=== PATIENT | female | born 1940 | race Caucasian/White ===

== ENCOUNTER → 2017-08-24 | Outpatient (CLI) | payer OTHER ==
[2013-10-20 09:42] VITALS: BP 148/75
--- NOTE | 2017-08-27 08:27 | MRI ---
MRI BRAIN WITHOUT CONTRAST CLINICAL HISTORY: 69-year-old female with headache and history of colon cancer. COMPARISON: None. TECHNIQUE: Multiplanar, multisequence MR images of the brain were obtained without contrast. FINDINGS: There is no evidence of diffusion restriction. The craniocervical junction is normal. Pitui tary and optic nerve complex are normal. Multifocal punctate T2 FLAIR signal hyperintensities are pre sent within the periventricular and supraventricular white matter that are nonspecific in appearance but most likely to represent microvascular white matter ischemic changes. Normal signal characteristi cs and morphology are demonstrated within the cerebral cortex, corpus callosum, deep blevins nuclei, bra instem and cerebellum. The major vascular flow voids, to include the dural venous sinuses, are intact . The ventricular system is normal in size and morphology. The basilar cisterns are normal. The orbits and globes are within normal limits. The paranasal sinuses, tympanic cavities and mastoids are clear. IMPRESSION: 1. No acute ischemic or hemorrhagic insult. 2. Mild, chronic microvascular white matter ischemic disease. 3. It should be noted that lack of intravenous contrast significantly limits the ability to detect ne oplastic process, primary or metastatic. Reported By:
--- NOTE | 2017-08-27 08:32 | MRI ---
MRI SPINE CERVICAL WITHOUT CONTRAST CLINICAL HISTORY: 77-year-old female with neck pain and headache with history of colon cancer. COMPARISON: None. Technique: Multiplanar, multisequence MRI images of the cervical spine were obtained without the adm inistration of intravenous contrast. FINDINGS: Straightening of the cervical lordosis as imaged. Subtle degenerative anterolisthesis C7 on T1. Moderate pannus at the atlantodental interval. Vertebral body and disc space height are maintain ed. Vertebral marrow and intervertebral disc space signal are normal. Cord signal is normal. The vi sualized posterior fossa structures are normal. C2-C3: No central canal or neural foraminal stenosis. C3-C4: Bilateral uncovertebral joint hypertrophy and facet hypertrophy combine to produce mild bilate ral neural foraminal stenosis. No central canal stenosis. C4-C5: Significant bilateral facet hypertrophy with mild uncovertebral joint hypertrophy produces mil d left neural foraminal stenosis. No central canal stenosis. C5-C6: Bilateral facet hypertrophy without significant foraminal stenosis. No central canal stenosis. C6-C7: Broad-based disc osteophyte complex with a central component that mildly effaces the subarachn oid spaces with subtle flattening of the ventral cord without cord signal change. Canal measures 12.5 mm. Uncovertebral and facet joint hypertrophy without neural foraminal stenosis. C7-T1: No central canal or neural foraminal stenosis. The common carotid and internal carotid arteries take a significant retropharyngeal course. Remaining paraspinous soft tissues are unremarkable. IMPRESSION: Mild multilevel disc degeneration and spondyloarthropathy described on a level by level basis above. Reported By:
== END | disposition home or self-care (01) | DRG 552 ==
LOC: RAD 13:46
PROVIDERS: ATTEND Internal Medicine
DX: M54.2 Cervicalgia (principal); C19 Malignant neoplasm of rectosigmoid junction; R51 Headache
CPT/HCPCS: 70551; 72141

== ENCOUNTER → 2018-03-20 | Outpatient (CLI) | payer OTHER, MEDICAID ==
[2013-10-20 09:42] VITALS: BP 148/75
--- NOTE | 2018-03-20 15:06 | CT ---
HISTORY: Right upper and right lower quadrant pain. Mid back pain. Study: Computed tomography of the abdomen pelvis: Multiple axial images were obtained throughout th e abdomen and pelvis. Intravascular contrast was not administered. Oral contrast was not administer ed. Radiation dose reduction techniques utilized. Comparison: 07/30/2015 Findings: Examination of the lung bases demonstrates no evidence of pleural effusions or pulmonary nodules. Th ere is what appears to be a small scar in the medial and in the lateral segment of the right middle l obe, not appearing to be appreciably changed. Minimal hypostatic changes present. The heart size is normal. A small nodule is present in the visualized left breast measuring approxim ately 11 mm in maximum dimension. I do not clearly see this on the prior examination, however, it ma y have been height of the field of view. Mammography is recommended. Ultrasound may be necessary as well. Coronary arterial calcification is present. The heart size is normal. No appreciable perica rdial effusion is present. The liver as visualized is normal. The patient is status post cholecystectomy. The common bile duct is dilated measuring up to 17 mm. It remains dilated down to the ampulla. The pancreas is mildly a trophic. The spleen is normal in its appearance. Cqrg-ea-ucsoejie atherosclerotic changes noted wit hin the aorta and its major branches. Mild is noted in the iliac arteries and their branches. Mild thickening of the left adrenal gland is noted, unchanged. There is suggestion of a nonobstructing ca lculus in the lower pole of the right kidney measuring approximately 1-2 mm in diameter. The left ki dney appears normal. No evidence of retroperitoneal lymph node enlargement or abdominal aortic aneur ysm is noted. The uterus is present and shows numerous calcified vessels. What are felt to be the o varies are normal. No evidence of ascites or free pelvic fluid is noted. The patient appears to be status post surgery with a midline incision. There is mild focal protrusion/herniation of fat and samantha wel over the anterior pelvic wall. There is diastasis recti present. The stomach is nondistended. The duodenum is nondistended. The small bowel is nondistended. No marco antonio dence of mesenteric adenopathy is identified. The patient appears to be status post right hemicolect maurice with and ileocolic anastomosis in the right upper abdominal quadrant. Stool and gas is noted wit hin the transverse colon and descending colon. There is moderate to moderately severe diverticulosis in the sigmoid colon. The sigmoid colon is moderately redundant. I see no evidence of diverticulit is. Examination of the bone windows reveals moderate lumbar spondylosis. Mild degenerative changes present within both hip joints. IMPRESSION: 1. Diverticulosis of a moderate to moderately severe degree in the sigmoid colon without evidence of diverticulitis. 2. Abdominal protrusion without a true hernia extending over the anterior pelvic wall. This has inc reased in size when compared to the prior examination. 3. Dilatation of the common bile duct, felt to be due to the patient being status post cholecystectom y and due to her age. 4. Possible nonobstructing calculus in the lower pole of the right kidney. 5. Small nodule in the left breast. Mammography and ultrasound may be of assistance. Reported By:
== END ==
LOC: RAD 14:19
PROVIDERS: ATTEND Internal Medicine
DX: M54.89 Other dorsalgia (principal); R10.31 Right lower quadrant pain; R10.11 Right upper quadrant pain; R10.84 Generalized abdominal pain; R19.00 Intra-abdominal and pelvic swelling, mass and lump, unspecified site; N20.0 Calculus of kidney; N63.20 Unspecified lump in the left breast, unspecified quadrant
CPT/HCPCS: 74176

== ENCOUNTER 2020-10-12 12:03 | Observation (INO) ==
[2020-10-12] MEDS: NS 1000 ML 1,000 ML IV SCH (14:35)
[2020-10-12] MEDS ORDERED: COLACE CAP 100 MG PO PRN (15:58)
--- NOTE | 2020-10-12 16:06 | MRI ---
HISTORYSevere HEADACHE for 4 days, WEAKNESS, SLURRED SPEECH, hypertensionSTUDYMRI brain without IV contrastCOMPARISONMRI 12/25/2019TECHNIQUEMultiplanar multi-sequence MRI of the brain was obtained without administration of IV contrast.FINDINGSThe cerebellar tonsils are normally positioned. Pituitary gland is normal in size. [Prominent diffuse volume loss is seen with compensatory enlargement of the ventricular system.]No areas of restricted diffusion. Mild chronic small vessel ischemic changes are seen in the periventricular white matter, very similar to prior study. [No evidence of intracranial hemorrhage.]Paranasal sinuses and mastoid air cells appear clear.IMPRESSIONMild chronic small vessel ischemic changes are similar to prior study. No acute abnormality is seen.Electronically signed by: German Bo (Oct 12, 2020 16:04:18)
[2020-10-12 16:11] VITALS: BMI 37.8
--- NOTE | 2020-10-12 16:11 | MRI ---
HISTORYHEADACHE for 4 days, WEAKNESS, SLURRED SPEECH, hypertensionSTUDYMRA HEAD without IV contrastCOMPARISONMRA 12/25/[id number] [id number] imaging of the intracranial circulation was performed with MIP reconstructions.IV contrast was not administered.FINDINGSDistal left vertebral artery is slightly dominant. Tiny posterior communicating arteries are suspected. Both P1 segments are present. Tiny anterior communicating artery is seen. No intracranial arterial stenosis or aneurysm is seen.IMPRESSIONUnremarkable MRA of the brain.Electronically signed by: German Bo (Oct 12, 2020 16:09:31)
[2020-10-12 16:12] LABS: BILIRUBIN,URINE NEGATIVE (NEGATIVE); BLOOD/HEMOGLOBIN,URINE NEGATIVE (NEGATIVE); GLUCOSE, URINE NEGATIVE (NEGATIVE); KETONES,URINE NEGATIVE (NEGATIVE); LEUKOCYTE ESTERASE ,URINE NEGATIVE (NEGATIVE); NITRITES,URINE NEGATIVE (NEGATIVE); PROTEIN,URINE NEGATIVE (NEGATIVE); UROBILINOGEN,URINE NORMAL (NORMAL)
[2020-10-12 16:13] LABS: APPEARANCE,URINE CLEAR (CLEAR); COLOR,URINE YELLOW (YELLOW)
[2020-10-12] MEDS ORDERED: ULTRAM PO PRN (17:11)
[2020-10-12] MEDS ORDERED: TYLENOL 325 MG TAB PO PRN (17:12)
[2020-10-12 18:02] LABS: BASOPHILS % (AUTO) 0.4 % (0.2-1.0); EOSINOPHILS # (AUTO) 0.1 x10^3/uL (0.0-0.2); EOSINOPHILS % (AUTO) 3.2 % (0.9-2.9); HEMATOCRIT 38.1 % (36.0-47.0); HEMOGLOBIN 12.5 g/dL (12.0-16.0); LYMPHOCYTES # (AUTO) 1.7 X10^3/uL (1.3-2.9); LYMPHOCYTES % (AUTO) 38.4 % (21.0-51.0); MEAN CORPUSCULAR HEMOGLOBIN 30.3 pg (27.0-34.0); MEAN CORPUSCULAR HGB CONC 32.8 g/dL (33.0-35.0); MEAN CORPUSCULAR VOLUME 92.5 fL (80.0-100.0); MEAN PLATELET VOLUME 9.5 fL (7.4-11.0); MONOCYTES # (AUTO) 0.4 x10^3/uL (0.3-0.8); MONOCYTES % (AUTO) 8.4 % (0.0-13.0); NEUTROPHILS # (AUTO) 2.2 x10^3/uL (2.2-4.8); NEUTROPHILS % (AUTO) 49.6 % (42.0-75.0); PLATELET COUNT 142 X10^3/uL (150.0-450.0); RED BLOOD COUNT 4.12 X10^6/uL (3.5-5.4); RED CELL DISTRIBUTION WIDTH 13.8 % (11.6-16.5); WHITE BLOOD COUNT 4.5 X10^3/uL (3.6-10.0)
[2020-10-12 18:48] LABS: ALANINE AMINOTRANSFERASE 24 Units/L (12-78); ALBUMIN 3.3 g/dL (3.4-5.0); ALKALINE PHOSPHATASE 50 Units/L (46-116); ASPARTATE AMINO TRANSFERASE 22 Units/L (15-37); BLOOD UREA NITROGEN 16 mg/dL (7-18); CALCIUM 9.1 mg/dL (8.5-10.1); CARBON DIOXIDE 29.8 mmol/L (21-32); CHLORIDE 108 mmol/L (98-107); CKMB % 2.6 % (<4); COR CA(FOR HYPOALB) 9.7 mg/dL (8.5-10.1); COR NA(FOR HYPERGLY) 145 mmol/L (136-145); CREATINE KINASE 38 Units/L (26-192); CREATINE KINASE MB < 1.0 ng/mL (0-4.0); CREATININE 0.82 mg/dL (0.55-1.02); SODIUM 145 mmol/L (136-145); TROPONIN I < 0.02 ng/mL (0-1.5); eGFR NON BLACK RACES > 60 (>60)
[2020-10-12] MEDS ORDERED: GLUCOPHAGE ONE (20:16)
[2020-10-12] MEDS ORDERED: TOPROL XL PO ONE (20:16)
[2020-10-12 21:00] LABS: CREATINE KINASE 50 Units/L (26-192); CREATINE KINASE MB < 1.0 ng/mL (0-4.0); TROPONIN I < 0.02 ng/mL (0-1.5)
[2020-10-12] MEDS ORDERED: TOPROL XL PO SCH (21:00)
[2020-10-12] MEDS ORDERED: ZOCOR TAB 20 MG PO SCH (21:00)
[2020-10-12] MEDS: GLUCOPHAGE PO SCH (21:37)
[2020-10-12] MEDS: CHECK PATCH XX SCH (21:38)
[2020-10-13 02:50] LABS: CKMB % 1.8 % (<4); CREATINE KINASE 57 Units/L (26-192); CREATINE KINASE MB < 1.0 ng/mL (0-4.0); TROPONIN I < 0.02 ng/mL (0-1.5)
[2020-10-13] MEDS: NS 1000 ML 1,000 ML IV SCH ×2 (05:37)
[2020-10-13 07:01] LABS: BASOPHILS % (AUTO) 0.4 % (0.2-1.0); EOSINOPHILS # (AUTO) 0.2 x10^3/uL (0.0-0.2); EOSINOPHILS % (AUTO) 3.6 % (0.9-2.9); HEMATOCRIT 36.8 % (36.0-47.0); HEMOGLOBIN 12.1 g/dL (12.0-16.0); LYMPHOCYTES # (AUTO) 1.5 X10^3/uL (1.3-2.9); LYMPHOCYTES % (AUTO) 33.6 % (21.0-51.0); MEAN CORPUSCULAR HEMOGLOBIN 30.5 pg (27.0-34.0); MEAN CORPUSCULAR HGB CONC 32.9 g/dL (33.0-35.0); MEAN CORPUSCULAR VOLUME 92.8 fL (80.0-100.0); MEAN PLATELET VOLUME 9.9 fL (7.4-11.0); MONOCYTES # (AUTO) 0.4 x10^3/uL (0.3-0.8); MONOCYTES % (AUTO) 8.1 % (0.0-13.0); NEUTROPHILS # (AUTO) 2.5 x10^3/uL (2.2-4.8); NEUTROPHILS % (AUTO) 54.3 % (42.0-75.0); PLATELET COUNT 130 X10^3/uL (150.0-450.0); RED BLOOD COUNT 3.96 X10^6/uL (3.5-5.4); RED CELL DISTRIBUTION WIDTH 13.7 % (11.6-16.5); WHITE BLOOD COUNT 4.6 X10^3/uL (3.6-10.0)
[2020-10-13 07:41] LABS: ALANINE AMINOTRANSFERASE 22 Units/L (12-78); ALBUMIN 3.1 g/dL (3.4-5.0); ALKALINE PHOSPHATASE 45 Units/L (46-116); ASPARTATE AMINO TRANSFERASE 25 Units/L (15-37); BLOOD UREA NITROGEN 15 mg/dL (7-18); CALCIUM 9.1 mg/dL (8.5-10.1); CHLORIDE 108 mmol/L (98-107); COR CA(FOR HYPOALB) 9.8 mg/dL (8.5-10.1); COR NA(FOR HYPERGLY) 145 mmol/L (136-145); CREATININE 0.67 mg/dL (0.55-1.02); SODIUM 144 mmol/L (136-145); TOTAL PROTEIN 5.7 g/dL (6.4-8.2); eGFR NON BLACK RACES > 60 (>60)
[2020-10-13] MEDS ORDERED: GLUCOPHAGE ONE (08:31)
[2020-10-13] MEDS: GLUCOPHAGE PO SCH (08:59)
[2020-10-13] MEDS ORDERED: K-DUR TAB 20 MEQ PO SCH (09:00)
[2020-10-13] MEDS ORDERED: REQUIP PO SCH (09:00)
[2020-10-13] MEDS ORDERED: DETROL LA 4 MG CAP EXT REL PO SCH (09:00)
[2020-10-13] MEDS ORDERED: NexIUM PO SCH (09:00)
[2020-10-13] MEDS ORDERED: COZAAR PO SCH (09:00)
[2020-10-13] MEDS: CHECK PATCH XX SCH (09:01)
[2020-10-13] MEDS ORDERED: APRESOLINE TAB 25 MG PO SCH (09:16)
[2020-10-13 11:39] VITALS: BP 119/67
[2020-10-16] MEDS ORDERED: CATAPRES-TTS-3 TD SCH (09:00)
--- NOTE | 2020-11-05 14:18 | DR.CARTERS ---
Short Stay Summary - Short Stay Summary for: Short Stay Summary for Date of:: 10/12/20 - Admission Date Date of Admission: 10/12/20 - Discharge Date Discharge Date: 10/13/20 - Admission Diagnoses (1) Hypertension Status: Chronic (2) Slurred speech Status: Acute (3) Dizziness Status: Acute (4) Headache Status: Acute - Hospital Course Hospital Course: IS A 80 YEAR OLD PATIENT OF OURS WHO PRESENTED TO THE OFFICE WITH COMPLAINTS OF SEVERE HEADACHE, WEAKNESS, DIZZINESS, SLURRED SPEECH, AND INCREASED BLOOD PRESSURE. SHE WAS DIRECT ADMITTED TO THE HOSPTIAL FOR FURTHER EVALUATION AND TREATMENT TO RULE OUT ACUTE CVA. ON ARRIVAL TO THE HOSPITAL, VITALS WERE 98.0-71-20-94%RA-178/72. LABS WERE OBTAINED. ABNORMAL LAB VALUES INCLUDED THE FOLLOWING: PLT COUNT 142, CHLORIDE 108, GLUCOSE 113, TOTAL PROTEIN 6.0, ALBUMIN 3.3. CARDIAC ENZYMES WERE WITHIN NORMAL LIMITS. URINALYSIS WAS UNREMARKABLE. COVID-19 NEGATIVE. BLOOD AND URINE CULTURES WERE SET UP. A BRAIN MRI WAS OBTAINED AND REVEALED: Mild chronic small vessel ischemic changes are similar to prior study. No acute abnormality is seen. BRAIN MRA OBTAINED AND REVEALED: Distal left vertebral artery is slightly dominant. Tiny posterior communicating arteries are suspected. Both P1 segments are present. Tiny anterior communicating artery is seen. No intracranial arterial stenosis or aneurysm is seen. EKG REVEALED: SINUS RHYTHM WITH HR 70. SHE WAS STARTED ON NORMAL SALINE AT 80 ML/HR, CLONIDINE 0.3MG PATCH, COLACE 100MG PO BID PRN, NEXIUM 40MG PO DAILY, LOSARTAN 100MG PO DAILY, METFORMIN 500MG PO BID, METOPROLOL 50MG PO HS, POTASSIUM CHLORIDE 20MEQ PO DAILY, ROPINIROLE 0.5MG PO DAILY, SIMVASTATIN 20MG PO HS, TOLTERODINE TARTRATE 4MG PO DAILY, TRAMADOL 75MG PO BID PRN, TYLENOL 650MG PO BID PRN, AND HYDRALAZINE 25MG PO BID. WE PLANNED TO OBTAIN SERIAL CARDIAC ENZYMES AND EKGS. OTHERWISE, WE PLANNED TO FOLLOW UP WITH AM LABS AND CONTINUE TO MONITOR. ON MORNING ROUNDS, PATIENT IS ALERT, ORIENTED, AND LYING IN BED ON MORNING ROUNDS. SHE DENIES HEADACHE OR DIZZINESS. SPEECH IS NO LONGER SLURRED AT THIS TIME. PATIENT REPORTS IMPROVEMENT IN SYMPTOMS TODAY. ON EXAMINATION, HEART IS REGULAR IN RATE AND RHYTHM. BILATERAL LUNGS ARE NOTED WITH DIMINISHED LUNG SOUNDS THROUGHOUT. ABDOMEN IS ROUND, SOFT, AND NON-TENDER WITH NORMAL BOWEL SOUNDS NOTED IN ALL QUADRANTS. HER VITALS THIS MORNING ARE: 98.4-67-18-96%-119/67. LABS WERE OBTAINED. ABNORMAL LAB VALUES INCLUDE THE FOLLOWING: PLT COUNT 130, CHLORIDE 108, GLUCOSE 127, ALK PHOS 45, TOTAL PROTEIN 5.7, ALBUMIN 3.1. CARDIAC ENZYMES HAVE BEEN WITHIN NORMAL LIMITS. NO CHANGES NOTED TO EKGS. WE PLANNED FOR DISCHARGE. INSTRUCTIONS FOR MEDICATIONS AND FOLLOW UP WERE DISCUSSED WITH PATIENT. SHE VERBALIZED UNDERSTANDING OF ALL ORDERS. SHE WAS GIVEN A PRESCRIPTION FOR HYDRALAZINE 25MG PO BID AND INSTRUCTED TO FOLLOW UP IN THE OFFICE WITHIN ONE WEEK. PATIENT WAS DISCHARGED HOME WITH FAMILY IN STABLE CONDITION. TIME SPENT ON CLINICAL ASSESSMENT, REVIEWING LABS AND IMAGING, DECSION MAKING, AND DOCUMENTATION GREATER THAN 75 MINUTES. - Discharge Medications Discharge Medications: Home Medication List clonidine 1 patch TOPICAL WEEKLY 10/12/20 [History] docusate sodium 100 mg PO BID PRN 10/12/20 [History] esomeprazole magnesium [Nexium] 40 mg PO DAILY 10/12/20 [History] losartan 100 mg PO DAILY 10/12/20 [History] metformin 500 mg PO BID 10/12/20 [History] metoprolol succinate 50 mg PO HS 10/12/20 [History] potassium chloride 20 meq PO DAILY 10/12/20 [History] ropinirole 0.5 mg PO DAILY 10/12/20 [History] simvastatin 20 mg PO HS 10/12/20 [History] tolterodine 4 mg PO DAILY 10/12/20 [History] tramadol-acetaminophen 2 tab PO BID PRN 10/12/20 [History] hydralazine 25 mg PO BID #60 tab 10/13/20 [Rx] Prescriptions: hydralazine Fernie Green - Discharge Plan Disposition: HOME HEALTH SERVICE Condition: Stable Prescriptions: hydralazine 25 mg PO BID #60 tab - Follow up/Referrals Follow up/Referrals: Fernie Green [Primary Care Provider] - 10/20/20 3:15 pm (tele-med telephone visit ) - Instructions Instructions: Fall Prevention in the Home, Adult, Bnqq-[id number], Transient Ischemic Attack, Vyac-xz-Sukz, Arthritis, Sljj-vf-Lzne, Hypertension, Zoho-yn-Jgqg, Form - Blood Pressure Record Sheet, Gastroesophageal Reflux Disease, Adult, Gosv-hd-Jmof Additional Instructions: DIET TOLERATED. ACTIVITY TOLERATED. Forms: Excuse From Work or School, Precautions for COVID19, Patient Portal, Social Distancing
== END 2020-10-13 13:45 | disposition home health service (06) ==
LOC: OBS → MED/SURG 13:41
PROVIDERS: ADMIT Internal Medicine; ATTEND Internal Medicine

== ENCOUNTER 2021-01-01 18:29 | Inpatient (IN) ==
[2021-01-01] MEDS ORDERED: NS 1000 ML 1,000 ML IV ONE (19:01)
[2021-01-01] MEDS ORDERED: NS 1000 ML 1,000 ML ONE (19:13)
[2021-01-01 19:15] LABS: EOSINOPHILS # (AUTO) 0.1 x10^3/uL (0.0-0.2); HEMOGLOBIN 12.4 g/dL (12.0-16.0)
[2021-01-01 19:36] LABS: BASOPHILS % (AUTO) 0.5 % (0.2-1.0); EOSINOPHILS % (AUTO) 0.8 % (0.9-2.9); HEMATOCRIT 37.9 % (36.0-47.0); LYMPHOCYTES # (AUTO) 0.6 X10^3/uL (1.3-2.9); LYMPHOCYTES % (AUTO) 8.9 % (21.0-51.0); MEAN CORPUSCULAR HEMOGLOBIN 30.2 pg (27.0-34.0); MEAN CORPUSCULAR HGB CONC 32.6 g/dL (33.0-35.0); MEAN CORPUSCULAR VOLUME 92.4 fL (80.0-100.0); MEAN PLATELET VOLUME 9.2 fL (7.4-11.0); MONOCYTES # (AUTO) 0.4 x10^3/uL (0.3-0.8); MONOCYTES % (AUTO) 5.6 % (0.0-13.0); NEUTROPHILS # (AUTO) 6.1 x10^3/uL (2.2-4.8); NEUTROPHILS % (AUTO) 84.2 % (42.0-75.0); PLATELET COUNT 189 X10^3/uL (150.0-450.0); WHITE BLOOD COUNT 7.2 X10^3/uL (3.6-10.0)
[2021-01-01 19:46] LABS: ALANINE AMINOTRANSFERASE 193 Units/L (12-78); ALKALINE PHOSPHATASE 449 Units/L (46-116); ASPARTATE AMINO TRANSFERASE 158 Units/L (15-37); BLOOD UREA NITROGEN 25 mg/dL (7-18); CALCIUM 9.3 mg/dL (8.5-10.1); CARBON DIOXIDE 26.5 mmol/L (21-32); CHLORIDE 100 mmol/L (98-107); COR CA(FOR HYPOALB) 10.1 mg/dL (8.5-10.1); COR NA(FOR HYPERGLY) 138 mmol/L (136-145); CREATININE 0.93 mg/dL (0.55-1.02); LIPASE 120 Units/L (73-393); SODIUM 137 mmol/L (136-145); TOTAL PROTEIN 6.6 g/dL (6.4-8.2); eGFR NON BLACK RACES > 60 (>60)
[2021-01-01] MEDS ORDERED: ZOFRAN INJ 4 MG VIAL IVP ONE (20:29)
[2021-01-01] MEDS ORDERED: MORPHINE SULFATE INJ 4 MG IVP ONE ×2 (20:29→21:29)
[2021-01-01] MEDS ORDERED: ZOFRAN INJ 4 MG VIAL ONE (20:30)
[2021-01-01] MEDS ORDERED: MORPHINE SULFATE INJ 4 MG ONE ×2 (20:30→21:30)
--- NOTE | 2021-01-01 21:19 | DR.NAUSEAF ---
HPI Time Seen Time Seen by Provider: 01/01/21 18:50 Primary Care Physician Primary Care Physician: TIARRA MATTHEWS HPI Comment HPI Comment: returned to pursue admission here. worsening n/v. seen yeseterday for same- jaundiced. elev lfts. hep panel pending. Complaints Chief Complaint Doctors Comments: as above Chief Complaint:: PT STATES " I WAS TOLD TO COME BACK TO ER IF I GET WORSE AND I HAVE BEEN HURTING IN STOMACH AND IT GOES TO MY BACK AND IT'S WORSE THAN HAVING A CHILD ( PT UNABLE TO ELABORATE) PT IS JAUNDICE AND HER SCLERA IS YELLOW , PT C/O NAUSEA NO VOMITTING,,BR COVID-19 Coronavirus risk:travel/contact w/high risk person: No Has patient experienced Coronavirus symptoms: No Reviewed Nurses Notes Reviewed: Yes Source History Provided: Patient Mode of Arrival Mode of Arrival: Wheelchair Timing Onset of Chief Complaint: 12/31/20 PMH PMH Past Medical History: Yes Past Medical History: Arthritis, Asthma, Diabetes, Dyslipidemia, GERD and Hypertension Past Surgical History: Yes Surgical History: Bowel Resection, Cholecystectomy, Joint Replacement and Other Family History History of Family Medical Conditions: No Family Medical History: Diabetes Mellitus, Cancer and Hypertension Social History Does patient currently use any type of tobacco product: No Have you used tobacco products in the last 12 months: No Type of Tobacco Use: None Does any household member use tobacco: No Alcohol Use: None Do you use any recreational Drugs:: No Lives With: Family Lives Where: Home Travel Risk Coronavirus risk:travel/contact w/high risk person: No Has patient experienced Coronavirus symptoms: No Infectious screening In the last 2 months have you had wt loss of >10#?: NO Have you had fever, night sweats or hemotysis?: No Have you traveled outside the country in the last 6 months?: No Isolation: Standard ROS Review of Systems Constitutional: See HPI, Malaise and Loss of Appetite Eyes: No Symptoms Reported ENTM: No Symptoms Reported Respiratoy: No Symptoms Reported Cardiovascular: No Symptoms Reported Gastrointestinal/Abdominal: See HPI, Abdominal Pain, Nausea and Vomiting Genitourinary: No Symptoms Reported Neurological: No Symptoms Reported Musculoskeletal: No Symptoms Reported Integumentary: No Symptoms Reported Hematologic/Lymphatic: No Symptoms Reported All Other Systems: Reviewed and Negative PE Vital Signs Vitals: Temperature 97.6 F Pulse Rate 113 Respiratory Rate 18 Blood Pressure [Right Arm] 119/67 Blood Pressure [Left Arm] 196/86 Blood Pressure 198/92 O2 Sat by Pulse Oximetry 97 General Limitations: No Limitations General Appearance: Anxious and In Distress Head Head Exam: Normal Inspection Eyes Eye exam: Scleral Icterus ENT ENT Exam: Mucous Membranes Dry Neck Neck Exam: Normal Inspection and Full ROM Chest Chest Inspection: Normal Inspection Respiratory Respiratory Exam: Normal Lung Sounds Bilat; negative Accessory Muscle Use Cardiovascular Cardiovascular Exam: Regular Rate and Normal Rhythm; negative Tachycardia Abdominal Exam Abdominal Exam: Normal Inspection, Normal Bowel Sounds, Soft and Tenderness; negative Guarding and Rebound Abdominal Tenderness: RUQ Extremities Extremities Exam: Normal Inspection Back Back Exam: Normal Inspection Neurologic Neurological Exam: Alert, Oriented X3 and CN II-XII Intact Psychiatric Psychiatric Exam: Normal Affect and Normal Mood Skin Skin Exam: Warm, Dry and Intact MDM Differential Diagnosis Differential Diagnosis: Considerations may Include:: Hepatitis and Other (nausea w vomiting) ROR Labs Reviewed Laboratory Results Reviewed?: Yes Result Diagrams: 01/01/21 19:25 01/01/21 19:25 Laboratory: WBC 7.2 X10^3/uL (3.6-10.0) 01/01/21 19:25 RBC 4.10 X10^6/uL (3.5-5.4) 01/01/21 19:25 Hgb 12.4 g/dL (12.0-16.0) 01/01/21 19:25 Hct 37.9 % (36.0-47.0) 01/01/21 19:25 MCV 92.4 fL (80.0-100.0) 01/01/21 19:25 MCH 30.2 pg (27.0-34.0) 01/01/21 19:25 MCHC 32.6 g/dL (33.0-35.0) L 01/01/21 19:25 RDW 15.0 % (11.6-16.5) 01/01/21 19:25 Plt Count 189 X10^3/uL (150.0-450.0) 01/01/21 19:25 MPV 9.2 fL (7.4-11.0) 01/01/21 19:25 Neut % (Auto) 84.2 % (42.0-75.0) H 01/01/21 19:25 Lymph % (Auto) 8.9 % (21.0-51.0) L 01/01/21 19:25 [place] % (Auto) 5.6 % (0.0-13.0) 01/01/21 19:25 Eos % (Auto) 0.8 % (0.9-2.9) L 01/01/21 19:25 Baso % (Auto) 0.5 % (0.2-1.0) 01/01/21 19:25 Neut # (Auto) 6.1 x10^3/uL (2.2-4.8) H 01/01/21 19:25 Lymph # (Auto) 0.6 X10^3/uL (1.3-2.9) L 01/01/21 19:25 [place] # (Auto) 0.4 x10^3/uL (0.3-0.8) 01/01/21 19:25 Eos # (Auto) 0.1 x10^3/uL (0.0-0.2) 01/01/21 19:25 Baso # (Auto) 0.0 X10^3/uL (0.0-0.1) 01/01/21 19:25 Absolute Nucleated RBC 0.0 /100WBC 01/01/21 19:25 Sodium 137 mmol/L (136-145) 01/01/21 19:25 Corrected Sodium 138 mmol/L (136-145) 01/01/21 19:25 Potassium 3.8 mmol/L (3.5-5.1) 01/01/21 19:25 Chloride 100 mmol/L (98-107) 01/01/21 19:25 Carbon Dioxide 26.5 mmol/L (21-32) 01/01/21 19:25 BUN 25 mg/dL (7-18) H 01/01/21 19:25 Creatinine 0.93 mg/dL (0.55-1.02) 01/01/21 19:25 Est GFR (MDRD) Af Amer > 60 (>60) 01/01/21 19:25 Est GFR (MDRD) Non-Af > 60 (>60) 01/01/21 19:25 Glucose 127 mg/dL (65-99) H 01/01/21 19:25 Calcium 9.3 mg/dL (8.5-10.1) 01/01/21 19:25 Corrected Calcium 10.1 mg/dL (8.5-10.1) 01/01/21 19:25 Total Bilirubin 4.70 mg/dL (0.2-1.0) H 01/01/21 19:25 AST 158 Units/L (15-37) H 01/01/21 19:25 ALT 193 Units/L (12-78) H 01/01/21 19:25 Alkaline Phosphatase 449 Units/L (46-116) H 01/01/21 19:25 Total Protein 6.6 g/dL (6.4-8.2) 01/01/21 19:25 Albumin 3.0 g/dL (3.4-5.0) L 01/01/21 19:25 Globulin 3.6 g/dL (2.5-4.5) 01/01/21 19:25 Albumin/Globulin Ratio 0.8 Ratio (1.1-2.1) L 01/01/21 19:25 Lipase 120 Units/L (73-393) 01/01/21 19:25 Opioid Opioid Risk Tool Age (Sean box if 16-45): No History of Preadolescent Sexual Abuse: No Total: 0 Total Score Risk Category: Low Risk Copyright: Phi LÓPEZ predicting aberrant behaviors Diagnosis Discharge Problem: Hepatitis, Nausea & vomiting Narrative Support Text: admitted to dr paris. pcp dr seay
[2021-01-01] MEDS ORDERED: ZOFRAN INJ 4 MG VIAL IVP PRN (21:39)
[2021-01-01] MEDS ORDERED: PHARMACY CONSULT - IVERMECTIN XX SCH (22:00)
[2021-01-01] MEDS: NS 1000 ML 1,000 ML IV SCH (22:39)
[2021-01-01] MEDS ORDERED: REMDESIVIR 200 MG in NS 250 ML IV 250 ML IV ONE (23:02)
[2021-01-01] MEDS: DILAUDID INJ IVP PRN (23:08)
[2021-01-01] MEDS: BROVANA IN SCH (23:30)
[2021-01-01] MEDS: PULMICORT NEB TX 0.5 MG NEB SCH (23:30)
[2021-01-02] MEDS: ASCORBIC ACID INJ MULTI-DOSE VIAL 1,500 MG in NS 100 ML IV 100 ML IV SCH ×4 (02:38→20:16)
[2021-01-02] MEDS: DILAUDID INJ IVP PRN ×3 (03:10→11:21)
[2021-01-02 05:08] LABS: BASOPHILS # (AUTO) 0.1 X10^3/uL (0.0-0.1); BASOPHILS % (AUTO) 0.6 % (0.2-1.0); HEMOGLOBIN 12.5 g/dL (12.0-16.0); LYMPHOCYTES # (AUTO) 0.5 X10^3/uL (1.3-2.9); MEAN CORPUSCULAR HEMOGLOBIN 29.8 pg (27.0-34.0); MEAN CORPUSCULAR HGB CONC 32.1 g/dL (33.0-35.0); MEAN CORPUSCULAR VOLUME 92.9 fL (80.0-100.0); MEAN PLATELET VOLUME 9.8 fL (7.4-11.0); MONOCYTES # (AUTO) 0.7 x10^3/uL (0.3-0.8); MONOCYTES % (AUTO) 4.5 % (0.0-13.0); NEUTROPHILS # (AUTO) 13.9 x10^3/uL (2.2-4.8); NEUTROPHILS % (AUTO) 91.9 % (42.0-75.0); PLATELET COUNT 192 X10^3/uL (150.0-450.0); WHITE BLOOD COUNT 15.1 X10^3/uL (3.6-10.0)
[2021-01-02 05:14] LABS: ALANINE AMINOTRANSFERASE 179 Units/L (12-78); ALBUMIN 2.8 g/dL (3.4-5.0); ALKALINE PHOSPHATASE 426 Units/L (46-116); ASPARTATE AMINO TRANSFERASE 161 Units/L (15-37); BLOOD UREA NITROGEN 19 mg/dL (7-18); CALCIUM 9.2 mg/dL (8.5-10.1); CARBON DIOXIDE 27.6 mmol/L (21-32); CHLORIDE 101 mmol/L (98-107); COR CA(FOR HYPOALB) 10.2 mg/dL (8.5-10.1); COR NA(FOR HYPERGLY) 140 mmol/L (136-145); CREATININE 0.69 mg/dL (0.55-1.02); SODIUM 137 mmol/L (136-145); TOTAL PROTEIN 6.2 g/dL (6.4-8.2); eGFR NON BLACK RACES > 60 (>60)
[2021-01-02] MEDS ORDERED: APRESOLINE INJ 20 MG VIAL IVP ONE (05:26)
[2021-01-02 05:32] LABS: PLATELET MORPHOLOGY COMMENT NORMAL (NORMAL)
[2021-01-02] MEDS: HumuLIN R SUBCUT PRN ×4 (05:52→20:18)
--- NOTE | 2021-01-02 06:01 | RAD ---
HISTORYcovidSTUDYPortable AP lijaiHETHDNOLOF63/05/2021FINDINGSContinued upper-normal heart size with dilated thoracic aorta. The u pper lobes are clear. There is suggestion of minimal developing atelectasis or infiltrate at the righ t medial base. There is no evidence for vascular congestion, pneumothorax or pleural fluid.IMPRESSION Interval appearance of small focal infiltrate or atelectasis at the right lung base. No change otherw ise since 1 day prior.Electronically signed by: TANA SWAIN (Jan 02, 2021 05:59:34)
[2021-01-02] MEDS ORDERED: POTASSIUM CHLORIDE LIQ 20 MEQ UDC PO PRN (06:56)
[2021-01-02] MEDS ORDERED: POTASSIUM CHL 40 MEQ/NS 0.45% 500 ML IV PRN (06:56)
[2021-01-02] MEDS ORDERED: K-RIDER 10 MEQ/NS 100 ML 10 MEQ/100 ML BAG IV PRN (06:56)
[2021-01-02] MEDS ORDERED: KLOR-CON PO PRN (06:56)
[2021-01-02] MEDS ORDERED: POTASSIUM CHL 60 MEQ/NS 0.45% 500 ML IV PRN (06:56)
[2021-01-02] MEDS ORDERED: MICRO K EXTEN CAP 10 MEQ PO PRN (06:56)
[2021-01-02] MEDS: ZINC SULFATE PO SCH ×2 (08:30→20:17)
[2021-01-02] MEDS: LOVENOX INJ 30 MG SYR SC SCH ×2 (08:30→20:16)
[2021-01-02 08:59] LABS: BILIRUBIN,URINE 1+ (NEGATIVE); BLOOD/HEMOGLOBIN,URINE NEGATIVE (NEGATIVE); GLUCOSE, URINE 2+ (NEGATIVE); KETONES,URINE 2+ (NEGATIVE); LEUKOCYTE ESTERASE ,URINE NEGATIVE (NEGATIVE); NITRITES,URINE NEGATIVE (NEGATIVE); PROTEIN,URINE 1+ (NEGATIVE); UROBILINOGEN,URINE 2+ (NORMAL)
[2021-01-02 09:00] LABS: APPEARANCE,URINE CLEAR (CLEAR); COLOR,URINE DARK YELLOW (YELLOW)
[2021-01-02] MEDS ORDERED: THIAMINE HCL INJ IVP SCH (09:00)
[2021-01-02] MEDS ORDERED: VITAMIN A PO SCH (09:00)
[2021-01-02] MEDS ORDERED: VITAMIN D (1.25MG) PO SCH (09:00)
[2021-01-02] MEDS: BROVANA IN SCH (09:08)
[2021-01-02 09:12] LABS: AMORPHOUS SEDIMENT,UR TRACE /HPF (NEGATIVE); BACTERIA,URINE 2+ /HPF (NEGATIVE); RBC,URINE NONE SEEN /HPF (0-3); SQUAMOUS EPITHELIAL CELL,UR RARE /HPF (NEGATIVE)
[2021-01-02 09:13] LABS: HYALINE CASTS, URINE RARE /LPF (NEGATIVE); YEAST,URINE RARE /HPF (NEGATIVE)
[2021-01-02] MEDS: PULMICORT NEB TX 0.5 MG NEB SCH ×2 (09:14→21:28)
[2021-01-02] MEDS ORDERED: DUONEB 0.5 MG/3 MG (3 mL) NEB ONE (09:40)
[2021-01-02] MEDS: DUONEB 0.5 MG/3 MG (3 mL) NEB SCH ×3 (09:41→21:28)
[2021-01-02] MEDS: MAGNESIUM SULFATE 1 GRAM/100 mL PREMIX 1 GM/100 ML BAG IV PRN ×3 (09:44→22:45)
[2021-01-02] MEDS ORDERED: CATAPRES-TTS-3 TD SCH (10:00)
[2021-01-02] MEDS: K-DUR TAB 20 MEQ PO PRN (11:24)
[2021-01-02] MEDS: DETROL LA 4 MG CAP EXT REL PO SCH (11:24)
[2021-01-02] MEDS: DECADRON TAB PO SCH (11:24)
[2021-01-02] MEDS: APRESOLINE TAB 25 MG PO SCH ×2 (11:24→20:17)
[2021-01-02] MEDS: ASPIRIN PO SCH (11:24)
[2021-01-02] MEDS: BENTYL CAP 10 MG PO PRN (11:24)
[2021-01-02] MEDS: COZAAR PO SCH (11:24)
[2021-01-02] MEDS: REMDESIVIR 100 MG in NS 250 ML IV 250 ML IV SCH (11:25)
--- NOTE | 2021-01-02 11:42 | DR.H&P ---
H&P History & Physical for Day of: H&P Date: 01/02/21 Chief Complaint Chief Complaint: worsening abdominal pain, nausea and vomiting Allergies Allergies Allergy/AdvReac Type Severity Reaction Status Date / Time No Known Drug Allergies Allergy Verified 01/01/21 18:38 History of Present Illness History of Present Illness: Ms. Escalera is a 80y/o female with a PMH of HTN, arthritis, GERD, hiatal hernia, diverticulosis and Type 2 DM presented with worsening abdominal pain associated with nausea and vomiting. Patient states it has been going on for 2 weeks. She came to the ER on Sunday due to having jaundice and was advised to be admitted but she left. Liver U/S then showed hepatic steatosis. She came back last night due to increased abdominal pain. She denies fever or chills. Denies cough. She states pain is in the epigastric area and radiates to the back. She ate a few bits this morning. D enies sick contact at home or any exposure. She is currently on 2L nasal cannula and does not use oxygen at home. ER work-up WBC 15.1 Hgb 12.5 K: 3.5 Mg 1.2 BUN/Cr: 19/0.69 Total emanuel 5.90 AST: 161 ALT 179 Alk phos 426 Liver U?S: hepatic steatosis CXR: right lung base small infiltrate UA: suggestive of infection COVID-19 positive Hep panel pending She was started on Remdesivir, Ivermectin and bronchodialtors. Plan: will add zosyn, continue Remdesivir/Ivermectin. Add decadron. Will do CTAP to evaluate further. Continue pain control and anti-emetics. Continue gentle hydration. Continue SSI. Resume home medications. Monitor LFTs. Add duonebs and IS. Follow cultures. Monitor AM labs and imaging. Wean O2 as tolerated. Continue vitamin support. Follow up hepatitis panel. Time spent for clinical assessment, reviewing labs/imaging, physical exam, decision making and documentation greater than 75 mins. Past Medical History Past Medical History: Arthritis, Asthma, Diabetes, Dyslipidemia, GERD and Hypertension Additional Medical History: CATARACTS, HIATAL HERNIA, DIVERTICULOSIS, COLON CANCER Past Surgical History Surgical History: Bowel Resection, Cholecystectomy, Joint Replacement and Ortho Surgery Additional Surgical History: COLON RESECTION, CATARACT REMOVAL Family History Family Medical History: Diabetes Mellitus, Cancer and Hypertension Social History Does patient currently use any type of tobacco product: No Have you used tobacco products in the last 12 months: No Type of Tobacco Use: None Does any household member use tobacco: No Alcohol Use: None Drug Use: None Prescription drug monitoring program results: PDMP reviewed and no concerns identified Medications Home Medications: No Known Drug Allergies Allergy (Verified 01/01/21 18:38) CONTINUE taking the following medications tramadol-acetaminophen 2 tab PO BID PRN 01/01/21 [History] Labs Result Diagrams: 01/02/21 04:10 01/02/21 04:10 Labs: Laboratory WBC 15.1 X10^3/uL (3.6-10.0) H 01/02/21 04:10 RBC 4.20 X10^6/uL (3.5-5.4) 01/02/21 04:10 Hgb 12.5 g/dL (12.0-16.0) 01/02/21 04:10 Hct 39.0 % (36.0-47.0) 01/02/21 04:10 MCV 92.9 fL (80.0-100.0) 01/02/21 04:10 MCH 29.8 pg (27.0-34.0) 01/02/21 04:10 MCHC 32.1 g/dL (33.0-35.0) L 01/02/21 04:10 RDW 15.0 % (11.6-16.5) 01/02/21 04:10 Plt Count 192 X10^3/uL (150.0-450.0) 01/02/21 04:10 Plt Count Comment Adequate (ADEQUATE) 01/02/21 04:10 MPV 9.8 fL (7.4-11.0) 01/02/21 04:10 Neut % (Auto) 91.9 % (42.0-75.0) H 01/02/21 04:10 Lymph % (Auto) 3.0 % (21.0-51.0) L 01/02/21 04:10 [place] % (Auto) 4.5 % (0.0-13.0) 01/02/21 04:10 Eos % (Auto) 0.0 % (0.9-2.9) L 01/02/21 04:10 Baso % (Auto) 0.6 % (0.2-1.0) 01/02/21 04:10 Neut # (Auto) 13.9 x10^3/uL (2.2-4.8) H 01/02/21 04:10 Lymph # (Auto) 0.5 X10^3/uL (1.3-2.9) L 01/02/21 04:10 [place] # (Auto) 0.7 x10^3/uL (0.3-0.8) 01/02/21 04:10 Eos # (Auto) 0.0 x10^3/uL (0.0-0.2) 01/02/21 04:10 Baso # (Auto) 0.1 X10^3/uL (0.0-0.1) 01/02/21 04:10 Absolute Nucleated RBC 0.0 /100WBC 01/02/21 04:10 Total Counted 100 01/02/21 04:10 Neutrophils % (Manual) 92 % (39-76) H 01/02/21 04:10 Lymphocytes % (Manual) 5 % (13-43) L 01/02/21 04:10 Monocytes % (Manual) 3 % (4-9) L 01/02/21 04:10 Plt Morphology Comment Normal (NORMAL) 01/02/21 04:10 RBC Morphology Normal (NORMAL) 01/02/21 04:10 Sodium 137 mmol/L (136-145) 01/02/21 04:10 Corrected Sodium 140 mmol/L (136-145) 01/02/21 04:10 Potassium 3.5 mmol/L (3.5-5.1) 01/02/21 04:10 Chloride 101 mmol/L (98-107) 01/02/21 04:10 Carbon Dioxide 27.6 mmol/L (21-32) 01/02/21 04:10 BUN 19 mg/dL (7-18) H 01/02/21 04:10 Creatinine 0.69 mg/dL (0.55-1.02) 01/02/21 04:10 Est GFR (MDRD) Af Amer > 60 (>60) 01/02/21 04:10 Est GFR (MDRD) Non-Af > 60 (>60) 01/02/21 04:10 Glucose 222 mg/dL (65-99) H 01/02/21 04:10 POC Glucose (mg/dL) 235 mg/dL (65-99) H 01/02/21 11:31 Calcium 9.2 mg/dL (8.5-10.1) 01/02/21 04:10 Corrected Calcium 10.2 mg/dL (8.5-10.1) H 01/02/21 04:10 Magnesium 1.2 mg/dL (1.7-2.9) L 01/02/21 04:10 Total Bilirubin 5.90 mg/dL (0.2-1.0) H 01/02/21 04:10 AST 161 Units/L (15-37) H 01/02/21 04:10 ALT 179 Units/L (12-78) H 01/02/21 04:10 Alkaline Phosphatase 426 Units/L (46-116) H 01/02/21 04:10 Total Protein 6.2 g/dL (6.4-8.2) L 01/02/21 04:10 Albumin 2.8 g/dL (3.4-5.0) L 01/02/21 04:10 Globulin 3.4 g/dL (2.5-4.5) 01/02/21 04:10 Albumin/Globulin Ratio 0.8 Ratio (1.1-2.1) L 01/02/21 04:10 Lipase 120 Units/L (73-393) 01/01/21 19:25 Specimen Type Clean catch urine 01/02/21 08:45 Urine Color Dark yellow (YELLOW) 01/02/21 08:45 Urine Appearance Clear (CLEAR) 01/02/21 08:45 Urine pH 5.0 (5.0 - 8.0) 01/02/21 08:45 Ur Specific [place] 1.020 (1.000-1.030) 01/02/21 08:45 Urine Protein 1+ (NEGATIVE) 01/02/21 08:45 Urine Glucose (UA) 2+ (NEGATIVE) 01/02/21 08:45 Urine Ketones 2+ (NEGATIVE) 01/02/21 08:45 Urine Occult Blood Negative (NEGATIVE) 01/02/21 08:45 Urine Nitrite Negative (NEGATIVE) 01/02/21 08:45 Urine Bilirubin 1+ (NEGATIVE) 01/02/21 08:45 Urine Urobilinogen 2+ (NORMAL) 01/02/21 08:45 Ur Leukocyte Esterase Negative (NEGATIVE) 01/02/21 08:45 Urine RBC None seen /HPF (0-3) 01/02/21 08:45 Urine WBC None seen /HPF (0-5) 01/02/21 08:45 Ur Squamous Epith Cells Rare /HPF (NEGATIVE) 01/02/21 08:45 Amorphous Sediment Trace /HPF (NEGATIVE) 01/02/21 08:45 Urine Bacteria 2+ /HPF (NEGATIVE) 01/02/21 08:45 Hyaline Casts Rare /LPF (NEGATIVE) 01/02/21 08:45 Urine Yeast Rare /HPF (NEGATIVE) 01/02/21 08:45 Ur Culture Indicated? Yes/culture set up 01/02/21 08:45 SARS CoV-2 RNA Rapid MARILU Positive (NEGATIVE) A 01/01/21 21:08 Review of Systems Constitutional: Weakness and Malaise Eyes: Other (mild scleral icterus ) ENT: No Symptoms Reported Respiratory: Shortness of Breath Cardiovascular: No Symptoms Reported Gastrointestinal: Nausea, Vomiting and Abdominal Pain Genitourinary: No Symptoms Reported Musculoskeletal: Back Pain Skin: No Symptoms Reported Neurological: No Symptoms Reported Physical Exam Vital Signs: Temperature 97.6 F Pulse Rate [Left Brachial] 109 Pulse Rate 100 Respiratory Rate 20 Blood Pressure [Right Arm] 119/67 Blood Pressure [Left Arm] 155/70 Blood Pressure 220/91 O2 Sat by Pulse Oximetry 93 Oriented: Normal Eyes: Normal Ear: Normal Nose: Normal Throat: Normal Respiratory: Diminished Throughout Cardiovascular: Normal Auscultation: Bowel Sounds: Normal Tenderness: Epigastric and Mild Skin: Decreased Turgur Musculoskeletal: Back:Thoracic, Back:Paraspinous and Tender Psychiatric: Normal Mood Description: Calm Affect: Normal Speech Pattern: Clear Assessment/Plan (1) Transaminitis: Status: Acute (2) Pneumonia due to COVID-19 virus: Status: Acute (3) Hypomagnesemia: Status: Acute (4) Hypokalemia: Status: Acute (5) Hepatic steatosis: Status: Acute (6) Hypertension: Qualifiers: Hypertension type: essential hypertension Qualified Code(s): I10 - Essential (primary) hypertension Status: Chronic (7) GERD (gastroesophageal reflux disease): Qualifiers: Esophagitis presence: esophagitis presence not specified Qualified Code(s): K21.9 - Gastro-esophageal reflux disease without esophagitis Status: Chronic (8) Arthritis: Status: Chronic (9) Nausea & vomiting: Qualifiers: Vomiting Intractability: non-intractable Vomiting type: unspecified Qualified Code(s): R11.2 - Nausea with vomiting, unspecified Status: Acute (10) Hiatal hernia: Status: Acute (11) UTI (urinary tract infection): Qualifiers: Hematuria presence: without hematuria Urinary tract infection type: acute cystitis Qualified Code(s): N30.00 - Acute cystitis without hematuria Status: Acute Review H&P Reviewed: Yes Patient was examined?: Yes
[2021-01-02 12:19] VITALS: BMI 35.5
[2021-01-02] MEDS: ULTRAM PO SCH ×2 (12:28→20:17)
[2021-01-02] MEDS: ZOSYN VIAL 3.375 GRAMS 3.375 G in NS 100 ML IV + SPIKE MINIBAG* 100 ML IV SCH ×3 (12:31→21:01)
--- NOTE | 2021-01-02 14:21 | CT ---
HISTORYAbdominal Pain, N/V, Covid +STUDYABDOMEN/PELVIS WITH CONCOMPARISONNoneTECHNIQUEMultiple axial images of the abdomen and pelvis were obtained from the lung bases to the pubic symphysis after the administration of IV contrast. Dose reduction techniques including Automated Exposure Control (AEC) and adjustment of mA and kV were utilized.FINDINGSVisualized portions of the lower thorax demonstrate no acute process. Bibasilar atelectasis. Coronary calcifications.No acute osseous abnormality. Multilevel degenerative changes throughout the visualized spine.Prior cholecystectomy with marked intra and extrahepatic biliary ductal dilatation with the common bile duct measuring up to at least 2.1 cm in diameter. The liver, spleen, pancreas, bilateral adrenal glands, and bilateral kidneys demonstrate no acute process. Subcentimeter hypoattenuating bilateral renal lesions which are too small to characterize, statistically cysts.No evidence of bowel obstruction. Diverticulosis without evidence of diverticulitis. Prior hemicolectomy.The bladder is decompressed and not well evaluated. No free air or fluid. Non aneurysmal aorta. Aortoiliac and branch vessel calcifications.IMPRESSIONMarkers intra and extrahepatic biliary ductal dilatation with common bile duct measuring up to 2.1 cm in diameter. No definite obstructing stone or mass lesion. Choledocholithiasis not excluded. MRCP or ERCP could better evaluate.Electronically signed by: SARWAT WEEKS (Jan 02, 2021 14:18:44)
[2021-01-02] MEDS: NS 1000 ML 1,000 ML IV SCH ×2 (17:23→22:44)
[2021-01-02] MEDS: SNACK - Diabetic Appropriate PO SCH (20:00)
[2021-01-02] MEDS: ZOLOFT PO SCH (20:16)
[2021-01-02] MEDS: MELATONIN PO SCH (20:17)
[2021-01-02] MEDS: NexIUM PO SCH (20:17)
[2021-01-02] MEDS ORDERED: TOPROL XL PO ONE (20:33)
[2021-01-02] MEDS: TOPROL XL PO SCH (20:34)
[2021-01-02] MEDS ORDERED: IVERMECTIN PO SCH (23:00)
[2021-01-03] MEDS: DILAUDID INJ IVP PRN (02:52)
[2021-01-03] MEDS: ASCORBIC ACID INJ MULTI-DOSE VIAL 1,500 MG in NS 100 ML IV 100 ML IV SCH ×4 (02:52→21:02)
[2021-01-03] MEDS: BENTYL CAP 10 MG PO PRN (02:52)
[2021-01-03 05:04] LABS: BASOPHILS % (AUTO) 0.3 % (0.2-1.0); HEMATOCRIT 33.9 % (36.0-47.0); HEMOGLOBIN 11.2 g/dL (12.0-16.0); LYMPHOCYTES # (AUTO) 0.5 X10^3/uL (1.3-2.9); LYMPHOCYTES % (AUTO) 6.2 % (21.0-51.0); MEAN CORPUSCULAR HEMOGLOBIN 30.3 pg (27.0-34.0); MEAN PLATELET VOLUME 9.6 fL (7.4-11.0); MONOCYTES # (AUTO) 0.5 x10^3/uL (0.3-0.8); MONOCYTES % (AUTO) 6.9 % (0.0-13.0); NEUTROPHILS # (AUTO) 6.9 x10^3/uL (2.2-4.8); NEUTROPHILS % (AUTO) 86.6 % (42.0-75.0); PLATELET COUNT 192 X10^3/uL (150.0-450.0); RED BLOOD COUNT 3.68 X10^6/uL (3.5-5.4); RED CELL DISTRIBUTION WIDTH 15.2 % (11.6-16.5)
[2021-01-03 05:16] LABS: ALANINE AMINOTRANSFERASE 148 Units/L (12-78); ALBUMIN 2.4 g/dL (3.4-5.0); ALKALINE PHOSPHATASE 380 Units/L (46-116); ASPARTATE AMINO TRANSFERASE 131 Units/L (15-37); BLOOD UREA NITROGEN 15 mg/dL (7-18); CALCIUM 8.5 mg/dL (8.5-10.1); CARBON DIOXIDE 29.2 mmol/L (21-32); CHLORIDE 103 mmol/L (98-107); COR CA(FOR HYPOALB) 9.8 mg/dL (8.5-10.1); COR NA(FOR HYPERGLY) 142 mmol/L (136-145); CREATININE 0.61 mg/dL (0.55-1.02); MAGNESIUM 2.4 mg/dL (1.7-2.9); SODIUM 141 mmol/L (136-145); TOTAL PROTEIN 5.6 g/dL (6.4-8.2); eGFR NON BLACK RACES > 60 (>60)
[2021-01-03] MEDS: ZOSYN VIAL 3.375 GRAMS 3.375 G in NS 100 ML IV + SPIKE MINIBAG* 100 ML IV SCH ×3 (05:19→21:30)
[2021-01-03] MEDS: DUONEB 0.5 MG/3 MG (3 mL) NEB SCH ×3 (05:27→20:30)
[2021-01-03] MEDS: HumuLIN R SUBCUT PRN ×4 (05:43→21:31)
[2021-01-03] MEDS: K-DUR TAB 20 MEQ PO PRN (05:44)
--- NOTE | 2021-01-03 06:23 | RAD ---
HISTORYCOVID, HYPOXIASTUDYCHEST, 1 [id number]/07/2021.TECHNIQUEAP view of the chestFINDINGSThe cardiac and mediastinal contours appear stable. Previously seen mild infiltrate in the right base has improved. There is mild left base infiltrate. No definite pleural effusion or pneumothorax. Soft tissue attenuation limits evaluation.IMPRESSIONMild left base infiltrate remains.Electronically signed by: Reyes Lopez (Jan 03, 2021 06:20:36)
[2021-01-03] MEDS: LOVENOX INJ 30 MG SYR SC SCH ×2 (08:48→21:03)
[2021-01-03] MEDS: REMDESIVIR 100 MG in NS 250 ML IV 250 ML IV SCH (08:48)
[2021-01-03] MEDS: ULTRAM PO SCH ×2 (08:49→21:06)
[2021-01-03] MEDS: VITAMIN D3 125 mcg (5,000 UNITS) PO SCH (08:50)
[2021-01-03] MEDS: APRESOLINE TAB 25 MG PO SCH ×2 (08:50→21:06)
[2021-01-03] MEDS: DECADRON TAB PO SCH (08:50)
[2021-01-03] MEDS: NexIUM PO SCH ×2 (08:50→21:08)
[2021-01-03] MEDS: ZINC SULFATE PO SCH ×2 (08:50→21:06)
[2021-01-03] MEDS: REQUIP PO SCH (08:51)
[2021-01-03] MEDS: COZAAR PO SCH (08:51)
[2021-01-03] MEDS: DETROL LA 4 MG CAP EXT REL PO SCH (08:51)
[2021-01-03] MEDS: ASPIRIN PO SCH (08:51)
[2021-01-03] MEDS ORDERED: VITAMIN A PO SCH (09:00)
[2021-01-03] MEDS: PULMICORT NEB TX 0.5 MG NEB SCH ×2 (09:07→20:30)
--- NOTE | 2021-01-03 10:48 | PCM.PROG ---
Progress Note - Progress Note for Day of Date of Exam: 01/03/21 - Subjective Subjective: WAS ADMITTED FOR TREATMENT OF TRANSAMINITIS, NAUSEA AND VOMITING, UTI, ABDOMINAL PAIN, PNEUMONIA DUE TO COVID-19, HYPOMAGNESEMIA, HYPOKALEMIA, AND HEPATIC STEATOSIS. SHE HAS A PMH OF HTN, GERD, ARTHRITIS, HIATAL HERNIA, DYSLIPIDEMIA, COLON CANCER, COLON RESECTION, CHOLECYSTECTOMY, AND JOINT REPLACEMENT. PATIENT REPORTS THAT HER SYMPTOMS STARTED ABOUT TWO WEEKS AGO. SHE TESTED POSITIVE FOR COVID-19 ON 11/05/2020. SHE WAS ALSO POSITIVE FOR COVID-19 ANTIBODIES ON 11/10/2020. TODAY, SHE IS ALERT AND ORIENTED, SITTING UP IN BED ON MORNING ROUNDS. SHE CONTINUES WITH COMPLAINTS OF EPIGASTRIC PAIN AND NAUSEA THIS MORNING. SHE CONTINUES WITH JAUNDICE AND YELLOW SCLERA. SHE IS CURRENTLY ON NASAL CANNULA AT 2 LITERS/MINUTE. SHE DENIES FEVER, CHILLS, OR COUGH. SHE DOES ADMIT TO SHORTNESS OF BREATH AT TIMES. HEART IS REGULAR IN RATE AND RHYTHM THIS MORNING. BILATERAL LUNGS ARE NOTED WITH DIMINISHED LUNG SOUNDS THROUGHOUT. ABDOMEN IS ROUND, SOFT, AND NOTED WITH MILD EPIGASTRIC TENDERNESS ON EXAM. AGAIN, THERE IS YELLOWING OF THE SCLERA AND SKIN. HER VITALS THIS MORNING ARE: 99.4-90-19-94%-118/59. LABS WERE OBTAINED. ABNORMAL LAB VALUES INCLUDE THE FOLLOWING: HGB 11.2, HCT 33.9, D-DIMER 3.29, POTASSIUM 3.1, GLUCOSE 162, TOTAL BILI 5.30, AST 131, ALT 148, ALK PHOS 380, CRP 170.20, BNP 138, TOTAL PROTEIN 5.6, ALBUMIN 2.4. URINE CULTURE IS PENDING. A CHEST XRAY WAS OBTAINED AND RE VEALED: The cardiac and mediastinal contours appear stable. Previously seen mild infiltrate in the right base has improved. There is mild left base infiltrate. No definite pleural effusion or pneumothorax. Soft tissue attenuation limits evaluation. AN ABDOMEN/PELVIS CT WITH CONTRAST WAS OBTAINED YESTERDAY AND REVEALED: Markers intra and extrahepatic biliary ductal dilatation with common bile duct measuring up to 2.1 cm in diameter. No definite obstructing stone or mass lesion. Choledocholithiasis not excluded. MRCP or ERCP could better evaluate. ECHO REVEALED AN EJECTION FRAC TION OF 63%, MILD TO MODERATE PULMONARY HYPERTENSION. SHE IS CURRENTLY RECEIVING NORMAL SALINE AT 50 ML/HR, REMDESIVIR 100MG IV DAILY, ZOSYN 3.375G IV TID, LOVENOX 30MG SC BID, PULMICORT NEBS, DUONEBS TID, ASCORBIC ACID 1500MG IV Q6H, IVERMECTIN 27MG PO DAILY, DILAUDID 1MG IV Q4H PRN, ZOFRAN 4MG IV Q6H PRN, THE POTASSIUM AND MAGNESIUM PROTOCOLS, AND HER HOME MEDICATIONS WERE RESUMED. 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 OTHERWISE, WE WILL CONTINUE WITH CURRENT PLAN OF CARE. WE PLAN TO FOLLOW UP WITH AM LABS AND CONTINUE TO MONITOR. TIME SPENT ON CLINICAL ASSESSMENT, REVIEWING LABS AND IMAGING, DECISION MAKING, AND DOCUMENTATION GREATER THAN 75 MINUTES. - Past Medical Family Social History Past Med/Fam/Surg Hx: No changes since H&P Allergies: Allergies No Known Drug Allergies Allergy (Verified 01/01/21 18:38) - Review of Systems ROS: No change since H&P - Vital Signs and I&O's Vital Signs: Temperature 99.4 F Pulse Rate [Left Brachial] 90 Pulse Rate 87 Respiratory Rate 20 Blood Pressure [Right Arm] 118/59 Blood Pressure [Left Arm] 155/70 Blood Pressure 220/91 O2 Sat by Pulse Oximetry 97 Intake and Output: Intake & Output 12/31/20 01/01/21 01/02/21 01/03/21 11:59 11:59 11:59 11:59 Intake Total 502 / 502 2589 / 2589 Output Total 700 / 700 1250 / 1250 Balance -198 / -198 1339 / 1339 - Physical Exam Oriented: Normal Eyes: Normal Ear: Normal Nose: Normal Throat: Normal Respiratory: Generalized, Diminished Cardiovascular: Normal : Normal Auscultation: Bowel Sounds: Normal Palpation: Normal Tenderness: Epigastric, Mild Skin: Decreased Turgur Musculoskeletal: Back:Thoracic, Back:Paraspinous, Tender Psychiatric: Normal Mood Description: Calm Affect: Normal Speech Pattern: Clear, Appropriate - Laboratory and Diagnostics Result Diagrams: 01/03/21 04:10 01/03/21 04:10 Labs: Laboratory WBC 8.0 X10^3/uL (3.6-10.0) 01/03/21 04:10 RBC 3.68 X10^6/uL (3.5-5.4) 01/03/21 04:10 Hgb 11.2 g/dL (12.0-16.0) L 01/03/21 04:10 Hct 33.9 % (36.0-47.0) L 01/03/21 04:10 MCV 92.0 fL (80.0-100.0) 01/03/21 04:10 MCH 30.3 pg (27.0-34.0) 01/03/21 04:10 MCHC 33.0 g/dL (33.0-35.0) 01/03/21 04:10 RDW 15.2 % (11.6-16.5) 01/03/21 04:10 Plt Count 192 X10^3/uL (150.0-450.0) 01/03/21 04:10 Plt Count Comment Adequate (ADEQUATE) 01/02/21 04:10 MPV 9.6 fL (7.4-11.0) 01/03/21 04:10 Neut % (Auto) 86.6 % (42.0-75.0) H 01/03/21 04:10 Lymph % (Auto) 6.2 % (21.0-51.0) L 01/03/21 04:10 [place] % (Auto) 6.9 % (0.0-13.0) 01/03/21 04:10 Eos % (Auto) 0.0 % (0.9-2.9) L 01/03/21 04:10 Baso % (Auto) 0.3 % (0.2-1.0) 01/03/21 04:10 Neut # (Auto) 6.9 x10^3/uL (2.2-4.8) H 01/03/21 04:10 Lymph # (Auto) 0.5 X10^3/uL (1.3-2.9) L 01/03/21 04:10 [place] # (Auto) 0.5 x10^3/uL (0.3-0.8) 01/03/21 04:10 Eos # (Auto) 0.0 x10^3/uL (0.0-0.2) 01/03/21 04:10 Baso # (Auto) 0.0 X10^3/uL (0.0-0.1) 01/03/21 04:10 Absolute Nucleated RBC 0.0 /100WBC 01/03/21 04:10 Total Counted 100 01/02/21 04:10 Neutrophils % (Manual) 92 % (39-76) H 01/02/21 04:10 Lymphocytes % (Manual) 5 % (13-43) L 01/02/21 04:10 Monocytes % (Manual) 3 % (4-9) L 01/02/21 04:10 Plt Morphology Comment Normal (NORMAL) 01/02/21 04:10 RBC Morphology Normal (NORMAL) 01/02/21 04:10 D-Dimer 3.29 ug/ml (0.0-0.57) H* 01/03/21 04:10 Sodium 141 mmol/L (136-145) 01/03/21 04:10 Corrected Sodium 142 mmol/L (136-145) 01/03/21 04:10 Potassium 3.1 mmol/L (3.5-5.1) L 01/03/21 04:10 Chloride 103 mmol/L (98-107) 01/03/21 04:10 Carbon Dioxide 29.2 mmol/L (21-32) 01/03/21 04:10 BUN 15 mg/dL (7-18) 01/03/21 04:10 Creatinine 0.61 mg/dL (0.55-1.02) 01/03/21 04:10 Est GFR (MDRD) Af Amer > 60 (>60) 01/03/21 04:10 Est GFR (MDRD) Non-Af > 60 (>60) 01/03/21 04:10 Glucose 162 mg/dL (65-99) H 01/03/21 04:10 POC Glucose (mg/dL) 155 mg/dL (65-99) H 01/03/21 05:22 Calcium 8.5 mg/dL (8.5-10.1) 01/03/21 04:10 Corrected Calcium 9.8 mg/dL (8.5-10.1) 01/03/21 04:10 Magnesium 2.4 mg/dL (1.7-2.9) 01/03/21 04:10 Total Bilirubin 5.30 mg/dL (0.2-1.0) H 01/03/21 04:10 AST 131 Units/L (15-37) H 01/03/21 04:10 ALT 148 Units/L (12-78) H 01/03/21 04:10 Alkaline Phosphatase 380 Units/L (46-116) H 01/03/21 04:10 C-Reactive Protein 170.20 mg/L (0-3.0) H 01/03/21 04:10 B-Natriuretic Peptide 138 pg/mL (0-79) H 01/03/21 04:10 Total Protein 5.6 g/dL (6.4-8.2) L 01/03/21 04:10 Albumin 2.4 g/dL (3.4-5.0) L 01/03/21 04:10 Globulin 3.2 g/dL (2.5-4.5) 01/03/21 04:10 Albumin/Globulin Ratio 0.8 Ratio (1.1-2.1) L 01/03/21 04:10 Lipase 120 Units/L (73-393) 01/01/21 19:25 Specimen Type Clean catch urine 01/02/21 08:45 Urine Color Dark yellow (YELLOW) 01/02/21 08:45 Urine Appearance Clear (CLEAR) 01/02/21 08:45 Urine pH 5.0 (5.0 - 8.0) 01/02/21 08:45 Ur Specific [place] 1.020 (1.000-1.030) 01/02/21 08:45 Urine Protein 1+ (NEGATIVE) 01/02/21 08:45 Urine Glucose (UA) 2+ (NEGATIVE) 01/02/21 08:45 Urine Ketones 2+ (NEGATIVE) 01/02/21 08:45 Urine Occult Blood Negative (NEGATIVE) 01/02/21 08:45 Urine Nitrite Negative (NEGATIVE) 01/02/21 08:45 Urine Bilirubin 1+ (NEGATIVE) 01/02/21 08:45 Urine Urobilinogen 2+ (NORMAL) 01/02/21 08:45 Ur Leukocyte Esterase Negative (NEGATIVE) 01/02/21 08:45 Urine RBC None seen /HPF (0-3) 01/02/21 08:45 Urine WBC None seen /HPF (0-5) 01/02/21 08:45 Ur Squamous Epith Cells Rare /HPF (NEGATIVE) 01/02/21 08:45 Amorphous Sediment Trace /HPF (NEGATIVE) 01/02/21 08:45 Urine Bacteria 2+ /HPF (NEGATIVE) 01/02/21 08:45 Hyaline Casts Rare /LPF (NEGATIVE) 01/02/21 08:45 Urine Yeast Rare /HPF (NEGATIVE) 01/02/21 08:45 Ur Culture Indicated? Yes/culture set up 01/02/21 08:45 SARS CoV-2 RNA Rapid MARILU Positive (NEGATIVE) A 01/01/21 21:08 - Plan (1) Transaminitis Status: Acute Plan: CONTINUE IV FLUIDS, CONSULT (2) Pneumonia due to COVID-19 virus Status: Acute Plan: CONTINUE REMEDISIVIR, ANTIBIOTICS, NEB TX, IV FLUIDS (3) UTI (urinary tract infection) Status: Acute Qualifiers: Urinary tract infection type: acute cystitis Hematuria presence: without hematuria Qualified Code(s): N30.00 - Acute cystitis without hematuria Plan: CONTINUE ANTIBIOTICS (4) Hypokalemia Status: Acute Plan: POTASSIUM PROTOCOL (5) Hypomagnesemia Status: Acute Plan: MAGNESIUM PROTOCOL (6) Nausea & vomiting Status: Acute Qualifiers: Vomiting type: unspecified Vomiting Intractability: non-intractable Qualified Code(s): R11.2 - Nausea with vomiting, unspecified (7) Hepatic steatosis Status: Acute (8) Hiatal hernia Status: Chronic (9) Hypertension Status: Chronic Qualifiers: Hypertension type: essential hypertension Qualified Code(s): I10 - Essential (primary) hypertension (10) GERD (gastroesophageal reflux disease) Status: Chronic Qualifiers: Esophagitis presence: esophagitis presence not specified Qualified Code(s): K21.9 - Gastro-esophageal reflux disease without esophagitis (11) Arthritis Status: Chronic
[2021-01-03] MEDS: IVERMECTIN PO SCH (12:07)
--- NOTE | 2021-01-03 20:17 | DR.CONSULT ---
Consult - Consultation for Day of: Date: 01/03/21 - Chief Complaint Chief Complaint: Patient referred for elevated bilirubin. Patient with complaints of constipation. - History of Present Illness History of Present Illness: Patient is a 80 yo female COVID positive who was referred for elevated bilirubin. Patient with complaints of constipation. Patient denies dysphagia, dyspepsia, nausea, vomiting, abdominal pain, diarrhea, melena and hematochezia. Last EGD was over 20 years ago, last colon was in the last [address] Anglin. Patient noted with Epigastric tenderness on palpitation. Hgb 11.2, Hct 33.9, Plt 192, BUN 15, Creatinine 0.61, T. Bili 5.3, AST 131, ALT 148, ALP 380. Abdomen and pelvis CT showed Markers intra and extrahepatic. biliary ductal dilatation with common bile duct measuring up to 2.1 cm in diameter. No definite obstructing stone or mass lesion. Choledocholithiasis not excluded. MRCP or ERCP could better evaluate. - Past Medical History Past Medical History: Hypertension, Dyslipidemia, Diabetes, Asthma, GERD, Arthritis Additional Medical History: CATARACTS, HIATAL HERNIA, DIVERTICULOSIS, COLON CANCER - Past Surgical History Surgical History: Bowel Resection, Cholecystectomy, Joint Replacement, Ortho Surgery Additional Surgical History: COLON RESECTION, CATARACT REMOVAL - Family History Family Medical History: Diabetes Mellitus, Cancer, Hypertension - Social History Does patient currently use any type of tobacco product: No Have you used tobacco products in the last 12 months: No Type of Tobacco Use: None Does any household member use tobacco: No Alcohol Use: None Drug Use: None - Medications Home Medications: No Known Drug Allergies Allergy (Verified 01/01/21 18:38) CONTINUE taking the following medications tramadol-acetaminophen 2 tab PO BID PRN 01/01/21 [History] - Review of Systems Gastrointestinal: Constipation. denies: Nausea, Vomiting, Abdominal Pain, Diarrhea, Melena, Hematochezia, Other - Physical Exam Vital Signs: Temperature 99.4 F Pulse Rate [Left Brachial] 99 Pulse Rate 86 Respiratory Rate 13 Blood Pressure [Right Arm] 169/74 Blood Pressure [Left Arm] 155/70 Blood Pressure 220/91 O2 Sat by Pulse Oximetry 94 Oriented: Normal Eyes: Normal Ear: Normal Nose: Normal Throat: Normal Respiratory: Clear Throughout Cardiovascular: Normal Auscultation: Bowel Sounds: Normal Palpation: Normal, Other (no distention). negative: Spleen Enlarged, Liver Enl arged, Mass Pulsatile Tenderness: Epigastric Skin: Normal Musculoskeletal: Normal Psychiatric: Normal Mood Description: Calm Affect: Normal Speech Pattern: Clear, Appropriate - Plan Plan: Assessment. 1. Abnormal LFTs cholestatic vs obstructive, abnormalities could be related to COVID infection rule out other etiologies. Plan. 1. MRCP, monitor LFTs, liver work up, Avoid tylenol, will need to hold Remdesivir. Plan reviewed with Dr. Gibson - Allergies Allergies/Adverse Reactions: Allergies Allergy/AdvReac Type Severity Reaction Status Date / Time No Known Drug Allergies Allergy Verified 01/01/21 18:38
[2021-01-03] MEDS ORDERED: TOPROL XL PO ONE (20:42)
[2021-01-03] MEDS: MELATONIN PO SCH (21:05)
[2021-01-03] MEDS: TOPROL XL PO SCH (21:05)
[2021-01-03] MEDS: ZOLOFT PO SCH (21:06)
[2021-01-03] MEDS: SNACK - Diabetic Appropriate PO SCH (21:09)
[2021-01-03] MEDS: NS 1000 ML 1,000 ML IV SCH (22:35)
[2021-01-04] MEDS: ASCORBIC ACID INJ MULTI-DOSE VIAL 1,500 MG in NS 100 ML IV 100 ML IV SCH ×4 (03:15→21:30)
[2021-01-04] MEDS: DUONEB 0.5 MG/3 MG (3 mL) NEB SCH ×3 (05:10→21:04)
[2021-01-04 06:11] LABS: BASOPHILS % (AUTO) 0.1 % (0.2-1.0); EOSINOPHILS % (AUTO) 0.1 % (0.9-2.9); HEMATOCRIT 30.1 % (36.0-47.0); HEMOGLOBIN 10.1 g/dL (12.0-16.0); LYMPHOCYTES # (AUTO) 0.7 X10^3/uL (1.3-2.9); LYMPHOCYTES % (AUTO) 13.5 % (21.0-51.0); MEAN CORPUSCULAR HEMOGLOBIN 30.7 pg (27.0-34.0); MEAN CORPUSCULAR HGB CONC 33.6 g/dL (33.0-35.0); MEAN CORPUSCULAR VOLUME 91.5 fL (80.0-100.0); MEAN PLATELET VOLUME 9.4 fL (7.4-11.0); MONOCYTES # (AUTO) 0.4 x10^3/uL (0.3-0.8); NEUTROPHILS # (AUTO) 4.3 x10^3/uL (2.2-4.8); NEUTROPHILS % (AUTO) 79.3 % (42.0-75.0); PLATELET COUNT 149 X10^3/uL (150.0-450.0); RED CELL DISTRIBUTION WIDTH 15.5 % (11.6-16.5); WHITE BLOOD COUNT 5.4 X10^3/uL (3.6-10.0)
[2021-01-04] MEDS: IVERMECTIN PO SCH (06:13)
[2021-01-04] MEDS: ZOSYN VIAL 3.375 GRAMS 3.375 G in NS 100 ML IV + SPIKE MINIBAG* 100 ML IV SCH ×3 (06:14→22:20)
[2021-01-04 06:37] LABS: ALANINE AMINOTRANSFERASE 130 Units/L (12-78); ALBUMIN 2.1 g/dL (3.4-5.0); ALKALINE PHOSPHATASE 328 Units/L (46-116); ASPARTATE AMINO TRANSFERASE 104 Units/L (15-37); BLOOD UREA NITROGEN 17 mg/dL (7-18); CALCIUM 8.2 mg/dL (8.5-10.1); CHLORIDE 107 mmol/L (98-107); COR CA(FOR HYPOALB) 9.7 mg/dL (8.5-10.1); COR NA(FOR HYPERGLY) 144 mmol/L (136-145); CREATININE 0.49 mg/dL (0.55-1.02); SODIUM 143 mmol/L (136-145); TOTAL PROTEIN 5.2 g/dL (6.4-8.2); eGFR NON BLACK RACES > 60 (>60)
[2021-01-04 06:38] LABS: IRON 49 ug/dL (50-175)
[2021-01-04] MEDS: LOVENOX INJ 30 MG SYR SC SCH ×2 (09:16→21:30)
[2021-01-04] MEDS: NexIUM PO SCH ×2 (09:17→21:30)
[2021-01-04] MEDS: ASPIRIN PO SCH (09:17)
[2021-01-04] MEDS: DECADRON TAB PO SCH (09:19)
[2021-01-04] MEDS: VITAMIN D3 125 mcg (5,000 UNITS) PO SCH (09:20)
[2021-01-04] MEDS: PULMICORT NEB TX 0.5 MG NEB SCH ×2 (09:20→21:04)
[2021-01-04] MEDS: DETROL LA 4 MG CAP EXT REL PO SCH (09:20)
[2021-01-04] MEDS: COZAAR PO SCH (09:20)
[2021-01-04] MEDS: ULTRAM PO SCH (09:21)
[2021-01-04] MEDS: APRESOLINE TAB 25 MG PO SCH ×2 (09:21→21:30)
[2021-01-04] MEDS: REQUIP PO SCH (09:21)
[2021-01-04] MEDS: ZINC SULFATE PO SCH ×2 (09:22→21:30)
--- NOTE | 2021-01-04 10:14 | PCM.PROG ---
Progress Note - Progress Note for Day of Date of Exam: 01/04/21 - Subjective Subjective: WAS ADMITTED FOR TREATMENT OF TRANSAMINITIS, NAUSEA AND VOMITING, UTI, ABDOMINAL PAIN, PNEUMONIA DUE TO COVID-19, HYPOMAGNESEMIA, HYPOKALEMIA, AND HEPATIC STEATOSIS. SHE HAS A PMH OF HTN, GERD, ARTHRITIS, HIATAL HERNIA, DYSLIPIDEMIA, COLON CANCER, COLON RESECTION, CHOLECYSTECTOMY, AND JOINT REPLACEMENT. PATIENT REPORTS THAT HER SYMPTOMS STARTED ABOUT TWO WEEKS AGO. SHE TESTED POSITIVE FOR COVID-19 ON 11/05/2020. SHE WAS ALSO POSITIVE FOR COVID-19 ANTIBODIES ON 11/10/2020. TODAY, SHE IS ALERT AND ORIENTED, SITTING UP IN BED ON MORNING ROUNDS. SHE CONTINUES WITH COMPLAINTS OF EPIGASTRIC PAIN AND NAUSEA THIS MORNING. SHE CONTINUES WITH MILD JAUNDICE AND YELLOWING OF THE SCLERA. SYMPTOMS DO APPEAR TO HAVE SLIGHTLY IMPROVED SINCE YESTERDAY. SHE IS CURRENTLY ON ROOM AIR. SHE DENIES FEVER, CHILLS, OR COUGH. SHE DOES ADMIT TO SHORTNESS OF BREATH AT TIMES. HEART IS REGULAR IN RATE AND RHYTHM THIS MORNING. BILATERAL LUNGS ARE NOTED WITH DIMINISHED LUNG SOUNDS THROUGHOUT. ABDOMEN IS ROUND, SOFT, AND NOTED WITH MILD EPIGASTRIC TENDERNESS ON EXAM. AGAIN, THERE IS MILD YELLOWING OF THE SCLERA AND SKIN. HER VITALS THIS MORNING ARE: 97.8-82-18-96%-156/72. LABS WERE OBTAINED. ABNORMAL LAB VALUES INCLUDE THE FOLLOWING: RBC 3.30, HGB 10.1, HCT 30.1, PLT COUNT 149, D-DIMER 1.79, POTASSIUM 3.1, CREATININE 0.49, GLUCOSE 125, CALCIUM 8.2, TOTAL BILIRUBIN 2.70, AST 104, ALT 130, ALK PHOS 328, CRP 125.60, BNP 164, TOTAL PROTEIN 5.2, ALBUMIN 2.1, IRON 49, TRANSFERRIN 161. MULTIPLE OTHER LABS THAT WERE ORDERED BY ARE PENDING. URINE CULTURE IS PENDING. SHE IS CURRENTLY RECEIVING NORMAL SALINE AT 50 ML/HR, REMDESIVIR 100MG IV DAILY, ZOSYN 3.375G IV TID, LOVENOX 30MG SC BID, PULMICORT NEBS, DUONEBS TID, ASCORBIC ACID 1500MG IV Q6H, IVERMECTIN 27MG PO DAILY, DILAUDID 1MG IV Q4H PRN, ZOFRAN 4MG IV Q6H PRN, THE POTASSIUM AND MAGNESIUM PROTOCOLS, AND HER HOME MEDICATIONS WERE RESUMED. WE WILL HOLD THE REMDESIVIR PER RECOMMENDATIONS. OTHERWISE, WE WILL CONTINUE WITH CURRENT PLAN OF CARE. WE PLAN TO FOLLOW UP WITH AM LABS AND CONTINUE TO MONITOR. TIME SPENT ON CLINICAL ASSESSMENT, REVIEWING LABS AND IMAGING, DECISION MAKING, AND DOCUMENTATION GREATER THAN 75 MINUTES. - Past Medical Family Social History Past Med/Fam/Surg Hx: No changes since H&P Allergies: Allergies No Known Drug Allergies Allergy (Verified 01/01/21 18:38) - Review of Systems ROS: No change since H&P - Vital Signs and I&O's Vital Signs: Temperature 97.8 F Pulse Rate [Left Brachial] 82 Pulse Rate 90 Respiratory Rate 20 Blood Pressure [Right Arm] 157/107 Blood Pressure [Left Arm] 156/72 Blood Pressure 220/91 O2 Sat by Pulse Oximetry 96 Intake and Output: Intake & Output 01/01/21 01/02/21 01/03/21 01/04/21 11:59 11:59 11:59 11:59 Intake Total 502 / 502 2589 / 2589 2857 / 2857 Output Total 700 / 700 1250 / 1250 Balance -198 / -198 1339 / 1339 2857 / 2857 - Physical Exam Oriented: Normal Eyes: Normal Ear: Normal Nose: Normal Throat: Normal Respiratory: Generalized, Diminished Cardiovascular: Normal : Normal Auscultation: Bowel Sounds: Normal Tenderness: Epigastric Skin: Normal Musculoskeletal: Normal Psychiatric: Normal Mood Description: Calm Affect: Normal Speech Pattern: Clear, Appropriate - Laboratory and Diagnostics Result Diagrams: 01/04/21 05:15 01/04/21 05:15 Labs: 01/02/21 08:45 Urine,Clean Catch Urine Culture - Final Laboratory WBC 5.4 X10^3/uL (3.6-10.0) 01/04/21 05:15 RBC 3.30 X10^6/uL (3.5-5.4) L 01/04/21 05:15 Hgb 10.1 g/dL (12.0-16.0) L 01/04/21 05:15 Hct 30.1 % (36.0-47.0) L 01/04/21 05:15 MCV 91.5 fL (80.0-100.0) 01/04/21 05:15 MCH 30.7 pg (27.0-34.0) 01/04/21 05:15 MCHC 33.6 g/dL (33.0-35.0) 01/04/21 05:15 RDW 15.5 % (11.6-16.5) 01/04/21 05:15 Plt Count 149 X10^3/uL (150.0-450.0) L 01/04/21 05:15 Plt Count Comment Adequate (ADEQUATE) 01/02/21 04:10 MPV 9.4 fL (7.4-11.0) 01/04/21 05:15 Neut % (Auto) 79.3 % (42.0-75.0) H 01/04/21 05:15 Lymph % (Auto) 13.5 % (21.0-51.0) L 01/04/21 05:15 [place] % (Auto) 7.0 % (0.0-13.0) 01/04/21 05:15 Eos % (Auto) 0.1 % (0.9-2.9) L 01/04/21 05:15 Baso % (Auto) 0.1 % (0.2-1.0) L 01/04/21 05:15 Neut # (Auto) 4.3 x10^3/uL (2.2-4.8) 01/04/21 05:15 Lymph # (Auto) 0.7 X10^3/uL (1.3-2.9) L 01/04/21 05:15 [place] # (Auto) 0.4 x10^3/uL (0.3-0.8) 01/04/21 05:15 Eos # (Auto) 0.0 x10^3/uL (0.0-0.2) 01/04/21 05:15 Baso # (Auto) 0.0 X10^3/uL (0.0-0.1) 01/04/21 05:15 Absolute Nucleated RBC 0.0 /100WBC 01/04/21 05:15 Total Counted 100 01/02/21 04:10 Neutrophils % (Manual) 92 % (39-76) H 01/02/21 04:10 Lymphocytes % (Manual) 5 % (13-43) L 01/02/21 04:10 Monocytes % (Manual) 3 % (4-9) L 01/02/21 04:10 Plt Morphology Comment Normal (NORMAL) 01/02/21 04:10 RBC Morphology Normal (NORMAL) 01/02/21 04:10 PT 14.2 SECONDS (11.8-14.3) 01/04/21 05:15 INR Target Range - 01/04/21 05:15 INR 1.13 (0.8-1.3) 01/04/21 05:15 D-Dimer 1.76 ug/ml (0.0-0.57) H* 01/04/21 05:15 Sodium 143 mmol/L (136-145) 01/04/21 05:15 Corrected Sodium 144 mmol/L (136-145) 01/04/21 05:15 Potassium 3.1 mmol/L (3.5-5.1) L 01/04/21 05:15 Chloride 107 mmol/L (98-107) 01/04/21 05:15 Carbon Dioxide 26.0 mmol/L (21-32) 01/04/21 05:15 BUN 17 mg/dL (7-18) 01/04/21 05:15 Creatinine 0.49 mg/dL (0.55-1.02) L 01/04/21 05:15 Est GFR (MDRD) Af Amer > 60 (>60) 01/04/21 05:15 Est GFR (MDRD) Non-Af > 60 (>60) 01/04/21 05:15 Glucose 125 mg/dL (65-99) H 01/04/21 05:15 POC Glucose (mg/dL) 205 mg/dL (65-99) H 01/03/21 21:19 Calcium 8.2 mg/dL (8.5-10.1) L 01/04/21 05:15 Corrected Calcium 9.7 mg/dL (8.5-10.1) 01/04/21 05:15 Magnesium 2.4 mg/dL (1.7-2.9) 01/03/21 04:10 Iron 49 ug/dL (50-175) L 01/04/21 05:15 Transferrin 161 mg/dL (202-364) L 01/04/21 05:15 Ferritin 155 ng/mL (8-252) 01/04/21 05:15 Total Bilirubin 2.70 mg/dL (0.2-1.0) H 01/04/21 05:15 AST 104 Units/L (15-37) H 01/04/21 05:15 ALT 130 Units/L (12-78) H 01/04/21 05:15 Alkaline Phosphatase 328 Units/L (46-116) H 01/04/21 05:15 C-Reactive Protein 125.60 mg/L (0-3.0) H 01/04/21 05:15 B-Natriuretic Peptide 164 pg/mL (0-79) H 01/04/21 05:15 Total Protein 5.2 g/dL (6.4-8.2) L 01/04/21 05:15 Albumin 2.1 g/dL (3.4-5.0) L 01/04/21 05:15 Globulin 3.1 g/dL (2.5-4.5) 01/04/21 05:15 Albumin/Globulin Ratio 0.7 Ratio (1.1-2.1) L 01/04/21 05:15 Lipase 120 Units/L (73-393) 01/01/21 19:25 Specimen Type Clean catch urine 01/02/21 08:45 Urine Color Dark yellow (YELLOW) 01/02/21 08:45 Urine Appearance Clear (CLEAR) 01/02/21 08:45 Urine pH 5.0 (5.0 - 8.0) 01/02/21 08:45 Ur Specific [place] 1.020 (1.000-1.030) 01/02/21 08:45 Urine Protein 1+ (NEGATIVE) 01/02/21 08:45 Urine Glucose (UA) 2+ (NEGATIVE) 01/02/21 08:45 Urine Ketones 2+ (NEGATIVE) 01/02/21 08:45 Urine Occult Blood Negative (NEGATIVE) 01/02/21 08:45 Urine Nitrite Negative (NEGATIVE) 01/02/21 08:45 Urine Bilirubin 1+ (NEGATIVE) 01/02/21 08:45 Urine Urobilinogen 2+ (NORMAL) 01/02/21 08:45 Ur Leukocyte Esterase Negative (NEGATIVE) 01/02/21 08:45 Urine RBC None seen /HPF (0-3) 01/02/21 08:45 Urine WBC None seen /HPF (0-5) 01/02/21 08:45 Ur Squamous Epith Cells Rare /HPF (NEGATIVE) 01/02/21 08:45 Amorphous Sediment Trace /HPF (NEGATIVE) 01/02/21 08:45 Urine Bacteria 2+ /HPF (NEGATIVE) 01/02/21 08:45 Hyaline Casts Rare /LPF (NEGATIVE) 01/02/21 08:45 Urine Yeast Rare /HPF (NEGATIVE) 01/02/21 08:45 Ur Culture Indicated? Yes/culture set up 01/02/21 08:45 SARS CoV-2 RNA Rapid MARILU Positive (NEGATIVE) A 01/01/21 21:08 - Plan (1) Transaminitis Status: Acute Plan: CONTINUE IV FLUIDS, CONSULT (2) Pneumonia due to COVID-19 virus Status: Acute Plan: CONTINUE REMEDISIVIR, ANTIBIOTICS, NEB TX, IV FLUIDS (3) UTI (urinary tract infection) Status: Acute Qualifiers: Urinary tract infection type: acute cystitis Hematuria presence: without hematuria Qualified Code(s): N30.00 - Acute cystitis without hematuria Plan: CONTINUE ANTIBIOTICS (4) Hypokalemia Status: Acute Plan: POTASSIUM PROTOCOL (5) Hypomagnesemia Status: Acute Plan: MAGNESIUM PROTOCOL (6) Nausea & vomiting Status: Acute Qualifiers: Vomiting type: unspecified Vomiting Intractability: non-intractable Qualified Code(s): R11.2 - Nausea with vomiting, unspecified (7) Hepatic steatosis Status: Acute (8) Hiatal hernia Status: Chronic (9) Hypertension Status: Chronic Qualifiers: Hypertension type: essential hypertension Qualified Code(s): I10 - Essential (primary) hypertension (10) GERD (gastroesophageal reflux disease) Status: Chronic Qualifiers: Esophagitis presence: esophagitis presence not specified Qualified Code(s): K21.9 - Gastro-esophageal reflux disease without esophagitis (11) Arthritis Status: Chronic
[2021-01-04] MEDS: HumuLIN R SUBCUT PRN ×2 (16:54→21:45)
[2021-01-04] MEDS: K-DUR TAB 20 MEQ PO PRN (17:11)
[2021-01-04] MEDS: SNACK - Diabetic Appropriate PO SCH (20:14)
[2021-01-04] MEDS ORDERED: TOPROL XL PO ONE (20:49)
[2021-01-04] MEDS: MELATONIN PO SCH (21:30)
[2021-01-04] MEDS: TOPROL XL PO SCH (21:30)
[2021-01-04] MEDS: NS 1000 ML 1,000 ML IV SCH (21:30)
[2021-01-04] MEDS: ZOLOFT PO SCH (21:30)
[2021-01-05] MEDS: ULTRAM PO SCH ×3 (00:21→20:18)
[2021-01-05] MEDS: ASCORBIC ACID INJ MULTI-DOSE VIAL 1,500 MG in NS 100 ML IV 100 ML IV SCH ×4 (03:00→20:18)
[2021-01-05] MEDS: DUONEB 0.5 MG/3 MG (3 mL) NEB SCH ×3 (05:53→21:15)
[2021-01-05] MEDS: HumuLIN R SUBCUT PRN ×3 (06:32→20:19)
[2021-01-05] MEDS: ZOSYN VIAL 3.375 GRAMS 3.375 G in NS 100 ML IV + SPIKE MINIBAG* 100 ML IV SCH ×3 (06:40→21:43)
[2021-01-05] MEDS: IVERMECTIN PO SCH (06:40)
[2021-01-05 06:48] LABS: BASOPHILS % (AUTO) 0.2 % (0.2-1.0); HEMATOCRIT 31.2 % (36.0-47.0); HEMOGLOBIN 10.4 g/dL (12.0-16.0); LYMPHOCYTES # (AUTO) 0.5 X10^3/uL (1.3-2.9); MEAN CORPUSCULAR HEMOGLOBIN 30.4 pg (27.0-34.0); MEAN CORPUSCULAR HGB CONC 33.3 g/dL (33.0-35.0); MEAN CORPUSCULAR VOLUME 91.3 fL (80.0-100.0); MEAN PLATELET VOLUME 9.7 fL (7.4-11.0); MONOCYTES # (AUTO) 0.2 x10^3/uL (0.3-0.8); MONOCYTES % (AUTO) 4.7 % (0.0-13.0); NEUTROPHILS # (AUTO) 3.9 x10^3/uL (2.2-4.8); NEUTROPHILS % (AUTO) 84.1 % (42.0-75.0); PLATELET COUNT 164 X10^3/uL (150.0-450.0); RED BLOOD COUNT 3.41 X10^6/uL (3.5-5.4); WHITE BLOOD COUNT 4.6 X10^3/uL (3.6-10.0)
[2021-01-05 06:57] LABS: ALANINE AMINOTRANSFERASE 120 Units/L (12-78); ALBUMIN 2.1 g/dL (3.4-5.0); ALKALINE PHOSPHATASE 336 Units/L (46-116); ASPARTATE AMINO TRANSFERASE 85 Units/L (15-37); BLOOD UREA NITROGEN 17 mg/dL (7-18); CALCIUM 8.1 mg/dL (8.5-10.1); CARBON DIOXIDE 24.9 mmol/L (21-32); CHLORIDE 107 mmol/L (98-107); COR CA(FOR HYPOALB) 9.6 mg/dL (8.5-10.1); COR NA(FOR HYPERGLY) 142 mmol/L (136-145); CREATININE 0.54 mg/dL (0.55-1.02); SODIUM 140 mmol/L (136-145); TOTAL PROTEIN 5.4 g/dL (6.4-8.2); eGFR NON BLACK RACES > 60 (>60)
[2021-01-05 07:14] LABS: BAND NEUTROPHILS % 2 % (0-10); PLATELET MORPHOLOGY COMMENT NORMAL (NORMAL)
--- NOTE | 2021-01-05 08:02 | MRI ---
HISTORYELEVATED BILIRUBIN, BILIARY DILATIONSTUDYMRCPCOMPARISONCT abdomen and pelvis from 01/02/2021.TECHNIQUEMultiplanar multisequence MRI of the abdomen with MRCP sequence were obtained without contrast per protocol.FINDINGSThere is intra and extrahepatic ductal dilatation as seen on CT. The common duct measures up to 2.1 cm medial-lateral on image 13 coronal T2. There are 2 separate T2 dark signal foci at the distal common duct. The larger foci measures 1.1 cm image 14 coronal T2 in the smaller focus measures approximately 0.7 cm on image 13 coronal T2.Status post cholecystectomy.The kidneys, spleen, and adrenal glands appear benign. Benign 1.1 cm right renal cyst image 20 coronal T2. Pancreas appears atrophic but without acute abnormality. Normal caliber abdominal aorta. No patent steatosis. Mild scoliosis.IMPRESSIONThere are likely 2 calculi (Choledocholithiasis) at the distal common duct measuring 1.1 and 0.7 cm. This causes upstream dilatation of the common and intrahepatic ducts. Recommend ERCP.Electronically signed by: Reyes Lopez (Jan 05, 2021 08:00:53)
[2021-01-05] MEDS: ASPIRIN PO SCH (08:40)
[2021-01-05] MEDS: DECADRON TAB PO SCH (08:41)
[2021-01-05] MEDS: REQUIP PO SCH (08:42)
[2021-01-05] MEDS: COZAAR PO SCH (08:42)
[2021-01-05] MEDS: ZINC SULFATE PO SCH ×2 (08:44→20:19)
[2021-01-05] MEDS: LOVENOX INJ 30 MG SYR SC SCH ×2 (08:44→20:38)
[2021-01-05] MEDS: NexIUM PO SCH ×2 (08:45→20:18)
[2021-01-05] MEDS: DETROL LA 4 MG CAP EXT REL PO SCH (08:46)
[2021-01-05] MEDS: VITAMIN D3 125 mcg (5,000 UNITS) PO SCH (08:47)
[2021-01-05] MEDS: APRESOLINE TAB 25 MG PO SCH ×2 (08:48→20:18)
[2021-01-05] MEDS: PULMICORT NEB TX 0.5 MG NEB SCH ×2 (09:05→21:15)
--- NOTE | 2021-01-05 10:40 | PCM.PROG ---
Progress Note - Progress Note for Day of Date of Exam: 01/05/21 - Subjective Subjective: WAS ADMITTED FOR TREATMENT OF TRANSAMINITIS, NAUSEA AND VOMITING, UTI, ABDOMINAL PAIN, PNEUMONIA DUE TO COVID-19, HYPOMAGNESEMIA, HYPOKALEMIA, AND HEPATIC STEATOSIS. SHE HAS A PMH OF HTN, GERD, ARTHRITIS, HIATAL HERNIA, DYSLIPIDEMIA, COLON CANCER, COLON RESECTION, CHOLECYSTECTOMY, AND JOINT REPLACEMENT. PATIENT REPORTS THAT HER SYMPTOMS STARTED ABOUT TWO WEEKS AGO. SHE TESTED POSITIVE FOR COVID-19 ON 11/05/2020. SHE WAS ALSO POSITIVE FOR COVID-19 ANTIBODIES ON 11/10/2020. TODAY, SHE IS ALERT AND ORIENTED, SITTING UP IN BED ON MORNING ROUNDS. SHE CONTINUES WITH COMPLAINTS OF EPIGASTRIC PAIN. HER COLOR HAS IMPROVED. SHE REPORTS SLIGHT IMPROVEMENT IN SYMPTOMS. SHE IS CURRENTLY ON ROOM AIR. SHE DENIES FEVER, CHILLS, OR COUGH. HEART IS REGULAR IN RATE AND RHYTHM THIS MORNING. BILATERAL LUNGS ARE NOTED WITH DIMINISHED LUNG SOUNDS THROUGHOUT. ABDOMEN IS ROUND, SOFT, AND NOTED WITH MILD EPIGASTRIC TENDERNESS ON EXAM. HER VITALS THIS MORNING ARE: 97.8-87-13-92%-160/71. LABS WERE OBTAINED. ABNORMAL LAB VALUES INCLUDE THE FOLLOWING: RBC 3.41, HGB 10.4, HCT 31.2, D-DIMER 1.69, CREATININE 0.54, GLUCOSE 175, CACIUM 8.1, TOTAL PROTEIN 2.30, AST 85, ALT 120, ALK PHOS 336, CRP 82.80, BNP 213, TOTAL PROTEIN 5.4, ALBUMIN 2.1. HEPATITIS PANEL IS NEGATIVE. MULTIPLE OTHER LABS THAT WERE ORDERED BY ARE PENDING. URINE CULTURE IS PENDING. A MRCP WAS OBTAINED YESTERDAY AND REVEALED: There are likely 2 calculi (Choledocholithiasis) at the distal common duct measuring 1.1 and 0.7 cm. This causes upstream dilatation of the common and intrahepatic ducts. Recommend ERCP. SHE IS CURRENTLY RECEIVING NORMAL SALINE AT 50 ML/HR, ZOSYN 3.375G IV TID, LOVENOX 30MG SC BID, PULMICORT NEBS, DUONEBS TID, ASCORBIC ACID 1500MG IV Q6H, IVERMECTIN 27MG PO DAILY, DILAUDID 1MG IV Q4H PRN, ZOFRAN 4MG IV Q6H PRN, THE POTASSIUM AND MAGNESIUM PROTOCOLS, AND HER HOME MEDICATIONS WERE RESUMED. WE WILL CONSULT WITH DR.IRFAN SIERRAING THE MRCP FINDINGS. OTHERWISE, WE WILL CONTINUE WITH CURRENT PLAN OF CARE. WE PLAN TO FOLLOW UP WITH AM LABS AND CONTINUE TO MONITOR. TIME SPENT ON CLINICAL ASSES SMENT, REVIEWING LABS AND IMAGING, DECISION MAKING, AND DOCUMENTATION GREATER THAN 75 MINUTES. - Past Medical Family Social History Past Med/Fam/Surg Hx: No changes since H&P Allergies: Allergies No Known Drug Allergies Allergy (Verified 01/01/21 18:38) - Review of Systems ROS: No change since H&P - Vital Signs and I&O's Vital Signs: Temperature 97.8 F Pulse Rate [Left Brachial] 87 Pulse Rate 77 Respiratory Rate 18 Blood Pressure [Right Arm] 154/69 Blood Pressure [Left Arm] 160/71 Blood Pressure 220/91 O2 Sat by Pulse Oximetry 92 Intake and Output: Intake & Output 01/02/21 01/03/21 01/04/21 01/05/21 11:59 11:59 11:59 11:59 Intake Total 502 / 502 2589 / 2589 2857 / 2857 3243 / 3243 Output Total 700 / 700 1250 / 1250 575 / 575 Balance -198 / -198 1339 / 1339 2857 / 2857 2668 / 2668 - Physical Exam Oriented: Normal Eyes: Normal Ear: Normal Nose: Normal Throat: Normal Respiratory: Generalized, Diminished Cardiovascular: Normal : Normal Auscultation: Bowel Sounds: Normal Palpation: Normal Tenderness: Epigastric Skin: Normal Musculoskeletal: Normal Psychiatric: Normal Mood Description: Calm Affect: Normal Speech Pattern: Clear, Appropriate - Laboratory and Diagnostics Result Diagrams: 01/05/21 04:05 01/05/21 04:05 Labs: 01/02/21 08:45 Urine,Clean Catch Urine Culture - Final Laboratory WBC 4.6 X10^3/uL (3.6-10.0) 01/05/21 04:05 RBC 3.41 X10^6/uL (3.5-5.4) L 01/05/21 04:05 Hgb 10.4 g/dL (12.0-16.0) L 01/05/21 04:05 Hct 31.2 % (36.0-47.0) L 01/05/21 04:05 MCV 91.3 fL (80.0-100.0) 01/05/21 04:05 MCH 30.4 pg (27.0-34.0) 01/05/21 04:05 MCHC 33.3 g/dL (33.0-35.0) 01/05/21 04:05 RDW 16.0 % (11.6-16.5) 01/05/21 04:05 Plt Count 164 X10^3/uL (150.0-450.0) 01/05/21 04:05 Plt Count Comment Adequate (ADEQUATE) 01/05/21 04:05 MPV 9.7 fL (7.4-11.0) 01/05/21 04:05 Neut % (Auto) 84.1 % (42.0-75.0) H 01/05/21 04:05 Lymph % (Auto) 11.0 % (21.0-51.0) L 01/05/21 04:05 [place] % (Auto) 4.7 % (0.0-13.0) 01/05/21 04:05 Eos % (Auto) 0.0 % (0.9-2.9) L 01/05/21 04:05 Baso % (Auto) 0.2 % (0.2-1.0) 01/05/21 04:05 Neut # (Auto) 3.9 x10^3/uL (2.2-4.8) 01/05/21 04:05 Lymph # (Auto) 0.5 X10^3/uL (1.3-2.9) L 01/05/21 04:05 [place] # (Auto) 0.2 x10^3/uL (0.3-0.8) L 01/05/21 04:05 Eos # (Auto) 0.0 x10^3/uL (0.0-0.2) 01/05/21 04:05 Baso # (Auto) 0.0 X10^3/uL (0.0-0.1) 01/05/21 04:05 Absolute Nucleated RBC 0.0 /100WBC 01/05/21 04:05 Total Counted 100 01/05/21 04:05 Neutrophils % (Manual) 80 % (39-76) H 01/05/21 04:05 Band Neutrophils % 2 % (0-10) 01/05/21 04:05 Lymphocytes % (Manual) 14 % (13-43) 01/05/21 04:05 Monocytes % (Manual) 3 % (4-9) L 01/05/21 04:05 Eosinophils % (Manual) 1 % (0-6) 01/05/21 04:05 Plt Morphology Comment Normal (NORMAL) 01/05/21 04:05 RBC Morphology Normal (NORMAL) 01/05/21 04:05 PT 14.2 SECONDS (11.8-14.3) 01/04/21 05:15 INR Target Range - 01/04/21 05:15 INR 1.13 (0.8-1.3) 01/04/21 05:15 D-Dimer 1.69 ug/ml (0.0-0.57) H* 01/05/21 04:05 Sodium 140 mmol/L (136-145) 01/05/21 04:05 Corrected Sodium 142 mmol/L (136-145) 01/05/21 04:05 Potassium 3.9 mmol/L (3.5-5.1) 01/05/21 04:05 Chloride 107 mmol/L (98-107) 01/05/21 04:05 Carbon Dioxide 24.9 mmol/L (21-32) 01/05/21 04:05 BUN 17 mg/dL (7-18) 01/05/21 04:05 Creatinine 0.54 mg/dL (0.55-1.02) L 01/05/21 04:05 Est GFR (MDRD) Af Amer > 60 (>60) 01/05/21 04:05 Est GFR (MDRD) Non-Af > 60 (>60) 01/05/21 04:05 Glucose 175 mg/dL (65-99) H 01/05/21 04:05 POC Glucose (mg/dL) 155 mg/dL (65-99) H 01/05/21 06:14 Calcium 8.1 mg/dL (8.5-10.1) L 01/05/21 04:05 Corrected Calcium 9.6 mg/dL (8.5-10.1) 01/05/21 04:05 Magnesium 2.4 mg/dL (1.7-2.9) 01/03/21 04:10 Iron 49 ug/dL (50-175) L 01/04/21 05:15 Transferrin 161 mg/dL (202-364) L 01/04/21 05:15 Ferritin 155 ng/mL (8-252) 01/04/21 05:15 Total Bilirubin 2.30 mg/dL (0.2-1.0) H 01/05/21 04:05 AST 85 Units/L (15-37) H 01/05/21 04:05 ALT 120 Units/L (12-78) H 01/05/21 04:05 Alkaline Phosphatase 336 Units/L (46-116) H 01/05/21 04:05 C-Reactive Protein 82.80 mg/L (0-3.0) H 01/05/21 04:05 B-Natriuretic Peptide 213 pg/mL (0-79) H 01/05/21 04:05 Total Protein 5.4 g/dL (6.4-8.2) L 01/05/21 04:05 Albumin 2.1 g/dL (3.4-5.0) L 01/05/21 04:05 Globulin 3.3 g/dL (2.5-4.5) 01/05/21 04:05 Albumin/Globulin Ratio 0.6 Ratio (1.1-2.1) L 01/05/21 04:05 Lipase 120 Units/L (73-393) 01/01/21 19:25 Specimen Type Clean catch urine 01/02/21 08:45 Urine Color Dark yellow (YELLOW) 01/02/21 08:45 Urine Appearance Clear (CLEAR) 01/02/21 08:45 Urine pH 5.0 (5.0 - 8.0) 01/02/21 08:45 Ur Specific [place] 1.020 (1.000-1.030) 01/02/21 08:45 Urine Protein 1+ (NEGATIVE) 01/02/21 08:45 Urine Glucose (UA) 2+ (NEGATIVE) 01/02/21 08:45 Urine Ketones 2+ (NEGATIVE) 01/02/21 08:45 Urine Occult Blood Negative (NEGATIVE) 01/02/21 08:45 Urine Nitrite Negative (NEGATIVE) 01/02/21 08:45 Urine Bilirubin 1+ (NEGATIVE) 01/02/21 08:45 Urine Urobilinogen 2+ (NORMAL) 01/02/21 08:45 Ur Leukocyte Esterase Negative (NEGATIVE) 01/02/21 08:45 Urine RBC None seen /HPF (0-3) 01/02/21 08:45 Urine WBC None seen /HPF (0-5) 01/02/21 08:45 Ur Squamous Epith Cells Rare /HPF (NEGATIVE) 01/02/21 08:45 Amorphous Sediment Trace /HPF (NEGATIVE) 01/02/21 08:45 Urine Bacteria 2+ /HPF (NEGATIVE) 01/02/21 08:45 Hyaline Casts Rare /LPF (NEGATIVE) 01/02/21 08:45 Urine Yeast Rare /HPF (NEGATIVE) 01/02/21 08:45 Ur Culture Indicated? Yes/culture set up 01/02/21 08:45 SARS CoV-2 RNA Rapid MARILU Positive (NEGATIVE) A 01/01/21 21:08 - Plan (1) Transaminitis Status: Acute Plan: CONTINUE IV FLUIDS, CONSULT (2) Pneumonia due to COVID-19 virus Status: Acute Plan: CONTINUE REMEDISIVIR, ANTIBIOTICS, NEB TX, IV FLUIDS (3) UTI (urinary tract infection) Status: Acute Qualifiers: Urinary tract infection type: acute cystitis Hematuria presence: without hematuria Qualified Code(s): N30.00 - Acute cystitis without hematuria Plan: CONTINUE ANTIBIOTICS (4) Hypokalemia Status: Acute Plan: POTASSIUM PROTOCOL (5) Hypomagnesemia Status: Acute Plan: MAGNESIUM PROTOCOL (6) Nausea & vomiting Status: Acute Qualifiers: Vomiting type: unspecified Vomiting Intractability: non-intractable Qual ified Code(s): R11.2 - Nausea with vomiting, unspecified (7) Hepatic steatosis Status: Acute (8) Hiatal hernia Status: Chronic (9) Hypertension Status: Chronic Qualifiers: Hypertension type: essential hypertension Qualified Code(s): I10 - Essential (primary) hypertension (10) GERD (gastroesophageal reflux disease) Status: Chronic Qualifiers: Esophagitis presence: esophagitis presence not specified Qualified Code(s): K21.9 - Gastro-esophageal reflux disease without esophagitis (11) Arthritis Status: Chronic
[2021-01-05] MEDS: NS 1000 ML 1,000 ML IV SCH (15:37)
[2021-01-05] MEDS ORDERED: TOPROL XL PO ONE (19:25)
[2021-01-05] MEDS: SNACK - Diabetic Appropriate PO SCH (20:00)
[2021-01-05] MEDS: MELATONIN PO SCH (20:18)
[2021-01-05] MEDS: TOPROL XL PO SCH (20:19)
[2021-01-05] MEDS: ZOLOFT PO SCH (20:19)
[2021-01-06] MEDS: NS 1000 ML 1,000 ML IV SCH (01:18)
[2021-01-06] MEDS: ASCORBIC ACID INJ MULTI-DOSE VIAL 1,500 MG in NS 100 ML IV 100 ML IV SCH ×2 (02:49→09:04)
[2021-01-06 04:19] VITALS: BP 167/77
[2021-01-06] MEDS: DUONEB 0.5 MG/3 MG (3 mL) NEB SCH ×2 (05:12→13:57)
[2021-01-06 05:28] LABS: MAGNESIUM 1.5 mg/dL (1.7-2.9)
[2021-01-06] MEDS: ZOSYN VIAL 3.375 GRAMS 3.375 G in NS 100 ML IV + SPIKE MINIBAG* 100 ML IV SCH ×2 (05:45→14:16)
[2021-01-06] MEDS: IVERMECTIN PO SCH (05:45)
[2021-01-06] MEDS: MAGNESIUM SULFATE 1 GRAM/100 mL PREMIX 1 GM/100 ML BAG IV PRN ×2 (06:22→09:04)
--- NOTE | 2021-01-06 06:25 | RAD ---
STUDY: CHEST, 1 VIEWCOMPARISON: January 03, 2021HISTORY: Pneumonia, COVID +FINDINGS:Stable cardiomegaly is seen. The pleural parenchymal lung markings are not significantly changed from prior exam. No pleural effusion or pneumothorax is seen. Previously described mild left basal airspace disease is stable.IMPRESSION:There is no evidence of fracture or joint dislocation.Electronically signed by: Pelon Mehta (Jan 06, 2021 06:21:03)
[2021-01-06 06:33] LABS: HEPATITIS B SURFACE ANTIGEN Negative (Negative)
[2021-01-06 06:41] LABS: ALANINE AMINOTRANSFERASE 92 Units/L (12-78); ALBUMIN 2.1 g/dL (3.4-5.0); ALKALINE PHOSPHATASE 300 Units/L (46-116); ASPARTATE AMINO TRANSFERASE 50 Units/L (15-37); BLOOD UREA NITROGEN 23 mg/dL (7-18); CALCIUM 8.1 mg/dL (8.5-10.1); CARBON DIOXIDE 23.9 mmol/L (21-32); CHLORIDE 110 mmol/L (98-107); COR CA(FOR HYPOALB) 9.6 mg/dL (8.5-10.1); COR NA(FOR HYPERGLY) 144 mmol/L (136-145); CREATININE 0.56 mg/dL (0.55-1.02); SODIUM 143 mmol/L (136-145); TOTAL PROTEIN 5.2 g/dL (6.4-8.2); eGFR NON BLACK RACES > 60 (>60)
[2021-01-06] MEDS: PULMICORT NEB TX 0.5 MG NEB SCH (08:59)
[2021-01-06] MEDS: DECADRON TAB PO SCH (09:05)
[2021-01-06] MEDS: LOVENOX INJ 30 MG SYR SC SCH (09:05)
[2021-01-06] MEDS: APRESOLINE TAB 25 MG PO SCH (09:06)
[2021-01-06] MEDS: VITAMIN D3 125 mcg (5,000 UNITS) PO SCH (09:06)
[2021-01-06] MEDS: NexIUM PO SCH (09:06)
[2021-01-06] MEDS: DETROL LA 4 MG CAP EXT REL PO SCH (09:07)
[2021-01-06] MEDS: ASPIRIN PO SCH (09:07)
[2021-01-06] MEDS: COZAAR PO SCH (09:07)
[2021-01-06] MEDS: ULTRAM PO SCH (09:07)
[2021-01-06] MEDS: ZINC SULFATE PO SCH (09:07)
[2021-01-06] MEDS: REQUIP PO SCH (09:07)
[2021-01-06] MEDS: K-DUR TAB 20 MEQ PO PRN (09:08)
[2021-01-06 10:49] LABS: ANTI-NUCLEAR ANTIBODY TEST None Detected (None Detected)
== END 2021-01-06 14:11 | disposition home health service (06) | DRG 177 ==
LOC: ER 18:29 → ICU 21:36
PROVIDERS: ADMIT Internal Medicine; ATTEND Internal Medicine
DX: R11.2 Nausea with vomiting, unspecified; J12.82 Pneumonia due to coronavirus disease 2019; E83.42 Hypomagnesemia; R74.01 Elevation of levels of liver transaminase levels; R10.84 Generalized abdominal pain; N30.00 Acute cystitis without hematuria; U07.1 COVID-19; M19.90 Unspecified osteoarthritis, unspecified site; K21.9 Gastro-esophageal reflux disease without esophagitis; E11.65 Type 2 diabetes mellitus with hyperglycemia; K76.0 Fatty (change of) liver, not elsewhere classified; I10 Essential (primary) hypertension; K44.9 Diaphragmatic hernia without obstruction or gangrene; R26.89 Other abnormalities of gait and mobility; E87.6 Hypokalemia

== ENCOUNTER 2022-01-12 16:56 | Inpatient (IN) ==
[2022-01-12 20:23] LABS: BASOPHILS # (AUTO) 0.1 X10^3/uL (0.0-0.1); BASOPHILS % (AUTO) 0.8 % (0.2-1.0); EOSINOPHILS # (AUTO) 0.2 x10^3/uL (0.0-0.2); EOSINOPHILS % (AUTO) 2.3 % (0.9-2.9); HEMOGLOBIN 13.1 g/dL (12.0-16.0); LYMPHOCYTES # (AUTO) 2.3 X10^3/uL (1.3-2.9); LYMPHOCYTES % (AUTO) 31.6 % (21.0-51.0); MEAN CORPUSCULAR HEMOGLOBIN 29.3 pg (27.0-34.0); MEAN CORPUSCULAR HGB CONC 33.6 g/dL (33.0-35.0); MEAN CORPUSCULAR VOLUME 87.2 fL (80.0-100.0); MEAN PLATELET VOLUME 8.6 fL (7.4-11.0); MONOCYTES # (AUTO) 0.7 x10^3/uL (0.3-0.8); MONOCYTES % (AUTO) 9.5 % (0.0-13.0); NEUTROPHILS # (AUTO) 4.1 x10^3/uL (2.2-4.8); NEUTROPHILS % (AUTO) 55.8 % (42.0-75.0); RED BLOOD COUNT 4.48 X10^6/uL (3.5-5.4); RED CELL DISTRIBUTION WIDTH 14.6 % (11.6-16.5); WHITE BLOOD COUNT 7.3 X10^3/uL (3.6-10.0)
[2022-01-12 20:42] LABS: ALANINE AMINOTRANSFERASE 22 Units/L (12-78); ALBUMIN 3.2 g/dL (3.4-5.0); ALKALINE PHOSPHATASE 79 Units/L (46-116); ASPARTATE AMINO TRANSFERASE 20 Units/L (15-37); BLOOD UREA NITROGEN 34 mg/dL (7-18); CALCIUM 8.8 mg/dL (8.5-10.1); CARBON DIOXIDE 26.5 mmol/L (21-32); CHLORIDE 107 mmol/L (98-107); CHOL/HDL RATIO 3.4 (0.0-5.0); CHOLESTEROL 179 mg/dL (0-200); CKMB % 7.1 % (<4); COR CA(FOR HYPOALB) 9.4 mg/dL (8.5-10.1); COR NA(FOR HYPERGLY) 143 mmol/L (136-145); CREATINE KINASE 14 Units/L (26-192); CREATINE KINASE MB < 1.0 ng/mL (0-4.0); CREATININE 1.42 mg/dL (0.55-1.02); HDL CHOLESTEROL 53 mg/dL (40-60); SODIUM 142 mmol/L (136-145); TRIGLYCERIDES 183 mg/dL (0-150); eGFR NON BLACK RACES 38 (>60)
[2022-01-12] MEDS: NS 1,000 ML IV 1,000 ML IV SCH (21:35)
--- NOTE | 2022-01-12 22:19 | RAD ---
HISTORYAMS, WEAKNESS, FREQUENT FALLS Relevant Clinical InformationSTUDYCHEST, 1 [id number]/28/2022.FINDINGSThe trachea is midline. The cardiac silhouette is enlarged but stable. Aorta is tortuous. Pulmonary blood flow is congested there is some coarsening of the interstitial markings likely due to atelectasis. Infection is not excluded. There is no pleural effusion. The bony thorax is unremarkable.IMPRESSIONShallow respiration with cardiomegaly and vascular congestion. Nonspecific opacity which could be atelectasis or infection.Electronically signed by: Timmy Emanuel (Jan 12, 2022 22:18:16)
[2022-01-13 02:24] LABS: CKMB % 6.3 % (<4); CREATINE KINASE 16 Units/L (26-192); CREATINE KINASE MB < 1.0 ng/mL (0-4.0)
[2022-01-13 06:47] LABS: BASOPHILS % (AUTO) 0.5 % (0.2-1.0); EOSINOPHILS # (AUTO) 0.2 x10^3/uL (0.0-0.2); EOSINOPHILS % (AUTO) 3.8 % (0.9-2.9); HEMATOCRIT 36.5 % (36.0-47.0); HEMOGLOBIN 12.2 g/dL (12.0-16.0); LYMPHOCYTES # (AUTO) 1.7 X10^3/uL (1.3-2.9); LYMPHOCYTES % (AUTO) 33.2 % (21.0-51.0); MEAN CORPUSCULAR HEMOGLOBIN 29.3 pg (27.0-34.0); MEAN CORPUSCULAR HGB CONC 33.3 g/dL (33.0-35.0); MEAN CORPUSCULAR VOLUME 87.9 fL (80.0-100.0); MEAN PLATELET VOLUME 8.9 fL (7.4-11.0); MONOCYTES # (AUTO) 0.6 x10^3/uL (0.3-0.8); NEUTROPHILS # (AUTO) 2.7 x10^3/uL (2.2-4.8); NEUTROPHILS % (AUTO) 51.5 % (42.0-75.0); RED BLOOD COUNT 4.15 X10^6/uL (3.5-5.4); RED CELL DISTRIBUTION WIDTH 14.8 % (11.6-16.5); WHITE BLOOD COUNT 5.2 X10^3/uL (3.6-10.0)
[2022-01-13 07:05] LABS: BILIRUBIN,URINE NEGATIVE (NEGATIVE); BLOOD/HEMOGLOBIN,URINE NEGATIVE (NEGATIVE); GLUCOSE, URINE NEGATIVE (NEGATIVE); KETONES,URINE NEGATIVE (NEGATIVE); LEUKOCYTE ESTERASE ,URINE 1+ (NEGATIVE); NITRITES,URINE NEGATIVE (NEGATIVE); PROTEIN,URINE NEGATIVE (NEGATIVE); UROBILINOGEN,URINE NORMAL (NORMAL)
[2022-01-13 07:07] LABS: ALBUMIN 2.8 g/dL (3.4-5.0); CALCIUM 8.5 mg/dL (8.5-10.1); CARBON DIOXIDE 28.7 mmol/L (21-32); COR CA(FOR HYPOALB) 9.5 mg/dL (8.5-10.1); CREATININE 1.41 mg/dL (0.55-1.02); TOTAL PROTEIN 5.3 g/dL (6.4-8.2)
[2022-01-13 07:27] LABS: APPEARANCE,URINE CLEAR (CLEAR); BACTERIA,URINE TRACE /HPF (NEGATIVE); COLOR,URINE YELLOW (YELLOW); RBC,URINE 0-2 /HPF (0-3); SQUAMOUS EPITHELIAL CELL,UR FEW /HPF (NEGATIVE)
[2022-01-13 08:40] LABS: CKMB % 5.6 % (<4); CREATINE KINASE 18 Units/L (26-192); CREATINE KINASE MB < 1.0 ng/mL (0-4.0)
[2022-01-13] MEDS ORDERED: ULTRAM PO PRN (10:18)
[2022-01-13] MEDS ORDERED: SEROquel TAB 25 mg PO ONE (10:18)
--- NOTE | 2022-01-13 10:40 | DR.H&P ---
H&P - History & Physical for Day of: H&P Date: 01/12/22 - Chief Complaint Chief Complaint: DIZZINESS, WEAKNESS, ATAXIC GAIT, FREQUENT FALLS, CONFUSION - History of Present Illness History of Present Illness: PATIENT IS A 81 YEAR OLD PATIENT OF OURS WHO PRESENTED TO THE OFFICE WITH REPORTS OF FREQUENT FALLS AT HOME AND CHANGES IN MENTAL STATUS. SYMPTOMS HAVE BEEN PRESENT FOR THE PAST TWO WEEKS. THEY REPORT THAT PATIENT HAS HAD DIZZINESS, WEAKNESS, AND INCREASED CONFUSION. PATIENT LIVES AT HOME ALONE, BUT OFTEN HAS SOMEONE STAY THE NIGHT WITH HER. PMH INCLUDES MULTIPLE TIAs, DEMENTIA, HYPERLIPIDEMIA, HTN, GERD, HERNIA, ARTHRITIS, DM II, COLON RESECTION DUE TO COLON CANCER, CHOLECYSTECTOMY, LEFT KNEE REPLACEMENT. SHE WAS ADMITTED TO THE HOSPTIAL FOR FURTHER EVALUATION AND TREATMENT. ON ARRIVAL TO THE HOSPITAL, VITALS WERE 97.8-67-18-95%-143/68. LABS WERE OBTAINED. WBC 7.3, HGB 13.1, HCT 39.0, SODIUM 142, POTASSIUM 4.8, BUN 34, CREATININE 1.42, GLUCOSE 128, CREATINE KINASE 14, TOTAL PROTEIN 6.0, ALBUMIN 3.2, TRIGLYCERIDES 183. URIN ALYSIS WAS OBTAINED AND REVEALED: WBC 3-5, RBC 0-2, LEUKOCYTES 1+, BACTERIA TRACE. COVID-19 NEGATIVE. A URINE CULTURE WAS SET UP. CHEST XRAY WAS OBTAINED AND REVEALED: Shallow respiration with cardiomegaly and vascular congestion. Nonspecific opacity which could be atelectasis or infection. EKG REVEALED: SINUS RHYTHM WITH HR 74. SHE WAS STARTED ON NORMAL SALINE AT 75 ML/HR AND HER HOME MEDICATIONS WERE RESUMED. WE WILL OBTAIN AN ECHO, CAROTID DOPPLER, AND MRI/MRI OF THE BRAIN WITHOUT CONTRAST. OTHERWISE, WE PLAN TO FOLLOW UP WITH AM LABS AND CONTINUE TO MONITOR. TIME SPENT ON CLINICAL ASSESSMENT, REVIEWING LABS AND IMAGING, DECISION MAKING, AND DOCUMENTATION GREATER THAN 75 MINUTES. - Past Medical History Past Medical History: Hypertension, Dyslipidemia, Diabetes, Asthma, GERD, Arthritis Additional Medical History: CATARACTS, HIATAL HERNIA, DIVERTICULOSIS, COLON CANCER - Past Surgical History Surgical History: Bowel Resection, Cholecystectomy, Joint Replacement, Ortho Surgery Additional Surgical History: COLON RESECTION, CATARACT REMOVAL - Family History Family Medical History: Diabetes Mellitus, Hypertension - Social History Does patient currently use any type of tobacco product: No Have you used tobacco products in the last 12 months: No Type of Tobacco Use: None Does any household member use tobacco: No Alcohol Use: None Drug Use: Prescription Drugs - Medications Home Medications: No Known Drug Allergies Allergy (Verified 01/01/21 18:38) CONTINUE taking the following medications clonidine 0.3 mg TRANSDERMAL WEEKLY 01/12/22 [History] duloxetine 30 mg PO HS 01/12/22 [History] esomeprazole magnesium [Nexium] 40 mg PO BID 01/12/22 [History] meclizine 12.5 mg PO HS 01/12/22 [History] meloxicam 7.5 mg PO BID 01/12/22 [History] - Review of Systems Constitutional: Weakness Eyes: No Symptoms Reported ENT: No Symptoms Reported Respiratory: No Symptoms Reported Cardiovascular: Light Headedness Gastrointestinal: No Symptoms Reported Genitourinary: No Symptoms Reported Musculoskeletal: No Symptoms Reported Skin: No Symptoms Reported Neurological: See HPI, Weakness, Confusion - Physical Exam Vital Signs: Temperature 98.3 F Pulse Rate [Left Radial] 69 Respiratory Rate 18 Blood Pressure [Right Arm] 180/82 O2 Sat by Pulse Oximetry 96 Oriented: Normal Eyes: Normal Ear: Normal Nose: Normal Throat: Normal Respiratory: Diminished Throughout Cardiovascular: Normal : Normal Auscultation: Bowel Sounds: Normal Palpation: Normal Tenderness: Normal Skin: Normal Musculoskeletal: Instability Psychiatric: Other (HALLUCINATIONS, CONFUSION ) Affect: Normal Speech Pattern: Inappropriate - Assessment/Plan (1) Brain TIA Status: Chronic Plan: ADMIT, NS AT 75 ML/HR, RESUME HOME MEDS. OBTAIN ECHO, CAROTID DOPPLER, BRAIN MRI/MRA (2) Ataxic gait Status: Acute (3) Generalized weakness Status: Acute (4) Dizziness Status: Acute (5) Altered mental status Qualifiers: Altered mental status type: transient alteration of awareness Qualified Code(s): R40.4 - Transient alteration of awareness Status: Acute - Allergies Allergies/Adverse Reactions: Allergies Allergy/AdvReac Type Severity Reaction Status Date / Time No Known Drug Allergies Allergy Verified 01/01/21 18:38
[2022-01-13] MEDS ORDERED: CATAPRES-TTS-3 TD SCH (11:00)
[2022-01-13] MEDS: NS 1,000 ML IV 1,000 ML IV SCH ×2 (12:10→14:41)
--- NOTE | 2022-01-13 13:10 | MRI ---
[email or web address].brSTUDYBRAIN W/O CONCOMPARISONCT brain from 11/25/2021.TECHNIQUEMultiplanar multi-sequence MRI of the brain was obtained utilizing standard departmental protocol. Sagittal and axial T1 weighted images were obtained. Axial T2 and flair weighted images were performed as well. Axial diffusion weighted and ADC trace mapping was performed.FINDINGSDiffusion imaging: [Normal, no acute infarct.]Susceptibility weighted imaging: [No abnormal susceptibility artifact.]Brain volume: [Appropriate for age.]Ventricles and basal cisterns: FLAIR bright signal in the basilar cisterns is nonspecific but often due to technical artifact. No abnormal signal in these locations on other pulse sequences. No hydrocephalus.Extra-axial spaces: [No extra-axial collection.]Cerebral parynchema: [No mass, hematoma, or mass effect.] Moderate amount of T2 and Flair hyperintensities in the supratentorial predominantly deep white matter.Pituitary and other sagittal midline structures: [Normal.]Visualized orbits: [Normal.]Paranasal sinuses and mastoid air cells: [Clear.]Bones: [Intact.]Other: [None.]IMPRESSION[No abnormal restricted diffusion to suggest acute infarct. Moderate chronic small vessel disease predominantly in the periventricular white matter.]FLAIR bright signal in the basilar cisterns and 4th ventricle is nonspecific but often due to technical artifact. No abnormal signal in these locations on other pulse sequences. No hydrocephalus.Electronically signed by: Reyes Lopez (Jan 13, 2022 13:09:55)
[2022-01-13] MEDS ORDERED: GLUCOPHAGE ONE ×2 (13:12→20:41)
[2022-01-13] MEDS: ASPIRIN PO SCH (13:25)
[2022-01-13] MEDS: COZAAR PO SCH (13:25)
[2022-01-13] MEDS: DETROL LA 4 MG CAP EXT REL PO SCH (13:25)
[2022-01-13] MEDS: K-DUR TAB 20 MEQ PO SCH (13:26)
[2022-01-13] MEDS: GLUCOPHAGE PO SCH ×2 (13:26→21:09)
[2022-01-13] MEDS: NexIUM PO SCH ×2 (13:26→21:12)
[2022-01-13] MEDS: REQUIP PO SCH (13:26)
[2022-01-13] MEDS: CARAFATE PO SCH ×3 (13:27→21:17)
--- NOTE | 2022-01-13 13:44 | MRI ---
HISTORYDIZZINESS.br evaluate for occlusive diseaseSTUDYMRA HEAD W/O CONCOMPARISONMRI brain same dayTECHNIQUE3-D [id number] MR imaging of the head was performed using standard department protocol.Stenoses are measured using NASCET criteria.FINDINGSOnly the distal vertebral arteries were included on the study. Left vertebral artery larger than the right. The basilar artery is patent and gives rise to large bilateral posterior cerebral arteries.There may be a tiny right posterior communicating artery. No left posterior communicating artery identified.No significant carotid lacerum or siphon segment stenosis. Anterior cerebral and middle cerebral arteries are widely patent.There is no large vessel occlusion. No aneurysm or arteriovenous malformation.IMPRESSION1. No significant occlusive diseaseElectronically signed by: Phillip Mason (Jan 13, 2022 13:43:37)
[2022-01-13] MEDS: ZOFRAN INJ 4 MG VIAL IVP PRN (14:31)
--- NOTE | 2022-01-13 15:45 | VAS ---
HISTORYDizziness, weakness. Slurred speech with frequent falling. Evaluate carotid stenosis.STUDYCAROTID USCOMPARISONNoneTECHNIQUEFifty-six images made by the paper grader. Lorenzana scale and color flow Doppler images of the right carotid arterial system, left carotid arterial system, and vertebral arterial system were obtained.FINDINGSVelocities are measured in centimeters per second. Recommendations are based on peer reviewed published data from Society of Radiologists in Ultrasound Consensus Conference, 2003.Right side: Right common carotid and internal carotid arteries are widely patent. No significant plaque disease seen in the right carotid bulb.Peak systolic velocity in the right common carotid artery measured 37. Peak systolic velocity in the right internal carotid artery measured 37. This yields a peak systolic velocity ratio of 1.0. The peak end diastolic velocity measured 12.6. There is no hemodynamically significant stenosis.Right external carotid artery was patent. Flow in the right vertebral artery was antegrade.Left side: Left common carotid and internal carotid arteries are widely patent. Very minimal hard plaque disease noted in the left carotid bulb seen with echogenicity. No shadowing to suggest calcification.Peak systolic velocity in the left common carotid artery measured [37]. Peak systolic velocity in the left internal carotid artery measured [48]. This yields a peak systolic velocity ratio of [1.3]. The peak end diastolic velocity measured [9.8]. [This yields a stenosis of less than 50 percent.]Left external carotid artery was patent. Flow in the left vertebral artery was antegrade.IMPRESSION1. Minimal left carotid bulb plaque disease2. Less than 50% left ICA stenosis3. No significant right carotid bulb plaque disease or right carotid stenosisElectronically signed by: Phillip Mason (Jan 13, 2022 15:44:37)
[2022-01-13 18:04] VITALS: BMI 31.2
[2022-01-13] MEDS ORDERED: TOPROL XL PO ONE (20:43)
[2022-01-13] MEDS ORDERED: SEROquel TAB 25 mg PO SCH (21:00)
[2022-01-13] MEDS: MOBIC TAB 15 MG PO SCH (21:01)
[2022-01-13] MEDS: CYMBALTA PO SCH (21:04)
[2022-01-13] MEDS: ANTIVERT TAB 25 MG PO SCH (21:06)
[2022-01-13] MEDS: TOPROL XL PO SCH (21:11)
[2022-01-13] MEDS: ZOCOR TAB 20 MG PO SCH (21:12)
[2022-01-14] MEDS: NS 1,000 ML IV 1,000 ML IV SCH ×5 (00:38→23:27)
[2022-01-14 06:27] LABS: BASOPHILS # (AUTO) 0.1 X10^3/uL (0.0-0.1); BASOPHILS % (AUTO) 1.3 % (0.2-1.0); EOSINOPHILS # (AUTO) 0.1 x10^3/uL (0.0-0.2); EOSINOPHILS % (AUTO) 2.8 % (0.9-2.9); HEMOGLOBIN 13.2 g/dL (12.0-16.0); LYMPHOCYTES # (AUTO) 1.6 X10^3/uL (1.3-2.9); LYMPHOCYTES % (AUTO) 32.4 % (21.0-51.0); MEAN CORPUSCULAR HEMOGLOBIN 28.7 pg (27.0-34.0); MEAN PLATELET VOLUME 9.1 fL (7.4-11.0); MONOCYTES # (AUTO) 0.4 x10^3/uL (0.3-0.8); MONOCYTES % (AUTO) 7.5 % (0.0-13.0); NEUTROPHILS # (AUTO) 2.7 x10^3/uL (2.2-4.8); RED CELL DISTRIBUTION WIDTH 14.6 % (11.6-16.5); WHITE BLOOD COUNT 4.9 X10^3/uL (3.6-10.0)
[2022-01-14 06:49] LABS: ALANINE AMINOTRANSFERASE 21 Units/L (12-78); ALKALINE PHOSPHATASE 77 Units/L (46-116); ASPARTATE AMINO TRANSFERASE 20 Units/L (15-37); BLOOD UREA NITROGEN 20 mg/dL (7-18); CALCIUM 8.8 mg/dL (8.5-10.1); CARBON DIOXIDE 30.3 mmol/L (21-32); CHLORIDE 107 mmol/L (98-107); COR CA(FOR HYPOALB) 9.6 mg/dL (8.5-10.1); COR NA(FOR HYPERGLY) 144 mmol/L (136-145); CREATININE 0.91 mg/dL (0.55-1.02); SODIUM 144 mmol/L (136-145); TOTAL PROTEIN 5.8 g/dL (6.4-8.2); eGFR NON BLACK RACES > 60 (>60)
[2022-01-14] MEDS ORDERED: GLUCOPHAGE ONE ×2 (08:14→21:16)
[2022-01-14] MEDS: GLUCOPHAGE PO SCH ×2 (08:40→21:35)
[2022-01-14] MEDS: CARAFATE PO SCH ×4 (08:41→21:36)
[2022-01-14] MEDS: COZAAR PO SCH (08:41)
[2022-01-14] MEDS: DETROL LA 4 MG CAP EXT REL PO SCH (08:41)
[2022-01-14] MEDS: ASPIRIN PO SCH (08:41)
[2022-01-14] MEDS: REQUIP PO SCH (08:42)
[2022-01-14] MEDS: K-DUR TAB 20 MEQ PO SCH (08:42)
[2022-01-14] MEDS: NexIUM PO SCH ×2 (08:42→21:32)
[2022-01-14] MEDS: MOBIC TAB 15 MG PO SCH ×2 (08:42→21:32)
[2022-01-14] MEDS ORDERED: CATAPRES-TTS-3 TD ONE (16:43)
[2022-01-14] MEDS: CATAPRES-TTS-3 TD SCH (17:13)
[2022-01-14] MEDS ORDERED: KLONOPIN TAB 0.5 MG PO SCH (21:00)
[2022-01-14] MEDS ORDERED: TOPROL XL PO ONE (21:17)
[2022-01-14] MEDS: TOPROL XL PO SCH (21:33)
[2022-01-14] MEDS: SEROquel TAB 25 mg PO SCH (21:35)
[2022-01-14] MEDS: CYMBALTA PO SCH (21:36)
[2022-01-14] MEDS: ZOCOR TAB 20 MG PO SCH (21:36)
[2022-01-14] MEDS: ANTIVERT TAB 25 MG PO SCH (21:36)
[2022-01-14] MEDS: NORVASC TAB 10 MG PO SCH (23:45)
[2022-01-15 05:25] LABS: BASOPHILS # (AUTO) 0.1 X10^3/uL (0.0-0.1); BASOPHILS % (AUTO) 0.7 % (0.2-1.0); EOSINOPHILS # (AUTO) 0.2 x10^3/uL (0.0-0.2); EOSINOPHILS % (AUTO) 3.1 % (0.9-2.9); HEMATOCRIT 40.5 % (36.0-47.0); HEMOGLOBIN 13.7 g/dL (12.0-16.0); LYMPHOCYTES # (AUTO) 2.3 X10^3/uL (1.3-2.9); LYMPHOCYTES % (AUTO) 29.8 % (21.0-51.0); MEAN CORPUSCULAR HEMOGLOBIN 29.2 pg (27.0-34.0); MEAN CORPUSCULAR HGB CONC 33.9 g/dL (33.0-35.0); MEAN CORPUSCULAR VOLUME 86.2 fL (80.0-100.0); MEAN PLATELET VOLUME 9.2 fL (7.4-11.0); MONOCYTES # (AUTO) 0.7 x10^3/uL (0.3-0.8); MONOCYTES % (AUTO) 9.4 % (0.0-13.0); NEUTROPHILS # (AUTO) 4.4 x10^3/uL (2.2-4.8); RED CELL DISTRIBUTION WIDTH 14.8 % (11.6-16.5); WHITE BLOOD COUNT 7.7 X10^3/uL (3.6-10.0)
[2022-01-15 05:37] LABS: ALANINE AMINOTRANSFERASE 18 Units/L (12-78); ALBUMIN 3.1 g/dL (3.4-5.0); ALKALINE PHOSPHATASE 78 Units/L (46-116); ASPARTATE AMINO TRANSFERASE 20 Units/L (15-37); BLOOD UREA NITROGEN 14 mg/dL (7-18); CALCIUM 8.6 mg/dL (8.5-10.1); CARBON DIOXIDE 27.3 mmol/L (21-32); CHLORIDE 106 mmol/L (98-107); COR CA(FOR HYPOALB) 9.3 mg/dL (8.5-10.1); COR NA(FOR HYPERGLY) 143 mmol/L (136-145); CREATININE 0.68 mg/dL (0.55-1.02); SODIUM 142 mmol/L (136-145); TOTAL PROTEIN 6.1 g/dL (6.4-8.2); eGFR NON BLACK RACES > 60 (>60)
[2022-01-15] MEDS ORDERED: GLUCOPHAGE ONE ×2 (07:23→23:07)
[2022-01-15] MEDS: SEROquel TAB 25 mg PO SCH (09:44)
[2022-01-15] MEDS: ASPIRIN PO SCH (09:44)
[2022-01-15] MEDS: DETROL LA 4 MG CAP EXT REL PO SCH (09:44)
[2022-01-15] MEDS: COZAAR PO SCH (09:45)
[2022-01-15] MEDS: REQUIP PO SCH (09:45)
[2022-01-15] MEDS: NexIUM PO SCH ×3 (09:45→23:52)
[2022-01-15] MEDS: K-DUR TAB 20 MEQ PO SCH (09:46)
[2022-01-15] MEDS: GLUCOPHAGE PO SCH ×3 (09:46→23:53)
[2022-01-15] MEDS: NORVASC TAB 10 MG PO SCH (09:46)
[2022-01-15] MEDS: CARAFATE PO SCH ×5 (09:46→23:54)
[2022-01-15] MEDS: MOBIC TAB 15 MG PO SCH (09:47)
[2022-01-15 12:02] LABS: CKMB % 4.7 % (<4); CREATINE KINASE MB 1.4 ng/mL (0-4.0)
[2022-01-15] MEDS: KLONOPIN TAB 0.5 MG PO SCH ×3 (12:14→23:54)
[2022-01-15] MEDS: ZyPREXA TAB 5 MG PO SCH ×3 (12:14→23:53)
[2022-01-15] MEDS: NS 1,000 ML IV 1,000 ML IV SCH (15:35)
[2022-01-15 18:51] LABS: CKMB % 6.9 % (<4)
[2022-01-15] MEDS: ANTIVERT TAB 25 MG PO SCH ×2 (21:55→23:52)
[2022-01-15] MEDS: CYMBALTA PO SCH ×2 (21:55→23:53)
[2022-01-15] MEDS: TOPROL XL PO SCH ×2 (21:56→23:52)
[2022-01-15] MEDS: ZOCOR TAB 20 MG PO SCH ×2 (21:57→23:53)
[2022-01-15] MEDS ORDERED: TOPROL XL PO ONE (23:08)
[2022-01-15 23:46] LABS: CKMB % 4.6 % (<4); CREATINE KINASE MB 1.6 ng/mL (0-4.0)
[2022-01-16] MEDS: NS 1,000 ML IV 1,000 ML IV SCH ×4 (04:06→22:58)
[2022-01-16] MEDS: CARAFATE PO SCH ×5 (04:07→20:38)
[2022-01-16] MEDS: KLONOPIN TAB 0.5 MG PO SCH ×2 (04:08→20:39)
[2022-01-16] MEDS: GLUCOPHAGE PO SCH ×3 (04:08→20:38)
[2022-01-16] MEDS: NexIUM PO SCH ×3 (04:09→20:40)
[2022-01-16] MEDS: ZyPREXA TAB 5 MG PO SCH ×2 (04:09→20:39)
[2022-01-16] MEDS: CYMBALTA PO SCH ×2 (04:15→20:38)
[2022-01-16] MEDS: ANTIVERT TAB 25 MG PO SCH ×2 (04:15→20:38)
[2022-01-16] MEDS: TOPROL XL PO SCH ×2 (04:15→20:40)
[2022-01-16] MEDS: ZOCOR TAB 20 MG PO SCH ×2 (04:16→20:39)
[2022-01-16 06:23] LABS: BASOPHILS # (AUTO) 0.1 X10^3/uL (0.0-0.1); BASOPHILS % (AUTO) 0.7 % (0.2-1.0); EOSINOPHILS # (AUTO) 0.2 x10^3/uL (0.0-0.2); EOSINOPHILS % (AUTO) 2.7 % (0.9-2.9); HEMATOCRIT 39.6 % (36.0-47.0); HEMOGLOBIN 13.6 g/dL (12.0-16.0); LYMPHOCYTES # (AUTO) 2.1 X10^3/uL (1.3-2.9); LYMPHOCYTES % (AUTO) 29.3 % (21.0-51.0); MEAN CORPUSCULAR HEMOGLOBIN 29.7 pg (27.0-34.0); MEAN CORPUSCULAR HGB CONC 34.2 g/dL (33.0-35.0); MEAN CORPUSCULAR VOLUME 86.7 fL (80.0-100.0); MEAN PLATELET VOLUME 9.1 fL (7.4-11.0); MONOCYTES # (AUTO) 0.5 x10^3/uL (0.3-0.8); NEUTROPHILS # (AUTO) 4.3 x10^3/uL (2.2-4.8); NEUTROPHILS % (AUTO) 60.3 % (42.0-75.0); RED BLOOD COUNT 4.57 X10^6/uL (3.5-5.4); RED CELL DISTRIBUTION WIDTH 15.1 % (11.6-16.5); WHITE BLOOD COUNT 7.2 X10^3/uL (3.6-10.0)
[2022-01-16 06:38] LABS: ALANINE AMINOTRANSFERASE 18 Units/L (12-78); ALBUMIN 2.7 g/dL (3.4-5.0); ALKALINE PHOSPHATASE 72 Units/L (46-116); ASPARTATE AMINO TRANSFERASE 27 Units/L (15-37); BLOOD UREA NITROGEN 16 mg/dL (7-18); CALCIUM 7.9 mg/dL (8.5-10.1); CARBON DIOXIDE 25.4 mmol/L (21-32); CHLORIDE 105 mmol/L (98-107); COR CA(FOR HYPOALB) 8.9 mg/dL (8.5-10.1); COR NA(FOR HYPERGLY) 141 mmol/L (136-145); CREATININE 0.64 mg/dL (0.55-1.02); SODIUM 140 mmol/L (136-145); TOTAL PROTEIN 5.3 g/dL (6.4-8.2); eGFR NON BLACK RACES > 60 (>60)
[2022-01-16 07:24] LABS: PLATELET MORPHOLOGY COMMENT NORMAL (NORMAL)
--- NOTE | 2022-01-16 10:35 | PCM.PROG ---
Progress Note - Progress Note for Day of Date of Exam: 01/14/22 - Subjective Subjective: WAS ADMITTED FOR TREATMENT OF TIA, GENERALIZED WEAKNESS, DIZZINESS, ATAXIC GAIT, AND ALTERED MENTAL STATUS. TODAY, SHE IS LYING IN BED ON MORNING ROUNDS. SHE AWAKENS TO VERBAL STIMULI. SHE IS DISORIENTED UPON AWAKENING. STAFF REPORTS THAT SHE DIDNT SLEEP ALL THAT WELL THROUGHOUT THE NIGHT. SHE IS UNSTEADY ON AMBULATION AND REQUIRES MODERATE ASSISTANCE. ON EXAMINATION, HEART IS REGULAR IN RATE AND RHYTHM. BILATERAL LUNGS NOTED WITH DIMINISHED LUNG SOUNDS THROUGHOUT. ABDOMEN IS ROUND, SOFT, AND NON-TENDER WITH NORMAL BOWEL SOUNDS NOTED IN ALL QUADRANTS. HER VITALS THIS MORNING ARE: 98.2-76-20-96%-195/92. LABS WERE OBTAINED. WBC 4.9, HGB 13.2, HCT 40.0, SODIUM 144, POTASSIUM 4.1, CHLORIDE 107, BUN 20, CREATININE 0.91, GLUCOSE 114, CALCIUM 8.8, TOTAL PROTEIN 5.8, ALBUMIN 3.0. URINE CULTURE IS PENDING. WE OBTAINED A BRAIN MRI YESTERDAY. IT REVEALED: No abnormal restricted diffusion to suggest acute infarct. Moderate chronic small vessel disease predominantly in the periventricular white matter. FLAIR bright signal in the basilar cisterns and 4th ventricle is nonspecific but often due to technical artifact. No abnormal signal in these locations on other pulse sequences. No hydrocephalus. BRAIN MRA WITHOUT CONTRAST OBTAINED AND REVEALED: 1.No significant occlusive disease. CAROTID ARTERY ULTRASOUND OBTAINED AND REVEALED: 1. Minimal left carotid bulb plaque disease 2. Less than 50% left ICA stenosis 3. No significant right carotid bulb plaque disease or right carotid stenosis. SHE IS CURRENTLY RECEIVING NORMAL SALINE AT 75 ML/HR, NORVASC 10MG DAILY, ASPIRIN 325MG DAILY, CATAPRES PATCH WEEKLY, CYMBALTA 30MG HS, NEXIUM 40MG BID, CIZAAR 100MG DAILY, MECLIZINE 12.5MG HS, METFORMIN 500MG BID, TOPROL XL 50MG HS, ZOFRAN 4MG IV Q6H PRN, KDUR 20MEQ DAILY, REQUIP 0.5MG DAILY, ZOCOR 20MG HS, CARAFATE 1G PO QID, DETROL LA 4MG DAILY, AND ULTRAM 50MG PO BID PRN. WE WILL CONTINUE WITH CURRENT PLAN OF CARE TODAY. PHYSICAL THERAPY WILL WORK WITH PATIENT. OTHERWISE, WE PLAN TO FOLLOW UP WITH AM LABS AND CONTINUE TO MONITOR. - Past Medical Family Social History Past Med/Fam/Surg Hx: No changes since H&P Allergies: Allergies No Known Drug Allergies Allergy (Verified 01/01/21 18:38) - Review of Systems ROS: No change since H&P - Vital Signs and I&O's Vital Signs: Temperature 98.2 F Pulse Rate [Left Radial] 118 Respiratory Rate 18 Blood Pressure [Left Arm] 117/63 Blood Pressure [Right Arm] 235/107 O2 Sat by Pulse Oximetry 93 Intake and Output: Intake & Output 01/13/22 01/14/22 01/15/22 01/16/22 11:59 11:59 11:59 11:59 Intake Total 1012 / 1012 1834 / 1834 2064 / 2064 1010 / 1010 Output Total 300 / 300 400 / 400 Balance 1012 / 1012 1534 / 1534 1664 / 1664 1010 / 1010 - Physical Exam Oriented: Not Oriented Eyes: Normal Ear: Normal Nose: Normal Throat: Normal Respiratory: Generalized, Diminished Cardiovascular: Normal : Normal Auscultation: Bowel Sounds: Normal Palpation: Normal Tenderness: Normal Skin: Normal Musculoskeletal: Instability Psychiatric: Other (HALLUCINATIONS, CONFUSION ) Affect: Normal Speech Pattern: Clear - Laboratory and Diagnostics Result Diagrams: 01/16/22 05:54 01/16/22 05:54 Labs: 01/13/22 06:38 Urine,Clean Catch Urine Culture - Final Laboratory WBC 7.2 X10^3/uL (3.6-10.0) 01/16/22 05:54 RBC 4.57 X10^6/uL (3.5-5.4) 01/16/22 05:54 Hgb 13.6 g/dL (12.0-16.0) 01/16/22 05:54 Hct 39.6 % (36.0-47.0) 01/16/22 05:54 MCV 86.7 fL (80.0-100.0) 01/16/22 05:54 MCH 29.7 pg (27.0-34.0) 01/16/22 05:54 MCHC 34.2 g/dL (33.0-35.0) 01/16/22 05:54 RDW 15.1 % (11.6-16.5) 01/16/22 05:54 Plt Count 126 X10^3/uL (150.0-450.0) L 01/16/22 05:54 Plt Count Comment Decreased (ADEQUATE) A 01/16/22 05:54 MPV 9.1 fL (7.4-11.0) 01/16/22 05:54 Neut % (Auto) 60.3 % (42.0-75.0) 01/16/22 05:54 Lymph % (Auto) 29.3 % (21.0-51.0) 01/16/22 05:54 [place] % (Auto) 7.0 % (0.0-13.0) 01/16/22 05:54 Eos % (Auto) 2.7 % (0.9-2.9) 01/16/22 05:54 Baso % (Auto) 0.7 % (0.2-1.0) 01/16/22 05:54 Neut # (Auto) 4.3 x10^3/uL (2.2-4.8) 01/16/22 05:54 Lymph # (Auto) 2.1 X10^3/uL (1.3-2.9) 01/16/22 05:54 [place] # (Auto) 0.5 x10^3/uL (0.3-0.8) 01/16/22 05:54 Eos # (Auto) 0.2 x10^3/uL (0.0-0.2) 01/16/22 05:54 Baso # (Auto) 0.1 X10^3/uL (0.0-0.1) 01/16/22 05:54 Absolute Nucleated RBC 0.1 /100WBC 01/16/22 05:54 Plt Morphology Comment Normal (NORMAL) 01/16/22 05:54 RBC Morphology Normal (NORMAL) 01/16/22 05:54 Sodium 140 mmol/L (136-145) 01/16/22 05:54 Corrected Sodium 141 mmol/L (136-145) 01/16/22 05:54 Potassium 4.0 mmol/L (3.5-5.1) 01/16/22 05:54 Chloride 105 mmol/L (98-107) 01/16/22 05:54 Carbon Dioxide 25.4 mmol/L (21-32) 01/16/22 05:54 BUN 16 mg/dL (7-18) 01/16/22 05:54 Creatinine 0.64 mg/dL (0.55-1.02) 01/16/22 05:54 Est GFR (MDRD) Af Amer > 60 (>60) 01/16/22 05:54 Est GFR (MDRD) Non-Af > 60 (>60) 01/16/22 05:54 Glucose 126 mg/dL (65-99) H 01/16/22 05:54 Calcium 7.9 mg/dL (8.5-10.1) L 01/16/22 05:54 Corrected Calcium 8.9 mg/dL (8.5-10.1) 01/16/22 05:54 Total Bilirubin 0.70 mg/dL (0.2-1.0) 01/16/22 05:54 AST 27 Units/L (15-37) 01/16/22 05:54 ALT 18 Units/L (12-78) 01/16/22 05:54 Alkaline Phosphatase 72 Units/L (46-116) 01/16/22 05:54 Creatine Kinase 35 Units/L (26-192) 01/15/22 23:14 CK-MB (CK-2) 1.6 ng/mL (0-4.0) 01/15/22 23:14 CK/CKMB % Calc 4.6 % (<4) 01/15/22 23:14 Troponin I High Sens 63.9 ng/L (4.0-60.0) H* 01/15/22 23:14 Total Protein 5.3 g/dL (6.4-8.2) L 01/16/22 05:54 Albumin 2.7 g/dL (3.4-5.0) L 01/16/22 05:54 Globulin 2.6 g/dL (2.5-4.5) 01/16/22 05:54 Albumin/Globulin Ratio 1.0 Ratio (1.1-2.1) L 01/16/22 05:54 Triglycerides 183 mg/dL (0-150) H 01/12/22 20:14 Cholesterol 179 mg/dL (0-200) 01/12/22 20:14 LDL Cholesterol, Calc 89 mg/dL (0-100) 01/12/22 20:14 HDL Cholesterol 53 mg/dL (40-60) 01/12/22 20:14 Cholesterol/HDL Ratio 3.4 (0.0-5.0) 01/12/22 20:14 Specimen Type Clean catch urine 01/13/22 06:35 Urine Color Yellow (YELLOW) 01/13/22 06:35 Urine Appearance Clear (CLEAR) 01/13/22 06:35 Urine pH 5.0 (5.0 - 8.0) 01/13/22 06:35 Ur Specific [place] 1.010 (1.000-1.030) 01/13/22 06:35 Urine Protein Negative (NEGATIVE) 01/13/22 06:35 Urine Glucose (UA) Negative (NEGATIVE) 01/13/22 06:35 Urine Ketones Negative (NEGATIVE) 01/13/22 06:35 Urine Occult Blood Negative (NEGATIVE) 01/13/22 06:35 Urine Nitrite Negative (NEGATIVE) 01/13/22 06:35 Urine Bilirubin Negative (NEGATIVE) 01/13/22 06:35 Urine Urobilinogen Normal (NORMAL) 01/13/22 06:35 Ur Leukocyte Esterase 1+ (NEGATIVE) 01/13/22 06:35 Urine RBC 0-2 /HPF (0-3) 01/13/22 06:35 Urine WBC 3-5 /HPF (0-5) 01/13/22 06:35 Ur Squamous Epith Cells Few /HPF (NEGATIVE) 01/13/22 06:35 Urine Bacteria Trace /HPF (NEGATIVE) 01/13/22 06:35 Ur Culture Indicated? Yes/culture set up 01/13/22 06:35 SARS CoV-2 RNA Rapid MARILU Negative (NEGATIVE) 01/12/22 20:00 - Plan (1) Brain TIA Status: Chronic Plan: NS AT 75 ML/HR, RESUME HOME MEDS, PHYSICAL THERAPY. MONITOR AM LABS. OBTAIN ECHO ON SUNDAY (2) Ataxic gait Status: Acute (3) Generalized weakness Status: Acute (4) Dizziness Status: Acute (5) Altered mental status Status: Acute Qualifiers: Altered mental status type: transient alteration of awareness Qualified Code(s): R40.4 - Transient alteration of awareness
[2022-01-16] MEDS ORDERED: NYSTATIN POWDER ONE (12:07)
[2022-01-16] MEDS: NYSTATIN POWDER TOP SCH ×2 (12:24→20:40)
--- NOTE | 2022-01-16 13:58 | PCM.PROG ---
Progress Note - Progress Note for Day of Date of Exam: 01/15/22 - Subjective Subjective: WAS ADMITTED FOR TREATMENT OF TIA, GENERALIZED WEAKNESS, DIZZINESS, ATAXIC GAIT, AND ALTERED MENTAL STATUS. TODAY, SHE IS ALERT, SITTING UP IN BED ON MORNING ROUNDS. SHE IS DISORIENTED AND AGITATED. FAMILY REPORTS THAT SHE DID NOT SLEEP THROUGHOUT THE NIGHT. STAFF REPORTS THAT SHE IS UNSTEADY ON AMBULATION AND REQUIRES MODERATE ASSISTANCE. ON EXAMINATION, HEART IS REGULAR IN RATE AND RHYTHM. BILATERAL LUNGS NOTED WITH DIMINISHED LUNG SOUNDS THROUGHOUT. ABDOMEN IS ROUND, SOFT, AND NON-TENDER WITH NORMAL BOWEL SOUNDS NOTED IN ALL QUADRANTS. HER VITALS THIS MORNING ARE: 97.6-111-20-97%-171/92. LABS WERE OBTAINED. GLUCOSE 141, TOTAL PROTEIN 6.1, ALBUMIN 3.1. LABS ARE OTHERWISE UNREMARKABLE. SHE IS CURRENTLY RECEIVING NORMAL SALINE AT 75 ML/HR, NORVASC 10MG DAILY, ASPIRIN 325MG DAILY, CATAPRES PATCH WEEKLY, CYMBALTA 30MG HS, NEXIUM 40MG BID, COZAAR 100MG DAILY, MECLIZINE 12.5MG HS, METFORMIN 500MG BID, TOPROL XL 50MG HS, ZOFRAN 4MG IV Q6H PRN, KDUR 20MEQ DAILY, REQUIP 0.5MG DAILY, ZOCOR 20MG HS, CARAFATE 1G PO QID, DETROL LA 4MG DAILY, AND ULTRAM 50MG PO BID PRN. DUE TO INCREASED AGITATION, WE WILL ADD ZYREXA 5MG PO BID AND KLONOPIN 0.5MG PO BID. WE WILL CONTINUE WITH CURRENT PLAN OF CARE TODAY. PHYSICAL THERAPY WILL WORK WITH PATIENT. OTHERWISE, WE PLAN TO FOLLOW UP WITH AM LABS AND CONTINUE TO MONITOR. - Past Medical Family Social History Past Med/Fam/Surg Hx: No changes since H&P Allergies: Allergies No Known Drug Allergies Allergy (Verified 01/01/21 18:38) - Review of Systems ROS: No change since H&P - Vital Signs and I&O's Vital Signs: Temperature 98.2 F Pulse Rate [Left Radial] 118 Respiratory Rate 18 Blood Pressure [Left Arm] 117/63 Blood Pressure [Right Arm] 235/107 O2 Sat by Pulse Oximetry 93 Intake and Output: Intake & Output 01/14/22 01/15/22 01/16/22 01/17/22 11:59 11:59 11:59 11:59 Intake Total 1834 / 1834 2064 / 2064 1010 / 1010 Output Total 300 / 300 400 / 400 Balance 1534 / 1534 1664 / 1664 1010 / 1010 - Physical Exam Oriented: Not Oriented Eyes: Normal Ear: Normal Nose: Normal Throat: Normal Respiratory: Generalized, Diminished Cardiovascular: Normal : Normal Auscultation: Bowel Sounds: Normal Palpation: Normal Tenderness: Normal Skin: Normal Musculoskeletal: Instability Psychiatric: Other (HALLUCINATIONS, CONFUSION ) Affect: Normal Speech Pattern: Clear - Laboratory and Diagnostics Result Diagrams: 01/16/22 05:54 01/16/22 05:54 Labs: 01/13/22 06:38 Urine,Clean Catch Urine Culture - Final Laboratory WBC 7.2 X10^3/uL (3.6-10.0) 01/16/22 05:54 RBC 4.57 X10^6/uL (3.5-5.4) 01/16/22 05:54 Hgb 13.6 g/dL (12.0-16.0) 01/16/22 05:54 Hct 39.6 % (36.0-47.0) 01/16/22 05:54 MCV 86.7 fL (80.0-100.0) 01/16/22 05:54 MCH 29.7 pg (27.0-34.0) 01/16/22 05:54 MCHC 34.2 g/dL (33.0-35.0) 01/16/22 05:54 RDW 15.1 % (11.6-16.5) 01/16/22 05:54 Plt Count 126 X10^3/uL (150.0-450.0) L 01/16/22 05:54 Plt Count Comment Decreased (ADEQUATE) A 01/16/22 05:54 MPV 9.1 fL (7.4-11.0) 01/16/22 05:54 Neut % (Auto) 60.3 % (42.0-75.0) 01/16/22 05:54 Lymph % (Auto) 29.3 % (21.0-51.0) 01/16/22 05:54 [place] % (Auto) 7.0 % (0.0-13.0) 01/16/22 05:54 Eos % (Auto) 2.7 % (0.9-2.9) 01/16/22 05:54 Baso % (Auto) 0.7 % (0.2-1.0) 01/16/22 05:54 Neut # (Auto) 4.3 x10^3/uL (2.2-4.8) 01/16/22 05:54 Lymph # (Auto) 2.1 X10^3/uL (1.3-2.9) 01/16/22 05:54 [place] # (Auto) 0.5 x10^3/uL (0.3-0.8) 01/16/22 05:54 Eos # (Auto) 0.2 x10^3/uL (0.0-0.2) 01/16/22 05:54 Baso # (Auto) 0.1 X10^3/uL (0.0-0.1) 01/16/22 05:54 Absolute Nucleated RBC 0.1 /100WBC 01/16/22 05:54 Plt Morphology Comment Normal (NORMAL) 01/16/22 05:54 RBC Morphology Normal (NORMAL) 01/16/22 05:54 Sodium 140 mmol/L (136-145) 01/16/22 05:54 Corrected Sodium 141 mmol/L (136-145) 01/16/22 05:54 Potassium 4.0 mmol/L (3.5-5.1) 01/16/22 05:54 Chloride 105 mmol/L (98-107) 01/16/22 05:54 Carbon Dioxide 25.4 mmol/L (21-32) 01/16/22 05:54 BUN 16 mg/dL (7-18) 01/16/22 05:54 Creatinine 0.64 mg/dL (0.55-1.02) 01/16/22 05:54 Est GFR (MDRD) Af Amer > 60 (>60) 01/16/22 05:54 Est GFR (MDRD) Non-Af > 60 (>60) 01/16/22 05:54 Glucose 126 mg/dL (65-99) H 01/16/22 05:54 POC Glucose (mg/dL) 134 mg/dL (65-99) H 01/16/22 10:36 Calcium 7.9 mg/dL (8.5-10.1) L 01/16/22 05:54 Corrected Calcium 8.9 mg/dL (8.5-10.1) 01/16/22 05:54 Total Bilirubin 0.70 mg/dL (0.2-1.0) 01/16/22 05:54 AST 27 Units/L (15-37) 01/16/22 05:54 ALT 18 Units/L (12-78) 01/16/22 05:54 Alkaline Phosphatase 72 Units/L (46-116) 01/16/22 05:54 Creatine Kinase 35 Units/L (26-192) 01/15/22 23:14 CK-MB (CK-2) 1.6 ng/mL (0-4.0) 01/15/22 23:14 CK/CKMB % Calc 4.6 % (<4) 01/15/22 23:14 Troponin I High Sens 63.9 ng/L (4.0-60.0) H* 01/15/22 23:14 Total Protein 5.3 g/dL (6.4-8.2) L 01/16/22 05:54 Albumin 2.7 g/dL (3.4-5.0) L 01/16/22 05:54 Globulin 2.6 g/dL (2.5-4.5) 01/16/22 05:54 Albumin/Globulin Ratio 1.0 Ratio (1.1-2.1) L 01/16/22 05:54 Triglycerides 183 mg/dL (0-150) H 01/12/22 20:14 Cholesterol 179 mg/dL (0-200) 01/12/22 20:14 LDL Cholesterol, Calc 89 mg/dL (0-100) 01/12/22 20:14 HDL Cholesterol 53 mg/dL (40-60) 01/12/22 20:14 Cholesterol/HDL Ratio 3.4 (0.0-5.0) 01/12/22 20:14 Specimen Type Clean catch urine 01/13/22 06:35 Urine Color Yellow (YELLOW) 01/13/22 06:35 Urine Appearance Clear (CLEAR) 01/13/22 06:35 Urine pH 5.0 (5.0 - 8.0) 01/13/22 06:35 Ur Specific [place] 1.010 (1.000-1.030) 01/13/22 06:35 Urine Protein Negative (NEGATIVE) 01/13/22 06:35 Urine Glucose (UA) Negative (NEGATIVE) 01/13/22 06:35 Urine Ketones Negative (NEGATIVE) 01/13/22 06:35 Urine Occult Blood Negative (NEGATIVE) 01/13/22 06:35 Urine Nitrite Negative (NEGATIVE) 01/13/22 06:35 Urine Bilirubin Negative (NEGATIVE) 01/13/22 06:35 Urine Urobilinogen Normal (NORMAL) 01/13/22 06:35 Ur Leukocyte Esterase 1+ (NEGATIVE) 01/13/22 06:35 Urine RBC 0-2 /HPF (0-3) 01/13/22 06:35 Urine WBC 3-5 /HPF (0-5) 01/13/22 06:35 Ur Squamous Epith Cells Few /HPF (NEGATIVE) 01/13/22 06:35 Urine Bacteria Trace /HPF (NEGATIVE) 01/13/22 06:35 Ur Culture Indicated? Yes/culture set up 01/13/22 06:35 SARS CoV-2 RNA Rapid MARILU Negative (NEGATIVE) 01/12/22 20:00 - Plan (1) Brain TIA Status: Chronic Plan: NS AT 75 ML/HR, RESUME HOME MEDS, ZYPREXA 5MG PO BID, KLONOPIN 0.5MG PO BID, PHYSICAL THERAPY. MONITOR AM LABS. OBTAIN ECHO ON SUNDAY (2) Ataxic gait Status: Acute (3) Generalized weakness Status: Acute (4) Dizziness Status: Acute (5) Altered mental status Status: Acute Qualifiers: Altered mental status type: transient alteration of awareness Qualified Code(s): R40.4 - Transient alteration of awareness
[2022-01-16] MEDS: ASPIRIN PO SCH (14:40)
[2022-01-16] MEDS: DETROL LA 4 MG CAP EXT REL PO SCH (14:41)
[2022-01-16] MEDS: COZAAR PO SCH (14:41)
[2022-01-16] MEDS: REQUIP PO SCH (14:42)
[2022-01-16] MEDS: NORVASC TAB 10 MG PO SCH (14:42)
[2022-01-16] MEDS: K-DUR TAB 20 MEQ PO SCH (14:42)
[2022-01-16] MEDS ORDERED: TOPROL XL PO ONE (18:55)
[2022-01-16] MEDS ORDERED: GLUCOPHAGE ONE (20:17)
[2022-01-16] MEDS ORDERED: CARDIZEM CD 120 MG 24-HR PO ONE ×2 (20:53→20:56)
[2022-01-16] MEDS ORDERED: LASIX IVP ONE (22:54)
[2022-01-16] MEDS ORDERED: LANOXIN INJ IVP ONE (22:54)
[2022-01-16] MEDS ORDERED: LASIX ONE (23:02)
[2022-01-16] MEDS ORDERED: LANOXIN INJ ONE (23:03)
[2022-01-17] MEDS ORDERED: CORDARONE TAB 200 MG ONE (01:37)
[2022-01-17] MEDS: CORDARONE TAB 200 MG PO SCH ×2 (01:45→17:00)
[2022-01-17] MEDS: NS 1,000 ML IV 1,000 ML IV SCH ×2 (04:16→17:54)
[2022-01-17 06:25] LABS: ALANINE AMINOTRANSFERASE 23 Units/L (12-78); ALBUMIN 2.9 g/dL (3.4-5.0); ALKALINE PHOSPHATASE 78 Units/L (46-116); ASPARTATE AMINO TRANSFERASE 28 Units/L (15-37); BLOOD UREA NITROGEN 12 mg/dL (7-18); CALCIUM 8.2 mg/dL (8.5-10.1); CARBON DIOXIDE 24.7 mmol/L (21-32); CHLORIDE 104 mmol/L (98-107); COR CA(FOR HYPOALB) 9.1 mg/dL (8.5-10.1); COR NA(FOR HYPERGLY) 140 mmol/L (136-145); CREATININE 0.62 mg/dL (0.55-1.02); SODIUM 139 mmol/L (136-145); TOTAL PROTEIN 5.9 g/dL (6.4-8.2); eGFR NON BLACK RACES > 60 (>60)
[2022-01-17 06:54] LABS: BASOPHILS # (AUTO) 0.1 X10^3/uL (0.0-0.1); BASOPHILS % (AUTO) 1.3 % (0.2-1.0); EOSINOPHILS # (AUTO) 0.3 x10^3/uL (0.0-0.2); EOSINOPHILS % (AUTO) 2.9 % (0.9-2.9); HEMOGLOBIN 14.3 g/dL (12.0-16.0); LYMPHOCYTES # (AUTO) 2.9 X10^3/uL (1.3-2.9); LYMPHOCYTES % (AUTO) 29.2 % (21.0-51.0); MEAN CORPUSCULAR HEMOGLOBIN 29.5 pg (27.0-34.0); MEAN CORPUSCULAR HGB CONC 33.9 g/dL (33.0-35.0); MONOCYTES # (AUTO) 0.8 x10^3/uL (0.3-0.8); MONOCYTES % (AUTO) 7.7 % (0.0-13.0); NEUTROPHILS # (AUTO) 5.9 x10^3/uL (2.2-4.8); NEUTROPHILS % (AUTO) 58.9 % (42.0-75.0); RED BLOOD COUNT 4.83 X10^6/uL (3.5-5.4); RED CELL DISTRIBUTION WIDTH 14.8 % (11.6-16.5); WHITE BLOOD COUNT 10.1 X10^3/uL (3.6-10.0)
[2022-01-17 07:34] LABS: PLATELET MORPHOLOGY COMMENT NORMAL (NORMAL)
[2022-01-17] MEDS ORDERED: K-DUR TAB 20 MEQ PO PRN (08:05)
[2022-01-17] MEDS ORDERED: POTASSIUM CHLORIDE LIQ 20 MEQ UDC PO PRN (08:05)
[2022-01-17] MEDS ORDERED: POTASSIUM CHL 40 MEQ/NS 0.45% 500 ML IV PRN (08:05)
[2022-01-17] MEDS ORDERED: K-RIDER 10 MEQ/NS 100 ML 10 MEQ/100 ML BAG IV PRN (08:05)
[2022-01-17] MEDS ORDERED: MICRO K EXTEN CAP 10 MEQ PO PRN (08:05)
[2022-01-17] MEDS ORDERED: POTASSIUM CHL 60 MEQ/NS 0.45% 500 ML IV PRN (08:05)
[2022-01-17] MEDS ORDERED: KLOR-CON PO PRN (08:05)
[2022-01-17] MEDS ORDERED: GLUCOPHAGE ONE ×2 (08:16→19:41)
[2022-01-17] MEDS: NexIUM PO SCH ×2 (08:30→20:23)
[2022-01-17] MEDS: COZAAR PO SCH (08:30)
[2022-01-17] MEDS: GLUCOPHAGE PO SCH ×2 (08:30→20:25)
[2022-01-17] MEDS: REQUIP PO SCH (08:30)
[2022-01-17] MEDS: MAGNESIUM SULFATE 1 GRAM/100 mL PREMIX 1 G/100 ML BAG IV PRN ×7 (08:30→15:35)
[2022-01-17] MEDS: ASPIRIN PO SCH (08:30)
[2022-01-17] MEDS: NORVASC TAB 10 MG PO SCH (08:30)
[2022-01-17] MEDS: DETROL LA 4 MG CAP EXT REL PO SCH (08:30)
[2022-01-17] MEDS: K-DUR TAB 20 MEQ PO SCH (08:30)
[2022-01-17] MEDS: CARAFATE PO SCH ×4 (08:30→20:22)
[2022-01-17] MEDS: NYSTATIN POWDER TOP SCH ×2 (09:00→21:00)
[2022-01-17] MEDS: LANOXIN or DIGITEK PO SCH (10:21)
--- NOTE | 2022-01-17 11:52 | PCM.PROG ---
Progress Note - Progress Note for Day of Date of Exam: 01/16/22 - Subjective Subjective: WAS ADMITTED FOR TREATMENT OF TIA, GENERALIZED WEAKNESS, DIZZINESS, ATAXIC GAIT, AND ALTERED MENTAL STATUS. TODAY, SHE IS LYING IN BED ON MORNING ROUNDS. SHE IS DIFFICULT TO AROUSE. WE ADDED ZYPREXA AND KLONOPIN BID YESTERDAY, SO THIS COULD BE THE REASON FOR INCREASED DROWSINESS. HEART RATE AND BLOOD PRESSURE HAVE LEVELED OFF SINCE SHE HAS SETTLED DOWN. SHE DID HAVE AN EPISODE OF CHEST PAIN YESTERDAY. STAFF REPORTS THAT SHE IS UNSTEADY ON AMBULATION AND REQUIRES MODERATE ASSISTANCE. ON EXAMINATION, HEART RATE IS SLIGHTLY ELEVATED AT 110, IRREGULAR RHYTHM NOTED. BILATERAL LUNGS NOTED WITH DIMINISHED LUNG SOUNDS THROUGHOUT. ABDOMEN IS ROUND, SOFT, AND NON-TENDER WITH NORMAL BOWEL SOUNDS NOTED IN ALL QUADRANTS. HER VITALS THIS MORNING ARE: 98.2-110-18-95%-127/83. LABS WERE OBTAINED. PLT COUNT 126, GLUCOSE 126, CALCIUM 7.9, TOTAL PROTEIN 5.3, ALBUMIN 2.7. LABS ARE OTHERWISE UNREMARKABLE. A SET OF CARDIAC ENZYMES WERE OBTAINED YESTERDAY. TROPONINS WERE 91.3 % 11:19, 83.5 @ 17:26, AND 63.9 @ 23:14. SHE IS CURRENTLY RECEIVING NORMAL SALINE AT 75 ML/HR, NORVASC 10MG DAILY, ZYREXA 5MG PO BID, KLONOPIN 0.5MG PO BID, ASPIRIN 325MG DAILY, CATAPRES PATCH WEEKLY, CYMBALTA 30MG HS, NEXIUM 40MG BID, COZAAR 100MG DAILY, MECLIZINE 12.5MG HS, METFORMIN 500MG BID, TOPROL XL 50MG HS, ZOFRAN 4MG IV Q6H PRN, KDUR 20MEQ DAILY, REQUIP 0.5MG DAILY, ZOCOR 20MG HS, CARAFATE 1G PO QID, DETROL LA 4MG DAILY, AND ULTRAM 50MG PO BID PRN. DUE TO INCREASED DROWSINESS, WE WILL CHANGE ZYPREXA AND KLONOPIN TO BEDTIME ADMINISTRATION ONLY. OTHERWISE, WE WILL CONTINUE WITH CURRENT PLAN OF CARE TODAY. PHYSICAL THERAPY WILL WORK WITH PATIENT. OTHERWISE, WE PLAN TO FOLLOW UP WITH AM LABS AND CONTIN UE TO MONITOR. - Past Medical Family Social History Past Med/Fam/Surg Hx: No changes since H&P Allergies: Allergies No Known Drug Allergies Allergy (Verified 01/01/21 18:38) - Review of Systems ROS: No change since H&P - Vital Signs and I&O's Vital Signs: Temperature 98.4 F Pulse Rate [Left Radial] 80 Pulse Rate 82 Respiratory Rate 20 Blood Pressure [Left Arm] 161/76 Blood Pressure [Right Arm] 235/107 O2 Sat by Pulse Oximetry 93 Intake and Output: Intake & Output 01/14/22 01/15/22 01/16/22 01/17/22 11:59 11:59 11:59 11:59 Intake Total 1834 / 1834 2064 / 2064 1010 / 1010 1690 / 1690 Output Total 300 / 300 400 / 400 200 / 200 Balance 1534 / 1534 1664 / 1664 1010 / 1010 1490 / 1490 - Physical Exam Oriented: Not Oriented Eyes: Normal Ear: Normal Nose: Normal Throat: Normal Respiratory: Generalized, Diminished Cardiovascular: Normal : Normal Auscultation: Bowel Sounds: Normal Tenderness: Normal Skin: Normal Musculoskeletal: Instability Psychiatric: Other (HALLUCINATIONS, CONFUSION ) Affect: Normal Speech Pattern: Clear, Appropriate - Laboratory and Diagnostics Result Diagrams: 01/17/22 05:50 01/17/22 06:44 Labs: 01/16/22 12:18 Urine,Clean Catch Urine Culture - Preliminary 01/13/22 06:38 Urine,Clean Catch Urine Culture - Final Laboratory WBC 10.1 X10^3/uL (3.6-10.0) H 01/17/22 05:50 RBC 4.83 X10^6/uL (3.5-5.4) 01/17/22 05:50 Hgb 14.3 g/dL (12.0-16.0) 01/17/22 05:50 Hct 42.0 % (36.0-47.0) 01/17/22 05:50 MCV 87.0 fL (80.0-100.0) 01/17/22 05:50 MCH 29.5 pg (27.0-34.0) 01/17/22 05:50 MCHC 33.9 g/dL (33.0-35.0) 01/17/22 05:50 RDW 14.8 % (11.6-16.5) 01/17/22 05:50 Plt Count 156 X10^3/uL (150.0-450.0) 01/17/22 05:50 Plt Count Comment Adequate (ADEQUATE) 01/17/22 05:50 MPV 9.0 fL (7.4-11.0) 01/17/22 05:50 Neut % (Auto) 58.9 % (42.0-75.0) 01/17/22 05:50 Lymph % (Auto) 29.2 % (21.0-51.0) 01/17/22 05:50 [place] % (Auto) 7.7 % (0.0-13.0) 01/17/22 05:50 Eos % (Auto) 2.9 % (0.9-2.9) 01/17/22 05:50 Baso % (Auto) 1.3 % (0.2-1.0) H 01/17/22 05:50 Neut # (Auto) 5.9 x10^3/uL (2.2-4.8) H 01/17/22 05:50 Lymph # (Auto) 2.9 X10^3/uL (1.3-2.9) 01/17/22 05:50 [place] # (Auto) 0.8 x10^3/uL (0.3-0.8) 01/17/22 05:50 Eos # (Auto) 0.3 x10^3/uL (0.0-0.2) H 01/17/22 05:50 Baso # (Auto) 0.1 X10^3/uL (0.0-0.1) 01/17/22 05:50 Absolute Nucleated RBC 0.0 /100WBC 01/17/22 05:50 Total Counted 100 01/17/22 05:50 Neutrophils % (Manual) 62 % (39-76) 01/17/22 05:50 Lymphocytes % (Manual) 26 % (13-43) 01/17/22 05:50 Monocytes % (Manual) 8 % (4-9) 01/17/22 05:50 Eosinophils % (Manual) 4 % (0-6) 01/17/22 05:50 Plt Morphology Comment Normal (NORMAL) 01/17/22 05:50 RBC Morphology Normal (NORMAL) 01/17/22 05:50 Sodium 139 mmol/L (136-145) 01/17/22 06:44 Corrected Sodium 140 mmol/L (136-145) 01/17/22 06:44 Potassium 3.7 mmol/L (3.5-5.1) 01/17/22 06:44 Chloride 104 mmol/L (98-107) 01/17/22 06:44 Carbon Dioxide 24.7 mmol/L (21-32) 01/17/22 06:44 BUN 12 mg/dL (7-18) 01/17/22 06:44 Creatinine 0.62 mg/dL (0.55-1.02) 01/17/22 06:44 Est GFR (MDRD) Af Amer > 60 (>60) 01/17/22 06:44 Est GFR (MDRD) Non-Af > 60 (>60) 01/17/22 06:44 Glucose 153 mg/dL (65-99) H 01/17/22 06:44 POC Glucose (mg/dL) 166 mg/dL (65-99) H 01/17/22 10:56 Calcium 8.2 mg/dL (8.5-10.1) L 01/17/22 06:44 Corrected Calcium 9.1 mg/dL (8.5-10.1) 01/17/22 06:44 Magnesium 0.9 mg/dL (1.7-2.9) L 01/17/22 06:44 Total Bilirubin 0.50 mg/dL (0.2-1.0) 01/17/22 06:44 AST 28 Units/L (15-37) 01/17/22 06:44 ALT 23 Units/L (12-78) 01/17/22 06:44 Alkaline Phosphatase 78 Units/L (46-116) 01/17/22 06:44 Creatine Kinase 35 Units/L (26-192) 01/15/22 23:14 CK-MB (CK-2) 1.6 ng/mL (0-4.0) 01/15/22 23:14 CK/CKMB % Calc 4.6 % (<4) 01/15/22 23:14 Troponin I High Sens 63.9 ng/L (4.0-60.0) H* 01/15/22 23:14 Total Protein 5.9 g/dL (6.4-8.2) L 01/17/22 06:44 Albumin 2.9 g/dL (3.4-5.0) L 01/17/22 06:44 Globulin 3.0 g/dL (2.5-4.5) 01/17/22 06:44 Albumin/Globulin Ratio 1.0 Ratio (1.1-2.1) L 01/17/22 06:44 Triglycerides 183 mg/dL (0-150) H 01/12/22 20:14 Cholesterol 179 mg/dL (0-200) 01/12/22 20:14 LDL Cholesterol, Calc 89 mg/dL (0-100) 01/12/22 20:14 HDL Cholesterol 53 mg/dL (40-60) 01/12/22 20:14 Cholesterol/HDL Ratio 3.4 (0.0-5.0) 01/12/22 20:14 Specimen Type Clean catch urine 01/13/22 06:35 Urine Color Yellow (YELLOW) 01/13/22 06:35 Urine Appearance Clear (CLEAR) 01/13/22 06:35 Urine pH 5.0 (5.0 - 8.0) 01/13/22 06:35 Ur Specific [place] 1.010 (1.000-1.030) 01/13/22 06:35 Urine Protein Negative (NEGATIVE) 01/13/22 06:35 Urine Glucose (UA) Negative (NEGATIVE) 01/13/22 06:35 Urine Ketones Negative (NEGATIVE) 01/13/22 06:35 Urine Occult Blood Negative (NEGATIVE) 01/13/22 06:35 Urine Nitrite Negative (NEGATIVE) 01/13/22 06:35 Urine Bilirubin Negative (NEGATIVE) 01/13/22 06:35 Urine Urobilinogen Normal (NORMAL) 01/13/22 06:35 Ur Leukocyte Esterase 1+ (NEGATIVE) 01/13/22 06:35 Urine RBC 0-2 /HPF (0-3) 01/13/22 06:35 Urine WBC 3-5 /HPF (0-5) 01/13/22 06:35 Ur Squamous Epith Cells Few /HPF (NEGATIVE) 01/13/22 06:35 Urine Bacteria Trace /HPF (NEGATIVE) 01/13/22 06:35 Ur Culture Indicated? Yes/culture set up 01/13/22 06:35 Digoxin 0.67 ng/mL (0.9-2) L 01/17/22 06:44 SARS CoV-2 RNA Rapid MARILU Negative (NEGATIVE) 01/12/22 20:00 - Plan (1) Brain TIA Status: Chronic Plan: NS AT 75 ML/HR, RESUME HOME MEDS, ZYPREXA 5MG PO HS, KLONOPIN 0.5MG PO HS, PHYSICAL THERAPY. MONITOR AM LABS (2) Ataxic gait Status: Acute (3) Generalized weakness Status: Acute (4) Dizziness Status: Acute (5) Altered mental status Status: Acute Qualifiers: Altered mental status type: transient alteration of awareness Qualified Code(s): R40.4 - Transient alteration of awareness (6) A-fib Status: Chronic Qualifiers: Atrial fibrillation type: paroxysmal Qualified Code(s): I48.0 - Paroxysmal atrial fibrillation
[2022-01-17] MEDS ORDERED: TOPROL XL PO ONE (19:42)
[2022-01-17] MEDS: ANTIVERT TAB 25 MG PO SCH (20:21)
[2022-01-17] MEDS: ZOCOR TAB 20 MG PO SCH (20:22)
[2022-01-17] MEDS: TOPROL XL PO SCH (20:23)
[2022-01-17] MEDS: ZyPREXA TAB 5 MG PO SCH (20:23)
[2022-01-17] MEDS: KLONOPIN TAB 0.5 MG PO SCH (20:24)
[2022-01-17] MEDS: CYMBALTA PO SCH (20:25)
[2022-01-18] MEDS: NS 1,000 ML IV 1,000 ML IV SCH ×3 (05:40→22:19)
[2022-01-18] MEDS ORDERED: GLUCOPHAGE ONE ×2 (07:21→19:32)
[2022-01-18 08:58] LABS: BASOPHILS # (AUTO) 0.1 X10^3/uL (0.0-0.1); EOSINOPHILS # (AUTO) 0.3 x10^3/uL (0.0-0.2); EOSINOPHILS % (AUTO) 4.9 % (0.9-2.9); HEMATOCRIT 42.1 % (36.0-47.0); HEMOGLOBIN 14.1 g/dL (12.0-16.0); LYMPHOCYTES # (AUTO) 1.8 X10^3/uL (1.3-2.9); LYMPHOCYTES % (AUTO) 29.5 % (21.0-51.0); MEAN CORPUSCULAR HGB CONC 33.4 g/dL (33.0-35.0); MEAN CORPUSCULAR VOLUME 86.8 fL (80.0-100.0); MEAN PLATELET VOLUME 8.7 fL (7.4-11.0); MONOCYTES # (AUTO) 0.5 x10^3/uL (0.3-0.8); MONOCYTES % (AUTO) 8.9 % (0.0-13.0); NEUTROPHILS # (AUTO) 3.3 x10^3/uL (2.2-4.8); NEUTROPHILS % (AUTO) 54.7 % (42.0-75.0); RED BLOOD COUNT 4.85 X10^6/uL (3.5-5.4); RED CELL DISTRIBUTION WIDTH 14.9 % (11.6-16.5); WHITE BLOOD COUNT 6.1 X10^3/uL (3.6-10.0)
[2022-01-18 09:07] LABS: BLOOD UREA NITROGEN 9 mg/dL (7-18); CALCIUM 7.8 mg/dL (8.5-10.1); CARBON DIOXIDE 27.8 mmol/L (21-32); CHLORIDE 109 mmol/L (98-107); COR NA(FOR HYPERGLY) 145 mmol/L (136-145); CREATININE 0.53 mg/dL (0.55-1.02); SODIUM 144 mmol/L (136-145); eGFR NON BLACK RACES > 60 (>60)
[2022-01-18] MEDS: NORVASC TAB 10 MG PO SCH (09:24)
[2022-01-18] MEDS: NexIUM PO SCH ×2 (09:25→20:06)
[2022-01-18] MEDS: K-DUR TAB 20 MEQ PO SCH (09:25)
[2022-01-18] MEDS: COZAAR PO SCH (09:27)
[2022-01-18] MEDS: ASPIRIN PO SCH (09:27)
[2022-01-18] MEDS: LANOXIN or DIGITEK PO SCH (09:27)
[2022-01-18] MEDS: GLUCOPHAGE PO SCH ×2 (09:28→20:07)
[2022-01-18] MEDS: REQUIP PO SCH (09:28)
[2022-01-18] MEDS: CORDARONE TAB 200 MG PO SCH ×2 (09:29→16:56)
[2022-01-18] MEDS: CARAFATE PO SCH ×4 (09:30→20:07)
[2022-01-18] MEDS: DETROL LA 4 MG CAP EXT REL PO SCH (09:30)
[2022-01-18] MEDS: NYSTATIN POWDER TOP SCH ×2 (09:30→21:00)
[2022-01-18] MEDS: ZyPREXA TAB 5 MG PO SCH ×2 (10:35→20:05)
[2022-01-18] MEDS: KLONOPIN TAB 0.5 MG PO SCH ×2 (10:35→20:06)
--- NOTE | 2022-01-18 10:57 | PCM.PROG ---
Progress Note - Progress Note for Day of Date of Exam: 01/17/22 - Subjective Subjective: WAS ADMITTED FOR TREATMENT OF TIA, GENERALIZED WEAKNESS, DIZZINESS, ATAXIC GAIT, AND ALTERED MENTAL STATUS. TODAY, SHE IS ALERT, LYING IN BED ON MORNING ROUNDS. SHE CONTINUES TO BE DISORIENTED. HER HEARTRATE WAS ELEVATED THROUGHOUT THE NIGHT. SHE RECEIVED A DOSE OF DIGOXIN AND LASIX THROUGHOUT THE NIGHT. HEARTRATE HAS BEEN STABLE THIS MORNING. STAFF REPORTS THAT SHE IS UNSTEADY ON AMBULATION AND REQUIRES MODERATE ASSISTANCE. ON EXAMINATION, A-FIB NOTED WITH HR IN THE 80s. BILATERAL LUNGS NOTED WITH DIMINISHED LUNG SOUNDS THROUGHOUT. ABDOMEN IS ROUND, SOFT, AND NON-TENDER WITH NORMAL BOWEL SOUNDS NOTED IN ALL QUADRANTS. HER VITALS THIS MORNING ARE: 98.4-80-20-93%-161/76. LABS WERE OBTAINED. WBC 10.1, GLUCOSE 126, CALCIUM 7.9, TOTAL PROTEIN 5.3, ALBUMIN 2.7. ALL OTHER LABS ARE OTHERWISE UNREMARKABLE. SHE IS CURRENTLY RECEIVING NORMAL SALINE AT 75 ML/HR, NORVASC 10MG DAILY, ZYREXA 5MG PO HS, KLONOPIN 0.5MG PO HS, ASPIRIN 325MG DAILY, CATAPRES PATCH WEEKLY, CYMBALTA 30MG HS, NEXIUM 40MG BID, COZAAR 100MG DAILY, MECLIZINE 12.5MG HS, METFORMIN 500MG BID, TOPROL XL 50MG HS, ZOFRAN 4MG IV Q6H PRN, KDUR 20MEQ DAILY, REQUIP 0.5MG DAILY, ZOCOR 20MG HS, CARAFATE 1G PO QID, DETROL LA 4MG DAILY, AND ULTRAM 50MG PO BID PRN. WE WILL ADD DIGOXIN 0.125MG PO DAILY. OTHERWISE, WE WILL CONTINUE WITH CURRENT PLAN OF CARE TODAY. PHYSICAL THERAPY WILL WORK WITH PATIENT. WE PLAN TO FOLLOW UP WITH AM LABS AND CONTINUE TO MONITOR. - Past Medical Family Social History Past Med/Fam/Surg Hx: No changes since H&P Allergies: Allergies No Known Drug Allergies Allergy (Verified 01/01/21 18:38) - Review of Systems ROS: No change since H&P - Vital Signs and I&O's Vital Signs: Temperature 98.9 F Pulse Rate [Left Radial] 77 Pulse Rate 77 Respiratory Rate 20 Blood Pressure [Left Arm] 191/82 Blood Pressure [Right Arm] 141/81 O2 Sat by Pulse Oximetry 97 Intake and Output: Intake & Output 01/15/22 01/16/22 01/17/22 01/18/22 11:59 11:59 11:59 11:59 Intake Total 2064 / 2064 1010 / 1010 1690 / 1690 3628 / 3628 Output Total 400 / 400 200 / 200 Balance 1664 / 1664 1010 / 1010 1490 / 1490 3628 / 3628 - Physical Exam Oriented: Not Oriented Eyes: Normal Ear: Normal Nose: Normal Throat: Normal Respiratory: Generalized, Diminished Cardiovascular: Irregular : Normal Auscultation: Bowel Sounds: Normal Palpation: Normal Tenderness: Normal Skin: Normal Musculoskeletal: Instability Psychiatric: Other (HALLUCINATIONS, CONFUSION ) Affect: Normal Speech Pattern: Clear - Laboratory and Diagnostics Result Diagrams: 01/18/22 08:44 01/18/22 08:44 Labs: 01/16/22 12:18 Urine,Clean Catch Urine Culture - Final 01/13/22 06:38 Urine,Clean Catch Urine Culture - Final Laboratory WBC 6.1 X10^3/uL (3.6-10.0) 01/18/22 08:44 RBC 4.85 X10^6/uL (3.5-5.4) 01/18/22 08:44 Hgb 14.1 g/dL (12.0-16.0) 01/18/22 08:44 Hct 42.1 % (36.0-47.0) 01/18/22 08:44 MCV 86.8 fL (80.0-100.0) 01/18/22 08:44 MCH 29.0 pg (27.0-34.0) 01/18/22 08:44 MCHC 33.4 g/dL (33.0-35.0) 01/18/22 08:44 RDW 14.9 % (11.6-16.5) 01/18/22 08:44 Plt Count 155 X10^3/uL (150.0-450.0) 01/18/22 08:44 Plt Count Comment Adequate (ADEQUATE) 01/17/22 05:50 MPV 8.7 fL (7.4-11.0) 01/18/22 08:44 Neut % (Auto) 54.7 % (42.0-75.0) 01/18/22 08:44 Lymph % (Auto) 29.5 % (21.0-51.0) 01/18/22 08:44 [place] % (Auto) 8.9 % (0.0-13.0) 01/18/22 08:44 Eos % (Auto) 4.9 % (0.9-2.9) H 01/18/22 08:44 Baso % (Auto) 2.0 % (0.2-1.0) H 01/18/22 08:44 Neut # (Auto) 3.3 x10^3/uL (2.2-4.8) 01/18/22 08:44 Lymph # (Auto) 1.8 X10^3/uL (1.3-2.9) 01/18/22 08:44 [place] # (Auto) 0.5 x10^3/uL (0.3-0.8) 01/18/22 08:44 Eos # (Auto) 0.3 x10^3/uL (0.0-0.2) H 01/18/22 08:44 Baso # (Auto) 0.1 X10^3/uL (0.0-0.1) 01/18/22 08:44 Absolute Nucleated RBC 0.0 /100WBC 01/18/22 08:44 Total Counted 100 01/17/22 05:50 Neutrophils % (Manual) 62 % (39-76) 01/17/22 05:50 Lymphocytes % (Manual) 26 % (13-43) 01/17/22 05:50 Monocytes % (Manual) 8 % (4-9) 01/17/22 05:50 Eosinophils % (Manual) 4 % (0-6) 01/17/22 05:50 Plt Morphology Comment Normal (NORMAL) 01/17/22 05:50 RBC Morphology Normal (NORMAL) 01/17/22 05:50 Sodium 144 mmol/L (136-145) 01/18/22 08:44 Corrected Sodium 145 mmol/L (136-145) 01/18/22 08:44 Potassium 3.9 mmol/L (3.5-5.1) 01/18/22 08:44 Chloride 109 mmol/L (98-107) H 01/18/22 08:44 Carbon Dioxide 27.8 mmol/L (21-32) 01/18/22 08:44 BUN 9 mg/dL (7-18) 01/18/22 08:44 Creatinine 0.53 mg/dL (0.55-1.02) L 01/18/22 08:44 Est GFR (MDRD) Af Amer > 60 (>60) 01/18/22 08:44 Est GFR (MDRD) Non-Af > 60 (>60) 01/18/22 08:44 Glucose 138 mg/dL (65-99) H 01/18/22 08:44 POC Glucose (mg/dL) 132 mg/dL (65-99) H 01/18/22 05:29 Calcium 7.8 mg/dL (8.5-10.1) L 01/18/22 08:44 Corrected Calcium 9.1 mg/dL (8.5-10.1) 01/17/22 06:44 Magnesium 0.9 mg/dL (1.7-2.9) L 01/17/22 06:44 Total Bilirubin 0.50 mg/dL (0.2-1.0) 01/17/22 06:44 AST 28 Units/L (15-37) 01/17/22 06:44 ALT 23 Units/L (12-78) 01/17/22 06:44 Alkaline Phosphatase 78 Units/L (46-116) 01/17/22 06:44 Creatine Kinase 35 Units/L (26-192) 01/15/22 23:14 CK-MB (CK-2) 1.6 ng/mL (0-4.0) 01/15/22 23:14 CK/CKMB % Calc 4.6 % (<4) 01/15/22 23:14 Troponin I High Sens 63.9 ng/L (4.0-60.0) H* 01/15/22 23:14 Total Protein 5.9 g/dL (6.4-8.2) L 01/17/22 06:44 Albumin 2.9 g/dL (3.4-5.0) L 01/17/22 06:44 Globulin 3.0 g/dL (2.5-4.5) 01/17/22 06:44 Albumin/Globulin Ratio 1.0 Ratio (1.1-2.1) L 01/17/22 06:44 Triglycerides 183 mg/dL (0-150) H 01/12/22 20:14 Cholesterol 179 mg/dL (0-200) 01/12/22 20:14 LDL Cholesterol, Calc 89 mg/dL (0-100) 01/12/22 20:14 HDL Cholesterol 53 mg/dL (40-60) 01/12/22 20:14 Cholesterol/HDL Ratio 3.4 (0.0-5.0) 01/12/22 20:14 Specimen Type Clean catch urine 01/13/22 06:35 Urine Color Yellow (YELLOW) 01/13/22 06:35 Urine Appearance Clear (CLEAR) 01/13/22 06:35 Urine pH 5.0 (5.0 - 8.0) 01/13/22 06:35 Ur Specific [place] 1.010 (1.000-1.030) 01/13/22 06:35 Urine Protein Negative (NEGATIVE) 01/13/22 06:35 Urine Glucose (UA) Negative (NEGATIVE) 01/13/22 06:35 Urine Ketones Negative (NEGATIVE) 01/13/22 06:35 Urine Occult Blood Negative (NEGATIVE) 01/13/22 06:35 Urine Nitrite Negative (NEGATIVE) 01/13/22 06:35 Urine Bilirubin Negative (NEGATIVE) 01/13/22 06:35 Urine Urobilinogen Normal (NORMAL) 01/13/22 06:35 Ur Leukocyte Esterase 1+ (NEGATIVE) 01/13/22 06:35 Urine RBC 0-2 /HPF (0-3) 01/13/22 06:35 Urine WBC 3-5 /HPF (0-5) 01/13/22 06:35 Ur Squamous Epith Cells Few /HPF (NEGATIVE) 01/13/22 06:35 Urine Bacteria Trace /HPF (NEGATIVE) 01/13/22 06:35 Ur Culture Indicated? Yes/culture set up 01/13/22 06:35 Digoxin 0.67 ng/mL (0.9-2) L 01/17/22 06:44 SARS CoV-2 RNA Rapid MARILU Negative (NEGATIVE) 01/12/22 20:00 - Plan (1) Brain TIA Status: Chronic Plan: NS AT 75 ML/HR, RESUME HOME MEDS, DIGOXIN 0.125MG PO DAILY, ZYPREXA 5MG PO HS, KLONOPIN 0.5MG PO HS, PHYSICAL THERAPY. MONITOR AM LABS (2) Ataxic gait Status: Acute (3) Generalized weakness Status: Acute (4) Dizziness Status: Acute (5) Altered mental status Status: Acute Qualifiers: Altered mental status type: transient alteration of awareness Qualified Code(s): R40.4 - Transient alteration of awareness (6) A-fib Status: Chronic Qualifiers: Atrial fibrillation type: paroxysmal Qualified Code(s): I48.0 - Paroxysmal atrial fibrillation
--- NOTE | 2022-01-18 11:04 | PCM.PROG ---
Progress Note - Progress Note for Day of Date of Exam: 01/18/22 - Subjective Subjective: IS BEING TREATED FOR A-FIB, TIA, GENERALIZED WEAKNESS, DIZZINESS, ATAXIC GAIT, AND ALTERED MENTAL STATUS. SHE DOES HAVE A HISTORY OF DEMENTIA. TODAY, SHE IS LYING IN BED WITH EYES CLOSED ON MORNING ROUNDS. SHE AWAKENS TO VERBAL STIMULI. SHE CONTINUES TO BE DISORIENTED. FAMILY REPORTS THAT PATIENT WAS VERY AGITATED AND DISORIENTED THROUGHOUT THE NIGHT. SHE DID NOT SLEEP MUCH IF ANY LAST NIGHT. HEARTRATE HAS BEEN STABLE SINCE YESTERDAY. STAFF REPORTS THAT SHE IS UNSTEADY ON AMBULATION AND REQUIRES MODERATE ASSISTANCE. ON EXAMINATION, A-FIB NOTED WITH HR IN THE 70s. BILATERAL LUNGS NOTED WITH DIMINISHED LUNG SOUNDS THROUGHOUT. ABDOMEN IS ROUND, SOFT, AND NON-TENDER WITH NORMAL BOWEL SOUNDS NOTED IN ALL QUADRANTS. HER VITALS THIS MORNING ARE: 98.9-77-20-97%-191/82. LABS WERE OBTAINED. WBC 6.1, HGB 14.1, HCT 42.1, SODIUM 139, POTASSIUM 3.7, BUN 12, CREATININE 0.62, GLUCOSE 153, CALCIUM 8.2, TOTAL PROTEIN 5.9, ALBUMIN 2.9. SHE IS CURRENTLY RECEIVING NORMAL SALINE AT 75 ML/HR, DIGOXIN 0.125MG PO DAILY, NORVASC 10MG DAILY, ZYREXA 5MG PO HS, KLONOPIN 0.5MG PO HS, ASPIRIN 325MG DAILY, CATAPRES PATCH WEEKLY, CYMBALTA 30MG HS, NEXIUM 40MG BID, COZAAR 100MG DAILY, MECLIZINE 12.5MG HS, METFORMIN 500MG BID, TOPROL XL 50MG HS, ZOFRAN 4MG IV Q6H PRN, KDUR 20MEQ DAILY, REQUIP 0.5MG DAILY, ZOCOR 20MG HS, CARAFATE 1G PO QID, DETROL LA 4MG DAILY, AND ULTRAM 50MG PO BID PRN. WE WILL INCREASE KLONOPIN AND ZYPREXA TO BID. OTHERWISE, WE WILL CONTINUE WITH CURRENT PLAN OF CARE TODAY. PHYSICAL THERAPY WILL CONTINUE TO WORK WITH PATIENT TODAY. WE PLAN TO FOLLOW UP WITH AM LABS AND CONTINUE TO MONITOR. TIME SPENT ON CLINICAL ASSESSMENT, REVIEWING LABS AND IMAGING, DECISION MAKING, AND DOCUMENTATION GREATER THAN 45 MINUTES. - Past Medical Family Social History Past Med/Fam/Surg Hx: No changes since H&P Allergies: Allergies No Known Drug Allergies Allergy (Verified 01/01/21 18:38) - Review of Systems ROS: No change since H&P - Vital Signs and I&O's Vital Signs: Temperature 98.9 F Pulse Rate [Left Radial] 77 Pulse Rate 77 Respiratory Rate 20 Blood Pressure [Left Arm] 191/82 Blood Pressure [Right Arm] 141/81 O2 Sat by Pulse Oximetry 97 Intake and Output: Intake & Output 01/15/22 01/16/22 01/17/22 01/18/22 11:59 11:59 11:59 11:59 Intake Total 2064 / 4 1010 / 1010 1690 / 1690 3628 / 3628 Output Total 400 / 400 200 / 200 Balance 1664 / 1664 1010 / 1010 1490 / 1490 3628 / 3628 - Physical Exam Oriented: Not Oriented Eyes: Normal Ear: Normal Nose: Normal Throat: Normal Respiratory: Generalized, Diminished Cardiovascular: Irregular : Normal Auscultation: Bowel Sounds: Normal Tenderness: Normal Skin: Normal Musculoskeletal: Instability Psychiatric: Other (HALLUCINATIONS, CONFUSION ) Affect: Normal Speech Pattern: Clear - Laboratory and Diagnostics Result Diagrams: 01/18/22 08:44 01/18/22 08:44 Labs: 01/16/22 12:18 Urine,Clean Catch Urine Culture - Final 01/13/22 06:38 Urine,Clean Catch Urine Culture - Final Laboratory WBC 6.1 X10^3/uL (3.6-10.0) 01/18/22 08:44 RBC 4.85 X10^6/uL (3.5-5.4) 01/18/22 08:44 Hgb 14.1 g/dL (12.0-16.0) 01/18/22 08:44 Hct 42.1 % (36.0-47.0) 01/18/22 08:44 MCV 86.8 fL (80.0-100.0) 01/18/22 08:44 MCH 29.0 pg (27.0-34.0) 01/18/22 08:44 MCHC 33.4 g/dL (33.0-35.0) 01/18/22 08:44 RDW 14.9 % (11.6-16.5) 01/18/22 08:44 Plt Count 155 X10^3/uL (150.0-450.0) 01/18/22 08:44 Plt Count Comment Adequate (ADEQUATE) 01/17/22 05:50 MPV 8.7 fL (7.4-11.0) 01/18/22 08:44 Neut % (Auto) 54.7 % (42.0-75.0) 01/18/22 08:44 Lymph % (Auto) 29.5 % (21.0-51.0) 01/18/22 08:44 [place] % (Auto) 8.9 % (0.0-13.0) 01/18/22 08:44 Eos % (Auto) 4.9 % (0.9-2.9) H 01/18/22 08:44 Baso % (Auto) 2.0 % (0.2-1.0) H 01/18/22 08:44 Neut # (Auto) 3.3 x10^3/uL (2.2-4.8) 01/18/22 08:44 Lymph # (Auto) 1.8 X10^3/uL (1.3-2.9) 01/18/22 08:44 [place] # (Auto) 0.5 x10^3/uL (0.3-0.8) 01/18/22 08:44 Eos # (Auto) 0.3 x10^3/uL (0.0-0.2) H 01/18/22 08:44 Baso # (Auto) 0.1 X10^3/uL (0.0-0.1) 01/18/22 08:44 Absolute Nucleated RBC 0.0 /100WBC 01/18/22 08:44 Total Counted 100 01/17/22 05:50 Neutrophils % (Manual) 62 % (39-76) 01/17/22 05:50 Lymphocytes % (Manual) 26 % (13-43) 01/17/22 05:50 Monocytes % (Manual) 8 % (4-9) 01/17/22 05:50 Eosinophils % (Manual) 4 % (0-6) 01/17/22 05:50 Plt Morphology Comment Normal (NORMAL) 01/17/22 05:50 RBC Morphology Normal (NORMAL) 01/17/22 05:50 Sodium 144 mmol/L (136-145) 01/18/22 08:44 Corrected Sodium 145 mmol/L (136-145) 01/18/22 08:44 Potassium 3.9 mmol/L (3.5-5.1) 01/18/22 08:44 Chloride 109 mmol/L (98-107) H 01/18/22 08:44 Carbon Dioxide 27.8 mmol/L (21-32) 01/18/22 08:44 BUN 9 mg/dL (7-18) 01/18/22 08:44 Creatinine 0.53 mg/dL (0.55-1.02) L 01/18/22 08:44 Est GFR (MDRD) Af Amer > 60 (>60) 01/18/22 08:44 Est GFR (MDRD) Non-Af > 60 (>60) 01/18/22 08:44 Glucose 138 mg/dL (65-99) H 01/18/22 08:44 POC Glucose (mg/dL) 132 mg/dL (65-99) H 01/18/22 05:29 Calcium 7.8 mg/dL (8.5-10.1) L 01/18/22 08:44 Corrected Calcium 9.1 mg/dL (8.5-10.1) 01/17/22 06:44 Magnesium 0.9 mg/dL (1.7-2.9) L 01/17/22 06:44 Total Bilirubin 0.50 mg/dL (0.2-1.0) 01/17/22 06:44 AST 28 Units/L (15-37) 01/17/22 06:44 ALT 23 Units/L (12-78) 01/17/22 06:44 Alkaline Phosphatase 78 Units/L (46-116) 01/17/22 06:44 Creatine Kinase 35 Units/L (26-192) 01/15/22 23:14 CK-MB (CK-2) 1.6 ng/mL (0-4.0) 01/15/22 23:14 CK/CKMB % Calc 4.6 % (<4) 01/15/22 23:14 Troponin I High Sens 63.9 ng/L (4.0-60.0) H* 01/15/22 23:14 Total Protein 5.9 g/dL (6.4-8.2) L 01/17/22 06:44 Albumin 2.9 g/dL (3.4-5.0) L 01/17/22 06:44 Globulin 3.0 g/dL (2.5-4.5) 01/17/22 06:44 Albumin/Globulin Ratio 1.0 Ratio (1.1-2.1) L 01/17/22 06:44 Triglycerides 183 mg/dL (0-150) H 01/12/22 20:14 Cholesterol 179 mg/dL (0-200) 01/12/22 20:14 LDL Cholesterol, Calc 89 mg/dL (0-100) 01/12/22 20:14 HDL Cholesterol 53 mg/dL (40-60) 01/12/22 20:14 Cholesterol/HDL Ratio 3.4 (0.0-5.0) 01/12/22 20:14 Specimen Type Clean catch urine 01/13/22 06:35 Urine Color Yellow (YELLOW) 01/13/22 06:35 Urine Appearance Clear (CLEAR) 01/13/22 06:35 Urine pH 5.0 (5.0 - 8.0) 01/13/22 06:35 Ur Specific [place] 1.010 (1.000-1.030) 01/13/22 06:35 Urine Protein Negative (NEGATIVE) 01/13/22 06:35 Urine Glucose (UA) Negative (NEGATIVE) 01/13/22 06:35 Urine Ketones Negative (NEGATIVE) 01/13/22 06:35 Urine Occult Blood Negative (NEGATIVE) 01/13/22 06:35 Urine Nitrite Negative (NEGATIVE) 01/13/22 06:35 Urine Bilirubin Negative (NEGATIVE) 01/13/22 06:35 Urine Urobilinogen Normal (NORMAL) 01/13/22 06:35 Ur Leukocyte Esterase 1+ (NEGATIVE) 01/13/22 06:35 Urine RBC 0-2 /HPF (0-3) 01/13/22 06:35 Urine WBC 3-5 /HPF (0-5) 01/13/22 06:35 Ur Squamous Epith Cells Few /HPF (NEGATIVE) 01/13/22 06:35 Urine Bacteria Trace /HPF (NEGATIVE) 01/13/22 06:35 Ur Culture Indicated? Yes/culture set up 01/13/22 06:35 Digoxin 0.67 ng/mL (0.9-2) L 01/17/22 06:44 SARS CoV-2 RNA Rapid MARILU Negative (NEGATIVE) 01/12/22 20:00 - Plan (1) Brain TIA Status: Chronic Plan: NS AT 75 ML/HR, RESUME HOME MEDS, DIGOXIN 0.125MG PO DAILY, ZYPREXA 5MG PO BID, KLONOPIN 0.5MG PO BID, PHYSICAL THERAPY. MONITOR AM LABS (2) Ataxic gait Status: Acute (3) Generalized weakness Status: Acute (4) Dizziness Status: Acute (5) Altered mental status Status: Acute Qualifiers: Altered mental status type: transient alteration of awareness Qualified Code(s): R40.4 - Transient alteration of awareness (6) A-fib Status: Chronic Qualifiers: Atrial fibrillation type: paroxysmal Qualified Code(s): I48.0 - Paroxysmal atrial fibrillation (7) Dementia Status: Acute Qualifiers: Dementia type: unspecified type Dementia behavioral disturbance: with behavioral disturbance Qualified Code(s): F03.91 - Unspecified dementia with behavioral disturbance
[2022-01-18 14:57] LABS: ALANINE AMINOTRANSFERASE 32 Units/L (12-78); ALBUMIN 2.9 g/dL (3.4-5.0); ALKALINE PHOSPHATASE 79 Units/L (46-116); ASPARTATE AMINO TRANSFERASE 30 Units/L (15-37); COR CA(FOR HYPOALB) 8.7 mg/dL (8.5-10.1); DIGOXIN 0.82 ng/mL (0.9-2); MAGNESIUM 1.6 mg/dL (1.7-2.9); TOTAL PROTEIN 5.8 g/dL (6.4-8.2)
[2022-01-18] MEDS: MAGNESIUM SULFATE 1 GRAM/100 mL PREMIX 1 G/100 ML BAG IV PRN ×2 (16:55→18:21)
[2022-01-18] MEDS ORDERED: TOPROL XL PO ONE (19:33)
[2022-01-18] MEDS: ANTIVERT TAB 25 MG PO SCH (20:05)
[2022-01-18] MEDS: ZOCOR TAB 20 MG PO SCH (20:06)
[2022-01-18] MEDS: TOPROL XL PO SCH (20:06)
[2022-01-18] MEDS: CYMBALTA PO SCH (20:07)
[2022-01-19] MEDS: NS 1,000 ML IV 1,000 ML IV SCH ×3 (02:32→21:48)
[2022-01-19 06:16] LABS: BASOPHILS % (AUTO) 0.6 % (0.2-1.0); EOSINOPHILS # (AUTO) 0.3 x10^3/uL (0.0-0.2); EOSINOPHILS % (AUTO) 6.3 % (0.9-2.9); HEMATOCRIT 39.2 % (36.0-47.0); HEMOGLOBIN 13.3 g/dL (12.0-16.0); LYMPHOCYTES # (AUTO) 2.1 X10^3/uL (1.3-2.9); LYMPHOCYTES % (AUTO) 37.9 % (21.0-51.0); MEAN CORPUSCULAR HEMOGLOBIN 29.4 pg (27.0-34.0); MEAN CORPUSCULAR HGB CONC 33.8 g/dL (33.0-35.0); MEAN PLATELET VOLUME 9.5 fL (7.4-11.0); MONOCYTES # (AUTO) 0.4 x10^3/uL (0.3-0.8); MONOCYTES % (AUTO) 6.9 % (0.0-13.0); NEUTROPHILS # (AUTO) 2.7 x10^3/uL (2.2-4.8); NEUTROPHILS % (AUTO) 48.3 % (42.0-75.0); RED BLOOD COUNT 4.51 X10^6/uL (3.5-5.4); RED CELL DISTRIBUTION WIDTH 15.2 % (11.6-16.5); WHITE BLOOD COUNT 5.5 X10^3/uL (3.6-10.0)
[2022-01-19 06:33] LABS: ALANINE AMINOTRANSFERASE 28 Units/L (12-78); ALBUMIN 2.7 g/dL (3.4-5.0); ALKALINE PHOSPHATASE 74 Units/L (46-116); ASPARTATE AMINO TRANSFERASE 25 Units/L (15-37); BLOOD UREA NITROGEN 10 mg/dL (7-18); CARBON DIOXIDE 24.8 mmol/L (21-32); CHLORIDE 109 mmol/L (98-107); COR NA(FOR HYPERGLY) 142 mmol/L (136-145); CREATININE 0.53 mg/dL (0.55-1.02); MAGNESIUM 1.8 mg/dL (1.7-2.9); SODIUM 141 mmol/L (136-145); TOTAL PROTEIN 5.3 g/dL (6.4-8.2); eGFR NON BLACK RACES > 60 (>60)
[2022-01-19] MEDS ORDERED: GLUCOPHAGE ONE ×2 (07:20→19:45)
[2022-01-19] MEDS: MAGNESIUM SULFATE 1 GRAM/100 mL PREMIX 1 G/100 ML BAG IV PRN ×2 (08:59→10:45)
[2022-01-19] MEDS: CARAFATE PO SCH ×4 (09:02→20:00)
[2022-01-19] MEDS: CORDARONE TAB 200 MG PO SCH ×2 (09:02→16:57)
[2022-01-19] MEDS: ASPIRIN PO SCH (09:02)
[2022-01-19] MEDS: GLUCOPHAGE PO SCH ×2 (09:02→20:00)
[2022-01-19] MEDS: COZAAR PO SCH (09:03)
[2022-01-19] MEDS: DETROL LA 4 MG CAP EXT REL PO SCH (09:03)
[2022-01-19] MEDS: KLONOPIN TAB 0.5 MG PO SCH ×2 (09:03→21:00)
[2022-01-19] MEDS: K-DUR TAB 20 MEQ PO SCH (09:03)
[2022-01-19] MEDS: NexIUM PO SCH ×2 (09:04→21:00)
[2022-01-19] MEDS: NORVASC TAB 10 MG PO SCH (09:04)
[2022-01-19] MEDS: LANOXIN or DIGITEK PO SCH (09:04)
[2022-01-19] MEDS: NYSTATIN POWDER TOP SCH ×2 (09:05→21:00)
[2022-01-19] MEDS: REQUIP PO SCH (09:05)
[2022-01-19] MEDS: ZyPREXA TAB 5 MG PO SCH ×2 (09:05→20:00)
[2022-01-19] MEDS ORDERED: TOPROL XL PO ONE (19:46)
[2022-01-19] MEDS: TOPROL XL PO SCH (20:00)
[2022-01-19] MEDS: ANTIVERT TAB 25 MG PO SCH (20:00)
[2022-01-19] MEDS: CYMBALTA PO SCH (21:00)
[2022-01-19] MEDS: ZOCOR TAB 20 MG PO SCH (21:00)
[2022-01-20 06:28] LABS: BASOPHILS # (AUTO) 0.1 X10^3/uL (0.0-0.1); BASOPHILS % (AUTO) 0.9 % (0.2-1.0); EOSINOPHILS # (AUTO) 0.3 x10^3/uL (0.0-0.2); EOSINOPHILS % (AUTO) 5.2 % (0.9-2.9); HEMATOCRIT 40.3 % (36.0-47.0); HEMOGLOBIN 13.5 g/dL (12.0-16.0); LYMPHOCYTES % (AUTO) 35.5 % (21.0-51.0); MEAN CORPUSCULAR HEMOGLOBIN 29.3 pg (27.0-34.0); MEAN CORPUSCULAR HGB CONC 33.5 g/dL (33.0-35.0); MEAN CORPUSCULAR VOLUME 87.4 fL (80.0-100.0); MEAN PLATELET VOLUME 9.2 fL (7.4-11.0); MONOCYTES # (AUTO) 0.4 x10^3/uL (0.3-0.8); MONOCYTES % (AUTO) 6.5 % (0.0-13.0); NEUTROPHILS % (AUTO) 51.9 % (42.0-75.0); RED BLOOD COUNT 4.61 X10^6/uL (3.5-5.4); RED CELL DISTRIBUTION WIDTH 14.7 % (11.6-16.5); WHITE BLOOD COUNT 5.7 X10^3/uL (3.6-10.0)
[2022-01-20 06:50] LABS: ALANINE AMINOTRANSFERASE 26 Units/L (12-78); ALBUMIN 2.8 g/dL (3.4-5.0); ALKALINE PHOSPHATASE 80 Units/L (46-116); ASPARTATE AMINO TRANSFERASE 26 Units/L (15-37); BLOOD UREA NITROGEN 11 mg/dL (7-18); CALCIUM 8.2 mg/dL (8.5-10.1); CARBON DIOXIDE 25.2 mmol/L (21-32); CHLORIDE 107 mmol/L (98-107); COR CA(FOR HYPOALB) 9.2 mg/dL (8.5-10.1); COR NA(FOR HYPERGLY) 140 mmol/L (136-145); CREATININE 0.55 mg/dL (0.55-1.02); DIGOXIN 0.58 ng/mL (0.9-2); SODIUM 139 mmol/L (136-145); TOTAL PROTEIN 5.7 g/dL (6.4-8.2); eGFR NON BLACK RACES > 60 (>60)
[2022-01-20] MEDS ORDERED: GLUCOPHAGE ONE ×2 (06:55→20:07)
[2022-01-20] MEDS: MAGNESIUM SULFATE 1 GRAM/100 mL PREMIX 1 G/100 ML BAG IV PRN ×2 (07:20→08:52)
[2022-01-20] MEDS: CORDARONE TAB 200 MG PO SCH ×2 (07:21→17:30)
--- NOTE | 2022-01-20 08:51 | PCM.PROG ---
Progress Note - Progress Note for Day of Date of Exam: 01/19/22 - Subjective Subjective: IS BEING TREATED FOR A-FIB, TIA, GENERALIZED WEAKNESS, DIZZINESS, ATAXIC GAIT, AND ALTERED MENTAL STATUS. SHE DOES HAVE A HISTORY OF DEMENTIA. TODAY, SHE IS LYING IN BED WITH EYES CLOSED ON MORNING ROUNDS. SHE AWAKENS TO VERBAL STIMULI, BUT IS DROWSY. SHE CONTINUES TO BE DISORIENTED. FAMILY REPORTS THAT SHE DID REST BETTER THROUGHOUT THE NIGHT. HEART RATE HAS BEEN STABLE SINCE YESTERDAY. STAFF REPORTS THAT SHE IS UNSTEADY ON AMBULATION AND REQUIRES MODERATE ASSISTANCE. ON EXAMINATION, A-FIB NOTED WITH HR IN THE 70s. BILATERAL LUNGS NOTED WITH DIMINISHED LUNG SOUNDS THROUGHOUT. ABDOMEN IS ROUND, SOFT, AND NON-TENDER WITH NORMAL BOWEL SOUNDS NOTED IN ALL QUADRANTS. HER VITALS THIS MORNING ARE: 98.3-70-12-94%-184/77. LABS WERE OBTAINED. WBC 5.5, HGB 13.3, HCT 39.2, PLT COUNT 148, SODIUM 139, POTASSIUM 4.1, BUN 11, CREATININE 0.55, GLUCOSE 148, CALCIUM 8.2, MAGNESIUM 1.6, TOTAL PROTEIN 5.7, ALBUMIN 2.8. SHE IS CURRENTLY RECEIVING NORMAL SALINE AT 75 ML/HR, DIGOXIN 0.125MG PO DAILY, NORVASC 10MG DAILY, ZYREXA 5MG PO BID, KLONOPIN 0.5MG PO BID, ASPIRIN 325MG DAILY, CATAPRES PATCH WEEKLY, CYMBALTA 30MG HS, NEXIUM 40MG BID, COZAAR 100MG DAILY, MECLIZINE 12.5MG HS, METFORMIN 500MG BID, TOPROL XL 50MG HS, ZOFRAN 4MG IV Q6H PRN, K-DUR 20MEQ DAILY, REQUIP 0.5MG DAILY, ZOCOR 20MG HS, CARAFATE 1G PO QID, DETROL LA 4MG DAILY, AND ULTRAM 50MG PO BID PRN. WE WILL CONTINUE WITH CURRENT PLAN OF CARE TODAY. PHYSICAL THERAPY WILL CONTINUE TO WORK WITH PATIENT TODAY. WE PLAN TO FOLLOW UP WITH AM LABS AND CONTINUE TO MONITOR. TIME SPENT ON CLINICAL ASSESSMENT, REVIEWING LABS AND IMAGING, DECISION MAKING, AND DOCUMENTATION GREATER THAN 45 MINUTES. - Past Medical Family Social History Past Med/Fam/Surg Hx: No changes since H&P Allergies: Allergies No Known Drug Allergies Allergy (Verified 01/01/21 18:38) - Review of Systems ROS: No change since H&P - Vital Signs and I&O's Vital Signs: Temperature 97.2 F Pulse Rate [Left Radial] 71 Pulse Rate 69 Respiratory Rate 18 Blood Pressure [Left Arm] 170/73 Blood Pressure [Right Arm] 141/81 O2 Sat by Pulse Oximetry 97 Intake and Output: Intake & Output 01/17/22 01/18/22 01/19/22 01/20/22 11:59 11:59 11:59 11:59 Intake Total 1690 / 1690 3628 / 3628 1997 2598 / 2598 Output Total 200 / 200 Balance 1490 / 1490 3628 / 3628 1997 2598 / 2598 - Physical Exam Oriented: Not Oriented Eyes: Normal Ear: Normal Nose: Normal Throat: Normal Respiratory: Generalized, Diminished Cardiovascular: Irregular : Normal Auscultation: Bowel Sounds: Normal Palpation: Normal Tenderness: Normal Skin: Normal Musculoskeletal: Instability Psychiatric: Other (HALLUCINATIONS, CONFUSION ) Affect: Normal Speech Pattern: Clear - Laboratory and Diagnostics Result Diagrams: 01/20/22 05:59 01/20/22 05:59 Labs: 01/16/22 12:18 Urine,Clean Catch Urine Culture - Final 01/13/22 06:38 Urine,Clean Catch Urine Culture - Final Laboratory WBC 5.7 X10^3/uL (3.6-10.0) 01/20/22 05:59 RBC 4.61 X10^6/uL (3.5-5.4) 01/20/22 05:59 Hgb 13.5 g/dL (12.0-16.0) 01/20/22 05:59 Hct 40.3 % (36.0-47.0) 01/20/22 05:59 MCV 87.4 fL (80.0-100.0) 01/20/22 05:59 MCH 29.3 pg (27.0-34.0) 01/20/22 05:59 MCHC 33.5 g/dL (33.0-35.0) 01/20/22 05:59 RDW 14.7 % (11.6-16.5) 01/20/22 05:59 Plt Count 145 X10^3/uL (150.0-450.0) L 01/20/22 05:59 Plt Count Comment Adequate (ADEQUATE) 01/17/22 05:50 MPV 9.2 fL (7.4-11.0) 01/20/22 05:59 Neut % (Auto) 51.9 % (42.0-75.0) 01/20/22 05:59 Lymph % (Auto) 35.5 % (21.0-51.0) 01/20/22 05:59 [place] % (Auto) 6.5 % (0.0-13.0) 01/20/22 05:59 Eos % (Auto) 5.2 % (0.9-2.9) H 01/20/22 05:59 Baso % (Auto) 0.9 % (0.2-1.0) 01/20/22 05:59 Neut # (Auto) 3.0 x10^3/uL (2.2-4.8) 01/20/22 05:59 Lymph # (Auto) 2.0 X10^3/uL (1.3-2.9) 01/20/22 05:59 [place] # (Auto) 0.4 x10^3/uL (0.3-0.8) 01/20/22 05:59 Eos # (Auto) 0.3 x10^3/uL (0.0-0.2) H 01/20/22 05:59 Baso # (Auto) 0.1 X10^3/uL (0.0-0.1) 01/20/22 05:59 Absolute Nucleated RBC 0.1 /100WBC 01/20/22 05:59 Total Counted 100 01/17/22 05:50 Neutrophils % (Manual) 62 % (39-76) 01/17/22 05:50 Lymphocytes % (Manual) 26 % (13-43) 01/17/22 05:50 Monocytes % (Manual) 8 % (4-9) 01/17/22 05:50 Eosinophils % (Manual) 4 % (0-6) 01/17/22 05:50 Plt Morphology Comment Normal (NORMAL) 01/17/22 05:50 RBC Morphology Normal (NORMAL) 01/17/22 05:50 Sodium 139 mmol/L (136-145) 01/20/22 05:59 Corrected Sodium 140 mmol/L (136-145) 01/20/22 05:59 Potassium 4.1 mmol/L (3.5-5.1) 01/20/22 05:59 Chloride 107 mmol/L (98-107) 01/20/22 05:59 Carbon Dioxide 25.2 mmol/L (21-32) 01/20/22 05:59 BUN 11 mg/dL (7-18) 01/20/22 05:59 Creatinine 0.55 mg/dL (0.55-1.02) 01/20/22 05:59 Est GFR (MDRD) Af Amer > 60 (>60) 01/20/22 05:59 Est GFR (MDRD) Non-Af > 60 (>60) 01/20/22 05:59 Glucose 148 mg/dL (65-99) H 01/20/22 05:59 POC Glucose (mg/dL) 143 mg/dL (65-99) H 01/20/22 05:59 Calcium 8.2 mg/dL (8.5-10.1) L 01/20/22 05:59 Corrected Calcium 9.2 mg/dL (8.5-10.1) 01/20/22 05:59 Magnesium 1.6 mg/dL (1.7-2.9) L 01/20/22 05:59 Total Bilirubin 0.30 mg/dL (0.2-1.0) 01/20/22 05:59 AST 26 Units/L (15-37) 01/20/22 05:59 ALT 26 Units/L (12-78) 01/20/22 05:59 Alkaline Phosphatase 80 Units/L (46-116) 01/20/22 05:59 Creatine Kinase 35 Units/L (26-192) 01/15/22 23:14 CK-MB (CK-2) 1.6 ng/mL (0-4.0) 01/15/22 23:14 CK/CKMB % Calc 4.6 % (<4) 01/15/22 23:14 Troponin I High Sens 63.9 ng/L (4.0-60.0) H* 01/15/22 23:14 Total Protein 5.7 g/dL (6.4-8.2) L 01/20/22 05:59 Albumin 2.8 g/dL (3.4-5.0) L 01/20/22 05:59 Globulin 2.9 g/dL (2.5-4.5) 01/20/22 05:59 Albumin/Globulin Ratio 1.0 Ratio (1.1-2.1) L 01/20/22 05:59 Triglycerides 183 mg/dL (0-150) H 01/12/22 20:14 Cholesterol 179 mg/dL (0-200) 01/12/22 20:14 LDL Cholesterol, Calc 89 mg/dL (0-100) 01/12/22 20:14 HDL Cholesterol 53 mg/dL (40-60) 01/12/22 20:14 Cholesterol/HDL Ratio 3.4 (0.0-5.0) 01/12/22 20:14 Specimen Type Clean catch urine 01/13/22 06:35 Urine Color Yellow (YELLOW) 01/13/22 06:35 Urine Appearance Clear (CLEAR) 01/13/22 06:35 Urine pH 5.0 (5.0 - 8.0) 01/13/22 06:35 Ur Specific [place] 1.010 (1.000-1.030) 01/13/22 06:35 Urine Protein Negative (NEGATIVE) 01/13/22 06:35 Urine Glucose (UA) Negative (NEGATIVE) 01/13/22 06:35 Urine Ketones Negative (NEGATIVE) 01/13/22 06:35 Urine Occult Blood Negative (NEGATIVE) 01/13/22 06:35 Urine Nitrite Negative (NEGATIVE) 01/13/22 06:35 Urine Bilirubin Negative (NEGATIVE) 01/13/22 06:35 Urine Urobilinogen Normal (NORMAL) 01/13/22 06:35 Ur Leukocyte Esterase 1+ (NEGATIVE) 01/13/22 06:35 Urine RBC 0-2 /HPF (0-3) 01/13/22 06:35 Urine WBC 3-5 /HPF (0-5) 01/13/22 06:35 Ur Squamous Epith Cells Few /HPF (NEGATIVE) 01/13/22 06:35 Urine Bacteria Trace /HPF (NEGATIVE) 01/13/22 06:35 Ur Culture Indicated? Yes/culture set up 01/13/22 06:35 Digoxin 0.58 ng/mL (0.9-2) L 01/20/22 05:59 SARS CoV-2 RNA Rapid MARILU Negative (NEGATIVE) 01/12/22 20:00 - Plan (1) Brain TIA Status: Chronic Plan: NS AT 75 ML/HR, RESUME HOME MEDS, DIGOXIN 0.125MG PO DAILY, ZYPREXA 5MG PO BID, KLONOPIN 0.5MG PO BID, PHYSICAL THERAPY. MONITOR AM LABS (2) Ataxic gait Status: Acute (3) Generalized weakness Status: Acute (4) Dizziness Status: Acute (5) Altered mental status Status: Acute Qualifiers: Altered mental status type: transient alteration of awareness Qualified Code(s): R40.4 - Transient alteration of awareness (6) A-fib Status: Chronic Qualifiers: Atrial fibrillation type: paroxysmal Qualified Code(s): I48.0 - Paroxysmal atrial fibrillation (7) Dementia Status: Acute Qualifiers: Dementia type: unspecified type Dementia behavioral disturbance: with behavioral disturbance Qualified Code(s): F03.91 - Unspecified dementia with behavioral disturbance
[2022-01-20] MEDS: COZAAR PO SCH (09:32)
[2022-01-20] MEDS: ASPIRIN PO SCH (09:32)
[2022-01-20] MEDS: DETROL LA 4 MG CAP EXT REL PO SCH (09:32)
[2022-01-20] MEDS: CARAFATE PO SCH ×4 (09:32→20:18)
[2022-01-20] MEDS: KLONOPIN TAB 0.5 MG PO SCH ×2 (09:33→21:00)
[2022-01-20] MEDS: GLUCOPHAGE PO SCH ×2 (09:33→20:15)
[2022-01-20] MEDS: NexIUM PO SCH ×2 (09:34→20:13)
[2022-01-20] MEDS: LANOXIN or DIGITEK PO SCH (09:34)
[2022-01-20] MEDS: K-DUR TAB 20 MEQ PO SCH (09:34)
[2022-01-20] MEDS: NORVASC TAB 10 MG PO SCH (09:34)
[2022-01-20] MEDS: REQUIP PO SCH (09:35)
[2022-01-20] MEDS: ZyPREXA TAB 5 MG PO SCH ×2 (09:35→20:15)
[2022-01-20] MEDS: NYSTATIN POWDER TOP SCH ×2 (09:35→21:00)
[2022-01-20] MEDS ORDERED: TOPROL XL PO ONE (20:07)
[2022-01-20] MEDS: ANTIVERT TAB 25 MG PO SCH (20:14)
[2022-01-20] MEDS: ZOCOR TAB 20 MG PO SCH (20:16)
[2022-01-20] MEDS: CYMBALTA PO SCH (20:16)
[2022-01-20] MEDS: TOPROL XL PO SCH (20:20)
[2022-01-20] MEDS: NS 1,000 ML IV 1,000 ML IV SCH (23:20)
[2022-01-21] MEDS: NS 1,000 ML IV 1,000 ML IV SCH ×2 (00:41→12:59)
[2022-01-21] MEDS: CORDARONE TAB 200 MG PO SCH ×3 (07:16→16:32)
[2022-01-21 07:32] LABS: BASOPHILS % (AUTO) 0.5 % (0.2-1.0); EOSINOPHILS # (AUTO) 0.2 x10^3/uL (0.0-0.2); HEMATOCRIT 40.2 % (36.0-47.0); HEMOGLOBIN 13.4 g/dL (12.0-16.0); LYMPHOCYTES # (AUTO) 1.9 X10^3/uL (1.3-2.9); LYMPHOCYTES % (AUTO) 34.3 % (21.0-51.0); MEAN CORPUSCULAR HEMOGLOBIN 28.8 pg (27.0-34.0); MEAN CORPUSCULAR HGB CONC 33.4 g/dL (33.0-35.0); MEAN CORPUSCULAR VOLUME 86.3 fL (80.0-100.0); MEAN PLATELET VOLUME 9.2 fL (7.4-11.0); MONOCYTES # (AUTO) 0.4 x10^3/uL (0.3-0.8); MONOCYTES % (AUTO) 7.2 % (0.0-13.0); NEUTROPHILS # (AUTO) 2.9 x10^3/uL (2.2-4.8); RED BLOOD COUNT 4.66 X10^6/uL (3.5-5.4); RED CELL DISTRIBUTION WIDTH 14.6 % (11.6-16.5); WHITE BLOOD COUNT 5.4 X10^3/uL (3.6-10.0)
[2022-01-21 07:34] LABS: ALANINE AMINOTRANSFERASE 30 Units/L (12-78); ALBUMIN 2.9 g/dL (3.4-5.0); ALKALINE PHOSPHATASE 80 Units/L (46-116); ASPARTATE AMINO TRANSFERASE 26 Units/L (15-37); BLOOD UREA NITROGEN 13 mg/dL (7-18); CALCIUM 8.5 mg/dL (8.5-10.1); CARBON DIOXIDE 27.9 mmol/L (21-32); CHLORIDE 105 mmol/L (98-107); COR CA(FOR HYPOALB) 9.4 mg/dL (8.5-10.1); COR NA(FOR HYPERGLY) 143 mmol/L (136-145); MAGNESIUM 1.2 mg/dL (1.7-2.9); SODIUM 141 mmol/L (136-145); TOTAL PROTEIN 5.7 g/dL (6.4-8.2); eGFR NON BLACK RACES > 60 (>60)
[2022-01-21] MEDS ORDERED: GLUCOPHAGE ONE ×2 (09:30→20:11)
[2022-01-21] MEDS: COZAAR PO SCH (09:54)
[2022-01-21] MEDS: NORVASC TAB 10 MG PO SCH (09:54)
[2022-01-21] MEDS: ZyPREXA TAB 5 MG PO SCH ×2 (09:54→21:06)
[2022-01-21] MEDS: ASPIRIN PO SCH (09:54)
[2022-01-21] MEDS: NexIUM PO SCH ×2 (09:54→21:06)
[2022-01-21] MEDS: K-DUR TAB 20 MEQ PO SCH (09:55)
[2022-01-21] MEDS: REQUIP PO SCH (09:55)
[2022-01-21] MEDS: GLUCOPHAGE PO SCH ×2 (09:55→21:07)
[2022-01-21] MEDS: DETROL LA 4 MG CAP EXT REL PO SCH (09:55)
[2022-01-21] MEDS: CARAFATE PO SCH ×4 (09:56→21:05)
[2022-01-21] MEDS: NYSTATIN POWDER TOP SCH ×2 (09:56→21:05)
[2022-01-21] MEDS: LANOXIN or DIGITEK PO SCH (09:56)
[2022-01-21] MEDS: MAGNESIUM SULFATE 1 GRAM/100 mL PREMIX 1 G/100 ML BAG IV PRN (13:00)
[2022-01-21] MEDS: VIBRAMYCIN 100 MG in D5W 250 ML IV 250 ML IV SCH ×2 (14:09→22:39)
[2022-01-21] MEDS: MAGNESIUM SULFATE 1 GRAM/100 mL PREMIX 1 G/100 ML BAG IV SCH ×4 (14:09→17:54)
[2022-01-21 19:03] LABS: APPEARANCE,URINE CLEAR (CLEAR); BILIRUBIN,URINE NEGATIVE (NEGATIVE); BLOOD/HEMOGLOBIN,URINE NEGATIVE (NEGATIVE); COLOR,URINE STRAW (YELLOW); GLUCOSE, URINE NEGATIVE (NEGATIVE); KETONES,URINE NEGATIVE (NEGATIVE); LEUKOCYTE ESTERASE ,URINE NEGATIVE (NEGATIVE); NITRITES,URINE NEGATIVE (NEGATIVE); PROTEIN,URINE NEGATIVE (NEGATIVE); UROBILINOGEN,URINE NORMAL (NORMAL)
[2022-01-21] MEDS ORDERED: TOPROL XL PO ONE (20:12)
[2022-01-21] MEDS: ZOCOR TAB 20 MG PO SCH (21:05)
[2022-01-21] MEDS: CYMBALTA PO SCH (21:06)
[2022-01-21] MEDS: ANTIVERT TAB 25 MG PO SCH (21:06)
[2022-01-21] MEDS: KLONOPIN TAB 0.5 MG PO SCH (21:06)
[2022-01-21] MEDS: TOPROL XL PO SCH (21:06)
[2022-01-22] MEDS: NS 1,000 ML IV 1,000 ML IV SCH ×3 (03:37→21:29)
[2022-01-22 06:36] LABS: BASOPHILS % (AUTO) 0.6 % (0.2-1.0); EOSINOPHILS # (AUTO) 0.3 x10^3/uL (0.0-0.2); EOSINOPHILS % (AUTO) 4.6 % (0.9-2.9); HEMATOCRIT 41.5 % (36.0-47.0); HEMOGLOBIN 13.9 g/dL (12.0-16.0); LYMPHOCYTES # (AUTO) 2.2 X10^3/uL (1.3-2.9); LYMPHOCYTES % (AUTO) 36.9 % (21.0-51.0); MEAN CORPUSCULAR HEMOGLOBIN 28.9 pg (27.0-34.0); MEAN CORPUSCULAR HGB CONC 33.5 g/dL (33.0-35.0); MEAN CORPUSCULAR VOLUME 86.3 fL (80.0-100.0); MEAN PLATELET VOLUME 9.4 fL (7.4-11.0); MONOCYTES # (AUTO) 0.4 x10^3/uL (0.3-0.8); MONOCYTES % (AUTO) 6.8 % (0.0-13.0); NEUTROPHILS # (AUTO) 3.1 x10^3/uL (2.2-4.8); NEUTROPHILS % (AUTO) 51.1 % (42.0-75.0); RED BLOOD COUNT 4.81 X10^6/uL (3.5-5.4); WHITE BLOOD COUNT 6.1 X10^3/uL (3.6-10.0)
[2022-01-22 06:47] LABS: ALANINE AMINOTRANSFERASE 34 Units/L (12-78); ALKALINE PHOSPHATASE 81 Units/L (46-116); ASPARTATE AMINO TRANSFERASE 29 Units/L (15-37); BLOOD UREA NITROGEN 11 mg/dL (7-18); CALCIUM 8.7 mg/dL (8.5-10.1); CARBON DIOXIDE 30.4 mmol/L (21-32); CHLORIDE 105 mmol/L (98-107); COR CA(FOR HYPOALB) 9.5 mg/dL (8.5-10.1); COR NA(FOR HYPERGLY) 145 mmol/L (136-145); CREATININE 0.64 mg/dL (0.55-1.02); DIGOXIN 0.85 ng/mL (0.9-2); MAGNESIUM 1.7 mg/dL (1.7-2.9); SODIUM 144 mmol/L (136-145); TOTAL PROTEIN 5.9 g/dL (6.4-8.2); eGFR NON BLACK RACES > 60 (>60)
[2022-01-22] MEDS ORDERED: GLUCOPHAGE ONE ×2 (08:21→20:16)
[2022-01-22] MEDS: CORDARONE TAB 200 MG PO SCH ×2 (08:25→18:31)
[2022-01-22] MEDS: ASPIRIN PO SCH (08:26)
[2022-01-22] MEDS: COZAAR PO SCH (08:27)
[2022-01-22] MEDS: CARAFATE PO SCH ×4 (08:27→22:44)
[2022-01-22] MEDS: K-DUR TAB 20 MEQ PO SCH ×2 (08:28→10:38)
[2022-01-22] MEDS: GLUCOPHAGE PO SCH ×2 (08:28→22:43)
[2022-01-22] MEDS: LANOXIN or DIGITEK PO SCH (08:29)
[2022-01-22] MEDS: REQUIP PO SCH (08:30)
[2022-01-22] MEDS: NYSTATIN POWDER TOP SCH ×2 (08:30→22:44)
[2022-01-22] MEDS: NORVASC TAB 10 MG PO SCH (08:30)
[2022-01-22] MEDS: NexIUM PO SCH ×2 (08:30→22:44)
[2022-01-22] MEDS: ZyPREXA TAB 5 MG PO SCH ×2 (08:32→22:45)
[2022-01-22] MEDS: VIBRAMYCIN 100 MG in D5W 250 ML IV 250 ML IV SCH ×2 (08:32→22:45)
[2022-01-22] MEDS: MAGNESIUM SULFATE 1 GRAM/100 mL PREMIX 1 G/100 ML BAG IV PRN ×2 (13:50→15:40)
[2022-01-22] MEDS: CATAPRES-TTS-3 TD SCH (15:52)
[2022-01-22] MEDS ORDERED: TOPROL XL PO ONE (20:16)
[2022-01-22] MEDS: KLONOPIN TAB 0.5 MG PO SCH (22:44)
[2022-01-22] MEDS: ANTIVERT TAB 25 MG PO SCH (22:44)
[2022-01-22] MEDS: CYMBALTA PO SCH (22:44)
[2022-01-22] MEDS: TOPROL XL PO SCH (22:44)
[2022-01-22] MEDS: ZOCOR TAB 20 MG PO SCH (22:45)
[2022-01-23] MEDS: NS 1,000 ML IV 1,000 ML IV SCH ×2 (05:33→16:07)
[2022-01-23 06:16] LABS: BASOPHILS % (AUTO) 0.5 % (0.2-1.0); EOSINOPHILS # (AUTO) 0.2 x10^3/uL (0.0-0.2); EOSINOPHILS % (AUTO) 3.3 % (0.9-2.9); HEMATOCRIT 39.2 % (36.0-47.0); HEMOGLOBIN 13.1 g/dL (12.0-16.0); LYMPHOCYTES # (AUTO) 2.1 X10^3/uL (1.3-2.9); LYMPHOCYTES % (AUTO) 33.5 % (21.0-51.0); MEAN CORPUSCULAR HEMOGLOBIN 28.9 pg (27.0-34.0); MEAN CORPUSCULAR HGB CONC 33.6 g/dL (33.0-35.0); MEAN CORPUSCULAR VOLUME 86.1 fL (80.0-100.0); MEAN PLATELET VOLUME 8.9 fL (7.4-11.0); MONOCYTES # (AUTO) 0.5 x10^3/uL (0.3-0.8); MONOCYTES % (AUTO) 8.4 % (0.0-13.0); NEUTROPHILS # (AUTO) 3.4 x10^3/uL (2.2-4.8); NEUTROPHILS % (AUTO) 54.3 % (42.0-75.0); RED BLOOD COUNT 4.55 X10^6/uL (3.5-5.4); RED CELL DISTRIBUTION WIDTH 15.1 % (11.6-16.5); WHITE BLOOD COUNT 6.3 X10^3/uL (3.6-10.0)
[2022-01-23 06:32] LABS: ALANINE AMINOTRANSFERASE 25 Units/L (12-78); ALBUMIN 2.7 g/dL (3.4-5.0); ALKALINE PHOSPHATASE 72 Units/L (46-116); ASPARTATE AMINO TRANSFERASE 21 Units/L (15-37); BLOOD UREA NITROGEN 15 mg/dL (7-18); CALCIUM 8.4 mg/dL (8.5-10.1); CARBON DIOXIDE 29.1 mmol/L (21-32); CHLORIDE 106 mmol/L (98-107); COR CA(FOR HYPOALB) 9.4 mg/dL (8.5-10.1); COR NA(FOR HYPERGLY) 143 mmol/L (136-145); CREATININE 0.65 mg/dL (0.55-1.02); MAGNESIUM 1.4 mg/dL (1.7-2.9); SODIUM 142 mmol/L (136-145); TOTAL PROTEIN 5.2 g/dL (6.4-8.2); eGFR NON BLACK RACES > 60 (>60)
[2022-01-23] MEDS ORDERED: GLUCOPHAGE ONE ×2 (09:23→19:51)
[2022-01-23] MEDS: CORDARONE TAB 200 MG PO SCH ×2 (09:29→17:00)
[2022-01-23] MEDS: CARAFATE PO SCH ×4 (09:40→22:39)
[2022-01-23] MEDS: ASPIRIN PO SCH (09:40)
[2022-01-23] MEDS: ZyPREXA TAB 5 MG PO SCH ×2 (09:41→20:40)
[2022-01-23] MEDS: GLUCOPHAGE PO SCH ×2 (09:41→20:39)
[2022-01-23] MEDS: COZAAR PO SCH (09:41)
[2022-01-23] MEDS: NYSTATIN POWDER TOP SCH ×2 (09:42→21:00)
[2022-01-23] MEDS: NexIUM PO SCH ×2 (09:42→22:40)
[2022-01-23] MEDS: NORVASC TAB 10 MG PO SCH (09:42)
[2022-01-23] MEDS: K-DUR TAB 20 MEQ PO SCH (09:42)
[2022-01-23] MEDS: REQUIP PO SCH (09:42)
[2022-01-23] MEDS: VIBRAMYCIN 100 MG in D5W 250 ML IV 250 ML IV SCH (09:43)
[2022-01-23] MEDS: LANOXIN or DIGITEK PO SCH (10:24)
[2022-01-23] MEDS ORDERED: ROCEPHIN VIAL 1 GRAM 1 G in NS 100 ML IV + SPIKE MINIBAG* 100 ML IV SCH (11:00)
[2022-01-23] MEDS: MAGNESIUM SULFATE 1 GRAM/100 mL PREMIX 1 G/100 ML BAG IV PRN ×4 (11:14→20:38)
--- NOTE | 2022-01-23 11:25 | PCM.PROG ---
Progress Note - Progress Note for Day of Date of Exam: 01/20/22 - Subjective Subjective: IS BEING TREATED FOR A-FIB, TIA, GENERALIZED WEAKNESS, DIZZINESS, ATAXIC GAIT, AND ALTERED MENTAL STATUS. SHE DOES HAVE A HISTORY OF DEMENTIA. TODAY, SHE IS LYING IN BED WITH EYES CLOSED ON MORNING ROUNDS. SHE AWAKENS TO VERBAL STIMULI, BUT IS DROWSY. SHE CONTINUES TO BE DISORIENTED. FAMILY REPORTS THAT SHE DID REST BETTER THROUGHOUT THE NIGHT. HEART RATE HAS BEEN STABLE SINCE YESTERDAY. STAFF REPORTS THAT SHE IS UNSTEADY ON AMBULATION AND REQUIRES MODERATE ASSISTANCE. ON EXAMINATION, A-FIB NOTED WITH HR IN THE 70s. BILATERAL LUNGS NOTED WITH DIMINISHED LUNG SOUNDS THROUGHOUT. ABDOMEN IS ROUND, SOFT, AND NON-TENDER WITH NORMAL BOWEL SOUNDS NOTED IN ALL QUADRANTS. HER VITALS THIS MORNING ARE: 97.2-71-18-97%-170/73. LABS WERE OBTAINED. WBC 5.7, HGB 13.5, HCT 40.3, PLT COUNT 145, SODIUM 139, POTASSIUM 4.1, BUN 11, CREATININE 0.55, GLUCOSE 148, CALCIUM 8.2, MAGNESIUM 1.6, TOTAL PROTEIN 5.7, ALBUMIN 2.8. SHE IS CURRENTLY RECEIVING NORMAL SALINE AT 75 ML/HR, DIGOXIN 0.125MG PO DAILY, NORVASC 10MG DAILY, ZYREXA 5MG PO BID, KLONOPIN 0.5MG PO BID, ASPIRIN 325MG DAILY, CATAPRES PATCH WEEKLY, CYMBALTA 30MG HS, NEXIUM 40MG BID, COZAAR 100MG DAILY, MECLIZINE 12.5MG HS, METFORMIN 500MG BID, TOPROL XL 50MG HS, ZOFRAN 4MG IV Q6H PRN, K-DUR 20MEQ DAILY, REQUIP 0.5MG DAILY, ZOCOR 20MG HS, CARAFATE 1G PO QID, DETROL LA 4MG DAILY, AND ULTRAM 50MG PO BID PRN. WE WILL DECREASE KLONOPIN TO ONCE DAILY AT BEDTIME. OTHERWISE, WE WILL CONTINUE WITH CURRENT PLAN OF CARE TODAY. PHYSICAL THERAPY WILL CONTINUE TO WORK WITH PATIENT TODAY. WE PLAN TO FOLLOW UP WITH AM LABS AND CONTINUE TO MONITOR. TIME SPENT ON CLINICAL ASSESSMENT, REVIEWING LABS AND IMAGING, DECISION MAKING, AND DOCUMENTATION GREATER THAN 45 MINUTES. - Past Medical Family Social History Past Med/Fam/Surg Hx: No changes since H&P Allergies: Allergies No Known Drug Allergies Allergy (Verified 01/01/21 18:38) - Review of Systems ROS: No change since H&P - Vital Signs and I&O's Vital Signs: Temperature 98.1 F Pulse Rate [Left Radial] 103 Pulse Rate 103 Respiratory Rate 18 Blood Pressure [Left Arm] 137/72 Blood Pressure [Right Arm] 141/81 O2 Sat by Pulse Oximetry 95 Intake and Output: Intake & Output 01/20/22 01/21/22 01/22/22 01/23/22 11:59 11:59 11:59 11:59 Intake Total 2598 / 2598 2635 / 2635 1520 / 1520 2392 / 2392 Output Total 200 / 200 760 / 760 Balance 2598 / 2598 2435 / 2435 760 / 760 2392 / 2392 - Physical Exam Oriented: Person, Place Eyes: Normal Ear: Normal Nose: Normal Throat: Normal Respiratory: Generalized, Diminished Cardiovascular: Irregular : Normal Auscultation: Bowel Sounds: Normal Palpation: Normal Tenderness: Normal Skin: Normal Musculoskeletal: Instability Psychiatric: Other (HALLUCINATIONS, CONFUSION ) Affect: Normal Speech Pattern: Clear - Laboratory and Diagnostics Result Diagrams: 01/23/22 05:53 01/23/22 05:53 Labs: 01/21/22 18:24 Urine,Clean Catch Urine Culture - Final 01/16/22 12:18 Urine,Clean Catch Urine Culture - Final 01/13/22 06:38 Urine,Clean Catch Urine Culture - Final Laboratory WBC 6.3 X10^3/uL (3.6-10.0) 01/23/22 05:53 RBC 4.55 X10^6/uL (3.5-5.4) 01/23/22 05:53 Hgb 13.1 g/dL (12.0-16.0) 01/23/22 05:53 Hct 39.2 % (36.0-47.0) 01/23/22 05:53 MCV 86.1 fL (80.0-100.0) 01/23/22 05:53 MCH 28.9 pg (27.0-34.0) 01/23/22 05:53 MCHC 33.6 g/dL (33.0-35.0) 01/23/22 05:53 RDW 15.1 % (11.6-16.5) 01/23/22 05:53 Plt Count 156 X10^3/uL (150.0-450.0) 01/23/22 05:53 Plt Count Comment Adequate (ADEQUATE) 01/17/22 05:50 MPV 8.9 fL (7.4-11.0) 01/23/22 05:53 Neut % (Auto) 54.3 % (42.0-75.0) 01/23/22 05:53 Lymph % (Auto) 33.5 % (21.0-51.0) 01/23/22 05:53 [place] % (Auto) 8.4 % (0.0-13.0) 01/23/22 05:53 Eos % (Auto) 3.3 % (0.9-2.9) H 01/23/22 05:53 Baso % (Auto) 0.5 % (0.2-1.0) 01/23/22 05:53 Neut # (Auto) 3.4 x10^3/uL (2.2-4.8) 01/23/22 05:53 Lymph # (Auto) 2.1 X10^3/uL (1.3-2.9) 01/23/22 05:53 [place] # (Auto) 0.5 x10^3/uL (0.3-0.8) 01/23/22 05:53 Eos # (Auto) 0.2 x10^3/uL (0.0-0.2) 01/23/22 05:53 Baso # (Auto) 0.0 X10^3/uL (0.0-0.1) 01/23/22 05:53 Absolute Nucleated RBC 0.0 /100WBC 01/23/22 05:53 Total Counted 100 01/17/22 05:50 Neutrophils % (Manual) 62 % (39-76) 01/17/22 05:50 Lymphocytes % (Manual) 26 % (13-43) 01/17/22 05:50 Monocytes % (Manual) 8 % (4-9) 01/17/22 05:50 Eosinophils % (Manual) 4 % (0-6) 01/17/22 05:50 Plt Morphology Comment Normal (NORMAL) 01/17/22 05:50 RBC Morphology Normal (NORMAL) 01/17/22 05:50 Sodium 142 mmol/L (136-145) 01/23/22 05:53 Corrected Sodium 143 mmol/L (136-145) 01/23/22 05:53 Potassium 4.0 mmol/L (3.5-5.1) 01/23/22 05:53 Chloride 106 mmol/L (98-107) 01/23/22 05:53 Carbon Dioxide 29.1 mmol/L (21-32) 01/23/22 05:53 BUN 15 mg/dL (7-18) 01/23/22 05:53 Creatinine 0.65 mg/dL (0.55-1.02) 01/23/22 05:53 Est GFR (MDRD) Af Amer > 60 (>60) 01/23/22 05:53 Est GFR (MDRD) Non-Af > 60 (>60) 01/23/22 05:53 Glucose 143 mg/dL (65-99) H 01/23/22 05:53 POC Glucose (mg/dL) 143 mg/dL (65-99) H 01/23/22 05:20 Calcium 8.4 mg/dL (8.5-10.1) L 01/23/22 05:53 Corrected Calcium 9.4 mg/dL (8.5-10.1) 01/23/22 05:53 Magnesium 1.4 mg/dL (1.7-2.9) L 01/23/22 05:53 Total Bilirubin 0.40 mg/dL (0.2-1.0) 01/23/22 05:53 AST 21 Units/L (15-37) 01/23/22 05:53 ALT 25 Units/L (12-78) 01/23/22 05:53 Alkaline Phosphatase 72 Units/L (46-116) 01/23/22 05:53 Creatine Kinase 35 Units/L (26-192) 01/15/22 23:14 CK-MB (CK-2) 1.6 ng/mL (0-4.0) 01/15/22 23:14 CK/CKMB % Calc 4.6 % (<4) 01/15/22 23:14 Troponin I High Sens 63.9 ng/L (4.0-60.0) H* 01/15/22 23:14 Total Protein 5.2 g/dL (6.4-8.2) L 01/23/22 05:53 Albumin 2.7 g/dL (3.4-5.0) L 01/23/22 05:53 Globulin 2.5 g/dL (2.5-4.5) 01/23/22 05:53 Albumin/Globulin Ratio 1.1 Ratio (1.1-2.1) 01/23/22 05:53 Triglycerides 183 mg/dL (0-150) H 01/12/22 20:14 Cholesterol 179 mg/dL (0-200) 01/12/22 20:14 LDL Cholesterol, Calc 89 mg/dL (0-100) 01/12/22 20:14 HDL Cholesterol 53 mg/dL (40-60) 01/12/22 20:14 Cholesterol/HDL Ratio 3.4 (0.0-5.0) 01/12/22 20:14 Specimen Type Catherized urine 01/21/22 18:24 Urine Color Straw (YELLOW) 01/21/22 18:24 Urine Appearance Clear (CLEAR) 01/21/22 18:24 Urine pH 6.0 (5.0 - 8.0) 01/21/22 18:24 Ur Specific [place] 1.010 (1.000-1.030) 01/21/22 18:24 Urine Protein Negative (NEGATIVE) 01/21/22 18:24 Urine Glucose (UA) Negative (NEGATIVE) 01/21/22 18:24 Urine Ketones Negative (NEGATIVE) 01/21/22 18:24 Urine Occult Blood Negative (NEGATIVE) 01/13/22 06:35 Urine Blood Negative (NEGATIVE) 01/21/22 18:24 Urine Nitrite Negative (NEGATIVE) 01/21/22 18:24 Urine Bilirubin Negative (NEGATIVE) 01/21/22 18:24 Urine Urobilinogen Normal (NORMAL) 01/21/22 18:24 Ur Leukocyte Esterase Negative (NEGATIVE) 01/21/22 18:24 Urine RBC 0-2 /HPF (0-3) 01/13/22 06:35 Urine WBC 3-5 /HPF (0-5) 01/13/22 06:35 Ur Squamous Epith Cells Few /HPF (NEGATIVE) 01/13/22 06:35 Urine Bacteria Trace /HPF (NEGATIVE) 01/13/22 06:35 Ur Culture Indicated? Yes/culture set up 01/13/22 06:35 Digoxin 0.89 ng/mL (0.9-2) L 01/23/22 05:53 SARS CoV-2 RNA Rapid MARILU Negative (NEGATIVE) 01/12/22 20:00 - Plan (1) Brain TIA Status: Chronic Plan: NS AT 75 ML/HR, RESUME HOME MEDS, DIGOXIN 0.125MG PO DAILY, ZYPREXA 5MG PO BID, KLONOPIN 0.5MG PO HS, PHYSICAL THERAPY. MONITOR AM LABS (2) Ataxic gait Status: Acute (3) Generalized weakness Status: Acute (4) Dizziness Status: Acute (5) Altered mental status Status: Acute Qualifiers: Altered mental status type: transient alteration of awareness Qualified Code(s): R40.4 - Transient alteration of awareness (6) A-fib Status: Chronic Qualifiers: Atrial fibrillation type: paroxysmal Qualified Code(s): I48.0 - Paroxysmal atrial fibrillation (7) Dementia Status: Acute Qualifiers: Dementia type: unspecified type Dementia behavioral disturbance: with behavioral disturbance Qualified Code(s): F03.91 - Unspecified dementia with behavioral disturbance
[2022-01-23] MEDS: ROCEPHIN VIAL 1 GRAM 1 G in NS 100 ML IV 100 ML IV SCH (11:50)
--- NOTE | 2022-01-23 11:57 | PCM.PROG ---
Progress Note - Progress Note for Day of Date of Exam: 01/23/22 - Subjective Subjective: IS BEING TREATED FOR A-FIB, TIA, GENERALIZED WEAKNESS, DIZZINESS, ATAXIC GAIT, AND ALTERED MENTAL STATUS. SHE DOES HAVE A HISTORY OF DEMENTIA. TODAY, SHE IS LYING IN BED WITH EYES CLOSED ON MORNING ROUNDS. SHE AWAKENS TO VERBAL STIMULI, BUT IS DROWSY. SHE CONTINUES TO BE DISORIENTED. FAMILY REPORTS THAT SHE DID REST BETTER THROUGHOUT THE NIGHT, BUT WAS ANXIOUS AND AGITATED ALL WEEKEND. STAFF REPORTS THAT SHE IS UNSTEADY ON AMBULATION AND REQUIRES MODERATE ASSISTANCE. ON EXAMINATION, HEART IS REGULAR IN RATE AND RHYTHM. BILATERAL LUNGS NOTED WITH DIMINISHED LUNG SOUNDS THROUGHOUT. ABDOMEN IS ROUND, SOFT, AND NON-TENDER WITH NORMAL BOWEL SOUNDS NOTED IN ALL QUADRANTS. HER VITALS THIS MORNING ARE: 98.1-100-18-95%-137/72. LABS WERE OBTAINED. WBC 6.3, HGB 13.1, HCT 39.2, SODIUM 142, POTASSIUM 4.0, BUN 15, CREATININE 0.65, GLUCOSE 143, CALCIUM 8.4, MAGNESIUM 1.4, TOTAL PROTEIN 5.2, ALBUMIN 2.7. SHE IS CURRENTLY RECEIVING NORMAL SALINE AT 75 ML/HR, DIGOXIN 0.125MG PO DAILY, NORVASC 10MG DAILY, ZYREXA 5MG PO BID, KLONOPIN 0.5MG PO HS, ASPIRIN 325MG DAILY, CATAPRES PATCH WEEKLY, CYMBALTA 30MG HS, NEXIUM 40MG BID, COZAAR 100MG DAILY, MECLIZINE 12.5MG HS, METFORMIN 500MG BID, TOPROL XL 50MG HS, ZOFRAN 4MG IV Q6H PRN, K-DUR 20MEQ DAILY, REQUIP 0.5MG DAILY, ZOCOR 20MG HS, CARAFATE 1G PO QID, DETROL LA 4MG DAILY, AND ULTRAM 50MG PO BID PRN. WE WILL INCREASE ZYPREXA TO 7.5MG PO BID. OTHERWISE, WE WILL CONTINUE WITH CURRENT PLAN OF CARE TODAY. PHYSICAL THERAPY WILL CONTINUE TO WORK WITH PATIENT TODAY. WE PLAN TO FOLLOW UP WITH AM LABS AND CONTINUE TO MONITOR. TIME SPENT ON CLINICAL ASSESSMENT, REVIEWING LABS AND IMAGING, DECISION MAKING, AND DOCUMENTATION GREATER THAN 45 MINUTES. - Past Medical Family Social History Past Med/Fam/Surg Hx: No changes since H&P Allergies: Allergies No Known Drug Allergies Allergy (Verified 01/01/21 18:38) - Review of Systems ROS: No change since H&P - Vital Signs and I&O's Vital Signs: Temperature 98.1 F Pulse Rate [Left Radial] 103 Pulse Rate 103 Respiratory Rate 18 Blood Pressure [Left Arm] 137/72 Blood Pressure [Right Arm] 141/81 O2 Sat by Pulse Oximetry 95 Intake and Output: Intake & Output 01/20/22 01/21/22 01/22/22 01/23/22 11:59 11:59 11:59 11:59 Intake Total 2598 / 2598 2635 / 2635 1520 / 1520 2392 / 2392 Output Total 200 / 200 760 / 760 Balance 2598 / 2598 2435 / 2435 760 / 760 2392 / 2392 - Physical Exam Oriented: Person, Place Eyes: Normal Ear: Normal Nose: Normal Throat: Normal Respiratory: Generalized, Diminished Cardiovascular: Irregular : Normal Auscultation: Bowel Sounds: Normal Palpation: Normal Tenderness: Normal Skin: Normal Musculoskeletal: Instability Psychiatric: Other (HALLUCINATIONS, CONFUSION ) Affect: Normal Speech Pattern: Clear - Laboratory and Diagnostics Result Diagrams: 01/23/22 05:53 01/23/22 05:53 Labs: 01/21/22 18:24 Urine,Clean Catch Urine Culture - Final 01/16/22 12:18 Urine,Clean Catch Urine Culture - Final 01/13/22 06:38 Urine,Clean Catch Urine Culture - Final Laboratory WBC 6.3 X10^3/uL (3.6-10.0) 01/23/22 05:53 RBC 4.55 X10^6/uL (3.5-5.4) 01/23/22 05:53 Hgb 13.1 g/dL (12.0-16.0) 01/23/22 05:53 Hct 39.2 % (36.0-47.0) 01/23/22 05:53 MCV 86.1 fL (80.0-100.0) 01/23/22 05:53 MCH 28.9 pg (27.0-34.0) 01/23/22 05:53 MCHC 33.6 g/dL (33.0-35.0) 01/23/22 05:53 RDW 15.1 % (11.6-16.5) 01/23/22 05:53 Plt Count 156 X10^3/uL (150.0-450.0) 01/23/22 05:53 Plt Count Comment Adequate (ADEQUATE) 01/17/22 05:50 MPV 8.9 fL (7.4-11.0) 01/23/22 05:53 Neut % (Auto) 54.3 % (42.0-75.0) 01/23/22 05:53 Lymph % (Auto) 33.5 % (21.0-51.0) 01/23/22 05:53 [place] % (Auto) 8.4 % (0.0-13.0) 01/23/22 05:53 Eos % (Auto) 3.3 % (0.9-2.9) H 01/23/22 05:53 Baso % (Auto) 0.5 % (0.2-1.0) 01/23/22 05:53 Neut # (Auto) 3.4 x10^3/uL (2.2-4.8) 01/23/22 05:53 Lymph # (Auto) 2.1 X10^3/uL (1.3-2.9) 01/23/22 05:53 [place] # (Auto) 0.5 x10^3/uL (0.3-0.8) 01/23/22 05:53 Eos # (Auto) 0.2 x10^3/uL (0.0-0.2) 01/23/22 05:53 Baso # (Auto) 0.0 X10^3/uL (0.0-0.1) 01/23/22 05:53 Absolute Nucleated RBC 0.0 /100WBC 01/23/22 05:53 Total Counted 100 01/17/22 05:50 Neutrophils % (Manual) 62 % (39-76) 01/17/22 05:50 Lymphocytes % (Manual) 26 % (13-43) 01/17/22 05:50 Monocytes % (Manual) 8 % (4-9) 01/17/22 05:50 Eosinophils % (Manual) 4 % (0-6) 01/17/22 05:50 Plt Morphology Comment Normal (NORMAL) 01/17/22 05:50 RBC Morphology Normal (NORMAL) 01/17/22 05:50 Sodium 142 mmol/L (136-145) 01/23/22 05:53 Corrected Sodium 143 mmol/L (136-145) 01/23/22 05:53 Potassium 4.0 mmol/L (3.5-5.1) 01/23/22 05:53 Chloride 106 mmol/L (98-107) 01/23/22 05:53 Carbon Dioxide 29.1 mmol/L (21-32) 01/23/22 05:53 BUN 15 mg/dL (7-18) 01/23/22 05:53 Creatinine 0.65 mg/dL (0.55-1.02) 01/23/22 05:53 Est GFR (MDRD) Af Amer > 60 (>60) 01/23/22 05:53 Est GFR (MDRD) Non-Af > 60 (>60) 01/23/22 05:53 Glucose 143 mg/dL (65-99) H 01/23/22 05:53 POC Glucose (mg/dL) 190 mg/dL (65-99) H 01/23/22 11:24 Calcium 8.4 mg/dL (8.5-10.1) L 01/23/22 05:53 Corrected Calcium 9.4 mg/dL (8.5-10.1) 01/23/22 05:53 Magnesium 1.4 mg/dL (1.7-2.9) L 01/23/22 05:53 Total Bilirubin 0.40 mg/dL (0.2-1.0) 01/23/22 05:53 AST 21 Units/L (15-37) 01/23/22 05:53 ALT 25 Units/L (12-78) 01/23/22 05:53 Alkaline Phosphatase 72 Units/L (46-116) 01/23/22 05:53 Creatine Kinase 35 Units/L (26-192) 01/15/22 23:14 CK-MB (CK-2) 1.6 ng/mL (0-4.0) 01/15/22 23:14 CK/CKMB % Calc 4.6 % (<4) 01/15/22 23:14 Troponin I High Sens 63.9 ng/L (4.0-60.0) H* 01/15/22 23:14 Total Protein 5.2 g/dL (6.4-8.2) L 01/23/22 05:53 Albumin 2.7 g/dL (3.4-5.0) L 01/23/22 05:53 Globulin 2.5 g/dL (2.5-4.5) 01/23/22 05:53 Albumin/Globulin Ratio 1.1 Ratio (1.1-2.1) 01/23/22 05:53 Triglycerides 183 mg/dL (0-150) H 01/12/22 20:14 Cholesterol 179 mg/dL (0-200) 01/12/22 20:14 LDL Cholesterol, Calc 89 mg/dL (0-100) 01/12/22 20:14 HDL Cholesterol 53 mg/dL (40-60) 01/12/22 20:14 Cholesterol/HDL Ratio 3.4 (0.0-5.0) 01/12/22 20:14 Specimen Type Catherized urine 01/21/22 18:24 Urine Color Straw (YELLOW) 01/21/22 18:24 Urine Appearance Clear (CLEAR) 01/21/22 18:24 Urine pH 6.0 (5.0 - 8.0) 01/21/22 18:24 Ur Specific [place] 1.010 (1.000-1.030) 01/21/22 18:24 Urine Protein Negative (NEGATIVE) 01/21/22 18:24 Urine Glucose (UA) Negative (NEGATIVE) 01/21/22 18:24 Urine Ketones Negative (NEGATIVE) 01/21/22 18:24 Urine Occult Blood Negative (NEGATIVE) 01/13/22 06:35 Urine Blood Negative (NEGATIVE) 01/21/22 18:24 Urine Nitrite Negative (NEGATIVE) 01/21/22 18:24 Urine Bilirubin Negative (NEGATIVE) 01/21/22 18:24 Urine Urobilinogen Normal (NORMAL) 01/21/22 18:24 Ur Leukocyte Esterase Negative (NEGATIVE) 01/21/22 18:24 Urine RBC 0-2 /HPF (0-3) 01/13/22 06:35 Urine WBC 3-5 /HPF (0-5) 01/13/22 06:35 Ur Squamous Epith Cells Few /HPF (NEGATIVE) 01/13/22 06:35 Urine Bacteria Trace /HPF (NEGATIVE) 01/13/22 06:35 Ur Culture Indicated? Yes/culture set up 01/13/22 06:35 Digoxin 0.89 ng/mL (0.9-2) L 01/23/22 05:53 SARS CoV-2 RNA Rapid MARILU Negative (NEGATIVE) 01/12/22 20:00 - Plan (1) Brain TIA Status: Chronic Plan: NS AT 75 ML/HR, RESUME HOME MEDS, DIGOXIN 0.125MG PO DAILY, ZYPREXA 7.5MG PO BID, KLONOPIN 0.5MG PO HS, ROCEPHIN 1G IV DAILY, PHYSICAL THERAPY. MONITOR AM LABS (2) UTI (urinary tract infection) Status: Acute Qualifiers: Urinary tract infection type: acute cystitis Hematuria presence: without hematuria Qualified Code(s): N30.00 - Acute cystitis without hematuria (3) Ataxic gait Status: Acute (4) Generalized weakness Status: Acute (5) Dizziness Status: Acute (6) Altered mental status Status: Acute Qualifiers: Altered mental status type: transient alteration of awareness Qualified Code(s): R40.4 - Transient alteration of awareness (7) A-fib Status: Chronic Qualifiers: Atrial fibrillation type: paroxysmal Qualified Code(s): I48.0 - Paroxysmal atrial fibrillation (8) Dementia Status: Acute Qualifiers: Dementia type: unspecified type Dementia behavioral disturbance: with behavioral disturbance Qualified Code(s): F03.91 - Unspecified dementia with behavioral disturbance
[2022-01-23] MEDS: ZOFRAN INJ 4 MG VIAL IVP PRN (19:00)
[2022-01-23] MEDS ORDERED: PHENERGAN INJ 25 MG IM PRN (19:39)
[2022-01-23] MEDS ORDERED: TOPROL XL PO ONE (19:51)
[2022-01-23] MEDS ORDERED: ZyPREXA TAB 5 MG ONE (19:57)
[2022-01-23] MEDS: TOPROL XL PO SCH (20:38)
[2022-01-23] MEDS: CYMBALTA PO SCH (20:38)
[2022-01-23] MEDS: KLONOPIN TAB 0.5 MG PO SCH (20:38)
[2022-01-23] MEDS: ZOCOR TAB 20 MG PO SCH (22:39)
[2022-01-23] MEDS: ANTIVERT TAB 25 MG PO SCH (22:41)
[2022-01-24] MEDS: NS 1,000 ML IV 1,000 ML IV SCH ×4 (00:39→17:48)
[2022-01-24 06:26] LABS: BASOPHILS % (AUTO) 0.3 % (0.2-1.0); EOSINOPHILS # (AUTO) 0.1 x10^3/uL (0.0-0.2); EOSINOPHILS % (AUTO) 0.8 % (0.9-2.9); HEMATOCRIT 38.9 % (36.0-47.0); HEMOGLOBIN 13.1 g/dL (12.0-16.0); LYMPHOCYTES % (AUTO) 24.5 % (21.0-51.0); MEAN CORPUSCULAR HEMOGLOBIN 29.3 pg (27.0-34.0); MEAN CORPUSCULAR HGB CONC 33.7 g/dL (33.0-35.0); MEAN PLATELET VOLUME 9.6 fL (7.4-11.0); MONOCYTES # (AUTO) 0.5 x10^3/uL (0.3-0.8); MONOCYTES % (AUTO) 6.8 % (0.0-13.0); NEUTROPHILS # (AUTO) 5.4 x10^3/uL (2.2-4.8); NEUTROPHILS % (AUTO) 67.6 % (42.0-75.0); RED BLOOD COUNT 4.48 X10^6/uL (3.5-5.4)
[2022-01-24 06:37] LABS: CALCIUM 8.3 mg/dL (8.5-10.1); COR NA(FOR HYPERGLY) 140 mmol/L (136-145); SODIUM 139 mmol/L (136-145); eGFR NON BLACK RACES > 60 (>60)
[2022-01-24 06:57] LABS: ALANINE AMINOTRANSFERASE 31 Units/L (12-78); ALBUMIN 2.7 g/dL (3.4-5.0); ALKALINE PHOSPHATASE 71 Units/L (46-116); ASPARTATE AMINO TRANSFERASE 32 Units/L (15-37); BLOOD UREA NITROGEN 21 mg/dL (7-18); CARBON DIOXIDE 23.1 mmol/L (21-32); CHLORIDE 104 mmol/L (98-107); COR CA(FOR HYPOALB) 9.3 mg/dL (8.5-10.1); CREATININE 0.63 mg/dL (0.55-1.02); MAGNESIUM 1.8 mg/dL (1.7-2.9); TOTAL PROTEIN 5.4 g/dL (6.4-8.2)
[2022-01-24 07:23] LABS: PLATELET MORPHOLOGY COMMENT NORMAL (NORMAL)
[2022-01-24] MEDS ORDERED: GLUCOPHAGE ONE ×2 (09:12→19:59)
[2022-01-24] MEDS: ASPIRIN PO SCH (09:47)
[2022-01-24] MEDS: ZyPREXA TAB 5 MG PO SCH ×2 (09:48→20:27)
[2022-01-24] MEDS: NYSTATIN POWDER TOP SCH ×2 (09:49→20:51)
[2022-01-24] MEDS: REQUIP PO SCH (09:49)
[2022-01-24] MEDS: ROCEPHIN VIAL 1 GRAM 1 G in NS 100 ML IV 100 ML IV SCH (09:49)
[2022-01-24] MEDS: NexIUM PO SCH ×2 (09:50→20:28)
[2022-01-24] MEDS: CORDARONE TAB 200 MG PO SCH ×2 (09:50→16:45)
[2022-01-24] MEDS: NORVASC TAB 10 MG PO SCH (09:50)
[2022-01-24] MEDS: CARAFATE PO SCH ×4 (09:51→20:27)
[2022-01-24] MEDS: GLUCOPHAGE PO SCH ×2 (09:51→20:27)
[2022-01-24] MEDS: K-DUR TAB 20 MEQ PO SCH (09:52)
[2022-01-24] MEDS: COZAAR PO SCH (09:52)
[2022-01-24] MEDS: LANOXIN or DIGITEK PO SCH (09:53)
[2022-01-24] MEDS ORDERED: TOPROL XL PO ONE (20:00)
[2022-01-24] MEDS: TOPROL XL PO SCH (20:27)
[2022-01-24] MEDS: ANTIVERT TAB 25 MG PO SCH (20:27)
[2022-01-24] MEDS: CYMBALTA PO SCH (20:28)
[2022-01-24] MEDS: KLONOPIN TAB 0.5 MG PO SCH (20:28)
[2022-01-24] MEDS: ZOCOR TAB 20 MG PO SCH (20:28)
[2022-01-24] MEDS ORDERED: ROBITUSSIN DM PO PRN (20:29)
[2022-01-25] MEDS: NS 1,000 ML IV 1,000 ML IV SCH ×2 (06:00→21:53)
[2022-01-25 06:36] LABS: BASOPHILS % (AUTO) 0.3 % (0.2-1.0); EOSINOPHILS # (AUTO) 0.2 x10^3/uL (0.0-0.2); EOSINOPHILS % (AUTO) 3.4 % (0.9-2.9); HEMATOCRIT 36.7 % (36.0-47.0); HEMOGLOBIN 12.1 g/dL (12.0-16.0); LYMPHOCYTES # (AUTO) 1.5 X10^3/uL (1.3-2.9); LYMPHOCYTES % (AUTO) 23.1 % (21.0-51.0); MEAN CORPUSCULAR VOLUME 87.9 fL (80.0-100.0); MEAN PLATELET VOLUME 9.1 fL (7.4-11.0); MONOCYTES # (AUTO) 0.4 x10^3/uL (0.3-0.8); NEUTROPHILS # (AUTO) 4.2 x10^3/uL (2.2-4.8); NEUTROPHILS % (AUTO) 66.2 % (42.0-75.0); RED BLOOD COUNT 4.17 X10^6/uL (3.5-5.4); RED CELL DISTRIBUTION WIDTH 15.2 % (11.6-16.5); WHITE BLOOD COUNT 6.3 X10^3/uL (3.6-10.0)
[2022-01-25 07:17] LABS: ALANINE AMINOTRANSFERASE 25 Units/L (12-78); ALBUMIN 2.4 g/dL (3.4-5.0); ALKALINE PHOSPHATASE 69 Units/L (46-116); ASPARTATE AMINO TRANSFERASE 22 Units/L (15-37); BLOOD UREA NITROGEN 18 mg/dL (7-18); CALCIUM 8.7 mg/dL (8.5-10.1); CHLORIDE 107 mmol/L (98-107); COR NA(FOR HYPERGLY) 145 mmol/L (136-145); CREATININE 0.62 mg/dL (0.55-1.02); SODIUM 144 mmol/L (136-145); TOTAL PROTEIN 5.1 g/dL (6.4-8.2); eGFR NON BLACK RACES > 60 (>60)
[2022-01-25] MEDS ORDERED: GLUCOPHAGE ONE (08:28)
[2022-01-25] MEDS: ROCEPHIN VIAL 1 GRAM 1 G in NS 100 ML IV 100 ML IV SCH (09:35)
[2022-01-25] MEDS: ASPIRIN PO SCH (09:36)
[2022-01-25] MEDS: ZyPREXA TAB 5 MG PO SCH ×2 (09:36→21:54)
[2022-01-25] MEDS: REQUIP PO SCH (09:37)
[2022-01-25] MEDS: LANOXIN or DIGITEK PO SCH (09:38)
[2022-01-25] MEDS: K-DUR TAB 20 MEQ PO SCH (09:38)
[2022-01-25] MEDS: COZAAR PO SCH (09:38)
[2022-01-25] MEDS: NORVASC TAB 10 MG PO SCH (09:38)
[2022-01-25] MEDS: NexIUM PO SCH ×2 (09:39→21:55)
[2022-01-25] MEDS: GLUCOPHAGE PO SCH ×2 (09:39→21:56)
[2022-01-25] MEDS: CARAFATE PO SCH ×4 (09:44→21:56)
[2022-01-25] MEDS: CORDARONE TAB 200 MG PO SCH ×2 (09:44→18:19)
[2022-01-25] MEDS: NYSTATIN POWDER TOP SCH ×2 (09:44→21:56)
--- NOTE | 2022-01-25 12:10 | PCM.PROG ---
Progress Note - Progress Note for Day of Date of Exam: 01/24/22 - Subjective Subjective: IS BEING TREATED FOR A-FIB, TIA, GENERALIZED WEAKNESS, DIZZINESS, ATAXIC GAIT, AND ALTERED MENTAL STATUS. SHE DOES HAVE A HISTORY OF DEMENTIA. TODAY, SHE IS ALERT, LYING IN BED ON MORNING ROUNDS. SHE CONTINUES TO BE DISORIENTED AND AGITATED. FAMILY REPORTS THAT SHE DID NOT SLEEP WELL THROUGHOUT THE NIGHT. STAFF REPORTS THAT SHE IS UNSTEADY ON AMBULATION AND REQUIRES MODERATE ASSISTANCE. ON EXAMINATION, HEART IS REGULAR IN RATE AND RHYTHM. BILATERAL LUNGS NOTED WITH DIMINISHED LUNG SOUNDS THROUGHOUT. ABDOMEN IS ROUND, SOFT, AND NON-TENDER WITH NORMAL BOWEL SOUNDS NOTED IN ALL QUADRANTS. HER VITALS THIS MORNING ARE: 96.8-82-16-98%-144/73. LABS WERE OBTAINED. WBC 8.0, HGB 13.1, HCT 38.9, PLT COUNT 140, SODIUM 139, POTASSIUM 4.1, BUN 21, CREATININE 0.63, GLUCOSE 149, CALCIUM 8.3, TOTAL PROTEIN 5.4, ALBUMIN 2.7. SHE IS CURRENTLY RECEIVING NORMAL SALINE AT 75 ML/HR, DIGOXIN 0.125MG PO DAILY, NORVASC 10MG DAILY, ZYREXA 7.55MG PO BID, KLONOPIN 0.5MG PO HS, ASPIRIN 325MG DAILY, CATAPRES PATCH WEEKLY, CYMBALTA 30MG HS, NEXIUM 40MG BID, COZAAR 100MG DAILY, MECLIZINE 12.5MG HS, METFORMIN 500MG BID, TOPROL XL 50MG HS, ZOFRAN 4MG IV Q6H PRN, K-DUR 20MEQ DAILY, REQUIP 0.5MG DAILY, ZOCOR 20MG HS, CARAFATE 1G PO QID, DETROL LA 4MG DAILY, AND ULTRAM 50MG PO BID PRN. FAMILY REQUEST TO KEEP MEDICATIONS THE SAME TODAY, TO SEE IF THERE MAY BE ANY IMPROVEMENT BEFORE ADJUSTING ANYTHING ELSE. WE WILL CONTINUE WITH CURRENT PLAN OF CARE TODAY. PHYSICAL THERAPY WILL CONTINUE TO WORK WITH PATIENT TODAY. WE PLAN TO FOLLOW UP WITH AM LABS AND CONTINUE TO MONITOR. TIME SPENT ON CLINICAL ASSESSMENT, REVIEWING LABS AND IMAGING, DECISION MAKING, AND DOCUMENTATION GREATER THAN 45 MINUTES. - Past Medical Family Social History Past Med/Fam/Surg Hx: No changes since H&P Allergies: Allergies No Known Drug Allergies Allergy (Verified 03/06/21 18:38) - Review of Systems ROS: No change since H&P - Vital Signs and I&O's Vital Signs: Temperature 99.2 F Pulse Rate [Left Radial] 78 Pulse Rate 78 Respiratory Rate 20 Blood Pressure [Left Arm] 121/61 Blood Pressure [Right Arm] 141/81 O2 Sat by Pulse Oximetry 93 Intake and Output: Intake & Output 01/22/22 01/23/22 01/24/22 01/25/22 11:59 11:59 11:59 11:59 Intake Total 1520 / 1520 2392 / 2392 1992 1745 / 1745 Output Total 760 / 760 Balance 760 / 760 2392 / 2392 1992 1745 / 1745 - Physical Exam Oriented: Person, Place Eyes: Normal Ear: Normal Nose: Normal Throat: Normal Respiratory: Generalized, Diminished Cardiovascular: Irregular : Normal Auscultation: Bowel Sounds: Normal Tenderness: Normal Skin: Normal Musculoskeletal: Instability Psychiatric: Other (HALLUCINATIONS, CONFUSION ) Affect: Normal Speech Pattern: Clear - Laboratory and Diagnostics Result Diagrams: 01/25/22 05:14 01/25/22 05:14 Labs: 01/21/22 18:24 Urine,Clean Catch Urine Culture - Final 01/16/22 12:18 Urine,Clean Catch Urine Culture - Final 01/13/22 06:38 Urine,Clean Catch Urine Culture - Final Laboratory WBC 6.3 X10^3/uL (3.6-10.0) 01/25/22 05:14 RBC 4.17 X10^6/uL (3.5-5.4) 01/25/22 05:14 Hgb 12.1 g/dL (12.0-16.0) 01/25/22 05:14 Hct 36.7 % (36.0-47.0) 01/25/22 05:14 MCV 87.9 fL (80.0-100.0) 01/25/22 05:14 MCH 29.0 pg (27.0-34.0) 01/25/22 05:14 MCHC 33.0 g/dL (33.0-35.0) 01/25/22 05:14 RDW 15.2 % (11.6-16.5) 01/25/22 05:14 Plt Count 108 X10^3/uL (150.0-450.0) L 01/25/22 05:14 Plt Count Comment Decreased (ADEQUATE) A 01/24/22 05:16 MPV 9.1 fL (7.4-11.0) 01/25/22 05:14 Neut % (Auto) 66.2 % (42.0-75.0) 01/25/22 05:14 Lymph % (Auto) 23.1 % (21.0-51.0) 01/25/22 05:14 Pepin % (Auto) 7.0 % (0.0-13.0) 01/25/22 05:14 Eos % (Auto) 3.4 % (0.9-2.9) H 01/25/22 05:14 Baso % (Auto) 0.3 % (0.2-1.0) 01/25/22 05:14 Neut # (Auto) 4.2 x10^3/uL (2.2-4.8) 01/25/22 05:14 Lymph # (Auto) 1.5 X10^3/uL (1.3-2.9) 01/25/22 05:14 Pepin # (Auto) 0.4 x10^3/uL (0.3-0.8) 01/25/22 05:14 Eos # (Auto) 0.2 x10^3/uL (0.0-0.2) 01/25/22 05:14 Baso # (Auto) 0.0 X10^3/uL (0.0-0.1) 01/25/22 05:14 Absolute Nucleated RBC 0.2 /100WBC 01/25/22 05:14 Total Counted 100 01/17/22 05:50 Neutrophils % (Manual) 62 % (39-76) 01/17/22 05:50 Lymphocytes % (Manual) 26 % (13-43) 01/17/22 05:50 Monocytes % (Manual) 8 % (4-9) 01/17/22 05:50 Eosinophils % (Manual) 4 % (0-6) 01/17/22 05:50 Plt Morphology Comment Normal (NORMAL) 01/24/22 05:16 RBC Morphology Normal (NORMAL) 01/24/22 05:16 Sodium 144 mmol/L (136-145) 01/25/22 05:14 Corrected Sodium 145 mmol/L (136-145) 01/25/22 05:14 Potassium 4.0 mmol/L (3.5-5.1) 01/25/22 05:14 Chloride 107 mmol/L (98-107) 01/25/22 05:14 Carbon Dioxide 27.0 mmol/L (21-32) 01/25/22 05:14 BUN 18 mg/dL (7-18) 01/25/22 05:14 Creatinine 0.62 mg/dL (0.55-1.02) 01/25/22 05:14 Est GFR (MDRD) Af Amer > 60 (>60) 01/25/22 05:14 Est GFR (MDRD) Non-Af > 60 (>60) 01/25/22 05:14 Glucose 148 mg/dL (65-99) H 01/25/22 05:14 POC Glucose (mg/dL) 169 mg/dL (65-99) H 01/25/22 11:51 Calcium 8.7 mg/dL (8.5-10.1) 01/25/22 05:14 Corrected Calcium 10.0 mg/dL (8.5-10.1) 01/25/22 05:14 Magnesium 1.8 mg/dL (1.7-2.9) 01/24/22 05:16 Total Bilirubin 0.30 mg/dL (0.2-1.0) 01/25/22 05:14 AST 22 Units/L (15-37) 01/25/22 05:14 ALT 25 Units/L (12-78) 01/25/22 05:14 Alkaline Phosphatase 69 Units/L (46-116) 01/25/22 05:14 Creatine Kinase 35 Units/L (26-192) 01/15/22 23:14 CK-MB (CK-2) 1.6 ng/mL (0-4.0) 01/15/22 23:14 CK/CKMB % Calc 4.6 % (<4) 01/15/22 23:14 Troponin I High Sens 63.9 ng/L (4.0-60.0) H* 01/15/22 23:14 C-Reactive Protein 33.80 mg/L (0-3.0) H 01/25/22 05:14 Total Protein 5.1 g/dL (6.4-8.2) L 01/25/22 05:14 Albumin 2.4 g/dL (3.4-5.0) L 01/25/22 05:14 Globulin 2.7 g/dL (2.5-4.5) 01/25/22 05:14 Albumin/Globulin Ratio 0.9 Ratio (1.1-2.1) L 01/25/22 05:14 Triglycerides 183 mg/dL (0-150) H 01/12/22 20:14 Cholesterol 179 mg/dL (0-200) 01/12/22 20:14 LDL Cholesterol, Calc 89 mg/dL (0-100) 01/12/22 20:14 HDL Cholesterol 53 mg/dL (40-60) 01/12/22 20:14 Cholesterol/HDL Ratio 3.4 (0.0-5.0) 01/12/22 20:14 Specimen Type Catherized urine 01/21/22 18:24 Urine Color Straw (YELLOW) 01/21/22 18:24 Urine Appearance Clear (CLEAR) 01/21/22 18:24 Urine pH 6.0 (5.0 - 8.0) 01/21/22 18:24 Ur Specific [place] 1.010 (1.000-1.030) 01/21/22 18:24 Urine Protein Negative (NEGATIVE) 01/21/22 18:24 Urine Glucose (UA) Negative (NEGATIVE) 01/21/22 18:24 Urine Ketones Negative (NEGATIVE) 01/21/22 18:24 Urine Occult Blood Negative (NEGATIVE) 01/13/22 06:35 Urine Blood Negative (NEGATIVE) 01/21/22 18:24 Urine Nitrite Negative (NEGATIVE) 01/21/22 18:24 Urine Bilirubin Negative (NEGATIVE) 01/21/22 18:24 Urine Urobilinogen Normal (NORMAL) 01/21/22 18:24 Ur Leukocyte Esterase Negative (NEGATIVE) 01/21/22 18:24 Urine RBC 0-2 /HPF (0-3) 01/13/22 06:35 Urine WBC 3-5 /HPF (0-5) 01/13/22 06:35 Ur Squamous Epith Cells Few /HPF (NEGATIVE) 01/13/22 06:35 Urine Bacteria Trace /HPF (NEGATIVE) 01/13/22 06:35 Ur Culture Indicated? Yes/culture set up 01/13/22 06:35 Digoxin 0.89 ng/mL (0.9-2) L 01/23/22 05:53 SARS CoV-2 RNA Rapid MARILU Negative (NEGATIVE) 01/12/22 20:00 - Plan (1) Brain TIA Status: Chronic Plan: NS AT 75 ML/HR, RESUME HOME MEDS, DIGOXIN 0.125MG PO DAILY, ZYPREXA 7.5MG PO BID, KLONOPIN 0.5MG PO HS, ROCEPHIN 1G IV DAILY, PHYSICAL THERAPY. MONITOR AM LABS (2) UTI (urinary tract infection) Status: Acute Qualifiers: Urinary tract infection type: acute cystitis Hematuria presence: without hematuria Qualified Code(s): N30.00 - Acute cystitis without hematuria (3) Ataxic gait Status: Acute (4) Generalized weakness Status: Acute (5) Dizziness Status: Acute (6) Altered mental status Status: Acute Qualifiers: Altered mental status type: transient alteration of awareness Qualified Code(s): R40.4 - Transient alteration of awareness (7) A-fib Status: Chronic Qualifiers: Atrial fibrillation type: paroxysmal Qualified Code(s): I48.0 - Paroxysmal atrial fibrillation (8) Dementia Status: Acute Qualifiers: Dementia type: unspecified type Dementia behavioral disturbance: with behavioral disturbance Qualified Code(s): F03.91 - Unspecified dementia with behavioral disturbance
--- NOTE | 2022-01-25 12:16 | PCM.PROG ---
Progress Note - Progress Note for Day of Date of Exam: 01/25/22 - Subjective Subjective: IS BEING TREATED FOR A-FIB, TIA, GENERALIZED WEAKNESS, DIZZINESS, ATAXIC GAIT, AND ALTERED MENTAL STATUS. SHE DOES HAVE A HISTORY OF DEMENTIA. TODAY, SHE IS LYING IN BED WITH EYES CLOSED ON MORNING ROUNDS. SHE AWAKENS TO VERBAL STIMULI, BUT IS DISORIENTED. DAUGHTER IS AT BEDSIDE AND REPORTS THAT SHE DID NOT SLEEP WELL THROUGHOUT THE NIGHT. SHE HAS HAD INCREASED CONFUSION AND AGITATION. THEY ALSO REPORT THAT SHE HAS COMPLAINED OF GENERALIZED ACHING. STAFF REPORTS THAT SHE IS UNSTEADY ON AMBULATION AND REQUIRES MODERATE ASSISTANCE. ON EXAMINATION, HEART IS REGULAR IN RATE AND RHYTHM. BILATERAL LUNGS NOTED WITH DIMINISHED LUNG SOUNDS THROUGHOUT. ABDOMEN IS ROUND, SOFT, AND NON- TENDER WITH NORMAL BOWEL SOUNDS NOTED IN ALL QUADRANTS. HER VITALS THIS MORNING ARE: 99.2-78-20-93%-121/61. LABS WERE OBTAINED. WBC 6.3, HGB 12.1, HCT 36.7, SODIUM 139, POTASSIUM 4.1, BUN 21, CREATININE 0.63, GLUCOSE 149, CALCIUM 8.3, TOTAL PROTEIN 5.4, ALBUMIN 2.7. SHE IS CURRENTLY RECEIVING NORMAL SALINE AT 75 ML/HR, DIGOXIN 0.125MG PO DAILY, NORVASC 10MG DAILY, ZYREXA 7.55MG PO BID, KLONOPIN 0.5MG PO HS, ASPIRIN 325MG DAILY, CATAPRES PATCH WEEKLY, CYMBALTA 30MG HS, NEXIUM 40MG BID, COZAAR 100MG DAILY, MECLIZINE 12.5MG HS, METFORMIN 500MG BID, TOPROL XL 50MG HS, ZOFRAN 4MG IV Q6H PRN, K-DUR 20MEQ DAILY, REQUIP 0.5MG DAILY, ZOCOR 20MG HS, CARAFATE 1G PO QID, DETROL LA 4MG DAILY, AND ULTRAM 50MG PO BID PRN. WE WILL INCREASE KLONOPIN TO TWICE A DAY TODAY. OTHERWISE, WE WILL CONTINUE WITH CURRENT PLAN OF CARE. PHYSICAL THERAPY WILL CONTINUE TO WORK WITH PATIENT TODAY. WE PLAN TO FOLLOW UP WITH AM LABS AND CONTINUE TO MONITOR. TIME SPENT ON CLINICAL ASSESSMENT, REVIEWING LABS AND IMAGING, DECISION MAKING, AND DOCUMENTATION GREATER THAN 45 MINUTES. - Past Medical Family Social History Past Med/Fam/Surg Hx: No changes since H&P Allergies: Allergies No Known Drug Allergies Allergy (Verified 01/01/21 18:38) - Review of Systems ROS: No change since H&P - Vital Signs and I&O's Vital Signs: Temperature 99.2 F Pulse Rate [Left Radial] 78 Pulse Rate 78 Respiratory Rate 20 Blood Pressure [Left Arm] 121/61 Blood Pressure [Right Arm] 141/81 O2 Sat by Pulse Oximetry 93 Intake and Output: Intake & Output 01/23/22 01/24/22 01/25/22 01/26/22 11:59 11:59 11:59 11:59 Intake Total 2392 / 2392 1992 1745 / 1745 Balance 2392 / 2392 1992 1745 / 1745 - Physical Exam Oriented: Person, Place Eyes: Normal Ear: Normal Nose: Normal Throat: Normal Respiratory: Generalized, Diminished Cardiovascular: Irregular : Normal Auscultation: Bowel Sounds: Normal Tenderness: Normal Skin: Normal Musculoskeletal: Instability Psychiatric: Other (HALLUCINATIONS, CONFUSION ) Affect: Normal Speech Pattern: Clear - Laboratory and Diagnostics Result Diagrams: 01/25/22 05:14 01/25/22 05:14 Labs: 01/21/22 18:24 Urine,Clean Catch Urine Culture - Final 01/16/22 12:18 Urine,Clean Catch Urine Culture - Final 01/13/22 06:38 Urine,Clean Catch Urine Culture - Final Laboratory WBC 6.3 X10^3/uL (3.6-10.0) 01/25/22 05:14 RBC 4.17 X10^6/uL (3.5-5.4) 01/25/22 05:14 Hgb 12.1 g/dL (12.0-16.0) 01/25/22 05:14 Hct 36.7 % (36.0-47.0) 01/25/22 05:14 MCV 87.9 fL (80.0-100.0) 01/25/22 05:14 MCH 29.0 pg (27.0-34.0) 01/25/22 05:14 MCHC 33.0 g/dL (33.0-35.0) 01/25/22 05:14 RDW 15.2 % (11.6-16.5) 01/25/22 05:14 Plt Count 108 X10^3/uL (150.0-450.0) L 01/25/22 05:14 Plt Count Comment Decreased (ADEQUATE) A 01/24/22 05:16 MPV 9.1 fL (7.4-11.0) 01/25/22 05:14 Neut % (Auto) 66.2 % (42.0-75.0) 01/25/22 05:14 Lymph % (Auto) 23.1 % (21.0-51.0) 01/25/22 05:14 [place] % (Auto) 7.0 % (0.0-13.0) 01/25/22 05:14 Eos % (Auto) 3.4 % (0.9-2.9) H 01/25/22 05:14 Baso % (Auto) 0.3 % (0.2-1.0) 01/25/22 05:14 Neut # (Auto) 4.2 x10^3/uL (2.2-4.8) 01/25/22 05:14 Lymph # (Auto) 1.5 X10^3/uL (1.3-2.9) 01/25/22 05:14 [place] # (Auto) 0.4 x10^3/uL (0.3-0.8) 01/25/22 05:14 Eos # (Auto) 0.2 x10^3/uL (0.0-0.2) 01/25/22 05:14 Baso # (Auto) 0.0 X10^3/uL (0.0-0.1) 01/25/22 05:14 Absolute Nucleated RBC 0.2 /100WBC 01/25/22 05:14 Total Counted 100 01/17/22 05:50 Neutrophils % (Manual) 62 % (39-76) 01/17/22 05:50 Lymphocytes % (Manual) 26 % (13-43) 01/17/22 05:50 Monocytes % (Manual) 8 % (4-9) 01/17/22 05:50 Eosinophils % (Manual) 4 % (0-6) 01/17/22 05:50 Plt Morphology Comment Normal (NORMAL) 01/24/22 05:16 RBC Morphology Normal (NORMAL) 01/24/22 05:16 Sodium 144 mmol/L (136-145) 01/25/22 05:14 Corrected Sodium 145 mmol/L (136-145) 01/25/22 05:14 Potassium 4.0 mmol/L (3.5-5.1) 01/25/22 05:14 Chloride 107 mmol/L (98-107) 01/25/22 05:14 Carbon Dioxide 27.0 mmol/L (21-32) 01/25/22 05:14 BUN 18 mg/dL (7-18) 01/25/22 05:14 Creatinine 0.62 mg/dL (0.55-1.02) 01/25/22 05:14 Est GFR (MDRD) Af Amer > 60 (>60) 01/25/22 05:14 Est GFR (MDRD) Non-Af > 60 (>60) 01/25/22 05:14 Glucose 148 mg/dL (65-99) H 01/25/22 05:14 POC Glucose (mg/dL) 169 mg/dL (65-99) H 01/25/22 11:51 Calcium 8.7 mg/dL (8.5-10.1) 01/25/22 05:14 Corrected Calcium 10.0 mg/dL (8.5-10.1) 01/25/22 05:14 Magnesium 1.8 mg/dL (1.7-2.9) 01/24/22 05:16 Total Bilirubin 0.30 mg/dL (0.2-1.0) 01/25/22 05:14 AST 22 Units/L (15-37) 01/25/22 05:14 ALT 25 Units/L (12-78) 01/25/22 05:14 Alkaline Phosphatase 69 Units/L (46-116) 01/25/22 05:14 Creatine Kinase 35 Units/L (26-192) 01/15/22 23:14 CK-MB (CK-2) 1.6 ng/mL (0-4.0) 01/15/22 23:14 CK/CKMB % Calc 4.6 % (<4) 01/15/22 23:14 Troponin I High Sens 63.9 ng/L (4.0-60.0) H* 01/15/22 23:14 C-Reactive Protein 33.80 mg/L (0-3.0) H 01/25/22 05:14 Total Protein 5.1 g/dL (6.4-8.2) L 01/25/22 05:14 Albumin 2.4 g/dL (3.4-5.0) L 01/25/22 05:14 Globulin 2.7 g/dL (2.5-4.5) 01/25/22 05:14 Albumin/Globulin Ratio 0.9 Ratio (1.1-2.1) L 01/25/22 05:14 Triglycerides 183 mg/dL (0-150) H 01/12/22 20:14 Cholesterol 179 mg/dL (0-200) 01/12/22 20:14 LDL Cholesterol, Calc 89 mg/dL (0-100) 01/12/22 20:14 HDL Cholesterol 53 mg/dL (40-60) 01/12/22 20:14 Cholesterol/HDL Ratio 3.4 (0.0-5.0) 01/12/22 20:14 Specimen Type Catherized urine 01/21/22 18:24 Urine Color Straw (YELLOW) 01/21/22 18:24 Urine Appearance Clear (CLEAR) 01/21/22 18:24 Urine pH 6.0 (5.0 - 8.0) 01/21/22 18:24 Ur Specific [place] 1.010 (1.000-1.030) 01/21/22 18:24 Urine Protein Negative (NEGATIVE) 01/21/22 18:24 Urine Glucose (UA) Negative (NEGATIVE) 01/21/22 18:24 Urine Ketones Negative (NEGATIVE) 01/21/22 18:24 Urine Occult Blood Negative (NEGATIVE) 01/13/22 06:35 Urine Blood Negative (NEGATIVE) 01/21/22 18:24 Urine Nitrite Negative (NEGATIVE) 01/21/22 18:24 Urine Bilirubin Negative (NEGATIVE) 01/21/22 18:24 Urine Urobilinogen Normal (NORMAL) 01/21/22 18:24 Ur Leukocyte Esterase Negative (NEGATIVE) 01/21/22 18:24 Urine RBC 0-2 /HPF (0-3) 01/13/22 06:35 Urine WBC 3-5 /HPF (0-5) 01/13/22 06:35 Ur Squamous Epith Cells Few /HPF (NEGATIVE) 01/13/22 06:35 Urine Bacteria Trace /HPF (NEGATIVE) 01/13/22 06:35 Ur Culture Indicated? Yes/culture set up 01/13/22 06:35 Digoxin 0.89 ng/mL (0.9-2) L 01/23/22 05:53 SARS CoV-2 RNA Rapid MARILU Negative (NEGATIVE) 01/12/22 20:00 - Plan (1) Brain TIA Status: Chronic Plan: NS AT 75 ML/HR, RESUME HOME MEDS, DIGOXIN 0.125MG PO DAILY, ZYPREXA 7.5MG PO BID, KLONOPIN 0.5MG PO BID, ROCEPHIN 1G IV DAILY, PHYSICAL THERAPY. MONITOR AM LABS (2) UTI (urinary tract infection) Status: Acute Qualifiers: Urinary tract infection type: acute cystitis Hematuria presence: without hematuria Qualified Code(s): N30.00 - Acute cystitis without hematuria (3) Ataxic gait Status: Acute (4) Generalized weakness Status: Acute (5) Dizziness Status: Acute (6) Altered mental status Status: Acute Qualifiers: Altered mental status type: transient alteration of awareness Qualified Code(s): R40.4 - Transient alteration of awareness (7) A-fib Status: Chronic Qualifiers: Atrial fibrillation type: paroxysmal Qualified Code(s): I48.0 - Paroxysmal atrial fibrillation (8) Dementia Status: Acute Qualifiers: Dementia type: unspecified type Dementia behavioral disturbance: with behavioral disturbance Qualified Code(s): F03.91 - Unspecified dementia with behavioral disturbance
[2022-01-25] MEDS: KLONOPIN TAB 0.5 MG PO SCH ×3 (14:16→21:54)
[2022-01-25] MEDS: ANTIVERT TAB 25 MG PO SCH (21:54)
[2022-01-25] MEDS: ZOCOR TAB 20 MG PO SCH (21:55)
[2022-01-25] MEDS: TOPROL XL PO SCH (21:55)
[2022-01-25] MEDS: CYMBALTA PO SCH (21:56)
[2022-01-26] MEDS: CORDARONE TAB 200 MG PO SCH ×2 (06:04→16:38)
[2022-01-26 06:15] LABS: EOSINOPHILS # (AUTO) 0.3 x10^3/uL (0.0-0.2); EOSINOPHILS % (AUTO) 5.5 % (0.9-2.9); HEMATOCRIT 35.9 % (36.0-47.0); HEMOGLOBIN 12.1 g/dL (12.0-16.0); LYMPHOCYTES # (AUTO) 1.3 X10^3/uL (1.3-2.9); LYMPHOCYTES % (AUTO) 28.5 % (21.0-51.0); MEAN CORPUSCULAR HEMOGLOBIN 29.2 pg (27.0-34.0); MEAN CORPUSCULAR HGB CONC 33.6 g/dL (33.0-35.0); MEAN CORPUSCULAR VOLUME 87.1 fL (80.0-100.0); MONOCYTES # (AUTO) 0.3 x10^3/uL (0.3-0.8); MONOCYTES % (AUTO) 7.6 % (0.0-13.0); NEUTROPHILS # (AUTO) 2.6 x10^3/uL (2.2-4.8); NEUTROPHILS % (AUTO) 57.4 % (42.0-75.0); RED BLOOD COUNT 4.12 X10^6/uL (3.5-5.4); WHITE BLOOD COUNT 4.6 X10^3/uL (3.6-10.0)
[2022-01-26 06:35] LABS: ALANINE AMINOTRANSFERASE 19 Units/L (12-78); ALBUMIN 2.4 g/dL (3.4-5.0); ALKALINE PHOSPHATASE 62 Units/L (46-116); ASPARTATE AMINO TRANSFERASE 17 Units/L (15-37); BLOOD UREA NITROGEN 22 mg/dL (7-18); CALCIUM 8.9 mg/dL (8.5-10.1); CARBON DIOXIDE 27.5 mmol/L (21-32); CHLORIDE 111 mmol/L (98-107); COR CA(FOR HYPOALB) 10.2 mg/dL (8.5-10.1); COR NA(FOR HYPERGLY) 145 mmol/L (136-145); CREATININE 0.56 mg/dL (0.55-1.02); SODIUM 145 mmol/L (136-145); TOTAL PROTEIN 5.1 g/dL (6.4-8.2); eGFR NON BLACK RACES > 60 (>60)
[2022-01-26] MEDS ORDERED: GLUCOPHAGE ONE ×2 (07:58→19:21)
[2022-01-26] MEDS: ASPIRIN PO SCH (08:26)
[2022-01-26] MEDS: NexIUM PO SCH ×2 (08:27→21:41)
[2022-01-26] MEDS: REQUIP PO SCH (08:28)
[2022-01-26] MEDS: CARAFATE PO SCH ×4 (08:29→21:42)
[2022-01-26] MEDS: COZAAR PO SCH (08:30)
[2022-01-26] MEDS: ZyPREXA TAB 5 MG PO SCH ×2 (08:31→21:42)
[2022-01-26] MEDS: GLUCOPHAGE PO SCH ×2 (08:31→21:41)
[2022-01-26] MEDS: NYSTATIN POWDER TOP SCH ×2 (08:32→21:42)
[2022-01-26] MEDS: ROCEPHIN VIAL 1 GRAM 1 G in NS 100 ML IV 100 ML IV SCH (08:33)
[2022-01-26] MEDS: K-DUR TAB 20 MEQ PO SCH (08:33)
[2022-01-26] MEDS: NORVASC TAB 10 MG PO SCH (08:33)
[2022-01-26] MEDS: KLONOPIN TAB 0.5 MG PO SCH ×2 (08:33→21:43)
[2022-01-26] MEDS: LANOXIN or DIGITEK PO SCH (08:34)
[2022-01-26] MEDS ORDERED: LASIX ONE (11:28)
--- NOTE | 2022-01-26 12:14 | PCM.PROG ---
Progress Note - Progress Note for Day of Date of Exam: 01/26/22 - Subjective Subjective: IS BEING TREATED FOR A-FIB, TIA, GENERALIZED WEAKNESS, DIZZINESS, ATAXIC GAIT, AND ALTERED MENTAL STATUS. SHE DOES HAVE A HISTORY OF DEMENTIA. TODAY, SHE IS LYING IN BED WITH EYES CLOSED ON MORNING ROUNDS. SHE AWAKENS TO VERBAL STIMULI, BUT IS DISORIENTED. DAUGHTER IS AT BEDSIDE AND REPORTS THAT SHE DID NOT SLEEP WELL THROUGHOUT THE NIGHT. NURSING STAFF REPORTS THAT SHE DID REST BETTER THROUGHOUT THE NIGHT. SHE HAS ONLY BEEN ABLE TO STAND FOR APPROXIMATELY 10 SECONDS, BUT REQUIRED MAXIMUM ASSISTANCE. ON EXAMINATION, HEART IS REGULAR IN RATE AND RHYTHM. BILATERAL LUNGS NOTED WITH DIMINISHED LUNG SOUNDS THROUGHOUT. ABDOMEN IS ROUND, SOFT, AND NON-TENDER WITH NORMAL BOWEL SOUNDS NOTED IN ALL QUADRANTS. HER VITALS THIS MORNING ARE: 98.0-96-20-98%-135/74. LABS WERE OBTAINED. WBC 4.6, HGB 12.1, HCT 35.9, PLT COUNT 96, SODIUM 145, POTASSIUM 4.2, CHLORIDE 111, BUN 22, CREATININE 0.56, GLUCOSE 120, TOTAL PROTEIN 5.1, ALBUMIN 2.4. SHE IS CURRENTLY RECEIVING NORMAL SALINE AT 75 ML/HR, DIGOXIN 0.125MG PO DAILY, NORVASC 10MG DAILY, ZYREXA 7.55MG PO BID, KLONOPIN 0.5MG PO BID, ASPIRIN 325MG DAILY, CATAPRES PATCH WEEKLY, CYMBALTA 30MG HS, NEXIUM 40MG BID, COZAAR 100MG DAILY, MECLIZINE 12.5MG HS, METFORMIN 500MG BID, TOPROL XL 50MG HS, ZOFRAN 4MG IV Q6H PRN, K-DUR 20MEQ DAILY, REQUIP 0.5MG DAILY, ZOCOR 20MG HS, CARAFATE 1G PO QID, DETROL LA 4MG DAILY, AND ULTRAM 50MG PO BID PRN. WE WILL CONTINUE WITH CURRENT PLAN OF CARE TODAY. WE PLAN TO FOLLOW UP WITH AM LABS AND CONTINUE TO MONITOR. TIME SPENT ON CLINICAL ASSESSMENT, REVIEWING LABS AND IMAGING, DECISION MAKING, AND DOCU MENTATION GREATER THAN 45 MINUTES. - Past Medical Family Social History Past Med/Fam/Surg Hx: No changes since H&P Allergies: Allergies No Known Drug Allergies Allergy (Verified 01/01/21 18:38) - Review of Systems ROS: No change since H&P - Vital Signs and I&O's Vital Signs: Temperature 98.0 F Pulse Rate [Left Radial] 96 Pulse Rate 96 Respiratory Rate 20 Blood Pressure [Left Arm] 135/74 Blood Pressure [Right Arm] 141/81 O2 Sat by Pulse Oximetry 98 Intake and Output: Intake & Output 01/24/22 01/25/22 01/26/22 01/27/22 11:59 11:59 11:59 11:59 Intake Total 1992 1745 / 1745 370 / 370 Balance 1992 1745 / 1745 370 / 370 - Physical Exam Oriented: Person, Place Eyes: Normal Ear: Normal Nose: Normal Throat: Normal Respiratory: Generalized, Diminished Cardiovascular: Irregular : Normal Auscultation: Bowel Sounds: Normal Tenderness: Normal Skin: Normal Musculoskeletal: Instability Psychiatric: Other (HALLUCINATIONS, CONFUSION ) Affect: Normal Speech Pattern: Clear - Laboratory and Diagnostics Result Diagrams: 01/26/22 06:03 01/26/22 06:03 Labs: 01/21/22 18:24 Urine,Clean Catch Urine Culture - Final 01/16/22 12:18 Urine,Clean Catch Urine Culture - Final 01/13/22 06:38 Urine,Clean Catch Urine Culture - Final Laboratory WBC 4.6 X10^3/uL (3.6-10.0) 01/26/22 06:03 RBC 4.12 X10^6/uL (3.5-5.4) 01/26/22 06:03 Hgb 12.1 g/dL (12.0-16.0) 01/26/22 06:03 Hct 35.9 % (36.0-47.0) L 01/26/22 06:03 MCV 87.1 fL (80.0-100.0) 01/26/22 06:03 MCH 29.2 pg (27.0-34.0) 01/26/22 06:03 MCHC 33.6 g/dL (33.0-35.0) 01/26/22 06:03 RDW 15.0 % (11.6-16.5) 01/26/22 06:03 Plt Count 96 X10^3/uL (150.0-450.0) L 01/26/22 06:03 Plt Count Comment Decreased (ADEQUATE) A 01/24/22 05:16 MPV 9.0 fL (7.4-11.0) 01/26/22 06:03 Neut % (Auto) 57.4 % (42.0-75.0) 01/26/22 06:03 Lymph % (Auto) 28.5 % (21.0-51.0) 01/26/22 06:03 [place] % (Auto) 7.6 % (0.0-13.0) 01/26/22 06:03 Eos % (Auto) 5.5 % (0.9-2.9) H 01/26/22 06:03 Baso % (Auto) 1.0 % (0.2-1.0) 01/26/22 06:03 Neut # (Auto) 2.6 x10^3/uL (2.2-4.8) 01/26/22 06:03 Lymph # (Auto) 1.3 X10^3/uL (1.3-2.9) 01/26/22 06:03 Cloud # (Auto) 0.3 x10^3/uL (0.3-0.8) 01/26/22 06:03 Eos # (Auto) 0.3 x10^3/uL (0.0-0.2) H 01/26/22 06:03 Baso # (Auto) 0.0 X10^3/uL (0.0-0.1) 01/26/22 06:03 Absolute Nucleated RBC 0.1 /100WBC 01/26/22 06:03 Total Counted 100 01/17/22 05:50 Neutrophils % (Manual) 62 % (39-76) 01/17/22 05:50 Lymphocytes % (Manual) 26 % (13-43) 01/17/22 05:50 Monocytes % (Manual) 8 % (4-9) 01/17/22 05:50 Eosinophils % (Manual) 4 % (0-6) 01/17/22 05:50 Plt Morphology Comment Normal (NORMAL) 01/24/22 05:16 RBC Morphology Normal (NORMAL) 01/24/22 05:16 Sodium 145 mmol/L (136-145) 01/26/22 06:03 Corrected Sodium 145 mmol/L (136-145) 01/26/22 06:03 Potassium 4.2 mmol/L (3.5-5.1) 01/26/22 06:03 Chloride 111 mmol/L (98-107) H 01/26/22 06:03 Carbon Dioxide 27.5 mmol/L (21-32) 01/26/22 06:03 BUN 22 mg/dL (7-18) H 01/26/22 06:03 Creatinine 0.56 mg/dL (0.55-1.02) 01/26/22 06:03 Est GFR (MDRD) Af Amer > 60 (>60) 01/26/22 06:03 Est GFR (MDRD) Non-Af > 60 (>60) 01/26/22 06:03 Glucose 120 mg/dL (65-99) H 01/26/22 06:03 POC Glucose (mg/dL) 156 mg/dL (65-99) H 01/26/22 11:15 Calcium 8.9 mg/dL (8.5-10.1) 01/26/22 06:03 Corrected Calcium 10.2 mg/dL (8.5-10.1) H 01/26/22 06:03 Magnesium 1.8 mg/dL (1.7-2.9) 01/24/22 05:16 Total Bilirubin 0.30 mg/dL (0.2-1.0) 01/26/22 06:03 AST 17 Units/L (15-37) 01/26/22 06:03 ALT 19 Units/L (12-78) 01/26/22 06:03 Alkaline Phosphatase 62 Units/L (46-116) 01/26/22 06:03 Creatine Kinase 35 Units/L (26-192) 01/15/22 23:14 CK-MB (CK-2) 1.6 ng/mL (0-4.0) 01/15/22 23:14 CK/CKMB % Calc 4.6 % (<4) 01/15/22 23:14 Troponin I High Sens 63.9 ng/L (4.0-60.0) H* 01/15/22 23:14 C-Reactive Protein 33.80 mg/L (0-3.0) H 01/25/22 05:14 Total Protein 5.1 g/dL (6.4-8.2) L 01/26/22 06:03 Albumin 2.4 g/dL (3.4-5.0) L 01/26/22 06:03 Globulin 2.7 g/dL (2.5-4.5) 01/26/22 06:03 Albumin/Globulin Ratio 0.9 Ratio (1.1-2.1) L 01/26/22 06:03 Triglycerides 183 mg/dL (0-150) H 01/12/22 20:14 Cholesterol 179 mg/dL (0-200) 01/12/22 20:14 LDL Cholesterol, Calc 89 mg/dL (0-100) 01/12/22 20:14 HDL Cholesterol 53 mg/dL (40-60) 01/12/22 20:14 Cholesterol/HDL Ratio 3.4 (0.0-5.0) 01/12/22 20:14 Specimen Type Catherized urine 01/21/22 18:24 Urine Color Straw (YELLOW) 01/21/22 18:24 Urine Appearance Clear (CLEAR) 01/21/22 18:24 Urine pH 6.0 (5.0 - 8.0) 01/21/22 18:24 Ur Specific Fitzgerald 1.010 (1.000-1.030) 01/21/22 18:24 Urine Protein Negative (NEGATIVE) 01/21/22 18:24 Urine Glucose (UA) Negative (NEGATIVE) 01/21/22 18:24 Urine Ketones Negative (NEGATIVE) 01/21/22 18:24 Urine Occult Blood Negative (NEGATIVE) 01/13/22 06:35 Urine Blood Negative (NEGATIVE) 01/21/22 18:24 Urine Nitrite Negative (NEGATIVE) 01/21/22 18:24 Urine Bilirubin Negative (NEGATIVE) 01/21/22 18:24 Urine Urobilinogen Normal (NORMAL) 01/21/22 18:24 Ur Leukocyte Esterase Negative (NEGATIVE) 01/21/22 18:24 Urine RBC 0-2 /HPF (0-3) 01/13/22 06:35 Urine WBC 3-5 /HPF (0-5) 01/13/22 06:35 Ur Squamous Epith Cells Few /HPF (NEGATIVE) 01/13/22 06:35 Urine Bacteria Trace /HPF (NEGATIVE) 01/13/22 06:35 Ur Culture Indicated? Yes/culture set up 01/13/22 06:35 Digoxin 0.89 ng/mL (0.9-2) L 01/23/22 05:53 SARS CoV-2 RNA Rapid MARILU Negative (NEGATIVE) 01/12/22 20:00 - Plan (1) Brain TIA Status: Chronic Plan: NS AT 75 ML/HR, RESUME HOME MEDS, DIGOXIN 0.125MG PO DAILY, ZYPREXA 7.5MG PO BID, KLONOPIN 0.5MG PO BID, ROCEPHIN 1G IV DAILY, PHYSICAL THERAPY. MONITOR AM LABS (2) UTI (urinary tract infection) Status: Acute Qualifiers: Urinary tract infection type: acute cystitis Hematuria presence: without hematuria Qualified Code(s): N30.00 - Acute cystitis without hematuria (3) Ataxic gait Status: Acute (4) Generalized weakness Status: Acute (5) Dizziness Status: Acute (6) Altered mental status Status: Acute Qualifiers: Altered mental status type: transient alteration of awareness Qualified Code(s): R40.4 - Transient alteration of awareness (7) A-fib Status: Chronic Qualifiers: Atrial fibrillation type: paroxysmal Qualified Code(s): I48.0 - Paroxysmal atrial fibrillation (8) Dementia Status: Acute Qualifiers: Dementia type: unspecified type Dementia behavioral disturbance: with behavioral disturbance Qualified Code(s): F03.91 - Unspecified dementia with behavioral disturbance
[2022-01-26] MEDS ORDERED: TOPROL XL PO ONE (19:21)
[2022-01-26] MEDS: CYMBALTA PO SCH (21:40)
[2022-01-26] MEDS: ZOCOR TAB 20 MG PO SCH (21:41)
[2022-01-26] MEDS: ANTIVERT TAB 25 MG PO SCH (21:41)
[2022-01-26] MEDS: TOPROL XL PO SCH (21:41)
[2022-01-26] MEDS: NS 1,000 ML IV 1,000 ML IV SCH (21:42)
[2022-01-27] MEDS: NS 1,000 ML IV 1,000 ML IV SCH ×3 (06:01→18:09)
[2022-01-27] MEDS: CORDARONE TAB 200 MG PO SCH ×2 (06:01→17:28)
[2022-01-27 06:31] LABS: BASOPHILS % (AUTO) 0.5 % (0.2-1.0); EOSINOPHILS # (AUTO) 0.3 x10^3/uL (0.0-0.2); EOSINOPHILS % (AUTO) 6.2 % (0.9-2.9); HEMATOCRIT 34.2 % (36.0-47.0); HEMOGLOBIN 11.5 g/dL (12.0-16.0); LYMPHOCYTES # (AUTO) 1.5 X10^3/uL (1.3-2.9); LYMPHOCYTES % (AUTO) 37.2 % (21.0-51.0); MEAN CORPUSCULAR HEMOGLOBIN 29.4 pg (27.0-34.0); MEAN CORPUSCULAR HGB CONC 33.7 g/dL (33.0-35.0); MEAN CORPUSCULAR VOLUME 87.3 fL (80.0-100.0); MEAN PLATELET VOLUME 9.2 fL (7.4-11.0); MONOCYTES # (AUTO) 0.3 x10^3/uL (0.3-0.8); NEUTROPHILS # (AUTO) 1.9 x10^3/uL (2.2-4.8); NEUTROPHILS % (AUTO) 48.1 % (42.0-75.0); RED BLOOD COUNT 3.92 X10^6/uL (3.5-5.4); RED CELL DISTRIBUTION WIDTH 15.2 % (11.6-16.5)
[2022-01-27 06:44] LABS: ALANINE AMINOTRANSFERASE 20 Units/L (12-78); ALBUMIN 2.5 g/dL (3.4-5.0); ALKALINE PHOSPHATASE 61 Units/L (46-116); ASPARTATE AMINO TRANSFERASE 17 Units/L (15-37); BLOOD UREA NITROGEN 26 mg/dL (7-18); CARBON DIOXIDE 28.4 mmol/L (21-32); CHLORIDE 111 mmol/L (98-107); COR CA(FOR HYPOALB) 10.2 mg/dL (8.5-10.1); COR NA(FOR HYPERGLY) 148 mmol/L (136-145); CREATININE 0.64 mg/dL (0.55-1.02); SODIUM 147 mmol/L (136-145); TOTAL PROTEIN 5.1 g/dL (6.4-8.2); eGFR NON BLACK RACES > 60 (>60)
[2022-01-27] MEDS ORDERED: GLUCOPHAGE ONE ×2 (08:05→20:20)
[2022-01-27] MEDS: KLONOPIN TAB 0.5 MG PO SCH ×2 (09:40→20:49)
[2022-01-27] MEDS: NexIUM PO SCH ×2 (09:40→20:52)
[2022-01-27] MEDS: CARAFATE PO SCH ×4 (09:40→20:50)
[2022-01-27] MEDS: REQUIP PO SCH (09:40)
[2022-01-27] MEDS: NORVASC TAB 10 MG PO SCH (09:40)
[2022-01-27] MEDS: COZAAR PO SCH (09:40)
[2022-01-27] MEDS: ZyPREXA TAB 5 MG PO SCH ×2 (09:40→20:50)
[2022-01-27] MEDS: LANOXIN or DIGITEK PO SCH (09:40)
[2022-01-27] MEDS: K-DUR TAB 20 MEQ PO SCH (09:40)
[2022-01-27] MEDS: ASPIRIN PO SCH (09:40)
[2022-01-27] MEDS: GLUCOPHAGE PO SCH ×2 (09:40→23:24)
[2022-01-27] MEDS: ROCEPHIN VIAL 1 GRAM 1 G in NS 100 ML IV 100 ML IV SCH (09:41)
[2022-01-27] MEDS: NYSTATIN POWDER TOP SCH ×2 (09:45→23:25)
--- NOTE | 2022-01-27 13:15 | PCM.PROG ---
Progress Note - Progress Note for Day of Date of Exam: 01/27/22 - Subjective Subjective: IS BEING TREATED FOR A-FIB, TIA, GENERALIZED WEAKNESS, DIZZINESS, ATAXIC GAIT, AND ALTERED MENTAL STATUS. SHE DOES HAVE A HISTORY OF DEMENTIA. TODAY, SHE IS LYING IN BED WITH EYES CLOSED ON MORNING ROUNDS. SHE AWAKENS TO VERBAL STIMULI, BUT IS DISORIENTED. NURSING STAFF REPORTS THAT SHE DID REST BETTER THROUGHOUT THE NIGHT. SHE HAS ONLY BEEN ABLE TO STAND FOR APPROXIMATELY 10 SECONDS, BUT REQUIRED MAXIMUM ASSISTANCE. ON EXAMINATION, HEART IS REGULAR IN RATE AND RHYTHM. BILATERAL LUNGS NOTED WITH DIMINISHED LUNG SOUNDS THROUGHOUT. ABDOMEN IS ROUND, SOFT, AND NON-TENDER WITH NORMAL BOWEL SOUNDS NOTED IN ALL QUADRANTS. HER VITALS THIS MORNING ARE: 97.0-64-20-94%-130/66. LABS WERE OBTAINED. ABNORMAL LAB VALUES INCLUDE THE FOLLOWING: HGB 11.5, HCT 34.2, PLT COUNT 113, SODIUM 147, CHLORIDE 111, BUN 26, GLUCOSE 139, TOTAL PROTEIN 5.1, ALBUMIN 2.5. SHE IS CURRENTLY RECEIVING NORMAL SALINE AT 75 ML/HR, DIGOXIN 0.125MG PO DAILY, NORVASC 10MG DAILY, ZYREXA 7.55MG PO BID, KLONOPIN 0.5MG PO BID, ASPIRIN 325MG DAILY, CATAPRES PATCH WEEKLY, CYMBALTA 30MG HS, NEXIUM 40MG BID, COZAAR 100MG DAILY, MECLIZINE 12.5MG HS, METFORMIN 500MG BID, TOPROL XL 50MG HS, ZOFRAN 4MG IV Q6H PRN, K-DUR 20MEQ DAILY, REQUIP 0.5MG DAILY, ZOCOR 20MG HS, CARAFATE 1G PO QID, DETROL LA 4MG DAILY, AND ULTRAM 50MG PO BID PRN. WE WILL CONTINUE WITH CURRENT PLAN OF CARE TODAY AND DECREASE ZYPREXA TO 5MG PO BID. WE PLAN TO FOLLOW UP WITH AM LABS AND CONTINUE TO MONITOR. TIME SPENT ON CLINICAL ASSESSMENT, REVIEWING LABS AND IMAGING, DECISION MAKING, AND DOCUMENTATION GREATER THAN 45 MINUTES. - Past Medical Family Social History Past Med/Fam/Surg Hx: No changes since H&P Allergies: Allergies No Known Drug Allergies Allergy (Verified 01/01/21 18:38) - Review of Systems ROS: No change since H&P - Vital Signs and I&O's Vital Signs: Temperature 97.0 F Pulse Rate [Left Radial] 64 Pulse Rate 64 Respiratory Rate 20 Blood Pressure [Left Arm] 130/66 Blood Pressure [Right Arm] 141/81 O2 Sat by Pulse Oximetry 94 Intake and Output: Intake & Output 01/25/22 01/26/22 01/27/22 01/28/22 11:59 11:59 11:59 11:59 Intake Total 1745 / 1745 370 / 370 922 / 922 Balance 1745 / 1745 370 / 370 922 / 922 - Physical Exam Oriented: Person, Place Eyes: Normal Ear: Normal Nose: Normal Throat: Normal Respiratory: Generalized, Diminished Cardiovascular: Irregular : Normal Auscultation: Bowel Sounds: Normal Tenderness: Normal Skin: Normal Musculoskeletal: Instability Psychiatric: Other (HALLUCINATIONS, CONFUSION ) Affect: Normal Speech Pattern: Clear - Laboratory and Diagnostics Result Diagrams: 01/27/22 05:57 01/27/22 05:57 Labs: 01/21/22 18:24 Urine,Clean Catch Urine Culture - Final 01/16/22 12:18 Urine,Clean Catch Urine Culture - Final 01/13/22 06:38 Urine,Clean Catch Urine Culture - Final Laboratory WBC 4.0 X10^3/uL (3.6-10.0) 01/27/22 05:57 RBC 3.92 X10^6/uL (3.5-5.4) 01/27/22 05:57 Hgb 11.5 g/dL (12.0-16.0) L 01/27/22 05:57 Hct 34.2 % (36.0-47.0) L 01/27/22 05:57 MCV 87.3 fL (80.0-100.0) 01/27/22 05:57 MCH 29.4 pg (27.0-34.0) 01/27/22 05:57 MCHC 33.7 g/dL (33.0-35.0) 01/27/22 05:57 RDW 15.2 % (11.6-16.5) 01/27/22 05:57 Plt Count 113 X10^3/uL (150.0-450.0) L 01/27/22 05:57 Plt Count Comment Decreased (ADEQUATE) A 01/24/22 05:16 MPV 9.2 fL (7.4-11.0) 01/27/22 05:57 Neut % (Auto) 48.1 % (42.0-75.0) 01/27/22 05:57 Lymph % (Auto) 37.2 % (21.0-51.0) 01/27/22 05:57 [place] % (Auto) 8.0 % (0.0-13.0) 01/27/22 05:57 Eos % (Auto) 6.2 % (0.9-2.9) H 01/27/22 05:57 Baso % (Auto) 0.5 % (0.2-1.0) 01/27/22 05:57 Neut # (Auto) 1.9 x10^3/uL (2.2-4.8) L 01/27/22 05:57 Lymph # (Auto) 1.5 X10^3/uL (1.3-2.9) 01/27/22 05:57 [place] # (Auto) 0.3 x10^3/uL (0.3-0.8) 01/27/22 05:57 Eos # (Auto) 0.3 x10^3/uL (0.0-0.2) H 01/27/22 05:57 Baso # (Auto) 0.0 X10^3/uL (0.0-0.1) 01/27/22 05:57 Absolute Nucleated RBC 0.1 /100WBC 01/27/22 05:57 Total Counted 100 01/17/22 05:50 Neutrophils % (Manual) 62 % (39-76) 01/17/22 05:50 Lymphocytes % (Manual) 26 % (13-43) 01/17/22 05:50 Monocytes % (Manual) 8 % (4-9) 01/17/22 05:50 Eosinophils % (Manual) 4 % (0-6) 01/17/22 05:50 Plt Morphology Comment Normal (NORMAL) 01/24/22 05:16 RBC Morphology Normal (NORMAL) 01/24/22 05:16 Sodium 147 mmol/L (136-145) H 01/27/22 05:57 Corrected Sodium 148 mmol/L (136-145) H 01/27/22 05:57 Potassium 3.9 mmol/L (3.5-5.1) 01/27/22 05:57 Chloride 111 mmol/L (98-107) H 01/27/22 05:57 Carbon Dioxide 28.4 mmol/L (21-32) 01/27/22 05:57 BUN 26 mg/dL (7-18) H 01/27/22 05:57 Creatinine 0.64 mg/dL (0.55-1.02) 01/27/22 05:57 Est GFR (MDRD) Af Amer > 60 (>60) 01/27/22 05:57 Est GFR (MDRD) Non-Af > 60 (>60) 01/27/22 05:57 Glucose 139 mg/dL (65-99) H 01/27/22 05:57 POC Glucose (mg/dL) 139 mg/dL (65-99) H 01/27/22 11:54 Calcium 9.0 mg/dL (8.5-10.1) 01/27/22 05:57 Corrected Calcium 10.2 mg/dL (8.5-10.1) H 01/27/22 05:57 Magnesium 1.8 mg/dL (1.7-2.9) 01/24/22 05:16 Total Bilirubin 0.20 mg/dL (0.2-1.0) 01/27/22 05:57 AST 17 Units/L (15-37) 01/27/22 05:57 ALT 20 Units/L (12-78) 01/27/22 05:57 Alkaline Phosphatase 61 Units/L (46-116) 01/27/22 05:57 Creatine Kinase 35 Units/L (26-192) 01/15/22 23:14 CK-MB (CK-2) 1.6 ng/mL (0-4.0) 01/15/22 23:14 CK/CKMB % Calc 4.6 % (<4) 01/15/22 23:14 Troponin I High Sens 63.9 ng/L (4.0-60.0) H* 01/15/22 23:14 C-Reactive Protein 33.80 mg/L (0-3.0) H 01/25/22 05:14 Total Protein 5.1 g/dL (6.4-8.2) L 01/27/22 05:57 Albumin 2.5 g/dL (3.4-5.0) L 01/27/22 05:57 Globulin 2.6 g/dL (2.5-4.5) 01/27/22 05:57 Albumin/Globulin Ratio 1.0 Ratio (1.1-2.1) L 01/27/22 05:57 Triglycerides 183 mg/dL (0-150) H 01/12/22 20:14 Cholesterol 179 mg/dL (0-200) 01/12/22 20:14 LDL Cholesterol, Calc 89 mg/dL (0-100) 01/12/22 20:14 HDL Cholesterol 53 mg/dL (40-60) 01/12/22 20:14 Cholesterol/HDL Ratio 3.4 (0.0-5.0) 01/12/22 20:14 Specimen Type Catherized urine 01/21/22 18:24 Urine Color Straw (YELLOW) 01/21/22 18:24 Urine Appearance Clear (CLEAR) 01/21/22 18:24 Urine pH 6.0 (5.0 - 8.0) 01/21/22 18:24 Ur Specific [place] 1.010 (1.000-1.030) 01/21/22 18:24 Urine Protein Negative (NEGATIVE) 01/21/22 18:24 Urine Glucose (UA) Negative (NEGATIVE) 01/21/22 18:24 Urine Ketones Negative (NEGATIVE) 01/21/22 18:24 Urine Occult Blood Negative (NEGATIVE) 01/13/22 06:35 Urine Blood Negative (NEGATIVE) 01/21/22 18:24 Urine Nitrite Negative (NEGATIVE) 01/21/22 18:24 Urine Bilirubin Negative (NEGATIVE) 01/21/22 18:24 Urine Urobilinogen Normal (NORMAL) 01/21/22 18:24 Ur Leukocyte Esterase Negative (NEGATIVE) 01/21/22 18:24 Urine RBC 0-2 /HPF (0-3) 01/13/22 06:35 Urine WBC 3-5 /HPF (0-5) 01/13/22 06:35 Ur Squamous Epith Cells Few /HPF (NEGATIVE) 01/13/22 06:35 Urine Bacteria Trace /HPF (NEGATIVE) 01/13/22 06:35 Ur Culture Indicated? Yes/culture set up 01/13/22 06:35 Digoxin 0.89 ng/mL (0.9-2) L 01/23/22 05:53 SARS CoV-2 RNA Rapid MARILU Negative (NEGATIVE) 01/12/22 20:00 - Plan (1) Brain TIA Status: Chronic Plan: NS AT 75 ML/HR, RESUME HOME MEDS, DIGOXIN 0.125MG PO DAILY, ZYPREXA 5MG PO BID, KLONOPIN 0.5MG PO BID, ROCEPHIN 1G IV DAILY, PHYSICAL THERAPY. MONITOR AM LABS (2) UTI (urinary tract infection) Status: Acute Qualifiers: Urinary tract infection type: acute cystitis Hematuria presence: without hematuria Qualified Code(s): N30.00 - Acute cystitis without hematuria (3) Ataxic gait Status: Acute (4) Generalized weakness Status: Acute (5) Dizziness Status: Acute (6) Altered mental status Status: Acute Qualifiers: Altered mental status type: transient alteration of awareness Qualified Code(s): R40.4 - Transient alteration of awareness (7) A-fib Status: Chronic Qualifiers: Atrial fibrillation type: paroxysmal Qualified Code(s): I48.0 - Paroxysmal atrial fibrillation (8) Dementia Status: Acute Qualifiers: Dementia type: unspecified type Dementia behavioral disturbance: with behavioral disturbance Qualified Code(s): F03.91 - Unspecified dementia with behavioral disturbance
[2022-01-27] MEDS ORDERED: TOPROL XL PO ONE (20:21)
[2022-01-27] MEDS: ANTIVERT TAB 25 MG PO SCH (20:48)
[2022-01-27] MEDS: CYMBALTA PO SCH (20:51)
[2022-01-27] MEDS: ZOCOR TAB 20 MG PO SCH (23:27)
[2022-01-27] MEDS: TOPROL XL PO SCH (23:29)
[2022-01-28] MEDS: CORDARONE TAB 200 MG PO SCH ×2 (06:09→17:06)
[2022-01-28 06:14] LABS: ALANINE AMINOTRANSFERASE 24 Units/L (12-78); ALBUMIN 3.1 g/dL (3.4-5.0); ALKALINE PHOSPHATASE 74 Units/L (46-116); ASPARTATE AMINO TRANSFERASE 25 Units/L (15-37); BLOOD UREA NITROGEN 19 mg/dL (7-18); CALCIUM 9.6 mg/dL (8.5-10.1); CARBON DIOXIDE 27.5 mmol/L (21-32); CHLORIDE 108 mmol/L (98-107); COR CA(FOR HYPOALB) 10.3 mg/dL (8.5-10.1); COR NA(FOR HYPERGLY) 146 mmol/L (136-145); CREATININE 0.57 mg/dL (0.55-1.02); SODIUM 145 mmol/L (136-145); TOTAL PROTEIN 6.3 g/dL (6.4-8.2); eGFR NON BLACK RACES > 60 (>60)
[2022-01-28 06:17] LABS: BASOPHILS # (AUTO) 0.1 X10^3/uL (0.0-0.1); EOSINOPHILS # (AUTO) 0.5 x10^3/uL (0.0-0.2); EOSINOPHILS % (AUTO) 5.8 % (0.9-2.9); HEMATOCRIT 38.3 % (36.0-47.0); LYMPHOCYTES # (AUTO) 2.6 X10^3/uL (1.3-2.9); LYMPHOCYTES % (AUTO) 33.9 % (21.0-51.0); MEAN CORPUSCULAR HEMOGLOBIN 29.4 pg (27.0-34.0); MEAN CORPUSCULAR HGB CONC 33.8 g/dL (33.0-35.0); MEAN CORPUSCULAR VOLUME 86.8 fL (80.0-100.0); MEAN PLATELET VOLUME 10.1 fL (7.4-11.0); MONOCYTES # (AUTO) 0.6 x10^3/uL (0.3-0.8); MONOCYTES % (AUTO) 7.8 % (0.0-13.0); NEUTROPHILS % (AUTO) 51.5 % (42.0-75.0); RED BLOOD COUNT 4.41 X10^6/uL (3.5-5.4)
[2022-01-28 06:51] LABS: PLATELET MORPHOLOGY COMMENT NORMAL (NORMAL); WHITE BLOOD COUNT 9.2 X10^3/uL (3.6-10.0)
[2022-01-28] MEDS ORDERED: GLUCOPHAGE ONE ×2 (08:34→21:04)
[2022-01-28] MEDS: NexIUM PO SCH ×3 (09:30→23:45)
[2022-01-28] MEDS: COZAAR PO SCH (09:30)
[2022-01-28] MEDS: LANOXIN or DIGITEK PO SCH (09:30)
[2022-01-28] MEDS: ROCEPHIN VIAL 1 GRAM 1 G in NS 100 ML IV 100 ML IV SCH (09:30)
[2022-01-28] MEDS: REQUIP PO SCH (09:32)
[2022-01-28] MEDS: K-DUR TAB 20 MEQ PO SCH (09:34)
[2022-01-28] MEDS: KLONOPIN TAB 0.5 MG PO SCH ×3 (09:35→23:44)
[2022-01-28] MEDS: ASPIRIN PO SCH (09:35)
[2022-01-28] MEDS: CARAFATE PO SCH ×6 (09:35→23:43)
[2022-01-28] MEDS: GLUCOPHAGE PO SCH ×3 (09:36→23:44)
[2022-01-28] MEDS: NORVASC TAB 10 MG PO SCH (09:36)
[2022-01-28] MEDS: NYSTATIN POWDER TOP SCH ×2 (09:37→21:00)
[2022-01-28] MEDS: ZyPREXA TAB 5 MG PO SCH ×2 (09:37→18:13)
--- NOTE | 2022-01-28 09:54 | PCM.PROG ---
Progress Note - Progress Note for Day of Date of Exam: 01/28/22 - Subjective Subjective: IS BEING TREATED FOR A-FIB, TIA, GENERALIZED WEAKNESS, DIZZINESS, ATAXIC GAIT, AND ALTERED MENTAL STATUS. SHE DOES HAVE A HISTORY OF DEMENTIA. TODAY, SHE IS LYING IN BED WITH EYES CLOSED ON MORNING ROUNDS. SHE AWAKENS TO VERBAL STIMULI, BUT IS DISORIENTED. NURSING STAFF REPORTS THAT SHE WAS RESTLESS AND AGITATED THROUGHOUT THE NIGHT. SHE IS UNABLE TO STAND OR AMBULATE WITHOUT MAXIMUM ASSITANCE. ON EXAMINATION, HEART IS REGULAR IN RATE AND RHYTHM. BILATERAL LUNGS NOTED WITH DIMINISHED LUNG SOUNDS THROUGHOUT. ABDOMEN IS ROUND, SOFT, AND NON-TENDER WITH NORMAL BOWEL SOUNDS NOTED IN ALL QUADRANTS. HER VITALS THIS MORNING ARE: 98.2-81-20-96%-180/88. LABS WERE OBTAINED. ABNORMAL LAB VALUES INCLUDE THE FOLLOWING: CHLORIDE 108, BUN 19, GLUCOSE 141, CORRECTED CALCIUM 10.3, TOTAL PROTEIN 6.3, ALBUMIN 3.1. SHE IS CURRENTLY RECEIVING NORMAL SALINE AT 75 ML/HR, DIGOXIN 0.125MG PO DAILY, NORVASC 10MG DAILY, ZYREXA 5MG PO BID, KLONOPIN 0.5MG PO BID, ASPIRIN 325MG DAILY, CATAPRES PATCH WEEKLY, CYMBALTA 30MG HS, NEXIUM 40MG BID, COZAAR 100MG DAILY, MECLIZINE 12.5MG HS, METFORMIN 500MG BID, TOPROL XL 50MG HS, ZOFRAN 4MG IV Q6H PRN, K-DUR 20MEQ DAILY, REQUIP 0.5MG DAILY, ZOCOR 20MG HS, CARAFATE 1G PO QID, DETROL LA 4MG DAILY, AND ULTRAM 50MG PO BID PRN. WE WILL CONTINUE CHANGE ZYPREXA TO 5MG QAM AND 10MG QHS. OTHERWISE, WE WILL CONTINUE WITH CURRENT PLAN OF CARE. WE PLAN TO FOLLOW UP WITH AM LABS AND CONTINUE TO MONITOR. TIME SPENT ON CLINICAL ASSESSMENT, REVIEWING LABS AND IMAGING, DECISION MAKING, AND DOCUMENTATION GREATER THAN 45 MINUTES. - Past Medical Family Social History Past Med/Fam/Surg Hx: No changes since H&P Allergies: Allergies No Known Drug Allergies Allergy (Verified 01/01/21 18:38) - Review of Systems ROS: No change since H&P - Vital Signs and I&O's Vital Signs: Temperature 98.2 F Pulse Rate [Left Radial] 81 Pulse Rate 76 Respiratory Rate 20 Blood Pressure [Left Arm] 169/75 Blood Pressure [Right Arm] 180/88 O2 Sat by Pulse Oximetry 96 Intake and Output: Intake & Output 01/25/22 01/26/22 01/27/22 01/28/22 11:59 11:59 11:59 11:59 Intake Total 1745 / 1745 370 / 370 922 / 922 802 / 802 Balance 1745 / 1745 370 / 370 922 / 922 802 / 802 - Physical Exam Oriented: Not Oriented Eyes: Normal Ear: Normal Nose: Normal Throat: Normal Respiratory: Generalized, Diminished Cardiovascular: Irregular : Normal Auscultation: Bowel Sounds: Normal Tenderness: Normal Skin: Normal Musculoskeletal: Instability Psychiatric: Other (HALLUCINATIONS, CONFUSION ) Affect: Normal Speech Pattern: Clear, Delayed - Laboratory and Diagnostics Result Diagrams: 01/28/22 05:27 01/28/22 05:27 Labs: 01/21/22 18:24 Urine,Clean Catch Urine Culture - Final 01/16/22 12:18 Urine,Clean Catch Urine Culture - Final 01/13/22 06:38 Urine,Clean Catch Urine Culture - Final Laboratory WBC 9.2 X10^3/uL (3.6-10.0) 01/28/22 05:27 RBC 4.41 X10^6/uL (3.5-5.4) 01/28/22 05:27 Hgb 13.0 g/dL (12.0-16.0) 01/28/22 05:27 Hct 38.3 % (36.0-47.0) 01/28/22 05:27 MCV 86.8 fL (80.0-100.0) 01/28/22 05:27 MCH 29.4 pg (27.0-34.0) 01/28/22 05:27 MCHC 33.8 g/dL (33.0-35.0) 01/28/22 05:27 RDW 15.0 % (11.6-16.5) 01/28/22 05:27 Plt Count 176 X10^3/uL (150.0-450.0) 01/28/22 05:27 Plt Count Comment Adequate (ADEQUATE) 01/28/22 05:27 MPV 10.1 fL (7.4-11.0) 01/28/22 05:27 Neut % (Auto) 51.5 % (42.0-75.0) 01/28/22 05:27 Lymph % (Auto) 33.9 % (21.0-51.0) 01/28/22 05:27 [place] % (Auto) 7.8 % (0.0-13.0) 01/28/22 05:27 Eos % (Auto) 5.8 % (0.9-2.9) H 01/28/22 05:27 Baso % (Auto) 1.0 % (0.2-1.0) 01/28/22 05:27 Neut # (Auto) 4.0 x10^3/uL (2.2-4.8) 01/28/22 05:27 Lymph # (Auto) 2.6 X10^3/uL (1.3-2.9) 01/28/22 05:27 [place] # (Auto) 0.6 x10^3/uL (0.3-0.8) 01/28/22 05:27 Eos # (Auto) 0.5 x10^3/uL (0.0-0.2) H 01/28/22 05:27 Baso # (Auto) 0.1 X10^3/uL (0.0-0.1) 01/28/22 05:27 Absolute Nucleated RBC 1.3 /100WBC 01/28/22 05:27 Total Counted 100 01/17/22 05:50 Neutrophils % (Manual) 62 % (39-76) 01/17/22 05:50 Lymphocytes % (Manual) 26 % (13-43) 01/17/22 05:50 Monocytes % (Manual) 8 % (4-9) 01/17/22 05:50 Eosinophils % (Manual) 4 % (0-6) 01/17/22 05:50 Plt Morphology Comment Normal (NORMAL) 01/28/22 05:27 RBC Morphology Normal (NORMAL) 01/28/22 05:27 Sodium 145 mmol/L (136-145) 01/28/22 05:27 Corrected Sodium 146 mmol/L (136-145) H 01/28/22 05:27 Potassium 3.7 mmol/L (3.5-5.1) 01/28/22 05:27 Chloride 108 mmol/L (98-107) H 01/28/22 05:27 Carbon Dioxide 27.5 mmol/L (21-32) 01/28/22 05:27 BUN 19 mg/dL (7-18) H 01/28/22 05:27 Creatinine 0.57 mg/dL (0.55-1.02) 01/28/22 05:27 Est GFR (MDRD) Af Amer > 60 (>60) 01/28/22 05:27 Est GFR (MDRD) Non-Af > 60 (>60) 01/28/22 05:27 Glucose 141 mg/dL (65-99) H 01/28/22 05:27 POC Glucose (mg/dL) 131 mg/dL (65-99) H 01/28/22 04:47 Calcium 9.6 mg/dL (8.5-10.1) 01/28/22 05:27 Corrected Calcium 10.3 mg/dL (8.5-10.1) H 01/28/22 05:27 Magnesium 1.8 mg/dL (1.7-2.9) 01/24/22 05:16 Total Bilirubin 0.40 mg/dL (0.2-1.0) 01/28/22 05:27 AST 25 Units/L (15-37) 01/28/22 05:27 ALT 24 Units/L (12-78) 01/28/22 05:27 Alkaline Phosphatase 74 Units/L (46-116) 01/28/22 05:27 Creatine Kinase 35 Units/L (26-192) 01/15/22 23:14 CK-MB (CK-2) 1.6 ng/mL (0-4.0) 01/15/22 23:14 CK/CKMB % Calc 4.6 % (<4) 01/15/22 23:14 Troponin I High Sens 63.9 ng/L (4.0-60.0) H* 01/15/22 23:14 C-Reactive Protein 33.80 mg/L (0-3.0) H 01/25/22 05:14 Total Protein 6.3 g/dL (6.4-8.2) L 01/28/22 05:27 Albumin 3.1 g/dL (3.4-5.0) L 01/28/22 05:27 Globulin 3.2 g/dL (2.5-4.5) 01/28/22 05:27 Albumin/Globulin Ratio 1.0 Ratio (1.1-2.1) L 01/28/22 05:27 Triglycerides 183 mg/dL (0-150) H 01/12/22 20:14 Cholesterol 179 mg/dL (0-200) 01/12/22 20:14 LDL Cholesterol, Calc 89 mg/dL (0-100) 01/12/22 20:14 HDL Cholesterol 53 mg/dL (40-60) 01/12/22 20:14 Cholesterol/HDL Ratio 3.4 (0.0-5.0) 01/12/22 20:14 Specimen Type Catherized urine 01/21/22 18:24 Urine Color Straw (YELLOW) 01/21/22 18:24 Urine Appearance Clear (CLEAR) 01/21/22 18:24 Urine pH 6.0 (5.0 - 8.0) 01/21/22 18:24 Ur Specific [place] 1.010 (1.000-1.030) 01/21/22 18:24 Urine Protein Negative (NEGATIVE) 01/21/22 18:24 Urine Glucose (UA) Negative (NEGATIVE) 01/21/22 18:24 Urine Ketones Negative (NEGATIVE) 01/21/22 18:24 Urine Occult Blood Negative (NEGATIVE) 01/13/22 06:35 Urine Blood Negative (NEGATIVE) 01/21/22 18:24 Urine Nitrite Negative (NEGATIVE) 01/21/22 18:24 Urine Bilirubin Negative (NEGATIVE) 01/21/22 18:24 Urine Urobilinogen Normal (NORMAL) 01/21/22 18:24 Ur Leukocyte Esterase Negative (NEGATIVE) 01/21/22 18:24 Urine RBC 0-2 /HPF (0-3) 01/13/22 06:35 Urine WBC 3-5 /HPF (0-5) 01/13/22 06:35 Ur Squamous Epith Cells Few /HPF (NEGATIVE) 01/13/22 06:35 Urine Bacteria Trace /HPF (NEGATIVE) 01/13/22 06:35 Ur Culture Indicated? Yes/culture set up 01/13/22 06:35 Digoxin 0.52 ng/mL (0.9-2) L 01/28/22 05:27 SARS CoV-2 RNA Rapid MARILU Negative (NEGATIVE) 01/12/22 20:00 - Plan (1) Brain TIA Status: Chronic Plan: NS AT 75 ML/HR, RESUME HOME MEDS, DIGOXIN 0.125MG PO DAILY, ZYPREXA 5MG QAM, ZYPREXA 10MG QHS, KLONOPIN 0.5MG PO BID, ROCEPHIN 1G IV DAILY, PHYSICAL THERAPY. MONITOR AM LABS (2) UTI (urinary tract infection) Status: Acute Qualifiers: Urinary tract infection type: acute cystitis Hematuria presence: without hematuria Qualified Code(s): N30.00 - Acute cystitis without hematuria (3) Ataxic gait Status: Acute (4) Generalized weakness Status: Acute (5) Dizziness Status: Acute (6) Altered mental status Status: Acute Qualifiers: Altered mental status type: transient alteration of awareness Qualified Code(s): R40.4 - Transient alteration of awareness (7) A-fib Status: Chronic Qualifiers: Atrial fibrillation type: paroxysmal Qualified Code(s): I48.0 - Paroxysmal atrial fibrillation (8) Dementia Status: Acute Qualifiers: Dementia type: unspecified type Dementia behavioral disturbance: with behavioral disturbance Qualified Code(s): F03.91 - Unspecified dementia with behavioral disturbance
[2022-01-28] MEDS: NS 1,000 ML IV 1,000 ML IV SCH ×2 (12:49→13:36)
[2022-01-28] MEDS ORDERED: ZyPREXA TAB 5 MG ONE (16:56)
[2022-01-28] MEDS ORDERED: MILK OF MAGNESIA PO PRN (18:48)
[2022-01-28] MEDS ORDERED: COLACE CAP 100 MG PO PRN (18:48)
[2022-01-28] MEDS ORDERED: TOPROL XL PO ONE (20:51)
[2022-01-28] MEDS: ANTIVERT TAB 25 MG PO SCH ×2 (20:58→23:45)
[2022-01-28] MEDS: TOPROL XL PO SCH (20:58)
[2022-01-28] MEDS: CYMBALTA PO SCH ×2 (20:58→23:46)
[2022-01-28] MEDS: ZOCOR TAB 20 MG PO SCH ×2 (20:59→23:46)
[2022-01-29 06:03] LABS: BASOPHILS # (AUTO) 0.1 X10^3/uL (0.0-0.1); BASOPHILS % (AUTO) 1.2 % (0.2-1.0); EOSINOPHILS # (AUTO) 0.3 x10^3/uL (0.0-0.2); HEMATOCRIT 39.2 % (36.0-47.0); HEMOGLOBIN 13.1 g/dL (12.0-16.0); LYMPHOCYTES # (AUTO) 1.9 X10^3/uL (1.3-2.9); LYMPHOCYTES % (AUTO) 38.5 % (21.0-51.0); MEAN CORPUSCULAR HEMOGLOBIN 29.5 pg (27.0-34.0); MEAN CORPUSCULAR HGB CONC 33.5 g/dL (33.0-35.0); MEAN PLATELET VOLUME 8.9 fL (7.4-11.0); MONOCYTES # (AUTO) 0.4 x10^3/uL (0.3-0.8); MONOCYTES % (AUTO) 7.6 % (0.0-13.0); NEUTROPHILS # (AUTO) 2.3 x10^3/uL (2.2-4.8); NEUTROPHILS % (AUTO) 46.7 % (42.0-75.0); RED BLOOD COUNT 4.46 X10^6/uL (3.5-5.4); RED CELL DISTRIBUTION WIDTH 15.3 % (11.6-16.5); WHITE BLOOD COUNT 4.8 X10^3/uL (3.6-10.0)
[2022-01-29 06:17] LABS: ALANINE AMINOTRANSFERASE 24 Units/L (12-78); ALKALINE PHOSPHATASE 70 Units/L (46-116); ASPARTATE AMINO TRANSFERASE 27 Units/L (15-37); BLOOD UREA NITROGEN 20 mg/dL (7-18); CALCIUM 9.3 mg/dL (8.5-10.1); CARBON DIOXIDE 33.2 mmol/L (21-32); CHLORIDE 109 mmol/L (98-107); COR CA(FOR HYPOALB) 10.1 mg/dL (8.5-10.1); COR NA(FOR HYPERGLY) 148 mmol/L (136-145); CREATININE 0.67 mg/dL (0.55-1.02); SODIUM 147 mmol/L (136-145); TOTAL PROTEIN 6.1 g/dL (6.4-8.2); eGFR NON BLACK RACES > 60 (>60)
[2022-01-29] MEDS: CORDARONE TAB 200 MG PO SCH ×2 (06:17→16:30)
[2022-01-29] MEDS: COZAAR PO SCH (08:36)
[2022-01-29] MEDS: NORVASC TAB 10 MG PO SCH (08:36)
[2022-01-29] MEDS: ASPIRIN PO SCH (08:36)
[2022-01-29] MEDS: ZyPREXA TAB 5 MG PO SCH ×2 (08:36→18:32)
[2022-01-29] MEDS: NexIUM PO SCH ×2 (08:37→20:49)
[2022-01-29] MEDS: K-DUR TAB 20 MEQ PO SCH (08:38)
[2022-01-29] MEDS: LANOXIN or DIGITEK PO SCH (08:38)
[2022-01-29] MEDS: NYSTATIN POWDER TOP SCH ×2 (08:41→20:49)
[2022-01-29] MEDS: CARAFATE PO SCH ×4 (08:41→20:49)
[2022-01-29] MEDS: REQUIP PO SCH (08:43)
[2022-01-29] MEDS: KLONOPIN TAB 0.5 MG PO SCH ×2 (08:44→20:50)
[2022-01-29] MEDS ORDERED: GLUCOPHAGE ONE ×2 (08:47→20:26)
[2022-01-29] MEDS: GLUCOPHAGE PO SCH ×2 (08:51→20:48)
[2022-01-29] MEDS ORDERED: TOPROL XL PO ONE (20:27)
[2022-01-29] MEDS: ANTIVERT TAB 25 MG PO SCH (20:48)
[2022-01-29] MEDS: TOPROL XL PO SCH (20:48)
[2022-01-29] MEDS: CYMBALTA PO SCH (20:49)
[2022-01-29] MEDS: ZOCOR TAB 20 MG PO SCH (20:49)
[2022-01-29] MEDS: COLACE CAP 100 MG PO SCH (21:18)
[2022-01-29] MEDS: MILK OF MAGNESIA PO SCH (21:19)
[2022-01-30 05:47] LABS: BASOPHILS # (AUTO) 0.1 X10^3/uL (0.0-0.1); BASOPHILS % (AUTO) 0.9 % (0.2-1.0); EOSINOPHILS # (AUTO) 0.3 x10^3/uL (0.0-0.2); EOSINOPHILS % (AUTO) 5.1 % (0.9-2.9); HEMATOCRIT 38.7 % (36.0-47.0); LYMPHOCYTES # (AUTO) 2.3 X10^3/uL (1.3-2.9); LYMPHOCYTES % (AUTO) 38.2 % (21.0-51.0); MEAN CORPUSCULAR HEMOGLOBIN 29.1 pg (27.0-34.0); MEAN CORPUSCULAR HGB CONC 33.5 g/dL (33.0-35.0); MEAN CORPUSCULAR VOLUME 86.8 fL (80.0-100.0); MONOCYTES # (AUTO) 0.5 x10^3/uL (0.3-0.8); NEUTROPHILS # (AUTO) 2.9 x10^3/uL (2.2-4.8); NEUTROPHILS % (AUTO) 47.8 % (42.0-75.0); RED BLOOD COUNT 4.46 X10^6/uL (3.5-5.4); RED CELL DISTRIBUTION WIDTH 14.7 % (11.6-16.5); WHITE BLOOD COUNT 6.1 X10^3/uL (3.6-10.0)
[2022-01-30 05:55] LABS: ALANINE AMINOTRANSFERASE 25 Units/L (12-78); ALBUMIN 2.9 g/dL (3.4-5.0); ALKALINE PHOSPHATASE 69 Units/L (46-116); ASPARTATE AMINO TRANSFERASE 24 Units/L (15-37); BLOOD UREA NITROGEN 17 mg/dL (7-18); CALCIUM 9.2 mg/dL (8.5-10.1); CARBON DIOXIDE 30.1 mmol/L (21-32); CHLORIDE 109 mmol/L (98-107); COR CA(FOR HYPOALB) 10.1 mg/dL (8.5-10.1); COR NA(FOR HYPERGLY) 147 mmol/L (136-145); CREATININE 0.64 mg/dL (0.55-1.02); SODIUM 146 mmol/L (136-145); TOTAL PROTEIN 5.7 g/dL (6.4-8.2); eGFR NON BLACK RACES > 60 (>60)
[2022-01-30] MEDS: CORDARONE TAB 200 MG PO SCH ×2 (05:59→16:44)
[2022-01-30] MEDS ORDERED: GLUCOPHAGE ONE ×2 (08:25→19:35)
[2022-01-30] MEDS: K-DUR TAB 20 MEQ PO SCH (08:35)
[2022-01-30] MEDS: CARAFATE PO SCH ×4 (08:35→22:24)
[2022-01-30] MEDS: COZAAR PO SCH (08:35)
[2022-01-30] MEDS: COLACE CAP 100 MG PO SCH ×2 (08:36→22:27)
[2022-01-30] MEDS: ASPIRIN PO SCH (08:36)
[2022-01-30] MEDS: ZyPREXA TAB 5 MG PO SCH ×4 (08:36→19:03)
[2022-01-30] MEDS: KLONOPIN TAB 0.5 MG PO SCH ×2 (08:36→22:28)
[2022-01-30] MEDS: GLUCOPHAGE PO SCH ×2 (08:36→22:28)
[2022-01-30] MEDS: NexIUM PO SCH ×2 (08:37→22:27)
[2022-01-30] MEDS: MILK OF MAGNESIA PO SCH ×2 (08:37→22:28)
[2022-01-30] MEDS: NORVASC TAB 10 MG PO SCH (08:37)
[2022-01-30] MEDS: LANOXIN or DIGITEK PO SCH (08:37)
[2022-01-30] MEDS: REQUIP PO SCH (08:38)
[2022-01-30] MEDS: NYSTATIN POWDER TOP SCH ×2 (08:38→22:27)
--- NOTE | 2022-01-30 10:27 | PCM.PROG ---
Progress Note - Progress Note for Day of Date of Exam: 01/29/22 - Subjective Subjective: IS BEING TREATED FOR A-FIB, TIA, GENERALIZED WEAKNESS, DIZZINESS, ATAXIC GAIT, AND ALTERED MENTAL STATUS. SHE DOES HAVE A HISTORY OF DEMENTIA. TODAY, SHE IS LYING IN BED WITH EYES CLOSED ON MORNING ROUNDS. SHE AWAKENS TO VERBAL STIMULI, BUT IS DISORIENTED. NURSING STAFF REPORTS THAT SHE RESTED BETTER THROUGHOUT THE NIGHT. SHE IS UNABLE TO STAND OR AMBULATE FOR LONG PERIODS OF TIME WITHOUT MAXIMUM ASSITANCE, BUT SHE DOES ATTEMPT TO PARTICIPATE. ON EXAMINATION, HEART IS REGULAR IN RATE AND RHYTHM. BILATERAL LUNGS NOTED WITH DIMINISHED LUNG SOUNDS THROUGHOUT. ABDOMEN IS ROUND, SOFT, AND NON-TENDER WITH NORMAL BOWEL SOUNDS NOTED IN ALL QUADRANTS. HER VITALS THIS MORNING ARE: 98. 3-76-20-97%-123/54. LABS WERE OBTAINED. ABNORMAL LAB VALUES INCLUDE THE FOLLOWING: SODIUM 147, CHLORIDE 109, CARBON DIOXIDE 33.2, BUN 20, GLUCOSE 127, TOTAL PROTEIN 6.1, ALBUMIN 3.0. SHE IS CURRENTLY RECEIVING NORMAL SALINE AT 75 ML/HR, DIGOXIN 0.125MG PO DAILY, NORVASC 10MG DAILY, ZYREXA 5MG PO AM AND 10MG HS, KLONOPIN 0.5MG PO BID, ASPIRIN 325MG DAILY, CATAPRES PATCH WEEKLY, CYMBALTA 30MG HS, NEXIUM 40MG BID, COZAAR 100MG DAILY, MECLIZINE 12.5MG HS, METFORMIN 500MG BID, TOPROL XL 50MG HS, ZOFRAN 4MG IV Q6H PRN, K-DUR 20MEQ DAILY, REQUIP 0.5MG DAILY, ZOCOR 20MG HS, CARAFATE 1G PO QID, DETROL LA 4MG DAILY, AND ULTRAM 50MG PO BID PRN. WE WILL CONTINUE WITH CURRENT PLAN OF CARE TODAY. OTHERWISE, WE PLAN TO FOLLOW UP WITH AM LABS AND CONTINUE TO MONITOR. TIME SPENT ON CLINICAL ASSESSMENT, REVIEWING LABS AND IMAGING, DECISION MAKING, AND DOCUMENTATION GREATER THAN 45 MINUTES. - Past Medical Family Social History Past Med/Fam/Surg Hx: No changes since H&P Allergies: Allergies No Known Drug Allergies Allergy (Verified 01/01/21 18:38) - Review of Systems ROS: No change since H&P - Vital Signs and I&O's Vital Signs: Temperature 97.4 F Pulse Rate [Left Radial] 66 Pulse Rate 66 Respiratory Rate 20 Blood Pressure [Left Arm] 125/60 Blood Pressure [Right Arm] 129/61 O2 Sat by Pulse Oximetry 95 Intake and Output: Intake & Output 01/27/22 01/28/22 01/29/22 01/30/22 11:59 11:59 11:59 11:59 Intake Total 922 / 922 802 / 802 560 / 560 265 / 265 Balance 922 / 922 802 / 802 560 / 560 265 / 265 - Physical Exam Oriented: Not Oriented Eyes: Normal Ear: Normal Nose: Normal Throat: Normal Respiratory: Generalized, Diminished Cardiovascular: Irregular : Normal Auscultation: Bowel Sounds: Normal Tenderness: Normal Skin: Normal Musculoskeletal: Instability Psychiatric: Other (HALLUCINATIONS, CONFUSION ) Affect: Normal Speech Pattern: Clear, Delayed - Laboratory and Diagnostics Result Diagrams: 01/30/22 05:10 01/30/22 05:10 Labs: 01/21/22 18:24 Urine,Clean Catch Urine Culture - Final 01/16/22 12:18 Urine,Clean Catch Urine Culture - Final 01/13/22 06:38 Urine,Clean Catch Urine Culture - Final Laboratory WBC 6.1 X10^3/uL (3.6-10.0) 01/30/22 05:10 RBC 4.46 X10^6/uL (3.5-5.4) 01/30/22 05:10 Hgb 13.0 g/dL (12.0-16.0) 01/30/22 05:10 Hct 38.7 % (36.0-47.0) 01/30/22 05:10 MCV 86.8 fL (80.0-100.0) 01/30/22 05:10 MCH 29.1 pg (27.0-34.0) 01/30/22 05:10 MCHC 33.5 g/dL (33.0-35.0) 01/30/22 05:10 RDW 14.7 % (11.6-16.5) 01/30/22 05:10 Plt Count 179 X10^3/uL (150.0-450.0) 01/30/22 05:10 Plt Count Comment Adequate (ADEQUATE) 01/28/22 05:27 MPV 9.0 fL (7.4-11.0) 01/30/22 05:10 Neut % (Auto) 47.8 % (42.0-75.0) 01/30/22 05:10 Lymph % (Auto) 38.2 % (21.0-51.0) 01/30/22 05:10 [place] % (Auto) 8.0 % (0.0-13.0) 01/30/22 05:10 Eos % (Auto) 5.1 % (0.9-2.9) H 01/30/22 05:10 Baso % (Auto) 0.9 % (0.2-1.0) 01/30/22 05:10 Neut # (Auto) 2.9 x10^3/uL (2.2-4.8) 01/30/22 05:10 Lymph # (Auto) 2.3 X10^3/uL (1.3-2.9) 01/30/22 05:10 [place] # (Auto) 0.5 x10^3/uL (0.3-0.8) 01/30/22 05:10 Eos # (Auto) 0.3 x10^3/uL (0.0-0.2) H 01/30/22 05:10 Baso # (Auto) 0.1 X10^3/uL (0.0-0.1) 01/30/22 05:10 Absolute Nucleated RBC 0.1 /100WBC 01/30/22 05:10 Total Counted 100 01/17/22 05:50 Neutrophils % (Manual) 62 % (39-76) 01/17/22 05:50 Lymphocytes % (Manual) 26 % (13-43) 01/17/22 05:50 Monocytes % (Manual) 8 % (4-9) 01/17/22 05:50 Eosinophils % (Manual) 4 % (0-6) 01/17/22 05:50 Plt Morphology Comment Normal (NORMAL) 01/28/22 05:27 RBC Morphology Normal (NORMAL) 01/28/22 05:27 Sodium 146 mmol/L (136-145) H 01/30/22 05:10 Corrected Sodium 147 mmol/L (136-145) H 01/30/22 05:10 Potassium 3.7 mmol/L (3.5-5.1) 01/30/22 05:10 Chloride 109 mmol/L (98-107) H 01/30/22 05:10 Carbon Dioxide 30.1 mmol/L (21-32) 01/30/22 05:10 BUN 17 mg/dL (7-18) 01/30/22 05:10 Creatinine 0.64 mg/dL (0.55-1.02) 01/30/22 05:10 Est GFR (MDRD) Af Amer > 60 (>60) 01/30/22 05:10 Est GFR (MDRD) Non-Af > 60 (>60) 01/30/22 05:10 Glucose 143 mg/dL (65-99) H 01/30/22 05:10 POC Glucose (mg/dL) 115 mg/dL (65-99) H 01/30/22 05:35 Calcium 9.2 mg/dL (8.5-10.1) 01/30/22 05:10 Corrected Calcium 10.1 mg/dL (8.5-10.1) 01/30/22 05:10 Magnesium 1.8 mg/dL (1.7-2.9) 01/24/22 05:16 Total Bilirubin 0.30 mg/dL (0.2-1.0) 01/30/22 05:10 AST 24 Units/L (15-37) 01/30/22 05:10 ALT 25 Units/L (12-78) 01/30/22 05:10 Alkaline Phosphatase 69 Units/L (46-116) 01/30/22 05:10 Creatine Kinase 35 Units/L (26-192) 01/15/22 23:14 CK-MB (CK-2) 1.6 ng/mL (0-4.0) 01/15/22 23:14 CK/CKMB % Calc 4.6 % (<4) 01/15/22 23:14 Troponin I High Sens 63.9 ng/L (4.0-60.0) H* 01/15/22 23:14 C-Reactive Protein 33.80 mg/L (0-3.0) H 01/25/22 05:14 Total Protein 5.7 g/dL (6.4-8.2) L 01/30/22 05:10 Albumin 2.9 g/dL (3.4-5.0) L 01/30/22 05:10 Globulin 2.8 g/dL (2.5-4.5) 01/30/22 05:10 Albumin/Globulin Ratio 1.0 Ratio (1.1-2.1) L 01/30/22 05:10 Triglycerides 183 mg/dL (0-150) H 01/12/22 20:14 Cholesterol 179 mg/dL (0-200) 01/12/22 20:14 LDL Cholesterol, Calc 89 mg/dL (0-100) 01/12/22 20:14 HDL Cholesterol 53 mg/dL (40-60) 01/12/22 20:14 Cholesterol/HDL Ratio 3.4 (0.0-5.0) 01/12/22 20:14 Specimen Type Catherized urine 01/21/22 18:24 Urine Color Straw (YELLOW) 01/21/22 18:24 Urine Appearance Clear (CLEAR) 01/21/22 18:24 Urine pH 6.0 (5.0 - 8.0) 01/21/22 18:24 Ur Specific [place] 1.010 (1.000-1.030) 01/21/22 18:24 Urine Protein Negative (NEGATIVE) 01/21/22 18:24 Urine Glucose (UA) Negative (NEGATIVE) 01/21/22 18:24 Urine Ketones Negative (NEGATIVE) 01/21/22 18:24 Urine Occult Blood Negative (NEGATIVE) 01/13/22 06:35 Urine Blood Negative (NEGATIVE) 01/21/22 18:24 Urine Nitrite Negative (NEGATIVE) 01/21/22 18:24 Urine Bilirubin Negative (NEGATIVE) 01/21/22 18:24 Urine Urobilinogen Normal (NORMAL) 01/21/22 18:24 Ur Leukocyte Esterase Negative (NEGATIVE) 01/21/22 18:24 Urine RBC 0-2 /HPF (0-3) 01/13/22 06:35 Urine WBC 3-5 /HPF (0-5) 01/13/22 06:35 Ur Squamous Epith Cells Few /HPF (NEGATIVE) 01/13/22 06:35 Urine Bacteria Trace /HPF (NEGATIVE) 01/13/22 06:35 Ur Culture Indicated? Yes/culture set up 01/13/22 06:35 Digoxin 0.52 ng/mL (0.9-2) L 01/28/22 05:27 SARS CoV-2 RNA Rapid MARILU Negative (NEGATIVE) 03/17/22 20:00 - Plan (1) Brain TIA Status: Chronic Plan: NS AT 75 ML/HR, RESUME HOME MEDS, DIGOXIN 0.125MG PO DAILY, ZYPREXA 5MG QAM, ZYPREXA 10MG QHS, KLONOPIN 0.5MG PO BID, ROCEPHIN 1G IV DAILY, PHYSICAL THERAPY. MONITOR AM LABS (2) UTI (urinary tract infection) Status: Acute Qualifiers: Urinary tract infection type: acute cystitis Hematuria presence: without hematuria Qualified Code(s): N30.00 - Acute cystitis without hematuria (3) Ataxic gait Status: Acute (4) Generalized weakness Status: Acute (5) Dizziness Status: Acute (6) Altered mental status Status: Acute Qualifiers: Altered mental status type: transient alteration of awareness Qualified Code(s): R40.4 - Transient alteration of awareness (7) A-fib Status: Chronic Qualifiers: Atrial fibrillation type: paroxysmal Qualified Code(s): I48.0 - Paroxysmal atrial fibrillation (8) Dementia Status: Acute Qualifiers: Dementia type: unspecified type Dementia behavioral disturbance: with behavioral disturbance Qualified Code(s): F03.91 - Unspecified dementia with behavioral disturbance
--- NOTE | 2022-01-30 13:16 | RAD ---
HISTORYFall, sacrococcygeal painSTUDYAP and lateral sacrum and coccyx three views totalCOMPARISONNoneFINDINGSThe upper sacrum is partially obscured by gas and stool however the sacrum does appear intact in the lateral view. The coccyx is intact. SI joints are intact.IMPRESSIONNo definite fracture identifiedElectronically signed by: SARWAT WEEKS (Jan 30, 2022 13:15:05)
[2022-01-30] MEDS ORDERED: TOPROL XL PO ONE (19:36)
[2022-01-30] MEDS: ANTIVERT TAB 25 MG PO SCH (22:24)
[2022-01-30] MEDS: ZOCOR TAB 20 MG PO SCH (22:24)
[2022-01-30] MEDS: TOPROL XL PO SCH (22:25)
[2022-01-30] MEDS: CYMBALTA PO SCH (22:28)
[2022-01-31] MEDS: CORDARONE TAB 200 MG PO SCH ×2 (06:02→17:09)
[2022-01-31 06:25] LABS: BASOPHILS % (AUTO) 0.4 % (0.2-1.0); EOSINOPHILS # (AUTO) 0.3 x10^3/uL (0.0-0.2); EOSINOPHILS % (AUTO) 6.2 % (0.9-2.9); HEMATOCRIT 37.5 % (36.0-47.0); HEMOGLOBIN 12.5 g/dL (12.0-16.0); LYMPHOCYTES # (AUTO) 1.9 X10^3/uL (1.3-2.9); MEAN CORPUSCULAR HEMOGLOBIN 29.1 pg (27.0-34.0); MEAN CORPUSCULAR HGB CONC 33.3 g/dL (33.0-35.0); MEAN CORPUSCULAR VOLUME 87.2 fL (80.0-100.0); MEAN PLATELET VOLUME 9.2 fL (7.4-11.0); MONOCYTES # (AUTO) 0.4 x10^3/uL (0.3-0.8); MONOCYTES % (AUTO) 7.8 % (0.0-13.0); NEUTROPHILS # (AUTO) 2.4 x10^3/uL (2.2-4.8); NEUTROPHILS % (AUTO) 47.6 % (42.0-75.0); RED CELL DISTRIBUTION WIDTH 15.3 % (11.6-16.5); WHITE BLOOD COUNT 5.1 X10^3/uL (3.6-10.0)
[2022-01-31 06:51] LABS: ALANINE AMINOTRANSFERASE 22 Units/L (12-78); ALBUMIN 2.8 g/dL (3.4-5.0); ALKALINE PHOSPHATASE 66 Units/L (46-116); ASPARTATE AMINO TRANSFERASE 17 Units/L (15-37); BLOOD UREA NITROGEN 22 mg/dL (7-18); CALCIUM 9.1 mg/dL (8.5-10.1); CARBON DIOXIDE 29.6 mmol/L (21-32); CHLORIDE 108 mmol/L (98-107); COR CA(FOR HYPOALB) 10.1 mg/dL (8.5-10.1); COR NA(FOR HYPERGLY) 146 mmol/L (136-145); CREATININE 0.76 mg/dL (0.55-1.02); MAGNESIUM 1.4 mg/dL (1.7-2.9); SODIUM 145 mmol/L (136-145); TOTAL PROTEIN 5.5 g/dL (6.4-8.2); eGFR NON BLACK RACES > 60 (>60)
[2022-01-31] MEDS ORDERED: GLUCOPHAGE ONE ×2 (08:35→20:33)
--- NOTE | 2022-01-31 08:36 | PCM.PROG ---
Progress Note - Progress Note for Day of Date of Exam: 01/30/22 - Subjective Subjective: IS BEING TREATED FOR A-FIB, TIA, GENERALIZED WEAKNESS, DIZZINESS, ATAXIC GAIT, AND ALTERED MENTAL STATUS. SHE DOES HAVE A HISTORY OF DEMENTIA. TODAY, SHE IS LYING IN BED WITH EYES CLOSED ON MORNING ROUNDS. SHE AWAKENS TO VERBAL STIMULI, BUT IS DISORIENTED. NURSING STAFF REPORTS THAT SHE RESTED BETTER THROUGHOUT THE NIGHT. SHE IS UNABLE TO STAND OR AMBULATE FOR LONG PERIODS OF TIME WITHOUT MAXIMUM ASSITANCE, BUT SHE DOES ATTEMPT TO PARTICIPATE. [facility]ILY [facility]ERS REPORT THAT PATIENT HAS COMPLAINED SEVERAL TIMES ABOUT PAIN TO THE SACRAL AND COCCYX AREA. THEY ALSO REPORT THAT PATIENT HASNT HAD A BOWEL MOVEMENT IN SEVERAL DAYS. ON EXAMINATION, HEART IS REGULAR IN RATE AND RHYTHM. B ILATERAL LUNGS NOTED WITH DIMINISHED LUNG SOUNDS THROUGHOUT. ABDOMEN IS ROUND, SOFT, AND NON-TENDER WITH NORMAL BOWEL SOUNDS NOTED IN ALL QUADRANTS. HER VITALS THIS MORNING ARE: 97.4-66-20-95%-129/61. LABS WERE OBTAINED. ABNORMAL LAB VALUES INCLUDE THE FOLLOWING: CORRECTED SODIUM 146, CHLORIDE 108, BUN 22, GLUCOSE 135, MAGNESIUM 1.4, TOTAL PROTEIN 5.5, ALBUMIN 2.8. SHE IS CURRENTLY RECEIVING NORMAL SALINE AT 75 ML/HR, DIGOXIN 0.125MG PO DAILY, NORVASC 10MG DAILY, ZYREXA 5MG PO AM AND 10MG HS, KLONOPIN 0.5MG PO BID, ASPIRIN 325MG DAILY, CATAPRES PATCH WEEKLY, CYMBALTA 30MG HS, NEXIUM 40MG BID, COZAAR 100MG DAILY, MECLIZINE 12.5MG HS, METFORMIN 500MG BID, TOPROL XL 50MG HS, ZOFRAN 4MG IV Q6H PRN, K-DUR 20MEQ DAILY, REQUIP 0.5MG DAILY, ZOCOR 20MG HS, CARAFATE 1G PO QID, DETROL LA 4MG DAILY, COLACE 100MG BID, MILK OF MAGNESIA 30ML BID, AND ULTRAM 50MG PO BID PRN. TODAY, WE WILL OBTAIN AN XRAY OF THE SACRUM AND COCCYX. WE WILL ADD MIRALAX 17G PO DAILY. OTHERWISE, WE WILL CONTINUE WITH CURRENT PLAN OF CARE. WE PLAN TO FOLLOW UP WITH AM LABS AND CONTINUE TO MONITOR. TIME SPENT ON CLINICAL A SSESSMENT, REVIEWING LABS AND IMAGING, DECISION MAKING, AND DOCUMENTATION GREATER THAN 45 MINUTES. - Past Medical Family Social History Past Med/Fam/Surg Hx: No changes since H&P Allergies: Allergies No Known Drug Allergies Allergy (Verified 01/01/21 18:38) - Review of Systems ROS: No change since H&P - Vital Signs and I&O's Vital Signs: Temperature 97.9 F Pulse Rate [Left Radial] 72 Pulse Rate 66 Respiratory Rate 20 Blood Pressure [Left Arm] 125/60 Blood Pressure [Right Arm] 123/56 O2 Sat by Pulse Oximetry 94 Intake and Output: Intake & Output 01/28/22 01/29/22 01/30/22 01/31/22 11:59 11:59 11:59 11:59 Intake Total 802 / 802 560 / 560 265 / 265 170 / 170 Balance 802 / 802 560 / 560 265 / 265 170 / 170 - Physical Exam Oriented: Not Oriented Eyes: Normal Ear: Normal Nose: Normal Throat: Normal Respiratory: Generalized, Diminished Cardiovascular: Irregular : Normal Auscultation: Bowel Sounds: Normal Tenderness: Normal Skin: Normal Musculoskeletal: Instability Psychiatric: Other (HALLUCINATIONS, CONFUSION ) Affect: Normal Speech Pattern: Clear, Delayed - Laboratory and Diagnostics Result Diagrams: 01/31/22 05:21 01/31/22 05:21 Labs: 01/21/22 18:24 Urine,Clean Catch Urine Culture - Final 01/16/22 12:18 Urine,Clean Catch Urine Culture - Final 01/13/22 06:38 Urine,Clean Catch Urine Culture - Final Laboratory WBC 5.1 X10^3/uL (3.6-10.0) 01/31/22 05:21 RBC 4.30 X10^6/uL (3.5-5.4) 01/31/22 05:21 Hgb 12.5 g/dL (12.0-16.0) 01/31/22 05:21 Hct 37.5 % (36.0-47.0) 01/31/22 05:21 MCV 87.2 fL (80.0-100.0) 01/31/22 05:21 MCH 29.1 pg (27.0-34.0) 01/31/22 05:21 MCHC 33.3 g/dL (33.0-35.0) 01/31/22 05: RDW 15.3 % (11.6-16.5) 01/31/22 05:21 Plt Count 168 X10^3/uL (150.0-450.0) 01/31/22 05:21 Plt Count Comment Adequate (ADEQUATE) 01/28/22 05:27 MPV 9.2 fL (7.4-11.0) 01/31/22 05:21 Neut % (Auto) 47.6 % (42.0-75.0) 01/31/22 05:21 Lymph % (Auto) 38.0 % (21.0-51.0) 01/31/22 05:21 [place] % (Auto) 7.8 % (0.0-13.0) 01/31/22 05:21 Eos % (Auto) 6.2 % (0.9-2.9) H 01/31/22 05:21 Baso % (Auto) 0.4 % (0.2-1.0) 01/31/22 05:21 Neut # (Auto) 2.4 x10^3/uL (2.2-4.8) 01/31/22 05:21 Lymph # (Auto) 1.9 X10^3/uL (1.3-2.9) 01/31/22 05:21 [place] # (Auto) 0.4 x10^3/uL (0.3-0.8) 01/31/22 05:21 Eos # (Auto) 0.3 x10^3/uL (0.0-0.2) H 01/31/22 05:21 Baso # (Auto) 0.0 X10^3/uL (0.0-0.1) 01/31/22 05:21 Absolute Nucleated RBC 0.0 /100WBC 01/31/22 05:21 Total Counted 100 01/17/22 05:50 Neutrophils % (Manual) 62 % (39-76) 01/17/22 05:50 Lymphocytes % (Manual) 26 % (13-43) 01/17/22 05:50 Monocytes % (Manual) 8 % (4-9) 01/17/22 05:50 Eosinophils % (Manual) 4 % (0-6) 01/17/22 05:50 Plt Morphology Comment Normal (NORMAL) 01/28/22 05:27 RBC Morphology Normal (NORMAL) 01/28/22 05:27 Sodium 145 mmol/L (136-145) 01/31/22 05:21 Corrected Sodium 146 mmol/L (136-145) H 01/31/22 05:21 Potassium 3.7 mmol/L (3.5-5.1) 01/31/22 05:21 Chloride 108 mmol/L (98-107) H 01/31/22 05:21 Carbon Dioxide 29.6 mmol/L (21-32) 01/31/22 05:21 BUN 22 mg/dL (7-18) H 01/31/22 05:21 Creatinine 0.76 mg/dL (0.55-1.02) 01/31/22 05:21 Est GFR (MDRD) Af Amer > 60 (>60) 01/31/22 05:21 Est GFR (MDRD) Non-Af > 60 (>60) 01/31/22 05:21 Glucose 135 mg/dL (65-99) H 01/31/22 05:21 POC Glucose (mg/dL) 115 mg/dL (65-99) H 01/31/22 05:15 Calcium 9.1 mg/dL (8.5-10.1) 01/31/22 05:21 Corrected Calcium 10.1 mg/dL (8.5-10.1) 01/31/22 05:21 Magnesium 1.4 mg/dL (1.7-2.9) L 01/31/22 05:21 Total Bilirubin 0.30 mg/dL (0.2-1.0) 01/31/22 05:21 AST 17 Units/L (15-37) 01/31/22 05:21 ALT 22 Units/L (12-78) 01/31/22 05:21 Alkaline Phosphatase 66 Units/L (46-116) 01/31/22 05:21 Creatine Kinase 35 Units/L (26-192) 01/15/22 23:14 CK-MB (CK-2) 1.6 ng/mL (0-4.0) 01/15/22 23:14 CK/CKMB % Calc 4.6 % (<4) 01/15/22 23:14 Troponin I High Sens 63.9 ng/L (4.0-60.0) H* 01/15/22 23:14 C-Reactive Protein 33.80 mg/L (0-3.0) H 01/25/22 05:14 Total Protein 5.5 g/dL (6.4-8.2) L 01/31/22 05:21 Albumin 2.8 g/dL (3.4-5.0) L 01/31/22 05:21 Globulin 2.7 g/dL (2.5-4.5) 01/31/22 05:21 Albumin/Globulin Ratio 1.0 Ratio (1.1-2.1) L 01/31/22 05:21 Triglycerides 183 mg/dL (0-150) H 01/12/22 20:14 Cholesterol 179 mg/dL (0-200) 01/12/22 20:14 LDL Cholesterol, Calc 89 mg/dL (0-100) 01/12/22 20:14 HDL Cholesterol 53 mg/dL (40-60) 01/12/22 20:14 Cholesterol/HDL Ratio 3.4 (0.0-5.0) 01/12/22 20:14 Specimen Type Catherized urine 01/21/22 18:24 Urine Color Straw (YELLOW) 01/21/22 18:24 Urine Appearance Clear (CLEAR) 01/21/22 18:24 Urine pH 6.0 (5.0 - 8.0) 01/21/22 18:24 Ur Specific [place] 1.010 (1.000-1.030) 01/21/22 18:24 Urine Protein Negative (NEGATIVE) 01/21/22 18:24 Urine Glucose (UA) Negative (NEGATIVE) 01/21/22 18:24 Urine Ketones Negative (NEGATIVE) 01/21/22 18:24 Urine Occult Blood Negative (NEGATIVE) 01/13/22 06:35 Urine Blood Negative (NEGATIVE) 01/21/22 18:24 Urine Nitrite Negative (NEGATIVE) 01/21/22 18:24 Urine Bilirubin Negative (NEGATIVE) 01/21/22 18:24 Urine Urobilinogen Normal (NORMAL) 01/21/22 18:24 Ur Leukocyte Esterase Negative (NEGATIVE) 01/21/22 18:24 Urine RBC 0-2 /HPF (0-3) 01/13/22 06:35 Urine WBC 3-5 /HPF (0-5) 01/13/22 06:35 Ur Squamous Epith Cells Few /HPF (NEGATIVE) 01/13/22 06:35 Urine Bacteria Trace /HPF (NEGATIVE) 01/13/22 06:35 Ur Culture Indicated? Yes/culture set up 01/13/22 06:35 Digoxin 0.52 ng/mL (0.9-2) L 01/28/22 05:27 SARS CoV-2 RNA Rapid MARILU Negative (NEGATIVE) 01/12/22 20:00 - Plan (1) Brain TIA Status: Chronic Plan: NS AT 75 ML/HR, RESUME HOME MEDS, DIGOXIN 0.125MG PO DAILY, ZYPREXA 5MG QAM, ZYPREXA 10MG QHS, KLONOPIN 0.5MG PO BID, MILK OF MAGNESIA BID, COLACE BID, MIRALAX DAILY, PHYSICAL THERAPY. MONITOR AM LABS (2) UTI (urinary tract infection) Status: Acute Qualifiers: Urinary tract infection type: acute cystitis Hematuria presence: without hematuria Qualified Code(s): N30.00 - Acute cystitis without hematuria (3) Ataxic gait Status: Acute (4) Generalized weakness Status: Acute (5) Dizziness Status: Acute (6) Altered mental status Status: Acute Qualifiers: Altered mental status type: transient alteration of awareness Qualified Code(s): R40.4 - Transient alteration of awareness (7) A-fib Status: Chronic Qualifiers: Atrial fibrillation type: paroxysmal Qualified Code(s): I48.0 - Paroxysmal atrial fibrillation (8) Dementia Status: Acute Qualifiers: Dementia type: unspecified type Dementia behavioral disturbance: with behavioral disturbance Qualified Code(s): F03.91 - Unspecified dementia with behavioral disturbance
[2022-01-31] MEDS: MILK OF MAGNESIA PO SCH (08:53)
[2022-01-31] MEDS: COZAAR PO SCH (08:59)
[2022-01-31] MEDS: K-DUR TAB 20 MEQ PO SCH (08:59)
[2022-01-31] MEDS: ASPIRIN PO SCH (09:00)
[2022-01-31] MEDS: LANOXIN or DIGITEK PO SCH (09:00)
[2022-01-31] MEDS: REQUIP PO SCH (09:00)
[2022-01-31] MEDS: CARAFATE PO SCH ×4 (09:01→20:56)
[2022-01-31] MEDS: NORVASC TAB 10 MG PO SCH (09:01)
[2022-01-31] MEDS: ZyPREXA TAB 5 MG PO SCH ×2 (09:01→17:09)
[2022-01-31] MEDS: KLONOPIN TAB 0.5 MG PO SCH ×2 (09:01→20:57)
[2022-01-31] MEDS: GLUCOPHAGE PO SCH ×2 (09:02→20:55)
[2022-01-31] MEDS: NYSTATIN POWDER TOP SCH ×2 (09:02→21:50)
[2022-01-31] MEDS: NexIUM PO SCH ×2 (09:02→20:57)
[2022-01-31] MEDS: COLACE CAP 100 MG PO SCH ×3 (09:02→20:56)
--- NOTE | 2022-01-31 17:01 | PCM.PROG ---
Progress Note - Progress Note for Day of Date of Exam: 01/31/22 - Subjective Subjective: IS BEING TREATED FOR A-FIB, TIA, GENERALIZED WEAKNESS, DIZZINESS, ATAXIC GAIT, AND ALTERED MENTAL STATUS. SHE DOES HAVE A HISTORY OF DEMENTIA. TODAY, SHE IS LYING IN BED WITH EYES CLOSED ON MORNING ROUNDS. SHE AWAKENS TO VERBAL STIMULI. SHE IS PLEASENTLY CONFUSED AND DISORIENTED. NURSING STAFF REPORTS THAT SHE RESTED BETTER THROUGHOUT THE NIGHT. SHE IS UNABLE TO STAND OR AMBULATE FOR LONG PERIODS OF TIME WITHOUT MAXIMUM ASSITANCE, BUT SHE DOES ATTEMPT TO PARTICIPATE. SHE TRANSFERRED FROM BED TO CHAIR YESTERDAY WITH 2 PERSON ASSISTANCE. ON EXAMINATION, HEART IS REGULAR IN RATE AND RHYTHM. BILATERAL LUNGS NOTED WITH DIMINISHED LUNG SOUNDS THROUGHOUT. ABDOMEN IS ROUND, SOFT, AND NON-TENDER WITH NORMAL BOWEL SOUNDS NOTED IN ALL QUADRANTS. HER VITALS THIS MORNING ARE: 97.9-76-20-94%-135/62. LABS WERE OBTAINED. ABNORMAL LAB VALUES INCLUDE THE FOLLOWING: CORRECTED SODIUM 146, CHLORIDE 108, BUN 22, GLUCOSE 135, MAGNESIUM 1.4, TOTAL PROTEIN 5.5, ALBUMIN 2.8. SHE IS CURRENTLY RECEIVING NORMAL SALINE AT 75 ML/HR, DIGOXIN 0.125MG PO DAILY, NORVASC 10MG DAILY, ZYREXA 5MG PO AM AND 10MG HS, KLONOPIN 0.5MG PO BID, ASPIRIN 325MG DAILY, CATAPRES PATCH WEEKLY, CYMBALTA 30MG HS, NEXIUM 40MG BID, COZAAR 100MG DAILY, MECLIZINE 12.5MG HS, METFORMIN 500MG BID, TOPROL XL 50MG HS, ZOFRAN 4MG IV Q6H PRN, K-DUR 20MEQ DAILY, REQUIP 0.5MG DAILY, ZOCOR 20MG HS, CARAFATE 1G PO QID, DETROL LA 4MG DAILY, COLACE 100MG BID, MILK OF MAGNESIA 30ML BID, MIRALAX 17G PO DAILY, AND ULTRAM 50MG PO BID PRN. WE WILL INCREASE CYMBALTA TO 60MG PO DAILY. OTHERWISE, WE WILL CONTINUE WITH CURRENT PLAN OF CARE. SHE HAS BEEN ACCEPTED TO [facility] [place]. IF ALL GOES WELL OVERNIGHT, WE WILL PLAN FOR DISCHARGE TOMORROW. WE PLAN TO FOLLOW UP WITH AM LABS AND CONTINUE TO MONITOR. TIME SPENT ON CLINICA L ASSESSMENT, REVIEWING LABS AND IMAGING, DECISION MAKING, AND DOCUMENTATION GREATER THAN 45 MINUTES. - Past Medical Family Social History Past Med/Fam/Surg Hx: No changes since H&P Allergies: Allergies No Known Drug Allergies Allergy (Verified 01/01/21 18:38) - Review of Systems ROS: No change since H&P - Vital Signs and I&O's Vital Signs: Temperature 98.2 F Pulse Rate [Left Radial] 90 Pulse Rate 76 Respiratory Rate 18 Blood Pressure [Left Arm] 124/66 Blood Pressure [Right Arm] 117/63 O2 Sat by Pulse Oximetry 93 Intake and Output: Intake & Output 01/29/22 01/30/22 01/31/22 02/01/22 11:59 11:59 11:59 11:59 Intake Total 560 / 560 265 / 265 170 / 170 360 / 360 Balance 560 / 560 265 / 265 170 / 170 360 / 360 - Physical Exam Oriented: Not Oriented Eyes: Normal Ear: Normal Nose: Normal Throat: Normal Respiratory: Generalized, Diminished Cardiovascular: Irregular : Normal Auscultation: Bowel Sounds: Normal Palpation: Normal Tenderness: Normal Skin: Normal Musculoskeletal: Instability Psychiatric: Other (HALLUCINATIONS, CONFUSION ) Affect: Normal Speech Pattern: Clear, Delayed - Laboratory and Diagnostics Result Diagrams: 01/31/22 05:21 01/31/22 05:21 Labs: 01/21/22 18:24 Urine,Clean Catch Urine Culture - Final 01/16/22 12:18 Urine,Clean Catch Urine Culture - Final 01/13/22 06:38 Urine,Clean Catch Urine Culture - Final Laboratory WBC 5.1 X10^3/uL (3.6-10.0) 01/31/22 05:21 RBC 4.30 X10^6/uL (3.5-5.4) 01/31/22 05:21 Hgb 12.5 g/dL (12.0-16.0) 01/31/22 05:21 Hct 37.5 % (36.0-47.0) 01/31/22 05: MCV 87.2 fL (80.0-100.0) 01/31/22 05:21 MCH 29.1 pg (27.0-34.0) 01/31/22 05:21 MCHC 33.3 g/dL (33.0-35.0) 01/31/22 05: RDW 15.3 % (11.6-16.5) 01/31/22 05:21 Plt Count 168 X10^3/uL (150.0-450.0) 01/31/22 05:21 Plt Count Comment Adequate (ADEQUATE) 01/28/22 05:27 MPV 9.2 fL (7.4-11.0) 01/31/22 05:21 Neut % (Auto) 47.6 % (42.0-75.0) 01/31/22 05:21 Lymph % (Auto) 38.0 % (21.0-51.0) 01/31/22 05:21 [place] % (Auto) 7.8 % (0.0-13.0) 01/31/22 05:21 Eos % (Auto) 6.2 % (0.9-2.9) H 01/31/22 05:21 Baso % (Auto) 0.4 % (0.2-1.0) 01/31/22 05:21 Neut # (Auto) 2.4 x10^3/uL (2.2-4.8) 01/31/22 05:21 Lymph # (Auto) 1.9 X10^3/uL (1.3-2.9) 01/31/22 05:21 [place] # (Auto) 0.4 x10^3/uL (0.3-0.8) 01/31/22 05:21 Eos # (Auto) 0.3 x10^3/uL (0.0-0.2) H 01/31/22 05:21 Baso # (Auto) 0.0 X10^3/uL (0.0-0.1) 01/31/22 05:21 Absolute Nucleated RBC 0.0 /100WBC 01/31/22 05:21 Total Counted 100 01/17/22 05:50 Neutrophils % (Manual) 62 % (39-76) 01/17/22 05:50 Lymphocytes % (Manual) 26 % (13-43) 01/17/22 05:50 Monocytes % (Manual) 8 % (4-9) 01/17/22 05:50 Eosinophils % (Manual) 4 % (0-6) 01/17/22 05:50 Plt Morphology Comment Normal (NORMAL) 01/28/22 05:27 RBC Morphology Normal (NORMAL) 01/28/22 05:27 Sodium 145 mmol/L (136-145) 01/31/22 05:21 Corrected Sodium 146 mmol/L (136-145) H 01/31/22 05:21 Potassium 3.7 mmol/L (3.5-5.1) 01/31/22 05:21 Chloride 108 mmol/L (98-107) H 01/31/22 05:21 Carbon Dioxide 29.6 mmol/L (21-32) 01/31/22 05:21 BUN 22 mg/dL (7-18) H 01/31/22 05:21 Creatinine 0.76 mg/dL (0.55-1.02) 01/31/22 05:21 Est GFR (MDRD) Af Amer > 60 (>60) 01/31/22 05:21 Est GFR (MDRD) Non-Af > 60 (>60) 01/31/22 05:21 Glucose 135 mg/dL (65-99) H 01/31/22 05:21 POC Glucose (mg/dL) 161 mg/dL (65-99) H 01/31/22 16:25 Calcium 9.1 mg/dL (8.5-10.1) 01/31/22 05:21 Corrected Calcium 10.1 mg/dL (8.5-10.1) 01/31/22 05:21 Magnesium 1.4 mg/dL (1.7-2.9) L 01/31/22 05:21 Total Bilirubin 0.30 mg/dL (0.2-1.0) 01/31/22 05:21 AST 17 Units/L (15-37) 01/31/22 05:21 ALT 22 Units/L (12-78) 01/31/22 05:21 Alkaline Phosphatase 66 Units/L (46-116) 01/31/22 05:21 Creatine Kinase 35 Units/L (26-192) 01/15/22 23:14 CK-MB (CK-2) 1.6 ng/mL (0-4.0) 01/15/22 23:14 CK/CKMB % Calc 4.6 % (<4) 01/15/22 23:14 Troponin I High Sens 63.9 ng/L (4.0-60.0) H* 01/15/22 23:14 C-Reactive Protein 33.80 mg/L (0-3.0) H 01/25/22 05:14 Total Protein 5.5 g/dL (6.4-8.2) L 01/31/22 05:21 Albumin 2.8 g/dL (3.4-5.0) L 01/31/22 05:21 Globulin 2.7 g/dL (2.5-4.5) 01/31/22 05:21 Albumin/Globulin Ratio 1.0 Ratio (1.1-2.1) L 01/31/22 05:21 Triglycerides 183 mg/dL (0-150) H 01/12/22 20:14 Cholesterol 179 mg/dL (0-200) 01/12/22 20:14 LDL Cholesterol, Calc 89 mg/dL (0-100) 01/12/22 20:14 HDL Cholesterol 53 mg/dL (40-60) 01/12/22 20:14 Cholesterol/HDL Ratio 3.4 (0.0-5.0) 01/12/22 20:14 Specimen Type Catherized urine 01/21/22 18:24 Urine Color Straw (YELLOW) 01/21/22 18:24 Urine Appearance Clear (CLEAR) 01/21/22 18:24 Urine pH 6.0 (5.0 - 8.0) 01/21/22 18:24 Ur Specific [place] 1.010 (1.000-1.030) 01/21/22 18:24 Urine Protein Negative (NEGATIVE) 01/21/22 18:24 Urine Glucose (UA) Negative (NEGATIVE) 01/21/22 18:24 Urine Ketones Negative (NEGATIVE) 01/21/22 18:24 Urine Occult Blood Negative (NEGATIVE) 01/13/22 06:35 Urine Blood Negative (NEGATIVE) 01/21/22 18:24 Urine Nitrite Negative (NEGATIVE) 01/21/22 18:24 Urine Bilirubin Negative (NEGATIVE) 01/21/22 18:24 Urine Urobilinogen Normal (NORMAL) 01/21/22 18:24 Ur Leukocyte Esterase Negative (NEGATIVE) 01/21/22 18:24 Urine RBC 0-2 /HPF (0-3) 01/13/22 06:35 Urine WBC 3-5 /HPF (0-5) 01/13/22 06:35 Ur Squamous Epith Cells Few /HPF (NEGATIVE) 01/13/22 06:35 Urine Bacteria Trace /HPF (NEGATIVE) 01/13/22 06:35 Ur Culture Indicated? Yes/culture set up 01/13/22 06:35 Digoxin 0.52 ng/mL (0.9-2) L 01/28/22 05:27 SARS CoV-2 RNA Rapid MARILU Negative (NEGATIVE) 01/12/22 20:00 - Plan (1) Brain TIA Status: Chronic Plan: NS AT 75 ML/HR, RESUME HOME MEDS, DIGOXIN 0.125MG PO DAILY, ZYPREXA 5MG QAM, ZYPREXA 10MG QHS, KLONOPIN 0.5MG PO BID, MILK OF MAGNESIA BID, COLACE BID, MIRALAX DAILY, PHYSICAL THERAPY. CONTINUE HOME MEDS, MONITOR AM LABS (2) UTI (urinary tract infection) Status: Acute Qualifiers: Urinary tract infection type: acute cystitis Hematuria presence: without hematuria Qualified Code(s): N30.00 - Acute cystitis without hematuria (3) Ataxic gait Status: Acute (4) Generalized weakness Status: Acute (5) Dizziness Status: Acute (6) Altered mental status Status: Acute Qualifiers: Altered mental status type: transient alteration of awareness Qualified Code(s): R40.4 - Transient alteration of awareness (7) A-fib Status: Chronic Qualifiers: Atrial fibrillation type: paroxysmal Qualified Code(s): I48.0 - Paroxysmal atrial fibrillation (8) Dementia Status: Acute Qualifiers: Dementia type: unspecified type Dementia behavioral disturbance: with behavioral disturbance Qualified Code(s): F03.91 - Unspecified dementia with behavioral disturbance
[2022-01-31] MEDS ORDERED: TOPROL XL PO ONE (20:33)
[2022-01-31] MEDS: ANTIVERT TAB 25 MG PO SCH (20:56)
[2022-01-31] MEDS: TOPROL XL PO SCH (20:56)
[2022-01-31] MEDS: ZOCOR TAB 20 MG PO SCH (20:57)
[2022-01-31] MEDS ORDERED: CYMBALTA PO SCH (21:00)
[2022-01-31] MEDS ORDERED: MIRALAX POWDER (1 DOSE 17 G) PO SCH (21:00)
[2022-02-01 05:28] LABS: BASOPHILS % (AUTO) 0.6 % (0.2-1.0); EOSINOPHILS # (AUTO) 0.3 x10^3/uL (0.0-0.2); EOSINOPHILS % (AUTO) 6.7 % (0.9-2.9); HEMATOCRIT 37.3 % (36.0-47.0); HEMOGLOBIN 12.3 g/dL (12.0-16.0); LYMPHOCYTES # (AUTO) 1.8 X10^3/uL (1.3-2.9); LYMPHOCYTES % (AUTO) 37.9 % (21.0-51.0); MEAN CORPUSCULAR HEMOGLOBIN 29.2 pg (27.0-34.0); MEAN CORPUSCULAR VOLUME 88.6 fL (80.0-100.0); MEAN PLATELET VOLUME 9.3 fL (7.4-11.0); MONOCYTES # (AUTO) 0.4 x10^3/uL (0.3-0.8); MONOCYTES % (AUTO) 7.7 % (0.0-13.0); NEUTROPHILS # (AUTO) 2.2 x10^3/uL (2.2-4.8); NEUTROPHILS % (AUTO) 47.1 % (42.0-75.0); RED BLOOD COUNT 4.21 X10^6/uL (3.5-5.4); RED CELL DISTRIBUTION WIDTH 14.9 % (11.6-16.5); WHITE BLOOD COUNT 4.7 X10^3/uL (3.6-10.0)
[2022-02-01 05:33] LABS: ALANINE AMINOTRANSFERASE 21 Units/L (12-78); ALBUMIN 2.8 g/dL (3.4-5.0); ALKALINE PHOSPHATASE 65 Units/L (46-116); ASPARTATE AMINO TRANSFERASE 17 Units/L (15-37); BLOOD UREA NITROGEN 20 mg/dL (7-18); CALCIUM 8.9 mg/dL (8.5-10.1); CARBON DIOXIDE 29.7 mmol/L (21-32); CHLORIDE 107 mmol/L (98-107); COR CA(FOR HYPOALB) 9.9 mg/dL (8.5-10.1); COR NA(FOR HYPERGLY) 145 mmol/L (136-145); CREATININE 0.64 mg/dL (0.55-1.02); SODIUM 144 mmol/L (136-145); TOTAL PROTEIN 5.4 g/dL (6.4-8.2); eGFR NON BLACK RACES > 60 (>60)
[2022-02-01] MEDS: CORDARONE TAB 200 MG PO SCH (05:59)
[2022-02-01] MEDS ORDERED: MAG-OX TAB PO SCH (07:00)
[2022-02-01] MEDS ORDERED: LINZESS PO SCH (09:00)
[2022-02-01] MEDS ORDERED: GLUCOPHAGE ONE (09:04)
[2022-02-01] MEDS: NexIUM PO SCH (09:23)
[2022-02-01] MEDS: CARAFATE PO SCH ×2 (09:23→13:29)
[2022-02-01] MEDS: COLACE CAP 100 MG PO SCH (09:23)
[2022-02-01] MEDS: GLUCOPHAGE PO SCH (09:23)
[2022-02-01] MEDS: ASPIRIN PO SCH (09:23)
[2022-02-01] MEDS: COZAAR PO SCH (09:24)
[2022-02-01] MEDS: K-DUR TAB 20 MEQ PO SCH (09:24)
[2022-02-01] MEDS: LANOXIN or DIGITEK PO SCH (09:24)
[2022-02-01] MEDS: KLONOPIN TAB 0.5 MG PO SCH (09:24)
[2022-02-01] MEDS: NORVASC TAB 10 MG PO SCH (09:27)
[2022-02-01] MEDS: NYSTATIN POWDER TOP SCH (09:27)
[2022-02-01] MEDS: REQUIP PO SCH (09:27)
[2022-02-01] MEDS: ZyPREXA TAB 5 MG PO SCH (09:28)
[2022-02-01] MEDS ORDERED: CATAPRES-TTS-3 TD SCH (12:00)
[2022-02-01 12:34] VITALS: BP 118/57
[2022-02-01] MEDS ORDERED: DULCOLAX SUPPOSITORY 10 MG RECTAL ONE (14:01)
[2022-02-01] MEDS ORDERED: DULCOLAX SUPPOSITORY 10 MG ONE (14:15)
== END 2022-02-01 15:25 | DRG 69 ==
LOC: MED/SURG 19:10 → INTOOBSV 19:10 → MED/SURG 19:36
PROVIDERS: ADMIT Internal Medicine; ATTEND Internal Medicine
DX: Z91.81 History of falling; N30.00 Acute cystitis without hematuria; R40.4 Transient alteration of awareness; R42 Dizziness and giddiness; R53.1 Weakness; R13.12 Dysphagia, oropharyngeal phase; R44.3 Hallucinations, unspecified; R41.841 Cognitive communication deficit; I48.0 Paroxysmal atrial fibrillation; F03.91 Unspecified dementia, unspecified severity, with behavioral disturbance; Z20.822 Contact with and (suspected) exposure to COVID-19; M53.3 Sacrococcygeal disorders, not elsewhere classified; Z87.440 Personal history of urinary (tract) infections; Z96.652 Presence of left artificial knee joint; G45.9 Transient cerebral ischemic attack, unspecified; R26.0 Ataxic gait

== ENCOUNTER 2022-02-05 20:44 | Observation (INO) ==
--- NOTE | 2022-02-05 20:54 | DR.AMS ---
HPI Time Seen Time Seen by Provider: 02/05/22 20:54 HPI Comment HPI Comment: PATIENT IS 81YR OLD FEMALE IN ER WITH AMS. SHE CAME FROM THE HALFWAY AT THIS FACILITY. SINCE THIS AM, PATIENT IS SLEEPING AND DIFFICULT TO AROUSE. WORSE TONIGHT. Complaint Cheif Complaint Doctors Comments: AMS. IN ER FROM [facility]. COVID-19 Coronavirus risk:travel/contact w/high risk person: No Has patient experienced Coronavirus symptoms: No Reviewed Nurses Notes Reviewed: Yes Source History Provided: Patient, Family Member and Fpc Mode of Arrival Mode of Arrival: Stretcher Timing Came On: Suddenly Symptoms: Improving Symptom Onset: Known Duration Duration: Constant Duration: Hours Quality Quality: Decreased Alertness and Confusion Severity Severity: Moderate and Unable to care for self Context Recent: Medication Change History Of: Diabetes Associated Signs and Symptoms Associated Signs and Symptoms: Generalized Weakness, Confusion and Decreased Oral Intake Other History Other History: DM, HTN ASTHMA. PMH PMH Past Medical History: Arthritis, Asthma, Diabetes, Dyslipidemia, GERD and Hypertension Past Surgical History: Yes Surgical History: Bowel Resection, Cholecystectomy, Joint Replacement and Ortho Surgery Family History Family Medical History: Diabetes Mellitus and Hypertension Social History Do you use any recreational Drugs:: No Travel Risk Coronavirus risk:travel/contact w/high risk person: No Has patient experienced Coronavirus symptoms: No ROS Review of Systems Constitutional: See HPI, Weakness and Fatigue; negative Fever Eyes: No Symptoms Reported and See HPI ENTM: No Symptoms Reported and See HPI; negative Nose Discharge and Nose Congestion Respiratoy: No Symptoms Reported and See HPI; negative Moist Cough, Short of Breath and Wheezing Cardiovascular: No Symptoms Reported and See HPI; negative Chest Pain Gastrointestinal/Abdominal: No Symptoms Reported and See HPI; negative Abdominal Pain, Diarrhea, Nausea and Vomiting Genitourinary: No Symptoms Reported and See HPI; negative Dysuria Neurological: See HPI, Weakness and Other (AMS.); negative Headache Musculoskeletal: No Symptoms Reported and See HPI; negative Back Pain and Muscle Pain Integumentary: No Symptoms Reported and See HPI; negative Rash and Juandice Hematologic/Lymphatic: No Symptoms Reported, See HPI and Easy Bruising Endocrine: No Symptoms Reported and See HPI; negative Increased Thirst and Increased Urine Psychiatric: No Symptoms Reported and See HPI All Other Systems: Reviewed and Negative PE Vitals Vital Signs: Temp Pulse Resp BP BP Pulse Ox 02/06/22 02:15 65 14 92 L 02/06/22 02:01 64 24 132/60 90 L 02/06/22 02:00 64 24 90 L 02/06/22 01:45 66 25 H 90 L 02/06/22 01:31 64 26 H 141/66 90 L 02/06/22 01:30 64 27 H 90 L 02/06/22 01:15 64 26 H 92 L 02/06/22 01:00 66 26 H 91 L 02/06/22 00:45 66 25 H 88 L 02/06/22 00:30 66 25 H 112/68 86 L 02/06/22 00:15 64 16 91 L 02/06/22 00:01 64 18 107/58 93 L 02/06/22 00:00 64 18 93 L 02/05/22 23:45 65 20 92 L 02/05/22 23:31 64 14 139/61 94 L 02/05/22 23:30 67 15 93 L 02/05/22 23:15 66 29 H 87 L 02/05/22 23:01 64 18 138/73 94 L 02/05/22 23:00 64 18 94 L 02/05/22 22:45 63 23 94 L 02/05/22 22:31 62 21 119/54 92 L 02/05/22 22:30 62 21 92 L 02/05/22 22:15 63 20 92 L 02/05/22 22:09 66 19 136/63 93 L 02/05/22 22:08 67 14 93 L 02/05/22 21:49 61 27 H 110/86 95 02/05/22 21:45 62 18 94 L 02/05/22 21:30 63 19 93 L 02/05/22 21:15 61 19 93 L 02/05/22 21:05 63 36 H 131/69 93 L 02/05/22 21:00 62 25 H 94 L 02/05/22 20:54 98.0 F 62 18 143/67 95 02/05/22 20:51 65 143/67 93 L 02/05/22 20:50 93 L 02/01/22 12:00 118/57 General Limitations: No Limitations General Appearance: Alert and In No Apparent Distress Head Head Exam: Normal Inspection Head Exam Physical: Other (NONE NOTED.) Eyes Eye exam: Normal Appearance and PERRL; negative Scleral Icterus and Conjunctival Injection Pupils: Regular, Round: Bilateral and Reactive: Bilateral ENT ENT Exam: Normal Exam, Normal Oropharynx, Normal External Ear Exam and TM's Normal Bilaterally External Ear Exam: Normal External Inspection; negative Mastoid Tenderness and External Tenderness TM/Canal Exam: Bilateral: Normal Nose Exam: Normal Nose Exam Mouth Exam: Normal Inspection; negative Lip Swelling and Tongue Swelling Throat Exam: Normal Inspection; negative Tonsillar Erythema, Tonsillomegaly and Tonsillar Exudate Neck Neck Exam: Normal Inspection and Trachea Midline; negative Tenderness Chest Chest Inspection: Normal Inspection and Symmetric Chest Wall Rise; negative Tenderness Respiratory Respiratory Exam: Normal Lung Sounds Bilat; negative Accessory Muscle Use, Chest Wall Tenderness and Respiratory Distress Respiratory Exam: Bilateral: Rhonchi and Lower: Rhonchi Cardiovascular Cardiovascular Exam: Regular Rate, Normal Rhythm and Normal Heart Sounds; negative Systolic Murmur and Diastolic Murmur Abdominal Exam Abdominal Exam: Normal Inspection, Normal Bowel Sounds and Soft; negative Tenderness Extremities Extremities Exam: Normal Inspection and Normal Capillary Refill Back Back Exam: Normal Inspection and Tenderness Neurological Neurological Exam: Alert and Oriented X3; negative Motor Sensory Deficit Patient Oriented To: Person and Place; negative Time Speech: Other (SLOW SPEECH.) Cranial Nerve Exam: Gag reflex (XI): Normal Cerebellar Function: Other (MOVING ALL EXTREMITIES.) Upper Motor Neuron Exam: Babinski Sign: Normal Psychological Psychiatric Exam: Normal Affect and Normal Mood Skin Skin Exam: Warm, Dry, Intact and Normal Color MDM Additional Information Obtained Additional Information Obtained From: Old Records Differential Diagnosis Metabolic: Dehydration, Hypercalcemia, Hypernatremia, Hypoglycemia and Hyponatremia Structural: CVA and Mass Lesion Infectious: UTI COURSE Treatment Treatment: SEE ORDERS DONE WHILE PATIENT WAS IN ER. LABS XRAY AND EKG DISCUSSED. Consultation Consultation Comments: DISCUSSED PATIENTSiddharth MAYEN. HE WILL ADMIT PATIENT. Education/Counseling Education/Counseling: Patient Educated On: Diagnosis ROR Labs Reviewed Laboratory Results Reviewed?: Yes Result Diagrams: 02/08/22 05:00 02/08/22 05:00 Laboratory: WBC 6.5 X10^3/uL (3.6-10.0) 02/05/22 21:44 RBC 4.44 X10^6/uL (3.5-5.4) 02/05/22 21:44 Hgb 13.1 g/dL (12.0-16.0) 02/05/22 21:44 Hct 39.2 % (36.0-47.0) 02/05/22 21:44 MCV 88.3 fL (80.0-100.0) 02/05/22 21:44 MCH 29.5 pg (27.0-34.0) 02/05/22 21:44 MCHC 33.4 g/dL (33.0-35.0) 02/05/22 21:44 RDW 15.9 % (11.6-16.5) 02/05/22 21:44 Plt Count 157 X10^3/uL (150.0-450.0) 02/05/22 21:44 MPV 9.4 fL (7.4-11.0) 02/05/22 21:44 Neut % (Auto) 65.5 % (42.0-75.0) 02/05/22 21:44 Lymph % (Auto) 25.7 % (21.0-51.0) 02/05/22 21:44 [place] % (Auto) 5.4 % (0.0-13.0) 02/05/22 21:44 Eos % (Auto) 2.9 % (0.9-2.9) 02/05/22 21:44 Baso % (Auto) 0.5 % (0.2-1.0) 02/05/22:44 Neut # (Auto) 4.2 x10^3/uL (2.2-4.8) 02/05/22 21:44 Lymph # (Auto) 1.7 X10^3/uL (1.3-2.9) 02/05/22 21:44 [place] # (Auto) 0.3 x10^3/uL (0.3-0.8) 02/05/22 21:44 Eos # (Auto) 0.2 x10^3/uL (0.0-0.2) 02/05/22:44 Baso # (Auto) 0.0 X10^3/uL (0.0-0.1) 02/05/22 21:44 Absolute Nucleated RBC 0.0 /100WBC 02/05/22 21:44 PT 13.2 SECONDS (11.8-14.3) 02/05/22 21:44 INR Target Range - 04/10/22 21:44 INR 1.03 (0.8-1.3) 02/05/22 21:44 APTT 25.4 SECONDS (22.9-36.5) 02/05/22 21:44 PTT Comment - 02/05/22 21:44 Sodium 145 mmol/L (136-145) 02/05/22 21:44 Corrected Sodium 146 mmol/L (136-145) H 02/05/22 21:44 Potassium 5.2 mmol/L (3.5-5.1) H 02/05/22 21:44 Chloride 107 mmol/L (98-107) 02/05/22 21:44 Carbon Dioxide 30.5 mmol/L (21-32) 02/05/22 21:44 BUN 35 mg/dL (7-18) H 02/05/22 21:44 Creatinine 0.97 mg/dL (0.55-1.02) 02/05/22 21:44 Est GFR (MDRD) Af Amer > 60 (>60) 02/05/22 21:44 Est GFR (MDRD) Non-Af 58 (>60) L 02/05/22 21:44 Glucose 125 mg/dL (65-99) H 02/05/22 21:44 Calcium 9.6 mg/dL (8.5-10.1) 02/05/22 21:44 Corrected Calcium 10.2 mg/dL (8.5-10.1) H 02/05/22 21:44 Total Bilirubin 0.50 mg/dL (0.2-1.0) 02/05/22 21:44 AST 26 Units/L (15-37) 02/05/22 21:44 ALT 25 Units/L (12-78) 02/05/22 21:44 Alkaline Phosphatase 85 Units/L (46-116) 02/05/22 21:44 Creatine Kinase 123 Units/L (26-192) 02/05/22 21:44 CK-MB (CK-2) 1.5 ng/mL (0-4.0) 02/05/22 21:44 CK/CKMB % Calc 1.2 % (<4) 02/05/22 21:44 Troponin I High Sens 15.3 ng/L (4.0-60.0) 02/05/22 21:44 B-Natriuretic Peptide 45.5 pg/mL (0-79) 02/05/22 21:44 Total Protein 6.0 g/dL (6.4-8.2) L 02/05/22 21:44 Albumin 3.2 g/dL (3.4-5.0) L 02/05/22 21:44 Globulin 2.8 g/dL (2.5-4.5) 02/05/22 21:44 Albumin/Globulin Ratio 1.1 Ratio (1.1-2.1) 02/05/22 21:44 XRAY XRAY Interpreted by: Radiologist (REPORT NOTED ) and Self EKG Rate: 63 [place]: RAD Rhythm: NSR Block: None Hypertrophy: None ST: Inf, Ischemia and Nonsp Opioid Opioid Risk Tool Age (Sean box if 16-45): No History of Preadolescent Sexual Abuse: No Total: 0 Total Score Risk Category: Low Risk Copyright: Phi LÓPEZ predicting aberrant behaviors Diagnosis Discharge Problem: Acute dehydration, Generalized weakness Altered mental status Qualifiers: Altered mental status type: unspecified Qualified Code(s): R41.82 - Altered mental status, unspecified Instructions Forms: Excuse From Work or School Precautions for COVID19 [facility] Social Distancing
[2022-02-05 21:57] LABS: BASOPHILS % (AUTO) 0.5 % (0.2-1.0); EOSINOPHILS # (AUTO) 0.2 x10^3/uL (0.0-0.2); EOSINOPHILS % (AUTO) 2.9 % (0.9-2.9); HEMATOCRIT 39.2 % (36.0-47.0); HEMOGLOBIN 13.1 g/dL (12.0-16.0); LYMPHOCYTES # (AUTO) 1.7 X10^3/uL (1.3-2.9); LYMPHOCYTES % (AUTO) 25.7 % (21.0-51.0); MEAN CORPUSCULAR HEMOGLOBIN 29.5 pg (27.0-34.0); MEAN CORPUSCULAR HGB CONC 33.4 g/dL (33.0-35.0); MEAN CORPUSCULAR VOLUME 88.3 fL (80.0-100.0); MEAN PLATELET VOLUME 9.4 fL (7.4-11.0); MONOCYTES # (AUTO) 0.3 x10^3/uL (0.3-0.8); MONOCYTES % (AUTO) 5.4 % (0.0-13.0); NEUTROPHILS # (AUTO) 4.2 x10^3/uL (2.2-4.8); NEUTROPHILS % (AUTO) 65.5 % (42.0-75.0); RED BLOOD COUNT 4.44 X10^6/uL (3.5-5.4); RED CELL DISTRIBUTION WIDTH 15.9 % (11.6-16.5); WHITE BLOOD COUNT 6.5 X10^3/uL (3.6-10.0)
[2022-02-05 22:17] LABS: ALANINE AMINOTRANSFERASE 25 Units/L (12-78); ALBUMIN 3.2 g/dL (3.4-5.0); ALKALINE PHOSPHATASE 85 Units/L (46-116); ASPARTATE AMINO TRANSFERASE 26 Units/L (15-37); BLOOD UREA NITROGEN 35 mg/dL (7-18); CALCIUM 9.6 mg/dL (8.5-10.1); CARBON DIOXIDE 30.5 mmol/L (21-32); CHLORIDE 107 mmol/L (98-107); CKMB % 1.2 % (<4); COR CA(FOR HYPOALB) 10.2 mg/dL (8.5-10.1); COR NA(FOR HYPERGLY) 146 mmol/L (136-145); CREATINE KINASE 123 Units/L (26-192); CREATINE KINASE MB 1.5 ng/mL (0-4.0); CREATININE 0.97 mg/dL (0.55-1.02); SODIUM 145 mmol/L (136-145); eGFR NON BLACK RACES 58 (>60)
--- NOTE | 2022-02-05 22:56 | CT ---
STUDY: CT HEAD WITHOUT IV CONTRASTCOMPARISON: NoneTECHNIQUE: axial images were acquired of the head without IV contrast. Coronal and sagittal images were provided. All images were reviewed in a variety of windows and levels.LIMITATIONS: Please note that CT has low sensitivity and accuracy for identifying acute infarction. In addition, there are portions of the brain that are affected by beam hardening artifact which further greatly limits identification of an acute infarct.RADIATION REDUCTION TECHNIQUE: Automated exposure control, Adjustment of the mA and/or kV according to patient size, or iterative reconstruction techniques were used.HISTORY: PER CARE HOME PT IS UNRESPONSIVE, MOUTH BREATHING, TRIED STERNUM RUB BUT DID NOT RESPONDFINDINGS:There is diffuse cerebral atrophy with a regional distribution of low attenuation along the periventricular white matter most likely representing small vessel ischemic changes which are to a degree that would be considered within normal limits for the patient's stated age.There is no evidence of an acute intracranial bleed.There is no evidence of a mass or midline shift.There is no evidence of an extra-axial fluid collection.The blevins-white matter differentiation is within normal limits.The visualized bones are unremarkable.The visualized sinuses are clear.The mastoid air cells are well-aerated.IMPRESSION:1. INVOLUTIONAL CHANGES ARE PRESENT WITH FINDINGS SUGGESTING SMALL VESSEL ISCHEMIC DISEASE WHICH IS TO A DEGREE THAT WOULD BE CONSIDERED WITHIN NORMAL LIMITS FOR THE PATIENT'S STATED AGE.2. THERE IS NO EVIDENCE OF ACUTE INTRACRANIAL BLEED.Keron richards signed by: Pelon Mehta (Feb 05, 2022 22:55:13)
[2022-02-05] MEDS ORDERED: NS 1,000 ML IV 1,000 ML ONE (23:12)
[2022-02-05] MEDS: NS 1,000 ML IV 1,000 ML IV SCH (23:23)
[2022-02-06 03:53] VITALS: BMI 32.3
[2022-02-06 05:36] LABS: BILIRUBIN,URINE NEGATIVE (NEGATIVE); BLOOD/HEMOGLOBIN,URINE NEGATIVE (NEGATIVE); GLUCOSE, URINE NEGATIVE (NEGATIVE); KETONES,URINE NEGATIVE (NEGATIVE); LEUKOCYTE ESTERASE ,URINE NEGATIVE (NEGATIVE); NITRITES,URINE NEGATIVE (NEGATIVE); PROTEIN,URINE 1+ (NEGATIVE); UROBILINOGEN,URINE NORMAL (NORMAL)
[2022-02-06] MEDS ORDERED: NS 1,000 ML IV 1,000 ML ONE (05:57)
[2022-02-06 06:22] LABS: APPEARANCE,URINE CLEAR (CLEAR); BACTERIA,URINE NEGATIVE /HPF (NEGATIVE); COLOR,URINE YELLOW (YELLOW); RBC,URINE 0-2 /HPF (0-3); SQUAMOUS EPITHELIAL CELL,UR FEW /HPF (NEGATIVE)
[2022-02-06] MEDS: NS 1,000 ML IV 1,000 ML IV SCH ×4 (06:27→23:15)
[2022-02-06 07:03] LABS: BASOPHILS % (AUTO) 0.4 % (0.2-1.0); EOSINOPHILS # (AUTO) 0.2 x10^3/uL (0.0-0.2); EOSINOPHILS % (AUTO) 4.2 % (0.9-2.9); HEMATOCRIT 36.8 % (36.0-47.0); HEMOGLOBIN 12.3 g/dL (12.0-16.0); LYMPHOCYTES # (AUTO) 1.7 X10^3/uL (1.3-2.9); LYMPHOCYTES % (AUTO) 29.6 % (21.0-51.0); MEAN CORPUSCULAR HEMOGLOBIN 29.4 pg (27.0-34.0); MEAN CORPUSCULAR HGB CONC 33.3 g/dL (33.0-35.0); MEAN CORPUSCULAR VOLUME 88.3 fL (80.0-100.0); MEAN PLATELET VOLUME 9.8 fL (7.4-11.0); MONOCYTES # (AUTO) 0.4 x10^3/uL (0.3-0.8); MONOCYTES % (AUTO) 7.3 % (0.0-13.0); NEUTROPHILS # (AUTO) 3.4 x10^3/uL (2.2-4.8); NEUTROPHILS % (AUTO) 58.5 % (42.0-75.0); RED BLOOD COUNT 4.17 X10^6/uL (3.5-5.4); RED CELL DISTRIBUTION WIDTH 15.7 % (11.6-16.5); WHITE BLOOD COUNT 5.8 X10^3/uL (3.6-10.0)
[2022-02-06 07:46] LABS: ALANINE AMINOTRANSFERASE 23 Units/L (12-78); ALBUMIN 2.9 g/dL (3.4-5.0); ALKALINE PHOSPHATASE 78 Units/L (46-116); ASPARTATE AMINO TRANSFERASE 25 Units/L (15-37); BLOOD UREA NITROGEN 37 mg/dL (7-18); CALCIUM 9.2 mg/dL (8.5-10.1); CARBON DIOXIDE 25.5 mmol/L (21-32); CHLORIDE 110 mmol/L (98-107); CKMB % 1.1 % (<4); COR CA(FOR HYPOALB) 10.1 mg/dL (8.5-10.1); COR NA(FOR HYPERGLY) 147 mmol/L (136-145); CREATINE KINASE 89 Units/L (26-192); CREATINE KINASE MB < 1.0 ng/mL (0-4.0); CREATININE 0.86 mg/dL (0.55-1.02); MAGNESIUM 1.9 mg/dL (1.7-2.9); SODIUM 146 mmol/L (136-145); TOTAL PROTEIN 5.6 g/dL (6.4-8.2); eGFR NON BLACK RACES > 60 (>60)
[2022-02-06] MEDS: LOVENOX INJ 40 MG SYR SC SCH (10:43)
[2022-02-06 11:15] LABS: CKMB % 1.4 % (<4); CREATINE KINASE 70 Units/L (26-192); CREATINE KINASE MB < 1.0 ng/mL (0-4.0)
[2022-02-06] MEDS: ZyPREXA TAB 5 MG PO SCH ×3 (21:21→23:15)
[2022-02-07 06:10] LABS: BASOPHILS % (AUTO) 0.9 % (0.2-1.0); EOSINOPHILS # (AUTO) 0.1 x10^3/uL (0.0-0.2); EOSINOPHILS % (AUTO) 2.6 % (0.9-2.9); HEMATOCRIT 34.3 % (36.0-47.0); HEMOGLOBIN 11.5 g/dL (12.0-16.0); LYMPHOCYTES # (AUTO) 1.4 X10^3/uL (1.3-2.9); LYMPHOCYTES % (AUTO) 32.6 % (21.0-51.0); MEAN CORPUSCULAR HEMOGLOBIN 29.3 pg (27.0-34.0); MEAN CORPUSCULAR HGB CONC 33.5 g/dL (33.0-35.0); MEAN CORPUSCULAR VOLUME 87.3 fL (80.0-100.0); MEAN PLATELET VOLUME 9.1 fL (7.4-11.0); MONOCYTES # (AUTO) 0.3 x10^3/uL (0.3-0.8); NEUTROPHILS # (AUTO) 2.5 x10^3/uL (2.2-4.8); NEUTROPHILS % (AUTO) 56.9 % (42.0-75.0); RED BLOOD COUNT 3.93 X10^6/uL (3.5-5.4); RED CELL DISTRIBUTION WIDTH 15.6 % (11.6-16.5); WHITE BLOOD COUNT 4.3 X10^3/uL (3.6-10.0)
[2022-02-07 06:29] LABS: ALANINE AMINOTRANSFERASE 22 Units/L (12-78); ALBUMIN 2.9 g/dL (3.4-5.0); ALKALINE PHOSPHATASE 74 Units/L (46-116); ASPARTATE AMINO TRANSFERASE 22 Units/L (15-37); BLOOD UREA NITROGEN 19 mg/dL (7-18); CALCIUM 8.7 mg/dL (8.5-10.1); CHLORIDE 110 mmol/L (98-107); COR CA(FOR HYPOALB) 9.6 mg/dL (8.5-10.1); COR NA(FOR HYPERGLY) 146 mmol/L (136-145); CREATININE 0.65 mg/dL (0.55-1.02); SODIUM 145 mmol/L (136-145); TOTAL PROTEIN 5.5 g/dL (6.4-8.2); eGFR NON BLACK RACES > 60 (>60)
[2022-02-07] MEDS ORDERED: ULTRAM PO PRN (08:33)
[2022-02-07] MEDS: LANOXIN or DIGITEK PO SCH (08:48)
[2022-02-07] MEDS: LOVENOX INJ 40 MG SYR SC SCH (08:48)
[2022-02-07] MEDS: NS 1,000 ML IV 1,000 ML IV SCH ×4 (08:49→22:50)
[2022-02-07] MEDS ORDERED: PATIENT'S HOME MEDICATION (Linaclotide [Linzess] 72 mcg capsule) PO SCH (09:00)
[2022-02-07] MEDS ORDERED: CATAPRES-TTS-3 TD SCH (09:00)
[2022-02-07] MEDS ORDERED: K-RIDER 10 MEQ/NS 100 ML 10 MEQ/100 ML BAG IV PRN (09:16)
[2022-02-07] MEDS ORDERED: MICRO K EXTEN CAP 10 MEQ PO PRN (09:16)
[2022-02-07] MEDS ORDERED: K-DUR TAB 20 MEQ PO PRN (09:16)
[2022-02-07] MEDS ORDERED: POTASSIUM CHL 40 MEQ/NS 0.45% 500 ML IV PRN (09:16)
[2022-02-07] MEDS ORDERED: POTASSIUM CHL 60 MEQ/NS 0.45% 500 ML IV PRN (09:16)
[2022-02-07] MEDS ORDERED: KLOR-CON PO PRN (09:16)
[2022-02-07] MEDS ORDERED: POTASSIUM CHLORIDE LIQ 20 MEQ UDC PO PRN (09:16)
[2022-02-07] MEDS: ZyPREXA TAB 5 MG PO SCH ×2 (11:42→22:03)
[2022-02-07] MEDS: KLONOPIN TAB 0.5 MG PO SCH ×2 (11:42→22:01)
[2022-02-07] MEDS ORDERED: DULCOLAX SUPPOSITORY 10 MG RECTAL ONE (12:00)
--- NOTE | 2022-02-07 12:33 | DR.UPDATE ---
H&P Update History and Physical Update: History and Physical reviewed and patient examined. Changes noted: Yes with the following: RETURNED TO THE ER FROM [facility] WITH REPORTS OF BEING DIFFICULT TO AROUSE. NURSING STAFF AND FAMILY REPORT THAT THE NIGHT PRIOR, PATIENT HAD INCREASED AGITATION AND DISORIENTATION. SENIOR LIVING STAFF REPORTS THAT PATIENT WAS PERSISTENTLY ATTEMPTING TO GET OUT OF BED AND HOLLERING OUT CONSTANTLY. FAMILY REPORTS THAT THEY WERE CALLED TO SIT WITH PATIENT DUE TO INCREASED AGITATION, HOWEVER, THEY REPORT THAT BY THE TIME THEY ARRIVED, PATIENT WAS RESTING. SHE WAS THEN DIFFICULT TO AROUSE AND LETHARGIC. SHE WAS APPARENTLY GIVEN A DOSE OF VISTARIL DUE TO INCREASED AGITATION, IN ADDITION TO HER REGULAR SCHEDULED DOSES OF KLONOPIN AND ZYPREXA. SHE WAS RECENTLY HOSPITALIZED FOR AMS, A-FIB, DEMENTIA, GENERALIZED WEAKNESS FROM 01/14/22-02/01/22. MULTIPLE ATTEMPTS AT MEDICATION CHANGES AND DOSAGE CHANGES WERE MADE. SHE WAS DISCHARGED TO [facility] FOR PHYSICAL THERAPY AND REHAB. ON RETURN TO THE ER, PATIENT WAS DIFFICULT TO AROUSE. WHEN PATIENT DID OPEN EYES EVENTUALLY, BUT SHE WAS DISORIENTED AND QUICKLY FELL BACK ASLEEP. SHE WAS UNABLE TO FOLLOW COMMANDS. HER VITALS ON ARRIVAL WERE 98.0-62-18-95%-143/67. LABS WERE OBTAINED. WBC 6.5, HGB 13.1, HCT 39.2, PLT COUNT 157, SODIUM 145, POTASSIUM 5.2, BUN 35, CREATININE 0.97, GLUCOSE 125, CALCIUM 9.6, AST 26, ALT 25, ALK PHOS 85, TOTAL PROTEIN 6.0, ALBUMIN 3.2. CARDIAC ENZYMES WERE WITHIN NORMAL LIMITS. URINALYSIS UNREMARKABLE. BRAIN CT NEGATIVE FOR INTRACRANIAL BLEED OR ACUTE FINDINGS. EKG REVEALED: NSR WITH HR 63. SHE WAS ADMITTED FOR FURTHER EVALUATION AND TREATMENT OF AMS, DEHYDRATION, GENERALIZED WEAKNESS. SHE WAS STARTED ON NORMAL SALINE AT 125 ML/HR AND LOVENOX 40MG SC DAILY. WE WILL HOLD HER MEDICATIONS THIS MORNING AND REEVALUATE TONIGHT. OTHERWISE, WE PLAN TO FOLLOW UP WITH AM LABS AND CONTINUE TO MONITOR. TIME SPENT ON CLINICAL ASSESSMENT, REVIEWING LABS AND IMAGING, DECISION MAKING, AND DOCUMENTATION GREATER THAN 75 MINUTES. Prescription drug monitoring program results: PDMP reviewed and no concerns identified H&P Reviewed: Yes Patient was examined?: Yes
--- NOTE | 2022-02-07 12:57 | PCM.PROG ---
Progress Note - Progress Note for Day of Date of Exam: 02/07/22 - Subjective Subjective: IS BEING TREATED FOR AMS, DEHYDRATION, GENERALIZED WEAKNESS. SHE DOES HAVE A HISTORY OF DEMENTIA. TODAY, SHE IS ALERT, SITTING IN HIGH FLOWLERS POSITION IN BED. SHE CONTINUES WITH DISORIENTATION. NURSING STAFF REPORTS THAT SHE WAS AGITATED AND RESTLESS THROUGHOUT THE NIGHT. THEY REPORT THAT SHE ATTEMPTED TO GET OUT OF BED ON MULTIPLE OCCASIONS AND PULL AT IV LINES. SHE WAS GIVEN ZYPREXA 5MG PO X 1 DOSE LAST NIGHT. FAMILY AND NURSES REPORT THAT THIS ONLY SLIGHTLY HELPED WITH AGITATION AND RESTLESSNESS. ON EXAMINATION, HEART IS REGULAR IN RATE AND RHYTHM. BILATERAL LUNGS NOTED WITH DIMINISHED LUNG SOUNDS THROUGHOUT. ABDOMEN IS ROUND, SOFT, AND NON-TENDER WITH NORMAL BOWEL SOUNDS NOTED IN ALL QUADRANTS. NO UPPER OR LOWER EXTREMITY EDEMA NOTED. HER VITALS THIS MORNING ARE: 98.0-93-22-94%-158/82. SHE IS ON ROOM AIR. LABS WERE OBTAINED. WBC 4.3, HGB 11.5, HCT 34.3, SODIUM 145, POTASSIUM 3.3, CHLORIDE 110, BUN 19, CREATININE 0.65, GLUCOSE 138, CALCIUM 8.7, MAGNESIUM 1.5, AST 22, ALT 22, ALK PHOS 74, TOTAL PROTEIN 5.5, ALBUMIN 2.9. SHE IS CURRENTLY RECEIVING NORMAL SALINE AT 125 ML/HR, LOVENOX 40MG SC DAILY. WE WILL ADD THE POTASSIUM PROTOCOL TODAY. WE WILL ALSO RESUME HER HOME MEDICATIONS OF ULTRAM 50MG PO BID PRN, KLONOPIN 0.5MG PO BID, LANOXIN 0.125 MG PO DAILY, COLACE 100MG PO BID, MAG OX 400MG PO BID, CATAPRES PATCH TD WEEKLY, KLONOPIN 0.5MG PO BID. WE WILL RESUME THE ZYPREXA, BUT AT 5MG PO BID. WE WILL ALSO ADD MILK OF MAGNESIA 30ML PO BID, COLACE 100MG PO BID, MIRALAX 17G PO DAILY DUE TO COMPLAINTS OF CONSTIPATION. DUE TO MULTIPLE ATTEMPTS AT ADJUSTING MEDICATIONS WITHOUT SIGNIFICANT IMPROVEMENT AND PERSISTENT AGITATION AND RESTLESSNESS, FAMILY IS AGREEABLE TO POSSIBLE PLACEMENT AT [facility]. WE WILL MAKE SOME CALLS TODAY TO ATTEMPT PLACEMENT. OTHERWISE, WE WILL CONTINUE TO MONITOR. TIME SPENT ON CLINICAL ASSESSMENT, REVIEWING LABS AND IMAGING, DECISION MAKING, AND DOCUMENTATION GREATER THAN 45 MINUTES. - Past Medical Family Social History Past Med/Fam/Surg Hx: No changes since H&P Allergies: Allergies No Known Drug Allergies Allergy (Verified 01/01/21 18:38) - Review of Systems ROS: No change since H&P - Vital Signs and I&O's Vital Signs: Temperature 98.0 F Pulse Rate [Apical] 93 Pulse Rate 93 Respiratory Rate 22 Blood Pressure [Left Arm] 158/82 Blood Pressure 132/60 O2 Sat by Pulse Oximetry 94 Intake and Output: Intake & Output 02/05/22 02/06/22 02/07/22 02/08/22 11:59 11:59 11:59 11:59 Intake Total 520 / 520 3076 / 3076 Output Total 800 / 800 2355 / 2355 Balance -280 / -280 721 / 721 - Physical Exam Oriented: Not Oriented Eyes: Normal Ear: Normal Nose: Normal Throat: Normal Respiratory: Normal Cardiovascular: Normal : Normal Auscultation: Bowel Sounds: Normal Palpation: Normal Tenderness: Normal Skin: Normal Musculoskeletal: Normal Psychiatric: Agitation Mood Description: Calm Affect: Anxious Speech Pattern: Inappropriate - Laboratory and Diagnostics Result Diagrams: 02/07/22 05:48 02/07/22 05:48 Labs: Laboratory WBC 4.3 X10^3/uL (3.6-10.0) 02/07/22 05:48 RBC 3.93 X10^6/uL (3.5-5.4) 02/07/22 05:48 Hgb 11.5 g/dL (12.0-16.0) L 02/07/22 05:48 Hct 34.3 % (36.0-47.0) L 02/07/22 05:48 MCV 87.3 fL (80.0-100.0) 02/07/22 05:48 MCH 29.3 pg (27.0-34.0) 02/07/22 05:48 MCHC 33.5 g/dL (33.0-35.0) 02/07/22 05:48 RDW 15.6 % (11.6-16.5) 02/07/22 05:48 Plt Count 134 X10^3/uL (150.0-450.0) L 02/07/22 05:48 MPV 9.1 fL (7.4-11.0) 02/07/22 05:48 Neut % (Auto) 56.9 % (42.0-75.0) 02/07/22 05:48 Lymph % (Auto) 32.6 % (21.0-51.0) 02/07/22 05:48 [place] % (Auto) 7.0 % (0.0-13.0) 02/07/22 05:48 Eos % (Auto) 2.6 % (0.9-2.9) 02/07/22 05:48 Baso % (Auto) 0.9 % (0.2-1.0) 02/07/22 05:48 Neut # (Auto) 2.5 x10^3/uL (2.2-4.8) 02/07/22 05:48 Lymph # (Auto) 1.4 X10^3/uL (1.3-2.9) 02/07/22 05:48 [place] # (Auto) 0.3 x10^3/uL (0.3-0.8) 02/07/22 05:48 Eos # (Auto) 0.1 x10^3/uL (0.0-0.2) 02/07/22 05:48 Baso # (Auto) 0.0 X10^3/uL (0.0-0.1) 02/07/22 05:48 Absolute Nucleated RBC 0.1 /100WBC 02/07/22 05:48 PT 13.2 SECONDS (11.8-14.3) 02/05/22 21:44 INR Target Range - 02/05/22 21:44 INR 1.03 (0.8-1.3) 02/05/22 21:44 APTT 25.4 SECONDS (22.9-36.5) 02/05/22 21:44 PTT Comment - 02/05/22 21:44 Sodium 145 mmol/L (136-145) 02/07/22 05:48 Corrected Sodium 146 mmol/L (136-145) H 02/07/22 05:48 Potassium 3.3 mmol/L (3.5-5.1) L 02/07/22 05:48 Chloride 110 mmol/L (98-107) H 02/07/22 05:48 Carbon Dioxide 27.0 mmol/L (21-32) 02/07/22 05:48 BUN 19 mg/dL (7-18) H 02/07/22 05:48 Creatinine 0.65 mg/dL (0.55-1.02) 02/07/22 05:48 Est GFR (MDRD) Af Amer > 60 (>60) 02/07/22 05:48 Est GFR (MDRD) Non-Af > 60 (>60) 02/07/22 05:48 Glucose 138 mg/dL (65-99) H 02/07/22 05:48 POC Glucose (mg/dL) 138 mg/dL (65-99) H 02/07/22 05:48 Calcium 8.7 mg/dL (8.5-10.1) 02/07/22 05:48 Corrected Calcium 9.6 mg/dL (8.5-10.1) 02/07/22 05:48 Magnesium 1.5 mg/dL (1.7-2.9) L 02/07/22 05:48 Total Bilirubin 0.40 mg/dL (0.2-1.0) 02/07/22 05:48 AST 22 Units/L (15-37) 02/07/22 05:48 ALT 22 Units/L (12-78) 02/07/22 05:48 Alkaline Phosphatase 74 Units/L (46-116) 02/07/22 05:48 Creatine Kinase 70 Units/L (26-192) 02/06/22 10:37 CK-MB (CK-2) < 1.0 ng/mL (0-4.0) 02/06/22 10:37 CK/CKMB % Calc 1.4 % (<4) 02/06/22 10:37 Troponin I High Sens 12.2 ng/L (4.0-60.0) 02/06/22 10:37 B-Natriuretic Peptide 45.5 pg/mL (0-79) 02/05/22 21:44 Total Protein 5.5 g/dL (6.4-8.2) L 02/07/22 05:48 Albumin 2.9 g/dL (3.4-5.0) L 02/07/22 05:48 Globulin 2.6 g/dL (2.5-4.5) 02/07/22 05:48 Albumin/Globulin Ratio 1.1 Ratio (1.1-2.1) 02/07/22 05:48 Specimen Type Catherized urine 02/06/22 05:26 Urine Color Yellow (YELLOW) 02/06/22 05:26 Urine Appearance Clear (CLEAR) 02/06/22 05:26 Urine pH 6.0 (5.0 - 8.0) 02/06/22 05:26 Ur Specific [place] 1.015 (1.000-1.030) 02/06/22 05:26 Urine Protein 1+ (NEGATIVE) 02/06/22 05:26 Urine Glucose (UA) Negative (NEGATIVE) 02/06/22 05:26 Urine Ketones Negative (NEGATIVE) 02/06/22 05:26 Urine Blood Negative (NEGATIVE) 02/06/22 05:26 Urine Nitrite Negative (NEGATIVE) 02/06/22 05:26 Urine Bilirubin Negative (NEGATIVE) 02/06/22 05:26 Urine Urobilinogen Normal (NORMAL) 02/06/22 05:26 Ur Leukocyte Esterase Negative (NEGATIVE) 02/06/22 05:26 Urine RBC 0-2 /HPF (0-3) 02/06/22 05:26 Urine WBC 0-2 /HPF (0-5) 02/06/22 05:26 Ur Squamous Epith Cells Few /HPF (NEGATIVE) 02/06/22 05:26 Urine Bacteria Negative /HPF (NEGATIVE) 02/06/22 05:26 Ur Culture Indicated? No/not indicated 02/06/22 05:26 - Plan (1) Altered mental status Status: Acute Qualifiers: Altered mental status type: unspecified Qualified Code(s): R41.82 - Altered mental status, unspecified Plan: NORMAL SALINE AT 125 ML/HR, LOVENOX 40MG SC DAILY, POTASSIUM PROTOCOL TODAY, MAG OX 400MG PO BID, RESUME HOME MEDICATIONS (2) Acute dehydration Status: Acute (3) Hypokalemia Status: Acute (4) Hypomagnesemia Status: Acute (5) Generalized weakness Status: Acute (6) A-fib Status: Chronic Qualifiers: Atrial fibrillation type: paroxysmal (7) Dementia Status: Chronic Qualifiers: Dementia type: vascular dementia Dementia behavioral disturbance: with behavioral disturbance Qualified Code(s): F01.51 - Vascular dementia with behavioral disturbance (8) Hypertension Status: Chronic Qualifiers: Hypertension type: primary hypertension Qualified Code(s): I10 - Essential (primary) hypertension
[2022-02-07] MEDS: MIRALAX POWDER (1 DOSE 17 G) PO SCH (14:18)
[2022-02-07] MEDS: MAG-OX TAB PO SCH ×2 (14:18→16:52)
[2022-02-07] MEDS: COLACE CAP 100 MG PO SCH ×2 (14:18→22:01)
--- NOTE | 2022-02-07 14:27 | RAD ---
HISTORYSOB, PNEUMONIA Relevant Clinical InformationSTUDYCHEST, 1 [id number]/2022.FINDINGSThe trachea is midline. The cardiac silhouette is unremarkable. The aorta is tortuous. The lungs are clear without focal infiltrate or effusion. The bony thorax is unremarkable.IMPRESSIONNo acute cardiopulmonary findings .Electronically signed by: Timmy Emanuel (Feb 07, 2022 14:26:02)
[2022-02-07] MEDS ORDERED: DULCOLAX SUPPOSITORY 10 MG PR NR (16:00)
[2022-02-07] MEDS ORDERED: LINZESS PO PRN (20:39)
[2022-02-07] MEDS ORDERED: TOPROL XL PO SCH (21:00)
[2022-02-07] MEDS ORDERED: ANTIVERT TAB 25 MG PO SCH (21:00)
[2022-02-07] MEDS ORDERED: ZOCOR TAB 20 MG PO SCH (21:00)
[2022-02-07] MEDS ORDERED: CYMBALTA PO SCH (21:00)
[2022-02-07] MEDS ORDERED: REQUIP PO SCH (21:00)
[2022-02-07] MEDS: MOBIC TAB 15 MG PO SCH (22:01)
[2022-02-07] MEDS: CARAFATE PO SCH (22:01)
[2022-02-07] MEDS: COZAAR PO SCH (22:01)
[2022-02-07] MEDS: MILK OF MAGNESIA PO SCH (22:01)
[2022-02-07] MEDS: NORVASC TAB 10 MG PO SCH (22:02)
[2022-02-07] MEDS ORDERED: PATIENT'S HOME MEDICATION PO PRN (23:17)
[2022-02-08 05:37] LABS: BASOPHILS % (AUTO) 0.4 % (0.2-1.0); EOSINOPHILS # (AUTO) 0.1 x10^3/uL (0.0-0.2); EOSINOPHILS % (AUTO) 1.7 % (0.9-2.9); HEMOGLOBIN 12.4 g/dL (12.0-16.0); LYMPHOCYTES # (AUTO) 1.4 X10^3/uL (1.3-2.9); LYMPHOCYTES % (AUTO) 18.8 % (21.0-51.0); MEAN CORPUSCULAR HEMOGLOBIN 29.2 pg (27.0-34.0); MEAN CORPUSCULAR HGB CONC 33.6 g/dL (33.0-35.0); MEAN CORPUSCULAR VOLUME 87.2 fL (80.0-100.0); MEAN PLATELET VOLUME 9.2 fL (7.4-11.0); MONOCYTES # (AUTO) 0.8 x10^3/uL (0.3-0.8); MONOCYTES % (AUTO) 10.4 % (0.0-13.0); NEUTROPHILS % (AUTO) 68.7 % (42.0-75.0); RED BLOOD COUNT 4.25 X10^6/uL (3.5-5.4); RED CELL DISTRIBUTION WIDTH 15.6 % (11.6-16.5); WHITE BLOOD COUNT 7.2 X10^3/uL (3.6-10.0)
[2022-02-08 05:44] LABS: ALANINE AMINOTRANSFERASE 22 Units/L (12-78); ALBUMIN 3.1 g/dL (3.4-5.0); ALKALINE PHOSPHATASE 79 Units/L (46-116); ASPARTATE AMINO TRANSFERASE 22 Units/L (15-37); BLOOD UREA NITROGEN 8 mg/dL (7-18); CARBON DIOXIDE 28.4 mmol/L (21-32); CHLORIDE 110 mmol/L (98-107); COR CA(FOR HYPOALB) 9.7 mg/dL (8.5-10.1); COR NA(FOR HYPERGLY) 147 mmol/L (136-145); SODIUM 146 mmol/L (136-145); TOTAL PROTEIN 5.7 g/dL (6.4-8.2); eGFR NON BLACK RACES > 60 (>60)
[2022-02-08] MEDS ORDERED: GLUCOPHAGE PO SCH (07:00)
[2022-02-08] MEDS ORDERED: CORDARONE TAB 200 MG PO SCH (07:00)
[2022-02-08] MEDS ORDERED: ASPIRIN PO SCH (09:00)
[2022-02-08] MEDS ORDERED: NexIUM PO SCH (09:00)
[2022-02-08] MEDS ORDERED: K-DUR TAB 20 MEQ PO SCH (09:00)
[2022-02-08] MEDS ORDERED: DETROL LA 4 MG CAP EXT REL PO SCH (09:00)
[2022-02-08 14:14] VITALS: BP 121/59
[2022-02-08] MEDS: CARAFATE PO SCH ×2 (15:02→15:07)
[2022-02-08] MEDS: COLACE CAP 100 MG PO SCH (15:03)
[2022-02-08] MEDS: MAG-OX TAB PO SCH (15:03)
[2022-02-08] MEDS: COZAAR PO SCH (15:03)
[2022-02-08] MEDS: KLONOPIN TAB 0.5 MG PO SCH (15:04)
[2022-02-08] MEDS: LANOXIN or DIGITEK PO SCH (15:04)
[2022-02-08] MEDS: MILK OF MAGNESIA PO SCH (15:05)
[2022-02-08] MEDS: MIRALAX POWDER (1 DOSE 17 G) PO SCH (15:05)
[2022-02-08] MEDS: MOBIC TAB 15 MG PO SCH (15:06)
[2022-02-08] MEDS: NORVASC TAB 10 MG PO SCH (15:06)
[2022-02-08] MEDS: LOVENOX INJ 40 MG SYR SC SCH (15:07)
[2022-02-08] MEDS: ZyPREXA TAB 5 MG PO SCH (15:07)
== END 2022-02-08 15:32 ==
LOC: MED/SURG 20:44 → ER 20:44 → MED/SURG 02-06 02:51
PROVIDERS: ADMIT Internal Medicine; ATTEND Internal Medicine

== ENCOUNTER 2023-02-25 17:55 | Observation (INO) ==
[2023-02-25 18:26] LABS: BASOPHILS % (AUTO) 0.2 % (0.2-1.0); EOSINOPHILS % (AUTO) 0.5 % (0.9-2.9); HEMATOCRIT 40.8 % (36.0-47.0); HEMOGLOBIN 13.6 g/dL (12.0-16.0); LYMPHOCYTES # (AUTO) 0.6 X10^3/uL (1.3-2.9); LYMPHOCYTES % (AUTO) 10.5 % (21.0-51.0); MEAN CORPUSCULAR HEMOGLOBIN 29.5 pg (27.0-34.0); MEAN CORPUSCULAR HGB CONC 33.3 g/dL (33.0-35.0); MEAN CORPUSCULAR VOLUME 88.5 fL (80.0-100.0); MEAN PLATELET VOLUME 9.6 fL (7.4-11.0); MONOCYTES # (AUTO) 0.4 x10^3/uL (0.3-0.8); MONOCYTES % (AUTO) 7.6 % (0.0-13.0); NEUTROPHILS # (AUTO) 4.7 x10^3/uL (2.2-4.8); NEUTROPHILS % (AUTO) 81.2 % (42.0-75.0); PLATELET COUNT 60 X10^3/uL (150.0-450.0); RED BLOOD COUNT 4.61 X10^6/uL (3.5-5.4); RED CELL DISTRIBUTION WIDTH 15.7 % (11.6-16.5); WHITE BLOOD COUNT 5.8 X10^3/uL (3.6-10.0)
[2023-02-25 18:27] LABS: BILIRUBIN,URINE 1+ (NEGATIVE); BLOOD/HEMOGLOBIN,URINE NEGATIVE (NEGATIVE); GLUCOSE, URINE NEGATIVE (NEGATIVE); KETONES,URINE NEGATIVE (NEGATIVE); LEUKOCYTE ESTERASE ,URINE 2+ (NEGATIVE); NITRITES,URINE NEGATIVE (NEGATIVE); PH,URINE 6.5 (5.0 - 8.0); PROTEIN,URINE 1+ (NEGATIVE); UROBILINOGEN,URINE 2+ (NORMAL)
[2023-02-25 18:28] LABS: APPEARANCE,URINE CLEAR (CLEAR); COLOR,URINE AMBER (YELLOW)
[2023-02-25 18:35] LABS: RBC,URINE 0-2 /HPF (0-3); SQUAMOUS EPITHELIAL CELL,UR MODERATE /HPF (NEGATIVE)
[2023-02-25 18:36] LABS: BACTERIA,URINE TRACE /HPF (NEGATIVE)
[2023-02-25 18:40] LABS: ALANINE AMINOTRANSFERASE 227 Units/L (12-78); ALBUMIN 3.1 g/dL (3.4-5.0); ALKALINE PHOSPHATASE 299 Units/L (46-116); ASPARTATE AMINO TRANSFERASE 300 Units/L (15-37); BLOOD UREA NITROGEN 18 mg/dL (7-18); CALCIUM 8.9 mg/dL (8.5-10.1); CARBON DIOXIDE 25.6 mmol/L (21-32); CHLORIDE 106 mmol/L (98-107); COR CA(FOR HYPOALB) 9.6 mg/dL (8.5-10.1); COR NA(FOR HYPERGLY) 144 mmol/L (136-145); CREATININE 1.02 mg/dL (0.55-1.02); GLUCOSE 191 mg/dL (65-99); POTASSIUM 3.9 mmol/L (3.5-5.1); SODIUM 142 mmol/L (136-145); TOTAL PROTEIN 6.3 g/dL (6.4-8.2); eGFR NON BLACK RACES 55 (>60)
[2023-02-25] MEDS ORDERED: NORMODYNE INJ 20 MG VIAL ONE (18:49)
--- NOTE | 2023-02-25 18:49 | DR.EXTPAIN ---
HPI Time seen Time Seen by Provider: 02/25/23 18:15 PCP Primary Care Physician: geena Complaint/Symptoms Chief Complaint Doctor Comments: Per Granddaughter patient lives alone and is usually able to take care of her self and cook for herself. Today a relative went by the home to check on patient and she stood up and felt so weak that she fell to the floor and hit her head. Patient 's family also noticed that her 02 sat was dropping. Patient denies: headache,chest pain,abdominal pain,back pain,n,v. Chief Complaint:: pt states she woke up this morning and didnt feel to good states she fell and hit her head but not sure how she fell just states she felt weak. COVID-19 Coronavirus risk:travel/contact w/high risk person: No Has patient experienced Coronavirus symptoms: No Source History Provided: Patient Mode of arrival Mode of Arrival: Stretcher Timing Onset of Chief Complaint: 02/25/23 PMH PMH Past Medical History: Yes Past Medical History: Arthritis, Asthma, Diabetes, Dyslipidemia, GERD and Hype rtension Past Surgical History: Yes Surgical History: Bowel Resection, Cholecystectomy, Joint Replacement and Ortho Surgery Family History History of Family Medical Conditions: Yes Family Medical History: Diabetes Mellitus and Hypertension Social History Does patient currently use any type of tobacco product: No Have you used tobacco products in the last 12 months: No Type of Tobacco Use: None Does any household member use tobacco: No Alcohol Use: None Do you use any recreational Drugs:: No Lives With: Alone Travel Risk Coronavirus risk:travel/contact w/high risk person: No Has patient experienced Coronavirus symptoms: No Infectious screening In the last 2 months have you had wt loss of >10#?: NO Have you had fever, night sweats or hemotysis?: No Have you traveled outside the country in the last 6 months?: No Isolation: Standard ROS Review of Systems Constitutional: Weakness Eyes: No Symptoms Reported ENTM: No Symptoms Reported Respiratoy: negative Non-Productive Cough Cardiovascular: Syncope; negative Chest Pain or Edema Gastrointestinal/Abdominal: Abdominal Pain; negative Nausea or Vomiting Genitourinary: No Symptoms Reported Neurological: negative Headache, Numbness or Dizziness Musculoskeletal: No Symptoms Reported; negative Joint Pain or Joint Swelling Integumentary: No Symptoms Reported Hematologic/Lymphatic: No Symptoms Reported Endocrine: No Symptoms Reported Psychiatric: No Symptoms Reported All Other Systems: Reviewed and Negative PE Vital Signs Vitals: Temperature 99.5 F Pulse Rate 88 Respiratory Rate 16 Blood Pressure [Left Arm] 121/59 Blood Pressure 93/52 O2 Sat by Pulse Oximetry 97 General Limitations: No Limitations General Appearance: Alert and In No Apparent Distress Head Head Exam: Normal Inspection Eyes Eye exam: Normal Appearance ENT ENT Exam: Normal Exam Neck Neck Exam: Normal Inspection Chest Chest Inspection: Normal Inspection Respiratory Respiratory Exam: Normal Lung Sounds Bilat Respiratory Exam: Bilateral: Clear to Auscultation Cardiovascular Cardiovascular Exam: Regular Rate and Irregular Rhythm Abdominal Exam Abdominal Exam: Normal Inspection, Normal Bowel Sounds and Soft Abdominal Tenderness: Other Extremities Extremities Exam: Other Lower Extremities Lower Leg Exam: Laceration (skin tear left leg) Back Back Exam: Normal Inspection Neurological Neurological Exam: Alert, Oriented X3 and CN II-XII Intact Psychiatric Psychiatric Exam: Normal Affect and Normal Mood Skin Skin Exam: Warm, Dry, Intact and Normal Color MDM Differential Diagnosis Differential Diagnosis: Other (Intracranial bleed,C-spine Fracture /Subluxation/pneumonia/abnormal labs/bowel obstruction/bowel perforation/inflammation) COURSE Treatment Treatment: Patient had elevated bp 230/120's and received labetolol 10mg iv with improvement in BP. Patient had a cholecystectomy in the past and continues to have labile LFT levels secondary to stones in the biliary ducts. Patient's LFTS are elevated today. She also has thrombocytopenia. Patient was treated with Rocephin 1 gram iv for a UTI. Patient's Pcp Dr Green requested that patient bbe admitted to the hospital.Discussed case with Dr Dash( physician content creation manager).She has admitted patient to the Hospital.Patient has been stable in the ED. ROR Labs Reviewed Laboratory Results Reviewed?: Yes Result Diagrams: 03/01/23 05:34 03/01/23 05:34 Laboratory: WBC 5.8 X10^3/uL (3.6-10.0) 02/25/23 18:20 RBC 4.61 X10^6/uL (3.5-5.4) 02/25/23 18:20 Hgb 13.6 g/dL (12.0-16.0) 02/25/23 18:20 Hct 40.8 % (36.0-47.0) 02/25/23 18:20 MCV 88.5 fL (80.0-100.0) 02/25/23 18:20 MCH 29.5 pg (27.0-34.0) 02/25/23 18:20 MCHC 33.3 g/dL (33.0-35.0) 02/25/23 18:20 RDW 15.7 % (11.6-16.5) 02/25/23 18:20 Plt Count 60 X10^3/uL (150.0-450.0) L 02/25/23 18:20 MPV 9.6 fL (7.4-11.0) 02/25/23 18:20 Neut % (Auto) 81.2 % (42.0-75.0) H 02/25/23 18:20 Lymph % (Auto) 10.5 % (21.0-51.0) L 02/25/23 18:20 [place] % (Auto) 7.6 % (0.0-13.0) 02/25/23 18:20 Eos % (Auto) 0.5 % (0.9-2.9) L 02/25/23 18:20 Baso % (Auto) 0.2 % (0.2-1.0) 02/25/23 18:20 Neut # (Auto) 4.7 x10^3/uL (2.2-4.8) 02/25/23 18:20 Lymph # (Auto) 0.6 X10^3/uL (1.3-2.9) L 02/25/23 18:20 [place] # (Auto) 0.4 x10^3/uL (0.3-0.8) 02/25/23 18:20 Eos # (Auto) 0.0 x10^3/uL (0.0-0.2) 02/25/23 18:20 Baso # (Auto) 0.0 X10^3/uL (0.0-0.1) 02/25/23 18:20 Absolute Nucleated RBC 0.5 /100WBC 02/25/23 18:20 Sodium 142 mmol/L (136-145) 02/25/23 18:20 Corrected Sodium 144 mmol/L (136-145) 02/25/23 18:20 Potassium 3.9 mmol/L (3.5-5.1) 02/25/23 18:20 Chloride 106 mmol/L (98-107) 02/25/23 18:20 Carbon Dioxide 25.6 mmol/L (21-32) 02/25/23 18:20 BUN 18 mg/dL (7-18) 02/25/23 18:20 Creatinine 1.02 mg/dL (0.55-1.02) 02/25/23 18:20 Est GFR (MDRD) Af Amer > 60 (>60) 02/25/23 18:20 Est GFR (MDRD) Non-Af 55 (>60) L 02/25/23 18:20 Glucose 191 mg/dL (65-99) H 02/25/23 18:20 Calcium 8.9 mg/dL (8.5-10.1) 02/25/23 18:20 Corrected Calcium 9.6 mg/dL (8.5-10.1) 02/25/23 18:20 Total Bilirubin 4.00 mg/dL (0.2-1.0) H 02/25/23 18:20 AST 300 Units/L (15-37) H 02/25/23 18:20 ALT 227 Units/L (12-78) H 02/25/23 18:20 Alkaline Phosphatase 299 Units/L (46-116) H 02/25/23 18:20 Ammonia 37 umol/L (11-32) H 02/25/23 20:33 Total Protein 6.3 g/dL (6.4-8.2) L 02/25/23 18:20 Albumin 3.1 g/dL (3.4-5.0) L 02/25/23 18:20 Globulin 3.2 g/dL (2.5-4.5) 02/25/23 18:20 Albumin/Globulin Ratio 1.0 Ratio (1.1-2.1) L 02/25/23 18:20 Specimen Type Random urine 02/25/23 18:12 Urine Color Mary Ellen (YELLOW) 02/25/23 18:12 Urine Appearance Clear (CLEAR) 02/25/23 18:12 Urine pH 6.5 (5.0 - 8.0) 02/25/23 18:12 Ur Specific Mallard 1.010 (1.000-1.030) 02/25/23 18:12 Urine Protein 1+ (NEGATIVE) 02/25/23 18:12 Urine Glucose (UA) Negative (NEGATIVE) 02/25/23 18:12 Urine Ketones Negative (NEGATIVE) 02/25/23 18:12 Urine Blood Negative (NEGATIVE) 02/25/23 18:12 Urine Nitrite Negative (NEGATIVE) 02/25/23 18:12 Urine Bilirubin 1+ (NEGATIVE) 02/25/23 18:12 Urine Urobilinogen 2+ (NORMAL) 02/25/23 18:12 Ur Leukocyte Esterase 2+ (NEGATIVE) 02/25/23 18:12 Urine RBC 0-2 /HPF (0-3) 02/25/23 18:12 Urine WBC 3-5 /HPF (0-5) 02/25/23 18:12 Ur Squamous Epith Cells Moderate /HPF (NEGATIVE) 02/25/23 18:12 Urine Bacteria Trace /HPF (NEGATIVE) 02/25/23 18:12 Ur Culture Indicated? No/not indicated 02/25/23 18:12 Urine Opiates Screen Negative (NEG=<300) 02/25/23 18:12 Urine Methadone Screen Negative (NEG=<300) 02/25/23 18:12 Ur Barbiturates Screen Negative (NEG=<200) 02/25/23 18:12 Ur Phencyclidine Scrn Negative (NEG=<25) 02/25/23 18:12 Ur Amphetamines Screen Negative (NEG=<1000) 02/25/23 18:12 U Benzodiazepines Scrn Negative (NEG=<200) 02/25/23 18:12 Urine Cocaine Screen Negative (NEG=<300) 02/25/23 18:12 U Marijuana (THC) Screen Negative (NEG=<50) 02/25/23 18:12 Ethyl Alcohol mg/dL < 3 mg/dL (0-19.9) 02/25/23 20:33 Hepatitis A IgM Ab Negative (Negative) 02/25/23 20:33 Hep Bs Antigen Negative (Negative) 02/25/23 20:33 Hep B Core IgM Ab Negative (Negative) 02/25/23 20:33 Hepatitis C Ab Index 0.07 IV 02/25/23 20:33 Hep C RIBA Interpret Negative (Negative) 02/25/23 20:33 Hepatitis Interpret See note 02/25/23 20:33 XRAY X-ray Results: HISTORY fall, generalized weakness STUDY HEAD (TRAUMA) COMPARISON None TECHNIQUE CT scan of the brain was obtained from skull base to vertex without contrast. Dose reduction techniques were utilized. Contrast: None FINDINGS There is diffuse cerebral and cerebellar volume loss. There is extensive confluent periventricular hypodensity in the hemispheric white matter. While t hese are nonspecific findings, this most likely represents microvascular ischemic disease changes. There is no evidence of intracranial hemorrhage or mass-effect. No extra-axial fluid collections are identified. There are senescent calcifications of the right globus pallidus. There are extensive atherosclerotic changes noted of the cavernous carotid arteriesand distal vertebral arteries. Skull base and calvarium are intact. There is hyperostosis frontalis interna. Paranasal sinuses are clear. There are limbus calcifications of the globes noted bilaterally. IMPRESSION No evidence of acute intracranial pathology. Diffuse generalized cerebral atrophy. Microvascular ischemic disease changes. Electronically signed by: Neva Mills (Feb 25, 2023 19:28:03) HISTORY low o2 sat - generalized weakness STUDY CHEST W/O CON COMPARISON None. TECHNIQUE Serial axial images were obtained from the lung apices down to the mid pole of the kidneys, without intravenous contrast administration. Images reformatted in the coronal and sagittal plane. Dose reduction techniques were utilized. FINDINGS The heart is not enlarged. There is no pericardial effusion or thickening. The ascending aorta measures 4.8 cm. There is extensive atherosclerotic disease of the aortic arch. Atherosclerotic disease of the right left main coronary arteries and calcifications seen of the mitral valve and aortic valve is noted. There is no mediastinal adenopathy or mass identified. The tracheobronchial tree is intact. There is significant dependent subsegmental atelectasis of the posterior lung bases. Minimal discoid subsegmental atelectasis of the anterior segment of the right upper lobe and right middle lobe is seen. There is a small nodule seen within the right lower lobe. No chest wall abnormality is visualized. The visualized upper abdomen is unremarkable. There is a common bile duct stent in situ from the level of the pancreatic head extending into the vertical portion of the duodenum. There are cholecystectomy clips noted in the gallbladder fossa. There are bilateral nonobstructing nephrolithiasis with the largest seen within the right midpole measuring 2.7 mm. The calculus within the left midpole measures 3.4 mm. There is mild dextroscoliosis of the thoracic spine with compensatory le voscoliosis of the lumbar spine. Degenerative disc disease and degenerative changes of the lower thoracic and upper lumbar spine is seen with vacuum phenomenon, loss of the disc space heights and marginal sclerotic endplate changes seen. Multiple bulky bridging anterior osteophytes of the lower half of the thoracic spine is also noted. IMPRESSION No evidence of infiltrate, effusion or pneumothorax. Dependent subsegmental atelectasis of the posterior lung bases and discoid subsegmental atelectasis of the anterior segments of the upper lobes. Electronically signed by: Neav Mills (Feb 25, 2023 23:33:57) HISTORY Status post fall STUDY LOWER LEG, TIB/FIB LEFT COMPARISON None available TECHNIQUE Left tibia/fibula radiographs, 2 views, AP and lateral projections, 2 images FINDINGS No fracture or dislocations. Total knee prosthesis in place with no evidence of component loosening. Soft tissues are unremarkable. Peripheral vascular calcification. IMPRESSION No acute osseous abnormality. Electronically signed by: Jeferosn Martin (Feb 25, 2023 22:41:51) PROCEDURE: CT Abdomen and Pelvis with Contrast . HISTORY: Abdomen pain. TECHNIQUE: Axial images were performed through the abdomen and pelvis with the administration of IV contrast with multiplanar reformations . Oral contrast was not administered. Dose reduction techniques including Automated Exposure Control (AEC) and adjustment of mA and kV were utilized . COMPARISON: 01/02/2021. TECHNICAL QUALITY: Satisfactory . FINDINGS: Mild dependent atelectasis and linear scar versus discoid atelectasis lung bases. Mildly elevated right hemidiaphragm. Dome of the right lobe of the liver is not included on the study. Visualized liver shows mild intrahepatic biliary ductal dilatation that is improved since previous study with mild pneumobilia in the left lobe. Spleen, adrenals, pancreas show no abnormality. Kidneys show no masses or obstruction. Previous cholecystectomy. Stent across the ampulla in the common duct in good position with dilated common duct that is improved since previous study with pneumobilia. No ascites or pneumoperitoneum. Mild atherosclerosis aorta. No lymphadenopathy. No bowel obstruction or inflammation. Previous appendectomy. Pelvis shows no masses or free fluid with unremarkable reproductive organs and urinary bladder. No acute bony abnormality. IMPRESSION: 1. Interval stent placement across the ampulla in the common duct with improved dilatation of the biliary tree with pneumobilia. 2. No other significant abnormality identified. Electronically signed by: Demario Hilton (Feb 25, 2023 23:52:02) Opioid Opioid Risk Tool Age (Sean box if 16-45): No History of Preadolescent Sexual Abuse: No Total: 0 Total Score Risk Category: Low Risk Copyright: Phi LÓPEZ predicting aberrant behaviors Discharge Plan Diagnosis Discharge Problem: Weakness, Urinary tract infection, Thrombocytopenia, Malignant hypertension, Elevated liver function tests Discharge Plan Patient Disposition: 09 ADMITTED INPATIENT Condition: Stable
[2023-02-25] MEDS ORDERED: NORMODYNE INJ 20 MG VIAL IVP ONE (18:51)
--- NOTE | 2023-02-25 19:37 | CT ---
HISTORYfall, generalized weaknessSTUDYHEAD (TRAUMA)COMPARISONNoneTECHNIQUE Dose reduction techniques were utilized.Contrast: NoneFINDINGSThere is diffuse cerebral and cerebellar volume loss. There is extensive confluent periventricular hypodensity in the hemispheric white matter. While these are nonspecific findings, this most likely represents microvascular ischemic disease changes. There is no evidence of intracranial hemorrhage or mass-effect. No extra-axial fluid collections are identified. There are senescent calcifications of the right globus pallidus.There are extensive atherosclerotic changes noted of the cavernous carotid arteriesand distal vertebral arteries.Skull base and calvarium are intact. There is hyperostosis frontalis interna. Paranasal sinuses are clear. There are limbus calcifications of the globes noted bilaterally.IMPRESSIONNo evidence of acute intracranial pathology. Diffuse generalized cerebral atrophy. Microvascular ischemic disease changes.Electronically signed by: Neva Mills (Feb 25, 2023 19:28:03)
--- NOTE | 2023-02-25 19:37 | CT ---
HISTORYfall, generalized weaknessSTUDYCERVICAL SPINE W/O CONCOMPARISONNone.TECHNIQUECT scan of the cervical spine was obtained without intravenous contrast. Images reformatted in the coronal and sagittal plane. Dose reduction techniques were utilized.FINDINGSThere is normal curvature and alignment of the cervical spine. There is no evidence of acute fracture, subluxation or destructive lesion. Occiput-C1 and C1-C2 articulation is intact. There are extensive calcifications and degenerative changes of the C1-2 articulation with multiple loose bodies and heterotopic bone formation involving the C1-2 articulation and surrounding the dens. There are bilateral facet degenerative and hypertrophic changes seen. There is fusion of the posterior elements involving C2, C3 and C4 with partial fusion of the C2-3 and C3-4 disc spaces. There is a trace anterior subluxation of C6 on C7 and C7 on T1. There is no prevertebral fluid or mass. There is no paraspinal mass. There is soft tissue opacity of the right external auditory canal. This could represent cerumen buildup versus of right external auditory canal polyp. Incidental note is made of a right retropharyngeal carotid. This should not be mistaken for retropharyngeal mass.IMPRESSIONNo evidence of acute fracture or subluxation.Significant degenerative changes of the cervical spine including facet degenerative and hypertrophic changes, heterotopic bone formation and loose bodies involving the C1-2 articulation with fusion of the posterior elements involving C2, C3 and C4. There is also minimal trace anterior subluxation of C6 on C7 and C7 on T1 as well as T1 on T2.Electronically signed by: Neva Mills (Feb 25, 2023 19:35:15)
[2023-02-25 20:36] LABS: BLOOD ALCOHOL < 3 mg/dL (0-19.9)
[2023-02-25 21:26] LABS: AMMONIA 37 umol/L (11-32)
[2023-02-25] MEDS ORDERED: NORCO 10/325 TAB PO ONE (22:11)
[2023-02-25] MEDS ORDERED: ZOFRAN TAB 4 MG PO ONE (22:18)
[2023-02-25] MEDS ORDERED: ZOFRAN TAB 4 MG ONE (22:21)
[2023-02-25] MEDS ORDERED: NORCO 10/325 TAB ONE (22:22)
--- NOTE | 2023-02-25 22:42 | RAD ---
HISTORYStatus post fallSTUDYLOWER LEG, TIB/FIB LEFTCOMPARISONNone availableTECHNIQUELeft tibia/fibula radiographs, 2 views, AP and lateral projections, 2 imagesFINDINGSNo fracture or dislocations.Total knee prosthesis in place with no evidence of component loosening.Soft tissues are unremarkable.Peripheral vascular calcification.IMPRESSIONNo acute osseous abnormality.Electronically signed by: Jeferson Martin (Feb 25, 2023 22:41:51)
--- NOTE | 2023-02-25 23:35 | CT ---
HISTORYlow o2 sat - generalized weaknessSTUDYCHEST W/O CONCOMPARISONNone.TECHNIQUESerial axial images were obtained from the lung apices down to the mid pole of the kidneys, without intravenous contrast administration. Images reformatted in the coronal and sagittal plane. Dose reduction techniques were utilized.FINDINGSThe heart is not enlarged. There is no pericardial effusion or thickening. The ascending aorta measures 4.8 cm. There is extensive atherosclerotic disease of the aortic arch. Atherosclerotic disease of the right left main coronary arteries and calcifications seen of the mitral valve and aortic valve is noted. There is no mediastinal adenopathy or mass identified.The tracheobronchial tree is intact. There is significant dependent subsegmental atelectasis of the posterior lung bases. Minimal discoid subsegmental atelectasis of the anterior segment of the right upper lobe and right middle lobe is seen. There is a small nodule seen within the right lower lobe. No chest wall abnormality is visualized.The visualized upper abdomen is unremarkable. There is a common bile duct stent in situ from the level of the pancreatic head extending into the vertical portion of the duodenum. There are cholecystectomy clips noted in the gallbladder fossa. There are bilateral nonobstructing nephrolithiasis with the largest seen within the right midpole measuring 2.7 mm. The calculus within the left midpole measures 3.4 mm.There is mild dextroscoliosis of the thoracic spine with compensatory levoscoliosis of the lumbar spine. Degenerative disc disease and degenerative changes of the lower thoracic and upper lumbar spine is seen with vacuum phenomenon, loss of the disc space heights and marginal sclerotic endplate changes seen. Multiple bulky bridging anterior osteophytes of the lower half of the thoracic spine is also noted.IMPRESSIONNo evidence of infiltrate, effusion or pneumothorax.Dependent subsegmental atelectasis of the posterior lung bases and discoid subsegmental atelectasis of the anterior segments of the upper lobes.Electronically signed by: Neva Mills (Feb 25, 2023 23:33:57)
--- NOTE | 2023-02-25 23:53 | CT ---
PROCEDURE: CT Abdomen and Pelvis with Contrast .HISTORY: Abdomen pain.TECHNIQUE: Axial images were performed through the abdomen and pelvis with the administration of IV contrast with multiplanar reformations . Oral contrast was not administered. Dose reduction techniques including Automated Exposure Control (AEC) and adjustment of mA and kV were utilized .COMPARISON: 01/02/2021.TECHNICAL QUALITY: Satisfactory .FINDINGS:Mild dependent atelectasis and linear scar versus discoid atelectasis lung bases. Mildly elevated right hemidiaphragm.Dome of the right lobe of the liver is not included on the study. Visualized liver shows mild intrahepatic biliary ductal dilatation that is improved since previous study with mild pneumobilia in the left lobe. Spleen, adrenals, pancreas show no abnormality.Kidneys show no masses or obstruction.Previous cholecystectomy. Stent across the ampulla in the common duct in good position with dilated common duct that is improved since previous study with pneumobilia.No ascites or pneumoperitoneum.Mild atherosclerosis aorta.No lymphadenopathy.No bowel obstruction or inflammation. Previous appendectomy.Pelvis shows no masses or free fluid with unremarkable reproductive organs and urinary bladder.No acute bony abnormality.IMPRESSION:1. Interval stent placement across the ampulla in the common duct with improved dilatation of the biliary tree with pneumobilia.2. No other significant abnormality identified.Electronically signed by: Demario Hilton (Feb 25, 2023 23:52:02)
[2023-02-26] MEDS ORDERED: ROCEPHIN VIAL 1 GRAM 1 G in NS 100 ML IV 100 ML IV ONE (00:07)
[2023-02-26] MEDS ORDERED: ROCEPHIN VIAL 1 GRAM ONE (00:12)
[2023-02-26] MEDS ORDERED: NS 100 ML IV 100 ML ONE (00:13)
[2023-02-26] MEDS ORDERED: NS 1,000 ML IV 1,000 ML ONE (01:25)
[2023-02-26] MEDS ORDERED: NS 1,000 ML IV 1,000 ML IV ONE (01:30)
[2023-02-26 02:19] VITALS: BMI 37.2
--- NOTE | 2023-02-26 03:33 | EKG ---
Test Reason : weakness Blood Pressure : */* mmHG Vent. Rate : 72 BPM Atrial Rate : 72 BPM P-R Int : 172 ms QRS Dur : 120 ms QT Int : 420 ms P-R-T Axes : 265 -44 -31 degrees QTc Int : 459 ms Unusual P axis, possible ectopic atrial rhythm Left axis deviation Pulmonary disease pattern Left ventricular hypertrophy with QRS widening ( R in aVL , Willy product , Romhilt-Farrell ) Nonspecific T wave abnormality Abnormal ECG No previous ECGs available Confirmed by Arnulfo Cotton ([id number]) on 02/27/2023 8:07:18 AM Referred By: Confirmed By: Arnulfo Cotton
[2023-02-26 03:59] LABS: BASOPHILS % (AUTO) 0.9 % (0.2-1.0); EOSINOPHILS % (AUTO) 0.3 % (0.9-2.9); HEMATOCRIT 34.1 % (36.0-47.0); LYMPHOCYTES # (AUTO) 0.7 X10^3/uL (1.3-2.9); LYMPHOCYTES % (AUTO) 13.8 % (21.0-51.0); MEAN CORPUSCULAR HEMOGLOBIN 29.4 pg (27.0-34.0); MEAN CORPUSCULAR HGB CONC 33.2 g/dL (33.0-35.0); MEAN CORPUSCULAR VOLUME 88.4 fL (80.0-100.0); MEAN PLATELET VOLUME 9.9 fL (7.4-11.0); MONOCYTES # (AUTO) 0.4 x10^3/uL (0.3-0.8); MONOCYTES % (AUTO) 8.1 % (0.0-13.0); NEUTROPHILS # (AUTO) 3.9 x10^3/uL (2.2-4.8); NEUTROPHILS % (AUTO) 76.9 % (42.0-75.0); PLATELET COUNT 94 X10^3/uL (150.0-450.0); RED BLOOD COUNT 3.86 X10^6/uL (3.5-5.4); RED CELL DISTRIBUTION WIDTH 15.2 % (11.6-16.5)
[2023-02-26 04:02] LABS: HEMOGLOBIN 11.3 g/dL (12.0-16.0)
[2023-02-26 04:12] LABS: ALANINE AMINOTRANSFERASE 180 Units/L (12-78); ALBUMIN 2.5 g/dL (3.4-5.0); ALKALINE PHOSPHATASE 251 Units/L (46-116); ASPARTATE AMINO TRANSFERASE 172 Units/L (15-37); BLOOD UREA NITROGEN 20 mg/dL (7-18); CALCIUM 8.3 mg/dL (8.5-10.1); CARBON DIOXIDE 28.3 mmol/L (21-32); CHLORIDE 108 mmol/L (98-107); COR CA(FOR HYPOALB) 9.5 mg/dL (8.5-10.1); COR NA(FOR HYPERGLY) 144 mmol/L (136-145); CREATININE 1.08 mg/dL (0.55-1.02); GLUCOSE 157 mg/dL (65-99); POTASSIUM 3.9 mmol/L (3.5-5.1); SODIUM 143 mmol/L (136-145); TOTAL PROTEIN 5.2 g/dL (6.4-8.2); eGFR NON BLACK RACES 51 (>60)
--- NOTE | 2023-02-26 06:05 | RAD ---
HISTORYWeaknessSTUDYChest AP [id number]/12/2022FINDINGSHear t is upper limits normal in size. Lilly are normal. Aorta is ectatic. Lung hardin are clear. No pleural effusions are identified. Bony thorax is unremarkable.IMPRESSIONLungs clearElectronically signed by: SARWAT WEEKS (February 26, 2023 06:04:17)
[2023-02-26] MEDS: NexIUM PO SCH ×2 (08:25→20:58)
[2023-02-26] MEDS: K-DUR TAB 20 MEQ PO SCH (08:26)
[2023-02-26] MEDS: DITROPAN TAB 5 MG PO SCH ×2 (08:26→20:58)
[2023-02-26] MEDS: APRESOLINE TAB 25 MG PO SCH ×2 (08:26→20:59)
[2023-02-26] MEDS: COZAAR PO SCH ×2 (08:27→20:57)
[2023-02-26] MEDS: NAMENDA TAB 10 MG PO SCH ×2 (08:27→20:58)
[2023-02-26] MEDS: MOTRIN TAB 600 MG PO PRN (12:01)
--- NOTE | 2023-02-26 12:08 | DR.H&P ---
H&P - History & Physical for Day of: H&P Date: 02/26/23 - Chief Complaint Chief Complaint: WEAKNESS, RECENT FALL, ABDOMINAL PAIN, NECK PAIN - History of Present Illness History of Present Illness: IS A 82 YEAR OLD PATIENT OF OURS. SHE PRESENTED TO THE ER WITH COMPLAINTS OF RECENT FALL AND GENERALIZED WEAKNESS. PATIENT LIVES AT HOME ALONE, BUT HAS FAMILY MEMBERS THAT CHECK ON HER ALL THROUGHOUT THE DAY. WHILE A FAMILY MEMBER WAS PRESENT WITH HER ON 02/25, PATIENT COMPLAINED OF FEELING WEAK AND THEN FELL TO THE FLOOR AND HIT HER HEAD. SHE DID NOT LOOSE CONSCIOUSNESS. THEY REPORT THAT HER OXYGEN SATURATIONS WERE DROPPING INTO THE 80s. SHE DENIED HEADACHE, CHEST PAIN, BACK PAIN, OR NAUSEA/VOMITING. SHE DOES ADMIT TO MILD NECK PAIN AND DIFFUSE ABDOMINAL DISCOMFORT. HER PMH INCLUDES MULTIPLE TIAs, DEMENTIA, HYPERLIPIDEMIA, HTN, GERD, HERNIA, ARTHRITIS, ASTHMA, DM II, FATTY LIVER, BOWEL RESECTION DUE TO COLON CANCER, CHOLECYSTECTOMY, LEFT KNEE REPLACEMENT. ON ARRIVAL TO THE ER, VITALS WERE: 99.5-113-20-93%-210/95. LABS WERE OBTAINED. WBC 5.8, RGC 4.61, HGB 13.6, HCT 40.8, PLT COUNT 60, SODIUM 142, POTASSIUM 3.9, CHLORIDE 106, BUN 18, CREATININE 1.02, GLUCOSE 191, CALCIUM 8.9, TOTAL BILI 4.00, AST 300, ALT 227, ALK PHOS 299, AMMONIA 37, TOTAL PROTEIN 6.3, ALBUMIN 3.1. URINALYSIS REVEALED: WBC 3-5, RBC 0- 2, LEUKOCYTES 2+, BACTERIA TRACE. URINE DRUG SCREEN AND ALCHOLOL LEVEL WAS NORMAL. A HEPATITIS PANEL WAS SET UP. A C-SPINE CT WITHOUT CONTRAST WAS OBTAINED AND REVEALED: No evidence of acute fracture or subluxation.Significant degenerative changes of the cervical spine including facet degenerative and hypertrophic changes, heterotopic bone formation and loose bodies involving the C1-2 articulation with fusion of the posterior elements involving C2, C3 and C4. There is also minimal trace anterior subluxation of C6 on C7 and C7 on T1 as well as T1 on T2. CHEST CT REVEALED: No evidence of infiltrate, effusion or pneumothorax. Dependent subsegmental atelectasis of the posterior lung bases and discoid subsegmental atelectasis of the anterior segments of the upper lobes. BRAIN CT REVEALED: No evidence of acute intracranial pathology. Diffuse generalized cerebral atrophy. Microvascular ischemic disease changes. AN ABDOMEN/PELVIS CT WITH CONTRAST WAS OBTAINED AND REVEALED: 1. Interval stent placement across the ampulla in the common duct with improved dilatation of the biliary tree with pneumobilia. 2. No other significant abnormality identified. LEFT TIB/FIB XRAY REVEALED: No acute osseous abnormality. IN THE ER, SHE WAS GIVEN NORMODYNE 10MG IV X 1 DOSE, NORCO 10/325MG PO X 1, ZOFRAN 4MG PO X 1, A NORMAL SALINE 1 LITER BOLUS, AND ROCEPHIN 1G IV X 1 DOSE. SHE WAS ADMITTED TO THE HOSPITAL FOR FURTHER EVALUATION AND TREATMENT OF GENERALIZED WEAKNESS, THROMBOCYTOPENIA, ELEVATED LFTs, MALIGNANT HTN, AND BACTERIURIA. SHE WAS STARTED ON NORMAL SALINE AT 50 ML/HR AND HER HOME MEDICATIONS WERE RESUMED. WE WILL HAVE PHYSICAL AND OCCUPATIONAL THERAPY EVALUATE PATIENT TODAY. OTHERWISE, WE WILL FOLLOW-UP WITH AM LABS AND CONTINUE TO MONITOR. TIME SPENT ON CLINICAL ASSESSMENT, REVIWING LABS AND IMAGING, DECISION MAKING, AND DOCUMENTATION GREATER THAN 75 MINUTES. - Past Medical History Past Medical History: Hypertension, Dyslipidemia, Diabetes, Asthma, GERD, Arthritis Additional Medical History: CATARACTS, HIATAL HERNIA, DIVERTICULOSIS, COLON CANCER - Past Surgical History Surgical History: Bowel Resection, Cholecystectomy, Joint Replacement, Ortho Surgery Additional Surgical History: COLON RESECTION, CATARACT REMOVAL - Family History Family Medical History: Diabetes Mellitus, Cancer, Coronary Artery Disease, Hypertension - Social History Does patient currently use any type of tobacco product: No Have you used tobacco products in the last 12 months: No Type of Tobacco Use: None Does any household member use tobacco: No Alcohol Use: None Drug Use: None - Medications Home Medications: No Known Drug Allergies Allergy (Verified 01/01/21 18:38) CONTINUE taking the following medications esomeprazole magnesium 40 mg capsule,delayed release (Nexium) 1 cap PO BID 02/25/23 [History] hydralazine 25 mg tablet 1 tab PO BID 02/25/23 [History] losartan 50 mg tablet 1 tab PO BID 02/25/23 [History] meloxicam 7.5 mg tablet 1 tab PO BID 02/25/23 [History] memantine 5 mg tablet 1 tab PO BID 02/25/23 [History] metoprolol succinate 25 mg tablet,extended release 24 hr 1 tab PO QPM 02/25/23 [History] oxybutynin chloride 5 mg tablet 1 tab PO BID 02/25/23 [History] potassium chloride 20 mEq tablet,extended release(part/cryst) 1 tab PO QDAY 02/25/23 [History] quetiapine 25 mg tablet 1 tab PO QPM 02/25/23 [History] simvastatin 20 mg tablet 1 tab PO QPM 02/25/23 [History] - Review of Systems Constitutional: Weakness Eyes: No Symptoms Reported ENT: No Symptoms Reported Respiratory: No Symptoms Reported Cardiovascular: No Symptoms Reported Gastrointestinal: Abdominal Pain. denies: Nausea, Vomiting Genitourinary: No Symptoms Reported Musculoskeletal: Neck Pain Skin: No Symptoms Reported Neurological: Weakness - Physical Exam Vital Signs: Temperature 97.8 F Pulse Rate [Right Radial] 72 Pulse Rate 85 Respiratory Rate 20 Blood Pressure [Left Arm] 123/59 Blood Pressure 100/55 O2 Sat by Pulse Oximetry 99 Oriented: Normal Eyes: Normal Ear: Normal Nose: Normal Throat: Normal Respiratory: Diminished Throughout Cardiovascular: Tachycardia : Normal Auscultation: Bowel Sounds: Normal Palpation: Normal Tenderness: Diffuse, Mild Skin: Normal Musculoskeletal: Left, Leg, Tender Psychiatric: Normal Mood Description: Calm Affect: Normal Speech Pattern: Clear - Assessment/Plan (1) Generalized weakness Status: Acute Plan: ADMIT, NORMAL SALINE AT 50 ML/HR, RESUME HOME MEDS. PT/OT CONSULT. FOLLOW UP WITH AM LABS (2) Thrombocytopenia Status: Acute (3) Malignant hypertension Status: Acute (4) Elevated liver function tests Status: Acute (5) Hypertension Qualifiers: Hypertension type: primary hypertension Status: Chronic (6) GERD (gastroesophageal reflux disease) Qualifiers: Esophagitis presence: esophagitis presence not specified Status: Chronic - Allergies Allergies/Adverse Reactions: Allergies Allergy/AdvReac Type Severity Reaction Status Date / Time No Known Drug Allergies Allergy Verified 01/01/21 18:38
[2023-02-26] MEDS: NS 1,000 ML IV 1,000 ML IV SCH (15:59)
[2023-02-26] MEDS: TOPROL XL PO SCH (20:59)
[2023-02-26] MEDS: ZOCOR TAB 20 MG PO SCH (21:03)
[2023-02-27] MEDS: NS 1,000 ML IV 1,000 ML IV SCH ×3 (03:42→18:51)
[2023-02-27 06:25] LABS: BASOPHILS % (AUTO) 0.4 % (0.2-1.0); EOSINOPHILS # (AUTO) 0.1 x10^3/uL (0.0-0.2); EOSINOPHILS % (AUTO) 3.9 % (0.9-2.9); HEMATOCRIT 33.7 % (36.0-47.0); HEMOGLOBIN 11.2 g/dL (12.0-16.0); LYMPHOCYTES # (AUTO) 0.6 X10^3/uL (1.3-2.9); MEAN CORPUSCULAR HEMOGLOBIN 29.7 pg (27.0-34.0); MEAN CORPUSCULAR HGB CONC 33.3 g/dL (33.0-35.0); MEAN CORPUSCULAR VOLUME 89.2 fL (80.0-100.0); MONOCYTES # (AUTO) 0.3 x10^3/uL (0.3-0.8); MONOCYTES % (AUTO) 8.1 % (0.0-13.0); NEUTROPHILS # (AUTO) 2.2 x10^3/uL (2.2-4.8); NEUTROPHILS % (AUTO) 68.6 % (42.0-75.0); PLATELET COUNT 87 X10^3/uL (150.0-450.0); RED BLOOD COUNT 3.78 X10^6/uL (3.5-5.4); RED CELL DISTRIBUTION WIDTH 15.4 % (11.6-16.5); WHITE BLOOD COUNT 3.2 X10^3/uL (3.6-10.0)
[2023-02-27 06:30] LABS: ALANINE AMINOTRANSFERASE 114 Units/L (12-78); ALBUMIN 2.5 g/dL (3.4-5.0); ALKALINE PHOSPHATASE 223 Units/L (46-116); ASPARTATE AMINO TRANSFERASE 71 Units/L (15-37); BLOOD UREA NITROGEN 13 mg/dL (7-18); CALCIUM 8.6 mg/dL (8.5-10.1); CARBON DIOXIDE 26.5 mmol/L (21-32); CHLORIDE 110 mmol/L (98-107); COR CA(FOR HYPOALB) 9.8 mg/dL (8.5-10.1); COR NA(FOR HYPERGLY) 144 mmol/L (136-145); CREATININE 0.75 mg/dL (0.55-1.02); GLUCOSE 117 mg/dL (65-99); POTASSIUM 4.1 mmol/L (3.5-5.1); SODIUM 144 mmol/L (136-145); TOTAL PROTEIN 5.3 g/dL (6.4-8.2); eGFR NON BLACK RACES > 60 (>60)
[2023-02-27] MEDS: K-DUR TAB 20 MEQ PO SCH (09:01)
[2023-02-27] MEDS: COZAAR PO SCH ×2 (09:02→20:35)
[2023-02-27] MEDS: NexIUM PO SCH ×2 (09:02→20:35)
[2023-02-27] MEDS: NAMENDA TAB 10 MG PO SCH ×2 (09:03→20:36)
[2023-02-27] MEDS: APRESOLINE TAB 25 MG PO SCH ×2 (09:03→20:35)
[2023-02-27] MEDS: DITROPAN TAB 5 MG PO SCH ×2 (09:03→20:35)
[2023-02-27] MEDS ORDERED: NYSTATIN POWDER ONE (09:45)
[2023-02-27] MEDS ORDERED: VALIUM PO ONE (10:28)
--- NOTE | 2023-02-27 13:08 | CT ---
HISTORYWEAKNESS, SEVERE HEADACHE FOLLOWING FALLSTUDYBRAIN W/O [id number]/2023TECHNIQUE r including Automated Exposure Control (AEC) and adjustment of mA and kV were utilized.Contrast: NoneFINDINGSBRAIN PARENCHYMA: No acute hemorrhage, infarct, mass, or mass effect.Lorenzana-white differentiation is maintained.Scattered white matter chronic small vessel ischemic changes.VENTRICLES/EXTRA-AXIAL SPACES: Unremarkable size and configuration. No hydrocephalus or extra-axial fluid collections.EXTRACRANIAL STRUCTURES:Unremarkable bones and soft tissues. Visualized paranasal sinuses and mastoids are clear.IMPRESSIONNo acute intracranial findings with atrophy and chronic small vessel ischemic change. MRI is more sensitive for acute infarctElectronically signed by: Cresencio Canchola (February 27, 2023 13:07:36)
[2023-02-27] MEDS ORDERED: NS 100 ML IV 100 ML ONE ×2 (18:14→20:19)
[2023-02-27] MEDS: ANCEF VIAL 1 GRAM IV SCH ×2 (18:31→21:05)
[2023-02-27] MEDS: TOPROL XL PO SCH (20:35)
[2023-02-27] MEDS: ZOCOR TAB 20 MG PO SCH (20:35)
[2023-02-28] MEDS ORDERED: NS 100 ML IV 100 ML ONE ×3 (04:56→19:53)
[2023-02-28] MEDS: ANCEF VIAL 1 GRAM IV SCH ×3 (05:35→21:05)
[2023-02-28] MEDS: NS 1,000 ML IV 1,000 ML IV SCH ×3 (06:19→21:32)
[2023-02-28 06:50] LABS: HEPATITIS B SURFACE ANTIGEN Negative (Negative)
[2023-02-28 06:56] LABS: BASOPHILS % (AUTO) 0.4 % (0.2-1.0); EOSINOPHILS # (AUTO) 0.1 x10^3/uL (0.0-0.2); EOSINOPHILS % (AUTO) 2.4 % (0.9-2.9); HEMATOCRIT 32.8 % (36.0-47.0); LYMPHOCYTES # (AUTO) 0.8 X10^3/uL (1.3-2.9); LYMPHOCYTES % (AUTO) 22.2 % (21.0-51.0); MEAN CORPUSCULAR HEMOGLOBIN 29.9 pg (27.0-34.0); MEAN CORPUSCULAR HGB CONC 33.6 g/dL (33.0-35.0); MEAN CORPUSCULAR VOLUME 88.9 fL (80.0-100.0); MEAN PLATELET VOLUME 9.5 fL (7.4-11.0); MONOCYTES # (AUTO) 0.3 x10^3/uL (0.3-0.8); MONOCYTES % (AUTO) 9.3 % (0.0-13.0); NEUTROPHILS # (AUTO) 2.4 x10^3/uL (2.2-4.8); NEUTROPHILS % (AUTO) 65.7 % (42.0-75.0); PLATELET COUNT 96 X10^3/uL (150.0-450.0); RED BLOOD COUNT 3.69 X10^6/uL (3.5-5.4); RED CELL DISTRIBUTION WIDTH 15.3 % (11.6-16.5); WHITE BLOOD COUNT 3.6 X10^3/uL (3.6-10.0)
[2023-02-28 07:01] LABS: ALANINE AMINOTRANSFERASE 74 Units/L (12-78); ALBUMIN 2.4 g/dL (3.4-5.0); ALKALINE PHOSPHATASE 189 Units/L (46-116); ASPARTATE AMINO TRANSFERASE 36 Units/L (15-37); BLOOD UREA NITROGEN 11 mg/dL (7-18); CALCIUM 8.3 mg/dL (8.5-10.1); CARBON DIOXIDE 26.3 mmol/L (21-32); CHLORIDE 109 mmol/L (98-107); COR CA(FOR HYPOALB) 9.6 mg/dL (8.5-10.1); COR NA(FOR HYPERGLY) 144 mmol/L (136-145); GLUCOSE 127 mg/dL (65-99); POTASSIUM 3.8 mmol/L (3.5-5.1); SODIUM 143 mmol/L (136-145); TOTAL PROTEIN 5.2 g/dL (6.4-8.2); eGFR NON BLACK RACES > 60 (>60)
[2023-02-28] MEDS: NAMENDA TAB 10 MG PO SCH ×2 (08:59→20:43)
[2023-02-28] MEDS: APRESOLINE TAB 25 MG PO SCH ×2 (08:59→20:43)
[2023-02-28] MEDS: DITROPAN TAB 5 MG PO SCH ×2 (08:59→20:43)
[2023-02-28] MEDS: NexIUM PO SCH ×2 (09:00→20:43)
[2023-02-28] MEDS: K-DUR TAB 20 MEQ PO SCH (09:00)
[2023-02-28] MEDS: COZAAR PO SCH ×2 (09:00→20:43)
[2023-02-28] MEDS ORDERED: POTASSIUM CHL 60 MEQ/NS 0.45% 500 ML IV PRN (19:16)
[2023-02-28] MEDS ORDERED: MICRO K EXTEN CAP 10 MEQ PO PRN (19:16)
[2023-02-28] MEDS ORDERED: POTASSIUM CHLORIDE LIQ 20 MEQ UDC PO PRN (19:16)
[2023-02-28] MEDS ORDERED: K-RIDER 10 MEQ/NS 100 ML 10 MEQ/100 ML BAG IV PRN (19:16)
[2023-02-28] MEDS ORDERED: MAGNESIUM SULFATE 1 GRAM/100 mL PREMIX 1 G/100 ML BAG IV PRN (19:16)
[2023-02-28] MEDS ORDERED: KLOR-CON PO PRN (19:16)
[2023-02-28] MEDS ORDERED: POTASSIUM CHL 40 MEQ/NS 0.45% 500 ML IV PRN (19:16)
[2023-02-28] MEDS ORDERED: K-DUR TAB 20 MEQ PO PRN (19:16)
[2023-02-28] MEDS: ZOCOR TAB 20 MG PO SCH (20:43)
[2023-02-28] MEDS: TOPROL XL PO SCH (20:43)
[2023-03-01] MEDS ORDERED: NS 100 ML IV 100 ML ONE (04:12)
[2023-03-01] MEDS: ANCEF VIAL 1 GRAM IV SCH (05:07)
[2023-03-01 06:07] LABS: BASOPHILS % (AUTO) 0.7 % (0.2-1.0); EOSINOPHILS # (AUTO) 0.1 x10^3/uL (0.0-0.2); EOSINOPHILS % (AUTO) 2.9 % (0.9-2.9); HEMATOCRIT 32.9 % (36.0-47.0); HEMOGLOBIN 11.1 g/dL (12.0-16.0); LYMPHOCYTES # (AUTO) 1.2 X10^3/uL (1.3-2.9); LYMPHOCYTES % (AUTO) 27.3 % (21.0-51.0); MEAN CORPUSCULAR HEMOGLOBIN 29.6 pg (27.0-34.0); MEAN CORPUSCULAR HGB CONC 33.7 g/dL (33.0-35.0); MEAN PLATELET VOLUME 10.6 fL (7.4-11.0); MONOCYTES # (AUTO) 0.4 x10^3/uL (0.3-0.8); MONOCYTES % (AUTO) 8.8 % (0.0-13.0); NEUTROPHILS # (AUTO) 2.6 x10^3/uL (2.2-4.8); NEUTROPHILS % (AUTO) 60.3 % (42.0-75.0); PLATELET COUNT 104 X10^3/uL (150.0-450.0); RED BLOOD COUNT 3.74 X10^6/uL (3.5-5.4); RED CELL DISTRIBUTION WIDTH 15.2 % (11.6-16.5); WHITE BLOOD COUNT 4.3 X10^3/uL (3.6-10.0)
[2023-03-01 06:13] LABS: ALANINE AMINOTRANSFERASE 48 Units/L (12-78); ALBUMIN 2.3 g/dL (3.4-5.0); ALKALINE PHOSPHATASE 173 Units/L (46-116); ASPARTATE AMINO TRANSFERASE 36 Units/L (15-37); BLOOD UREA NITROGEN 11 mg/dL (7-18); CALCIUM 8.4 mg/dL (8.5-10.1); CHLORIDE 107 mmol/L (98-107); COR CA(FOR HYPOALB) 9.8 mg/dL (8.5-10.1); COR NA(FOR HYPERGLY) 142 mmol/L (136-145); GLUCOSE 135 mg/dL (65-99); MAGNESIUM 1.7 mg/dL (2.0-2.9); SODIUM 141 mmol/L (136-145); TOTAL PROTEIN 5.3 g/dL (6.4-8.2); eGFR NON BLACK RACES > 60 (>60)
[2023-03-01 06:21] LABS: POTASSIUM 4.5 mmol/L (3.5-5.1)
[2023-03-01 06:27] LABS: PLATELET MORPHOLOGY COMMENT NORMAL (NORMAL)
[2023-03-01] MEDS: APRESOLINE TAB 25 MG PO SCH (09:40)
[2023-03-01] MEDS: NAMENDA TAB 10 MG PO SCH (09:40)
[2023-03-01] MEDS: MOTRIN TAB 600 MG PO PRN (09:40)
[2023-03-01] MEDS: K-DUR TAB 20 MEQ PO SCH (09:40)
[2023-03-01] MEDS: NexIUM PO SCH (09:40)
[2023-03-01] MEDS: COZAAR PO SCH (09:41)
[2023-03-01] MEDS: DITROPAN TAB 5 MG PO SCH (09:41)
[2023-03-01 10:07] VITALS: BP 190/75
== END 2023-03-01 11:45 | disposition home health service (06) ==
LOC: MED/SURG 17:55 → ER 17:55 → MED/SURG 02-26 01:48
PROVIDERS: ADMIT Internal Medicine; ATTEND Internal Medicine

== ENCOUNTER 2023-06-01 19:47 | Inpatient (IN) ==
--- NOTE | 2023-06-01 20:07 | DR.URIAD ---
HPI Time Seen Time Seen by Provider: 06/01/23 20:05 Complaint Chief Complaint Doctors Comments: COUGH FOR ONE WEEK,FEVER AND HEADACHE. COVID-19 Coronavirus risk:travel/contact w/high risk person: No Has patient experienced Coronavirus symptoms: No PMH PMH Past Medical History: Arthritis, Asthma, Diabetes, Dyslipidemia, GERD and Hypertension Past Surgical History: Yes Surgical History: Bowel Resection, Cholecystectomy, Joint Replacement and Ortho Surgery Family History Family Medical History: Diabetes Mellitus, Cancer, Coronary Artery Disease and Hypertension Social History Do you use any recreational Drugs:: No Travel Risk Coronavirus risk:travel/contact w/high risk person: No Has patient experienced Coronavirus symptoms: No ROS Review of Systems Constitutional: Fever Eyes: No Symptoms Reported ENTM: No Symptoms Reported Respiratoy: Productive Cough Cardiovascular: No Symptoms Reported Gastrointestinal/Abdominal: No Symptoms Reported Genitourinary: No Symptoms Reported Neurological: No Symptoms Reported Musculoskeletal: No Symptoms Reported Integumentary: No Symptoms Reported Hematologic/Lymphatic: No Symptoms Reported Endocrine: No Symptoms Reported Psychiatric: No Symptoms Reported PE Vital Signs Vitals: Vital Signs Temperature 98.4 F Temperature 101.0 F Pulse Rate 59 Pulse Rate 58 Pulse Rate 127 Pulse Rate 117 Pulse Rate 117 Pulse Rate 131 Pulse Rate 134 Pulse Rate 134 Pulse Rate 135 Pulse Rate 135 Pulse Rate 134 Pulse Rate 134 Pulse Rate 127 Pulse Rate 135 Pulse Rate 146 Pulse Rate 152 Pulse Rate 136 Pulse Rate 136 Pulse Rate 135 Pulse Rate 136 Pulse Rate 137 Respiratory Rate 16 Respiratory Rate 17 Respiratory Rate 21 Respiratory Rate 16 Respiratory Rate 16 Respiratory Rate 17 Respiratory Rate 23 Respiratory Rate 23 Respiratory Rate 17 Respiratory Rate 24 Respiratory Rate 17 Respiratory Rate 17 Respiratory Rate 18 Respiratory Rate 20 Respiratory Rate 18 Respiratory Rate 18 Respiratory Rate 20 Respiratory Rate 19 Respiratory Rate 20 Respiratory Rate 18 Respiratory Rate 19 Respiratory Rate 19 Blood Pressure 103/56 Blood Pressure 100/62 Blood Pressure 100/62 Blood Pressure 112/57 Blood Pressure 112/57 Blood Pressure 98/66 Blood Pressure 124/61 Blood Pressure 130/65 Blood Pressure 140/87 Blood Pressure 140/87 Blood Pressure 138/76 Blood Pressure 142/63 O2 Sat by Pulse Oximetry 95 O2 Sat by Pulse Oximetry 95 O2 Sat by Pulse Oximetry 95 O2 Sat by Pulse Oximetry 94 O2 Sat by Pulse Oximetry 95 O2 Sat by Pulse Oximetry 96 O2 Sat by Pulse Oximetry 95 O2 Sat by Pulse Oximetry 95 O2 Sat by Pulse Oximetry 94 O2 Sat by Pulse Oximetry 93 O2 Sat by Pulse Oximetry 93 O2 Sat by Pulse Oximetry 92 O2 Sat by Pulse Oximetry 91 O2 Sat by Pulse Oximetry 91 O2 Sat by Pulse Oximetry 93 O2 Sat by Pulse Oximetry 91 O2 Sat by Pulse Oximetry 94 O2 Sat by Pulse Oximetry 94 O2 Sat by Pulse Oximetry 95 O2 Sat by Pulse Oximetry 94 O2 Sat by Pulse Oximetry 93 MDM Differential Diagnosis Differential Diagnosis: Influenza A, Pneumonia and URI (AFIB WITH RVR) COURSE Treatment Treatment: PATIENT HAD INITIALLY SINUS TACH ON EKG BUT PROGRESSED TO AFIB WITH RVR. WAS GIVEN METOPROLOL 5MG ORALLY WITHOUT REDUCTION IN HEART RATE. WAS GIVEN CARDIZEM 10 MG IV AND HR REDUCED TO 56 AND BLOD PRESSURE WAS 104/56. PATIENT HAD AN EPISODE OF SINUS PAUSE BUT RETURNED TO AFIB AT RATE OF LOW 60'S.CHEST XRAY WAS BASAL ATELECTASIS WITHOUT INFILTRATE. SPOKE TO DR MAYEN AT 0100 HORS AND HE ACEPTED THE PATIENT FOR ADMISSION. STATED THAT HE WOULD EVALUATE THE PATIENT TOMORROW AND DETERMINE IF PATIENT NEEDED TO BE ANTICOAGULATED. ROR Labs Reviewed Laboratory Results Reviewed?: Yes 06/01/23 20:00 06/01/23 20:00 Laboratory: WBC 5.7 X10^3/uL (3.6-10.0) 06/01/23 20:00 RBC 4.16 X10^6/uL (3.5-5.4) 06/01/23 20:00 Hgb 12.3 g/dL (12.0-16.0) 06/01/23 20:00 Hct 37.3 % (36.0-47.0) 06/01/23 20:00 MCV 89.7 fL (80.0-100.0) 06/01/23 20:00 MCH 29.5 pg (27.0-34.0) 06/01/23 20:00 MCHC 32.9 g/dL (33.0-35.0) L 06/01/23 20:00 RDW 14.8 % (11.6-16.5) 06/01/23 20:00 Plt Count 90 X10^3/uL (150.0-450.0) L 06/01/23 20:00 MPV 9.8 fL (7.4-11.0) 06/01/23 20:00 Neut % (Auto) 85.3 % (42.0-75.0) H 06/01/23 20:00 Lymph % (Auto) 6.5 % (21.0-51.0) L 06/01/23 20:00 [place] % (Auto) 7.7 % (0.0-13.0) 06/01/23 20:00 Eos % (Auto) 0.3 % (0.9-2.9) L 06/01/23 20:00 Baso % (Auto) 0.2 % (0.2-1.0) 06/01/23 20:00 Neut # (Auto) 4.8 x10^3/uL (2.2-4.8) 06/01/23 20:00 Lymph # (Auto) 0.4 X10^3/uL (1.3-2.9) L 06/01/23 20:00 [place] # (Auto) 0.4 x10^3/uL (0.3-0.8) 06/01/23 20:00 Eos # (Auto) 0.0 x10^3/uL (0.0-0.2) 06/01/23 20:00 Baso # (Auto) 0.0 X10^3/uL (0.0-0.1) 06/01/23 20:00 Absolute Nucleated RBC 0.0 /100WBC 06/01/23 20:00 PT 13.4 SECONDS (11.8-14.3) 06/01/23 20:18 INR Target Range - 06/01/23 20:18 INR 1.04 (0.8-1.3) 06/01/23 20:18 APTT 24.5 SECONDS (22.9-36.5) 06/01/23 20:18 PTT Comment - 06/01/23 20:18 Sodium 141 mmol/L (136-145) 06/01/23 20:00 Corrected Sodium 144 mmol/L (136-145) 06/01/23 20:00 Potassium 3.6 mmol/L (3.5-5.1) 06/01/23 20:00 Chloride 104 mmol/L (98-107) 06/01/23 20:00 Carbon Dioxide 27.3 mmol/L (21-32) 06/01/23 20:00 BUN 18 mg/dL (7-18) 06/01/23 20:00 Creatinine 1.00 mg/dL (0.55-1.02) 06/01/23 20:00 Est GFR (MDRD) Af Amer > 60 (>60) 06/01/23 20:00 Est GFR (MDRD) Non-Af 56 (>60) L 06/01/23 20:00 Glucose 224 mg/dL (65-99) H 06/01/23 20:00 Lactic Acid 1.6 mmol/L (0.4-2.0) 06/01/23 23:45 Calcium 8.6 mg/dL (8.5-10.1) 06/01/23 20:00 Corrected Calcium 9.3 mg/dL (8.5-10.1) 06/01/23 20:00 Total Bilirubin 2.60 mg/dL (0.2-1.0) H 06/01/23 20:00 AST 183 Units/L (15-37) H 06/01/23 20:00 ALT 96 Units/L (12-78) H 06/01/23 20:00 Alkaline Phosphatase 212 Units/L (46-116) H 06/01/23 20:00 Troponin I High Sens 12.5 ng/L (4.0-60.0) 06/01/23 20:00 Total Protein 5.7 g/dL (6.4-8.2) L 06/01/23 20:00 Albumin 3.1 g/dL (3.4-5.0) L 06/01/23 20:00 Globulin 2.6 g/dL (2.5-4.5) 06/01/23 20:00 Albumin/Globulin Ratio 1.2 Ratio (1.1-2.1) 06/01/23 20:00 SARS-CoV-2 (PCR) Negative (NEGATIVE) 06/01/23 19:50 Influenza Type A (PCR) Negative (NEGATIVE) 06/01/23 19:50 Influenza Type B (PCR) Negative (NEGATIVE) 06/01/23 19:50 RSV (PCR) Negative (NEGATIVE) 06/01/23 19:50 Opioid Opioid Risk Tool Age (Sean box if 16-45): No History of Preadolescent Sexual Abuse: No Total: 0 Total Score Risk Category: Low Risk Copyright: Yip LR predicting aberrant behaviors Discharge Plan Diagnosis Discharge Problem: Atrial fibrillation with rapid ventricular response, Fever Discharge Plan Patient Disposition: ADMITTED INPATIENT Condition: Stable Orders to Discharge Patient Discharge Orders: Transfer (Routine); Ordered 06/02/23 Ordered By: Tru Glynn
--- NOTE | 2023-06-01 20:14 | EKG ---
Test Reason : cough, tachycardia Blood Pressure : */* mmHG Vent. Rate : 136 BPM Atrial Rate : 136 BPM P-R Int : 160 ms QRS Dur : 106 ms QT Int : 320 ms P-R-T Axes : * -47 80 degrees QTc Int : 481 ms Sinus tachycardia Left axis deviation Left ventricular hypertrophy with repolarization abnormality ( R in aVL , Willy product ) Abnormal ECG Findings suspicious for atrial flutter. Sinus rhythm has replaced Ectopic atrial rhythm Vent. rate has increased BY [address] now depressed in Lateral leads T wave inversion no longer evident in Inferior leads T wave inversion less evident in Anterolateral leads Confirmed by Arnulfo Cotton ([id number]) on 06/04/2023 7:25:20 AM Referred By: Confirmed By: Arnulfo Cotton
[2023-06-01] MEDS ORDERED: TYLENOL 500 MG TAB EXTRA STRENGTH PO ONE ×2 (20:19)
[2023-06-01] MEDS ORDERED: NS 1,000 ML IV 1,000 ML ONE (20:19)
[2023-06-01 20:20] LABS: BASOPHILS % (AUTO) 0.2 % (0.2-1.0); EOSINOPHILS % (AUTO) 0.3 % (0.9-2.9); HEMATOCRIT 37.3 % (36.0-47.0); HEMOGLOBIN 12.3 g/dL (12.0-16.0); LYMPHOCYTES # (AUTO) 0.4 X10^3/uL (1.3-2.9); LYMPHOCYTES % (AUTO) 6.5 % (21.0-51.0); MEAN CORPUSCULAR HEMOGLOBIN 29.5 pg (27.0-34.0); MEAN CORPUSCULAR HGB CONC 32.9 g/dL (33.0-35.0); MEAN CORPUSCULAR VOLUME 89.7 fL (80.0-100.0); MEAN PLATELET VOLUME 9.8 fL (7.4-11.0); MONOCYTES # (AUTO) 0.4 x10^3/uL (0.3-0.8); MONOCYTES % (AUTO) 7.7 % (0.0-13.0); NEUTROPHILS # (AUTO) 4.8 x10^3/uL (2.2-4.8); NEUTROPHILS % (AUTO) 85.3 % (42.0-75.0); PLATELET COUNT 90 X10^3/uL (150.0-450.0); RED BLOOD COUNT 4.16 X10^6/uL (3.5-5.4); RED CELL DISTRIBUTION WIDTH 14.8 % (11.6-16.5); WHITE BLOOD COUNT 5.7 X10^3/uL (3.6-10.0)
[2023-06-01 20:33] LABS: LACTIC ACID 2.4 mmol/L (0.4-2.0)
[2023-06-01 20:34] LABS: INR 1.04 (0.8-1.3)
[2023-06-01 20:39] LABS: ALANINE AMINOTRANSFERASE 96 Units/L (12-78); ALBUMIN 3.1 g/dL (3.4-5.0); ALKALINE PHOSPHATASE 212 Units/L (46-116); ASPARTATE AMINO TRANSFERASE 183 Units/L (15-37); BLOOD UREA NITROGEN 18 mg/dL (7-18); CALCIUM 8.6 mg/dL (8.5-10.1); CARBON DIOXIDE 27.3 mmol/L (21-32); CHLORIDE 104 mmol/L (98-107); COR CA(FOR HYPOALB) 9.3 mg/dL (8.5-10.1); COR NA(FOR HYPERGLY) 144 mmol/L (136-145); GLUCOSE 224 mg/dL (65-99); POTASSIUM 3.6 mmol/L (3.5-5.1); SODIUM 141 mmol/L (136-145); TOTAL PROTEIN 5.7 g/dL (6.4-8.2); eGFR NON BLACK RACES 56 (>60)
[2023-06-01] MEDS ORDERED: NS 1,000 ML IV 1,000 ML IV SCH ×2 (21:00→23:45)
[2023-06-01] MEDS ORDERED: LOPRESSOR INJ 5 MG AMP IVP ONE (21:11)
[2023-06-01] MEDS ORDERED: LOPRESSOR INJ 5 MG AMP ONE (21:13)
[2023-06-01] MEDS ORDERED: CARDIZEM INJ 50 MG VIAL IVP ONE (23:11)
[2023-06-01] MEDS ORDERED: CARDIZEM INJ 50 MG VIAL ONE (23:12)
[2023-06-02] MEDS ORDERED: NS 1,000 ML IV 1,000 ML ONE
--- NOTE | 2023-06-02 00:05 | RAD ---
HISTORYcough Relevant Clinical InformationSTUDYCHEST, 1 [id number]/01/2023.FINDINGSThe trachea is midline. The cardiac silhouette is unremarkable. There is a shallow respiration with some minimal basilar atelectasis. The lungs are otherwise clear. There is no pleural effusion. The bony thorax is unremarkable.IMPRESSIONMinimal basilar atelectasis.Electronically signed by: Timmy Emanuel (Jun 02, 2023 00:04:09)
[2023-06-02 01:33] LABS: BILIRUBIN,URINE 2+ (NEGATIVE); BLOOD/HEMOGLOBIN,URINE 1+ (NEGATIVE); GLUCOSE, URINE 2+ (NEGATIVE); KETONES,URINE NEGATIVE (NEGATIVE); LEUKOCYTE ESTERASE ,URINE 3+ (NEGATIVE); NITRITES,URINE NEGATIVE (NEGATIVE); PROTEIN,URINE 2+ (NEGATIVE); UROBILINOGEN,URINE 3+ (NORMAL)
[2023-06-02 01:43] LABS: APPEARANCE,URINE SLIGHTLY HAZY (CLEAR); BACTERIA,URINE 1+ /HPF (NEGATIVE); COLOR,URINE AMBER (YELLOW); SQUAMOUS EPITHELIAL CELL,UR NUMEROUS /HPF (NEGATIVE)
[2023-06-02 02:53] VITALS: BMI 37.0
[2023-06-02 05:28] LABS: ALANINE AMINOTRANSFERASE 70 Units/L (12-78); ALBUMIN 2.6 g/dL (3.4-5.0); ALKALINE PHOSPHATASE 169 Units/L (46-116); ASPARTATE AMINO TRANSFERASE 118 Units/L (15-37); BLOOD UREA NITROGEN 21 mg/dL (7-18); CARBON DIOXIDE 25.8 mmol/L (21-32); CHLORIDE 106 mmol/L (98-107); COR CA(FOR HYPOALB) 9.1 mg/dL (8.5-10.1); COR NA(FOR HYPERGLY) 140 mmol/L (136-145); CREATININE 0.91 mg/dL (0.55-1.02); GLUCOSE 117 mg/dL (65-99); MAGNESIUM 1.7 mg/dL (2.0-2.9); POTASSIUM 4.5 mmol/L (3.5-5.1); SODIUM 140 mmol/L (136-145); eGFR NON BLACK RACES > 60 (>60)
[2023-06-02 05:30] LABS: BASOPHILS % (AUTO) 0.3 % (0.2-1.0); EOSINOPHILS % (AUTO) 0.5 % (0.9-2.9); HEMATOCRIT 34.1 % (36.0-47.0); HEMOGLOBIN 11.4 g/dL (12.0-16.0); LYMPHOCYTES % (AUTO) 13.4 % (21.0-51.0); MEAN CORPUSCULAR HEMOGLOBIN 29.7 pg (27.0-34.0); MEAN CORPUSCULAR HGB CONC 33.4 g/dL (33.0-35.0); MEAN PLATELET VOLUME 10.6 fL (7.4-11.0); MONOCYTES # (AUTO) 0.6 x10^3/uL (0.3-0.8); MONOCYTES % (AUTO) 8.1 % (0.0-13.0); NEUTROPHILS # (AUTO) 5.9 x10^3/uL (2.2-4.8); NEUTROPHILS % (AUTO) 77.7 % (42.0-75.0); PLATELET COUNT 81 X10^3/uL (150.0-450.0); RED BLOOD COUNT 3.83 X10^6/uL (3.5-5.4); RED CELL DISTRIBUTION WIDTH 15.2 % (11.6-16.5); WHITE BLOOD COUNT 7.6 X10^3/uL (3.6-10.0)
[2023-06-02] MEDS ORDERED: CONSULT PHARMACY - POTASSIUM & MAGNESIUM XX SCH (06:00)
[2023-06-02 06:01] LABS: PLATELET MORPHOLOGY COMMENT NORMAL (NORMAL)
[2023-06-02] MEDS: MAG-OX TAB PO SCH ×2 (08:15→10:40)
[2023-06-02] MEDS: K-DUR TAB 20 MEQ PO SCH (08:16)
[2023-06-02] MEDS: INVanz INJ 1 GRAM VIAL 1 G in NS 100 ML IV 100 ML IV SCH (11:01)
[2023-06-02] MEDS: NS 1,000 ML IV 1,000 ML IV SCH ×2 (11:08→15:11)
[2023-06-02] MEDS: TYLENOL 325 MG TAB PO PRN ×2 (12:51→19:37)
[2023-06-02] MEDS ORDERED: COZAAR PO SCH (14:00)
[2023-06-02] MEDS ORDERED: APRESOLINE TAB 25 MG PO SCH (14:00)
[2023-06-02] MEDS: DITROPAN TAB 5 MG PO SCH ×2 (15:09→20:06)
[2023-06-02] MEDS: ZOCOR TAB 20 MG PO SCH (20:06)
[2023-06-02] MEDS: TOPROL XL PO SCH (20:06)
[2023-06-02] MEDS: SEROquel TAB 25 mg PO SCH (20:07)
[2023-06-02] MEDS: NYSTATIN POWDER TOP SCH (21:00)
[2023-06-02] MEDS ORDERED: NYSTATIN POWDER ONE (21:00)
--- NOTE | 2023-06-02 22:35 | DR.H&P ---
H&P - History & Physical for Day of: H&P Date: 06/02/23 - Chief Complaint Chief Complaint: COUGH, FEVER, HEADACHE, WEAKNESS - History of Present Illness History of Present Illness: IS A 82 YEAR OLD PATIENT OF OURS. SHE PRESENTED TO THE ER WITH COMPLAINTS OF COUGH, FEVER, HEADACHE, AND GENERALIZED WEAKNESS. SYMPTOMS HAVE BEEN PRESENT FOR THE PAST WEEK. SHE REPORTS THAT HER COUGH HAS BEEN NON-PRODUCTIVE. HER PMH INCLUDES MULTIPLE TIAs, DEMENTIA, HYPERLIPIDEMIA, HTN, GERD, HERNIA, ARTHRITIS, ASTHMA, DM II, FATTY LIVER, BOWEL RESECTION DUE TO COLON CANCER, CHOLECYSTECTOMY, LEFT KNEE REPLACEMENT. ON ARRIVAL TO THE ER, VITALS WERE: 101.0-135-20-95%-142/63. LABS WERE OBTAINED. WBC 5.7, RBC 4.16, HGB 12.3, HCT 37.3, PLT COUNT 90, PT 13.4, INR 1.04, SODIUM 141, POTASSIUM 3.6, CHLORIDE 104, CARBON DIOXIDE 27.3, BUN 18, CREATININE 1.00, GLUCOSE 224, LACTIC ACIC 2.4, CALCIUM 8.6, TOTAL BILI 2.60, AST 183, ALT 96, ALK PHOS 212, TROPONIN 12.5, TOTAL PROTEIN 5.7, ALBUMIN 3.1. URINALYSIS REVEALED: WBC 10-20, RBC 3-5, LEUKOCYTES 3+, BACTERIA 1+. COVID, INFLUENZA, AND RSV NEGTIVE. BLOOD CULTURES WERE SET UP. A CHEST XRAY WAS OBTAINED AND REVELED: trachea is midline. The cardiac silhouette is unremarkable. There is a shallow respiration with some minimal basilar atelectasis. The lungs are otherwise clear. There is no pleural effusion. The bony thorax is unremarkable. EKG WAS OBTAINED AND REVEALED: trachea is midline. The cardiac silhouette is unremarkable. There is a shallow respiration with some minimal basilar atelectasis. The lungs are otherwise clear. There is no pleural effusion. The bony thorax is unremarkable. EKG INITIALLY REVEALED SINUS TACHYCARDIA WITH HR 136 BPM. SHE EVENTUALLY PROGRESSED TO ATRIAL FIBRILLATION WITH RVR. IN THE ER, SHE WAS GIVEN METOPROLOL 5 MG IV X 1 DOSE WITHOUT REDUCTION IN HEART RATE. SHE WAS THEN GIVEN CARDIZEM 10MG IV. HR DECREASED TO 56 BPM AND BLOOD PRESSURE WAS 104/56. SHE HAD A BRIEF SINUS PAUSE, BUT THEN RETURNED TO ATRIAL FIBRILLATION. SHE WAS ADMITTED TO THE HOSPITAL FOR FURTHER EVALUATION AND TREATMENT OF ATRIAL FIBRILLATION WITH RVR, URINARY TRACT INFECTION, FEVER, ACUTE BRONCHITIS, ELEVATED LIVER ENZYMES. SHE WAS STARTED ON NORMAL SALINE AT 80 ML/HR, INVANZ 1G IV DAILY, TYLENOL 650MG PO Q6H PRN. HER HOME MEDICATIONS OF OXYBUTYNIN, HYDRALAZINE, LOSARTAN, METOPROLOL, NYSTATIN POWDER, DITROPAN, K-DUR, SEROQUEL, AND ZOCOR WERE RESUMED. WE WILL HAVE PHYSICAL AND OCCUPATIONAL THERAPY EVALUATE PATIENT. OTHERWISE, WE WILL FOLLOW-UP WITH AM LABS AND CONTINUE TO MONITOR. TIME SPENT ON CLINICAL ASSESSMENT, REVIWING LABS AND IMAGING, DECISION MAKING, AND DOCUMENTATION GREATER THAN 75 MINUTES. - Past Medical History Past Medical History: Arthritis, Asthma, Diabetes, Dyslipidemia, GERD, Hypertension, Seizures Additional Medical History: CATARACTS, HIATAL HERNIA, DIVERTICULOSIS, COLON CANCER, A-FIB - Past Surgical History Surgical History: Bowel Resection, Cholecystectomy, Joint Replacement, Ortho Surgery Additional Surgical History: COLON RESECTION, CATARACT REMOVAL - Family History Family Medical History: Diabetes Mellitus, Cancer, Coronary Artery Disease, Hypertension - Social History Does patient currently use any type of tobacco product: No Have you used tobacco products in the last 12 months: No Type of Tobacco Use: None Does any household member use tobacco: No Alcohol Use: None Drug Use: None - Review of Systems Constitutional: Fever, Weakness Eyes: No Symptoms Reported ENT: No Symptoms Reported Respiratory: Cough, Shortness of Breath, SOB with Excertion Cardiovascular: Palpitations Gastrointestinal: No Symptoms Reported Genitourinary: No Symptoms Reported Musculoskeletal: No Symptoms Reported Skin: No Symptoms Reported Neurological: Weakness - Physical Exam Vital Signs: Vital Signs Temperature 98.4 F Temperature 98.5 F Temperature 99.2 F Pulse Rate [Apical] 86 Pulse Rate [Apical] 86 Pulse Rate [Apical] 69 Respiratory Rate 20 Respiratory Rate 18 Respiratory Rate 20 Respiratory Rate 18 Respiratory Rate 20 Blood Pressure [Right Arm] 146/73 Blood Pressure [Right Arm] 190/78 Blood Pressure [Right Arm] 142/70 O2 Sat by Pulse Oximetry 96 O2 Sat by Pulse Oximetry 96 O2 Sat by Pulse Oximetry 96 Oriented: Normal Eyes: Normal Ear: Normal Nose: Normal Throat: Normal Respiratory: Diminished Throughout Cardiovascular: Tachycardia, Irregular : Normal Auscultation: Bowel Sounds: Normal Palpation: Normal Tenderness: Normal Skin: Normal Musculoskeletal: Normal Psychiatric: Normal Mood Description: Calm Affect: Normal Speech Pattern: Clear - Assessment/Plan (1) Atrial fibrillation with rapid ventricular response Status: Acute Plan: ADMIT, 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 HER HOME MEDICATIONS OF OXYBUTYNIN, HYDRALAZINE, LOSARTAN, METOPROLOL, NYSTATIN POWDER, DITROPAN, K-DUR, SEROQUEL, AND ZOCOR WERE RESUMED. (2) UTI (urinary tract infection) Qualifiers: Urinary tract infection type: acute cystitis Hematuria presence: with hematuria Qualified Code(s): N30.01 - Acute cystitis with hematuria Status: Acute (3) Acute bronchitis Qualifiers: Bronchitis organism: unspecified organism Qualified Code(s): J20.9 - Acute bronchitis, unspecified Status: Acute (4) Fever Qualifiers: Fever type: unspecified Qualified Code(s): R50.9 - Fever, unspecified Status: Acute (5) Elevated liver enzymes Status: Acute (6) Hypertension Qualifiers: Hypertension type: primary hypertension Status: Chronic (7) GERD (gastroesophageal reflux disease) Qualifiers: Esophagitis presence: esophagitis presence not specified Status: Chronic - Allergies Allergies/Adverse Reactions: Allergies Allergy/AdvReac Type Severity Reaction Status Date / Time No Known Drug Allergies Allergy Verified 01/01/21 18:38 - Medications Home Medications: Home Medications Medication Instructions Recorded Confirmed hydralazine 25 mg tablet 25 mg PO BID 02/25/23 06/01/23 losartan 50 mg tablet 50 mg PO BID 02/25/23 06/01/23 meloxicam 7.5 mg tablet 7.5 mg PO BID 02/25/23 06/01/23 memantine 5 mg tablet 5 mg PO BID 02/25/23 06/01/23 metoprolol succinate 25 mg 25 mg PO QPM 02/25/23 06/01/23 tablet,extended release 24 hr oxybutynin chloride 5 mg tablet 5 mg PO BID 02/25/23 06/01/23 potassium chloride 20 mEq 20 meq PO QDAY 02/25/23 06/01/23 tablet,extended release(part/cryst) quetiapine 25 mg tablet 12.5 mg PO QPM 02/25/23 06/01/23 simvastatin 20 mg tablet 20 mg PO QPM 02/25/23 06/01/23
[2023-06-03] MEDS: NS 1,000 ML IV 1,000 ML IV SCH ×3 (00:12→19:20)
[2023-06-03 05:01] LABS: BASOPHILS % (AUTO) 0.4 % (0.2-1.0); EOSINOPHILS # (AUTO) 0.1 x10^3/uL (0.0-0.2); EOSINOPHILS % (AUTO) 2.9 % (0.9-2.9); HEMATOCRIT 30.5 % (36.0-47.0); HEMOGLOBIN 10.3 g/dL (12.0-16.0); LYMPHOCYTES # (AUTO) 0.8 X10^3/uL (1.3-2.9); LYMPHOCYTES % (AUTO) 22.9 % (21.0-51.0); MEAN CORPUSCULAR HEMOGLOBIN 30.1 pg (27.0-34.0); MEAN CORPUSCULAR HGB CONC 33.7 g/dL (33.0-35.0); MEAN CORPUSCULAR VOLUME 89.4 fL (80.0-100.0); MEAN PLATELET VOLUME 10.1 fL (7.4-11.0); MONOCYTES # (AUTO) 0.3 x10^3/uL (0.3-0.8); MONOCYTES % (AUTO) 8.6 % (0.0-13.0); NEUTROPHILS # (AUTO) 2.2 x10^3/uL (2.2-4.8); NEUTROPHILS % (AUTO) 65.2 % (42.0-75.0); PLATELET COUNT 77 X10^3/uL (150.0-450.0); RED BLOOD COUNT 3.42 X10^6/uL (3.5-5.4); RED CELL DISTRIBUTION WIDTH 14.8 % (11.6-16.5); WHITE BLOOD COUNT 3.4 X10^3/uL (3.6-10.0)
[2023-06-03 05:13] LABS: ALANINE AMINOTRANSFERASE 48 Units/L (12-78); ALBUMIN 2.5 g/dL (3.4-5.0); ALKALINE PHOSPHATASE 162 Units/L (46-116); ASPARTATE AMINO TRANSFERASE 58 Units/L (15-37); BLOOD UREA NITROGEN 18 mg/dL (7-18); CARBON DIOXIDE 27.4 mmol/L (21-32); CHLORIDE 107 mmol/L (98-107); COR CA(FOR HYPOALB) 9.2 mg/dL (8.5-10.1); COR NA(FOR HYPERGLY) 140 mmol/L (136-145); CREATININE 0.82 mg/dL (0.55-1.02); GLUCOSE 117 mg/dL (65-99); SODIUM 140 mmol/L (136-145); eGFR NON BLACK RACES > 60 (>60)
[2023-06-03] MEDS ORDERED: CONSULT PHARMACY - POTASSIUM & MAGNESIUM XX SCH (06:00)
[2023-06-03] MEDS: COZAAR PO SCH ×2 (09:04→12:27)
[2023-06-03] MEDS: APRESOLINE TAB 25 MG PO SCH ×2 (09:04→12:28)
[2023-06-03] MEDS: DITROPAN TAB 5 MG PO SCH ×2 (09:04→20:00)
[2023-06-03] MEDS: K-DUR TAB 20 MEQ PO SCH (09:04)
[2023-06-03] MEDS: INVanz INJ 1 GRAM VIAL 1 G in NS 100 ML IV 100 ML IV SCH (09:05)
[2023-06-03] MEDS: MAG-OX TAB PO SCH ×2 (09:05→10:35)
--- NOTE | 2023-06-03 09:45 | PCM.PROG ---
Progress Note - Progress Note for Day of Date of Exam: 06/03/23 - Subjective Subjective: IS CURRENTLY INPATIENT STATUS FOR TREATMENT OF ATRIAL FIBRILLATION WITH RVR, UTI, ACUTE BRONCHITIS, FEVER, AND ELEVATED LIVER ENZYMES. HER PMH INCLUDES MULTIPLE TIAs, DEMENTIA, HYPERLIPIDEMIA, HTN, GERD, HERNIA, ARTHRITIS, ASTHMA, DM II, FATTY LIVER, BOWEL RESECTION DUE TO COLON CANCER, CHOLECYSTECTOMY, LEFT KNEE REPLACEMENT. TODAY, SHE IS LYING IN BED WITH EYES CLOSED ON MORNING ROUNDS. SHE AWAKENS TO VERBAL STIMULI. HER HEARTRATE IS NOW CONTROLLED AND SHE HAS BEEN AFEBRILE THROUGHOUT THE NIGHT. SHE COMPLAINS OF WEAKNESS AND AN OCCASIONAL COUGH THIS MORNING. NURSING STAFF REPORTS THAT SHE HAS HAD AN UNEVENTFUL NIGHT. ON EXAMINATION TODAY, HEART IS REGULAR IN RATE AND RHYTHM. BILATERAL LUNGS ARE NOTED WITH DIMINISHED LUNG SOUNDS THROUGHOUT. ABDOMEN IS ROUND, SOFT, AND NON-TENDER WITH NORMAL BOWEL SOUNDS NOTED IN ALL QUADRANTS. GOOD MOVEMENT NOTED TO UPPER AND LOWER EXTREMITIES WITH TRACE EDEMA NOTED TO BILATERAL LOWER EXTREMITIES. HER VITALS THIS MORNING ARE: 97.8-90-1 8-94%-163/73. LABS WERE OBTAINED. WBC 3.4, RBC 3.42, HGB 10.3, HCT 30.5, PLT COUNT 77, SODIUM 140, POTASSIUM 4.0, CHLORIDE 107, CARBON DIOXIDE 27.4, BUN 18, CREATININE 0.82, GLUCOSE 117, CALCIUM 8.0, MAGNESIUM 1.8, TOTAL BILI 3.20, AST 58, ALT 48, ALK PHOS 162, TOTAL PROTEIN 5.0, ALBUMIN 2.5. URINE AND BLOOD CULTURES ARE PENDING. SHE IS CURRENTLY RECEIVING NORMAL SALINE AT 80 ML/HR, INVANZ 1G IV DAILY, TYLENOL 650MG PO Q6H PRN. HER HOME MEDICATIONS OF OXYBUTYNIN, HYDRALAZINE, LOSARTAN, METOPROLOL, NYSTATIN POWDER, DITROPAN, K-DUR, SEROQUEL, AND ZOCOR WERE RESUMED. WE WILL CONTINUE WITH CURRENT PLAN OF CARE TODAY. OTHERWISE, WE WILL FOLLOW-UP WITH AM LABS AND CONTINUE TO MONITOR. TIME SPENT ON CLINICAL ASSESSMENT, REVIEWING LABS AND IMAGING, DECISION MAKING, AND DOCUMENTATION GREATER THAN 45 MINUTES. - Past Medical Family Social History Past Med/Fam/Surg Hx: No changes since H&P Allergies: Allergies No Known Drug Allergies Allergy (Verified 01/01/21 18:38) - Review of Systems ROS: No change since H&P - Vital Signs and I&O's Vital Signs: Vital Signs Temperature 97.8 F Pulse Rate [Apical] 90 Respiratory Rate 18 Blood Pressure [Right Arm] 163/73 O2 Sat by Pulse Oximetry 94 Intake and Output: Intake & Output 05/31/23 06/01/23 06/02/23 06/03/23 11:59 11:59 11:59 11:59 Intake Total 378 / 378 3081 / 3081 Output Total 100 / 100 Balance 378 / 378 2981 / 2981 - Physical Exam Oriented: Normal Eyes: Normal Ear: Normal Nose: Normal Throat: Normal Respiratory: Generalized, Diminished Cardiovascular: Tachycardia, Irregular : Normal Auscultation: Bowel Sounds: Normal Palpation: Normal Tenderness: Normal Skin: Normal Musculoskeletal: Normal Psychiatric: Normal Mood Description: Calm Affect: Normal Speech Pattern: Clear, Appropriate - Laboratory and Diagnostics Result Diagrams: 06/03/23 04:25 06/03/23 04:25 Labs: Laboratory WBC 3.4 X10^3/uL (3.6-10.0) L 06/03/23 04:25 RBC 3.42 X10^6/uL (3.5-5.4) L 06/03/23 04:25 Hgb 10.3 g/dL (12.0-16.0) L 06/03/23 04:25 Hct 30.5 % (36.0-47.0) L 06/03/23 04:25 MCV 89.4 fL (80.0-100.0) 06/03/23 04:25 MCH 30.1 pg (27.0-34.0) 06/03/23 04:25 MCHC 33.7 g/dL (33.0-35.0) 06/03/23 04:25 RDW 14.8 % (11.6-16.5) 06/03/23 04:25 Plt Count 77 X10^3/uL (150.0-450.0) L 06/03/23 04:25 Plt Count Comment Decreased (ADEQUATE) A 06/02/23 04:20 MPV 10.1 fL (7.4-11.0) 06/03/23 04:25 Neut % (Auto) 65.2 % (42.0-75.0) 06/03/23 04:25 Lymph % (Auto) 22.9 % (21.0-51.0) 06/03/23 04:25 [place] % (Auto) 8.6 % (0.0-13.0) 06/03/23 04:25 Eos % (Auto) 2.9 % (0.9-2.9) 06/03/23 04:25 Baso % (Auto) 0.4 % (0.2-1.0) 06/03/23 04:25 Neut # (Auto) 2.2 x10^3/uL (2.2-4.8) 06/03/23 04:25 Lymph # (Auto) 0.8 X10^3/uL (1.3-2.9) L 06/03/23 04:25 [place] # (Auto) 0.3 x10^3/uL (0.3-0.8) 06/03/23 04:25 Eos # (Auto) 0.1 x10^3/uL (0.0-0.2) 06/03/23 04:25 Baso # (Auto) 0.0 X10^3/uL (0.0-0.1) 06/03/23 04:25 Absolute Nucleated RBC 0.0 /100WBC 06/03/23 04:25 Plt Morphology Comment Normal (NORMAL) 06/02/23 04:20 RBC Morphology Normal (NORMAL) 06/02/23 04:20 PT 13.4 SECONDS (11.8-14.3) 06/01/23 20:18 INR Target Range - 06/01/23 20:18 INR 1.04 (0.8-1.3) 06/01/23 20:18 APTT 24.5 SECONDS (22.9-36.5) 06/01/23 20:18 PTT Comment - 06/01/23 20:18 Sodium 140 mmol/L (136-145) 06/03/23 04:25 Corrected Sodium 140 mmol/L (136-145) 06/03/23 04:25 Potassium 4.0 mmol/L (3.5-5.1) 06/03/23 04:25 Chloride 107 mmol/L (98-107) 06/03/23 04:25 Carbon Dioxide 27.4 mmol/L (21-32) 06/03/23 04:25 BUN 18 mg/dL (7-18) 06/03/23 04:25 Creatinine 0.82 mg/dL (0.55-1.02) 06/03/23 04:25 Est GFR (MDRD) Af Amer > 60 (>60) 06/03/23 04:25 Est GFR (MDRD) Non-Af > 60 (>60) 06/03/23 04:25 Glucose 117 mg/dL (65-99) H 06/03/23 04:25 POC Glucose (mg/dL) 110 mg/dL (65-99) H 06/03/23 05:35 Lactic Acid 1.6 mmol/L (0.4-2.0) 06/01/23 23:45 Calcium 8.0 mg/dL (8.5-10.1) L 06/03/23 04:25 Corrected Calcium 9.2 mg/dL (8.5-10.1) 06/03/23 04:25 Magnesium 1.8 mg/dL (2.0-2.9) L 06/03/23 04:25 Total Bilirubin 3.20 mg/dL (0.2-1.0) H 06/03/23 04:25 AST 58 Units/L (15-37) H 06/03/23 04:25 ALT 48 Units/L (12-78) 06/03/23 04:25 Alkaline Phosphatase 162 Units/L (46-116) H 06/03/23 04:25 Troponin I High Sens 12.5 ng/L (4.0-60.0) 06/01/23 20:00 Total Protein 5.0 g/dL (6.4-8.2) L 06/03/23 04:25 Albumin 2.5 g/dL (3.4-5.0) L 06/03/23 04:25 Globulin 2.5 g/dL (2.5-4.5) 06/03/23 04:25 Albumin/Globulin Ratio 1.0 Ratio (1.1-2.1) L 06/03/23 04:25 Specimen Type Clean catch urine 06/02/23 01:27 Urine Color [place] (YELLOW) 06/02/23 01:27 Urine Appearance Slightly hazy (CLEAR) 06/02/23 01:27 Urine pH 6.0 (5.0 - 8.0) 06/02/23 01:27 Ur Specific [place] 1.010 (1.000-1.030) 06/02/23 01:27 Urine Protein 2+ (NEGATIVE) 06/02/23 01:27 Urine Glucose (UA) 2+ (NEGATIVE) 06/02/23 01:27 Urine Ketones Negative (NEGATIVE) 06/02/23 01:27 Urine Blood 1+ (NEGATIVE) 06/02/23 01:27 Urine Nitrite Negative (NEGATIVE) 06/02/23 01:27 Urine Bilirubin 2+ (NEGATIVE) 06/02/23 01:27 Urine Urobilinogen 3+ (NORMAL) 06/02/23 01:27 Ur Leukocyte Esterase 3+ (NEGATIVE) 06/02/23 01:27 Urine RBC 3-5 /HPF (0-3) A 06/02/23 01:27 Urine WBC 10-20 /HPF (0-5) A 06/02/23 01:27 Ur Squamous Epith Cells Numerous /HPF (NEGATIVE) 06/02/23 01:27 Urine Bacteria 1+ /HPF (NEGATIVE) 06/02/23 01:27 Ur Culture Indicated? 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 HER HOME MEDICATIONS OF OXYBUTYNIN, HYDRALAZINE, LOSARTAN, METOPROLOL, NYSTATIN POWDER, DITROPAN, K-DUR, SEROQUEL, AND ZOCOR WERE RESUMED. (2) UTI (urinary tract infection) Status: Acute Qualifiers: Urinary tract infection type: acute cystitis Hematuria presence: with hematuria Qualified Code(s): N30.01 - Acute cystitis with hematuria Plan: IV ANTIBIOTICS (3) Acute bronchitis Status: Acute Qualifiers: Bronchitis organism: unspecified organism Qualified Code(s): J20.9 - Acute bronchitis, unspecified (4) Fever Status: Resolved Qualifiers: Fever type: unspecified Qualified Code(s): R50.9 - Fever, unspecified (5) Elevated liver enzymes Status: Acute Plan: IMPROVING, CONTINUE TO MONITOR (6) Hypertension Status: Chronic Qualifiers: Hypertension type: primary hypertension Plan: CONTINUE HYDRALAZINE, LOSARTAN, AND METOPROLOL (7) GERD (gastroesophageal reflux disease) Status: Chronic Qualifiers: Esophagitis presence: esophagitis presence not specified Plan: STABLE. CONTINUE TO MONITOR
[2023-06-03] MEDS: NYSTATIN POWDER TOP SCH ×2 (10:29→20:01)
[2023-06-03] MEDS: TOPROL XL PO SCH (20:00)
[2023-06-03] MEDS: ZOCOR TAB 20 MG PO SCH (20:00)
[2023-06-03] MEDS: SEROquel TAB 25 mg PO SCH (20:00)
[2023-06-03] MEDS ORDERED: CATAPRES TAB 0.1 MG PO ONE (21:09)
[2023-06-03] MEDS ORDERED: CATAPRES TAB 0.1 MG ONE (21:14)
[2023-06-04] MEDS: NS 1,000 ML IV 1,000 ML IV SCH ×2 (05:09→20:01)
[2023-06-04 05:36] LABS: EOSINOPHILS # (AUTO) 0.1 x10^3/uL (0.0-0.2); EOSINOPHILS % (AUTO) 3.5 % (0.9-2.9); HEMATOCRIT 29.3 % (36.0-47.0); HEMOGLOBIN 9.8 g/dL (12.0-16.0); LYMPHOCYTES # (AUTO) 0.7 X10^3/uL (1.3-2.9); LYMPHOCYTES % (AUTO) 27.4 % (21.0-51.0); MEAN CORPUSCULAR HEMOGLOBIN 30.1 pg (27.0-34.0); MEAN CORPUSCULAR HGB CONC 33.6 g/dL (33.0-35.0); MEAN CORPUSCULAR VOLUME 89.7 fL (80.0-100.0); MEAN PLATELET VOLUME 9.6 fL (7.4-11.0); MONOCYTES # (AUTO) 0.2 x10^3/uL (0.3-0.8); MONOCYTES % (AUTO) 8.6 % (0.0-13.0); NEUTROPHILS # (AUTO) 1.6 x10^3/uL (2.2-4.8); NEUTROPHILS % (AUTO) 59.5 % (42.0-75.0); PLATELET COUNT 79 X10^3/uL (150.0-450.0); RED BLOOD COUNT 3.26 X10^6/uL (3.5-5.4); RED CELL DISTRIBUTION WIDTH 14.9 % (11.6-16.5); WHITE BLOOD COUNT 2.7 X10^3/uL (3.6-10.0)
[2023-06-04 05:53] LABS: ALANINE AMINOTRANSFERASE 37 Units/L (12-78); ALBUMIN 2.3 g/dL (3.4-5.0); ALKALINE PHOSPHATASE 154 Units/L (46-116); ASPARTATE AMINO TRANSFERASE 44 Units/L (15-37); BLOOD UREA NITROGEN 10 mg/dL (7-18); CALCIUM 8.1 mg/dL (8.5-10.1); CARBON DIOXIDE 27.2 mmol/L (21-32); CHLORIDE 107 mmol/L (98-107); COR CA(FOR HYPOALB) 9.5 mg/dL (8.5-10.1); COR NA(FOR HYPERGLY) 142 mmol/L (136-145); CREATININE 0.78 mg/dL (0.55-1.02); GLUCOSE 130 mg/dL (65-99); MAGNESIUM 1.8 mg/dL (2.0-2.9); POTASSIUM 3.7 mmol/L (3.5-5.1); SODIUM 141 mmol/L (136-145); TOTAL PROTEIN 4.8 g/dL (6.4-8.2); eGFR NON BLACK RACES > 60 (>60)
[2023-06-04] MEDS ORDERED: CONSULT PHARMACY - POTASSIUM & MAGNESIUM XX SCH (07:00)
[2023-06-04] MEDS: APRESOLINE TAB 25 MG PO SCH ×2 (08:27→13:26)
[2023-06-04] MEDS: DITROPAN TAB 5 MG PO SCH ×2 (08:27→20:49)
[2023-06-04] MEDS: MAG-OX TAB PO SCH ×2 (08:27→10:00)
[2023-06-04] MEDS: K-DUR TAB 20 MEQ PO SCH (08:27)
[2023-06-04] MEDS: COZAAR PO SCH ×2 (08:28→13:27)
[2023-06-04] MEDS: INVanz INJ 1 GRAM VIAL 1 G in NS 100 ML IV 100 ML IV SCH (08:29)
[2023-06-04] MEDS: NYSTATIN POWDER TOP SCH ×2 (08:36→20:50)
[2023-06-04] MEDS ORDERED: K-DUR TAB 20 MEQ PO ONE (09:00)
[2023-06-04] MEDS ORDERED: LASIX IVP ONE ×2 (09:10→13:23)
[2023-06-04] MEDS ORDERED: TOPROL XL PO ONE ×2 (09:11→13:23)
--- NOTE | 2023-06-04 11:44 | PCM.PROG ---
Progress Note - Progress Note for Day of Date of Exam: 06/04/23 - Subjective Subjective: IS CURRENTLY INPATIENT STATUS FOR TREATMENT OF ATRIAL FIBRILLATION WITH RVR, UTI, ACUTE BRONCHITIS, FEVER, AND ELEVATED LIVER ENZYMES. HER PMH INCLUDES MULTIPLE TIAs, DEMENTIA, HYPERLIPIDEMIA, HTN, GERD, HERNIA, ARTHRITIS, ASTHMA, DM II, FATTY LIVER, BOWEL RESECTION DUE TO COLON CANCER, CHOLECYSTECTOMY, LEFT KNEE REPLACEMENT. TODAY, SHE IS LYING IN BED WITH EYES CLOSED ON MORNING ROUNDS. SHE AWAKENS TO VERBAL STIMULI. HER HEARTRATE IS NOW CONTROLLED AND SHE HAS BEEN AFEBRILE THROUGHOUT THE NIGHT. SHE COMPLAINS OF WEAKNESS AND AN OCCASIONAL COUGH THIS MORNING. NURSING STAFF REPORTS THAT SHE WAS DIZZY AND HAD A NEAR SYNCOPAL EPISODE LAST NIGHT. HER BLOOD PRESSURE WAS CHECKED DURING THE EPISODE AND WAS NOTED TO BE 243/107. PATIENT WAS ATTEMPTING TO AMBULATE TO THE BEDSIDE COMMONDE WITH ASSISTANCE WHEN THE EPISODE OCCURRED. AFTER SHE RETURNED TO BED AND SETTLED DOWN, HER BLOOD PRESSURE DECREASED TO 185/84. SHE REMAINS HYPERTENSIVE THIS MORNING. ON EXAMINATION TODAY, HEART IS REGULAR IN RATE AND RHYTHM. BILATERAL LUNGS ARE NOTED WITH DIMINISHED LUNG SOUNDS THROUGHOUT. ABDOMEN IS ROUND, SOFT, AND NON-TENDER WITH NORMAL BOWEL SOUNDS NOTED IN ALL QUADRANTS. GOOD MOVEMENT NOTED TO UPPER AND LOWER EXTREMITIES WITH TRACE EDEMA NOTED TO BILATERAL LOWER EXTREMITIES. HER VITALS THIS MORNING ARE: 97.9-73-18-96%-187/77. LABS WERE OBTAINED. WBC 2.7, RBC 3.26, HGB 9.8, HCT 29.3, PLT COUNT 79, SODIUM 141, POTASSIUM 3.7, CHLORIDE 107, CARBON DIOXIDE 27.2, BUN 10, CREATININE 0.78, GLUCOSE 130, CALCIUM 8.1, TOTAL BILI 1.40, AST 44, ALT 37, ALK PHOS 154, TOTAL PROTEIN 4.8, ALBUMIN 2.3. URINE AND BLOOD CULTURES ARE PENDING. SHE IS CURRENTLY RECEIVING NORMAL SALINE AT 80 ML/HR, INVANZ 1G IV DAILY, TYLENOL 650MG PO Q6H PRN. HER HOME MEDICATIONS OF OXYBUTYNIN, HYDRALAZINE, LOSARTAN, METOPROLOL, NYSTATIN POWDER, DITROPAN, K-DUR, SEROQUEL, AND ZOCOR WERE RESUMED. TODAY, WE WILL GIVEN HER METOPROLOL 25MG PO X 1 DOSE THIS MORNING AND THEN INCREASE HER NIGHTTIME DOSE OF METOPROLOL XL TO 50MG HS. WE WILL ALSO ADMINISTER LASIX 40MG IV X 1 DOSE. OTHERWISE, WE WILL CONTINUE WITH CURRENT PLAN OF CARE TODAY. WE WILL FOLLOW-UP WITH AM LABS AND CONTINUE TO MONITOR. TIME SPENT ON CLINICAL ASSESSMENT, REVIEWING LABS AND IMAGING, DECISION MAKING, AND DOCUMENTATION GREATER THAN 45 MINUTES. - Past Medical Family Social History Past Med/Fam/Surg Hx: No changes since H&P Allergies: Allergies No Known Drug Allergies Allergy (Verified 01/01/21 18:38) - Review of Systems ROS: No change since H&P - Vital Signs and I&O's Vital Signs: Vital Signs Temperature 97.9 F Pulse Rate [Apical] 73 Pulse Rate [Apical] 82 Respiratory Rate 18 Respiratory Rate 20 Blood Pressure [Right Arm] 187/77 Blood Pressure [Right Arm] 168/77 O2 Sat by Pulse Oximetry 96 O2 Sat by Pulse Oximetry 94 Intake and Output: Intake & Output 06/01/23 06/02/23 06/03/23 06/04/23 11:59 11:59 11:59 11:59 Intake Total 378 / 378 3081 / 3081 2317 / 2317 Output Total 100 / 100 Balance 378 / 378 2981 / 2981 2317 / 2317 - Physical Exam Oriented: Normal Eyes: Normal Ear: Normal Nose: Normal Throat: Normal Respiratory: Generalized, Diminished Cardiovascular: Tachycardia, Irregular : Normal Auscultation: Bowel Sounds: Normal Palpation: Normal Tenderness: Normal Skin: Normal Musculoskeletal: Normal Psychiatric: Normal Mood Description: Calm Affect: Normal Speech Pattern: Clear, Appropriate - Laboratory and Diagnostics Result Diagrams: 06/04/23 05:14 06/04/23 05:14 Labs: 06/03/23 00:02 Urine,Clean Catch Urine Culture - Preliminary 06/01/23 20:15 Blood Blood Culture - Preliminary 06/01/23 20:00 Blood Blood Culture - Preliminary Laboratory WBC 2.7 X10^3/uL (3.6-10.0) L 06/04/23 05:14 RBC 3.26 X10^6/uL (3.5-5.4) L 06/04/23 05:14 Hgb 9.8 g/dL (12.0-16.0) L 06/04/23 05:14 Hct 29.3 % (36.0-47.0) L 06/04/23 05:14 MCV 89.7 fL (80.0-100.0) 06/04/23 05:14 MCH 30.1 pg (27.0-34.0) 06/04/23 05:14 MCHC 33.6 g/dL (33.0-35.0) 06/04/23 05:14 RDW 14.9 % (11.6-16.5) 06/04/23 05:14 Plt Count 79 X10^3/uL (150.0-450.0) L 06/04/23 05:14 Plt Count Comment Decreased (ADEQUATE) A 06/02/23 04:20 MPV 9.6 fL (7.4-11.0) 06/04/23 05:14 Neut % (Auto) 59.5 % (42.0-75.0) 06/04/23 05:14 Lymph % (Auto) 27.4 % (21.0-51.0) 06/04/23 05:14 [place] % (Auto) 8.6 % (0.0-13.0) 06/04/23 05:14 Eos % (Auto) 3.5 % (0.9-2.9) H 06/04/23 05:14 Baso % (Auto) 1.0 % (0.2-1.0) 06/04/23 05:14 Neut # (Auto) 1.6 x10^3/uL (2.2-4.8) L 06/04/23 05:14 Lymph # (Auto) 0.7 X10^3/uL (1.3-2.9) L 06/04/23 05:14 [place] # (Auto) 0.2 x10^3/uL (0.3-0.8) L 06/04/23 05:14 Eos # (Auto) 0.1 x10^3/uL (0.0-0.2) 06/04/23 05:14 Baso # (Auto) 0.0 X10^3/uL (0.0-0.1) 06/04/23 05:14 Absolute Nucleated RBC 0.2 /100WBC 06/04/23 05:14 Plt Morphology Comment Normal (NORMAL) 06/02/23 04:20 RBC Morphology Normal (NORMAL) 06/02/23 04:20 PT 13.4 SECONDS (11.8-14.3) 06/01/23 20:18 INR Target Range - 06/01/23 20:18 INR 1.04 (0.8-1.3) 06/01/23 20:18 APTT 24.5 SECONDS (22.9-36.5) 06/01/23 20:18 PTT Comment - 06/01/23 20:18 Sodium 141 mmol/L (136-145) 06/04/23 05:14 Corrected Sodium 142 mmol/L (136-145) 06/04/23 05:14 Potassium 3.7 mmol/L (3.5-5.1) 06/04/23 05:14 Chloride 107 mmol/L (98-107) 06/04/23 05:14 Carbon Dioxide 27.2 mmol/L (21-32) 06/04/23 05:14 BUN 10 mg/dL (7-18) 06/04/23 05:14 Creatinine 0.78 mg/dL (0.55-1.02) 06/04/23 05:14 Est GFR (MDRD) Af Amer > 60 (>60) 06/04/23 05:14 Est GFR (MDRD) Non-Af > 60 (>60) 06/04/23 05:14 Glucose 130 mg/dL (65-99) H 06/04/23 05:14 POC Glucose (mg/dL) 133 mg/dL (65-99) H 06/04/23 10:53 Lactic Acid 1.6 mmol/L (0.4-2.0) 06/01/23 23:45 Calcium 8.1 mg/dL (8.5-10.1) L 06/04/23 05:14 Corrected Calcium 9.5 mg/dL (8.5-10.1) 06/04/23 05:14 Magnesium 1.8 mg/dL (2.0-2.9) L 06/04/23 05:14 Total Bilirubin 1.40 mg/dL (0.2-1.0) H 06/04/23 05:14 AST 44 Units/L (15-37) H 06/04/23 05:14 ALT 37 Units/L (12-78) 06/04/23 05:14 Alkaline Phosphatase 154 Units/L (46-116) H 06/04/23 05:14 Troponin I High Sens 12.5 ng/L (4.0-60.0) 06/01/23 20:00 Total Protein 4.8 g/dL (6.4-8.2) L 06/04/23 05:14 Albumin 2.3 g/dL (3.4-5.0) L 06/04/23 05:14 Globulin 2.5 g/dL (2.5-4.5) 06/04/23 05:14 Albumin/Globulin Ratio 0.9 Ratio (1.1-2.1) L 06/04/23 05:14 Specimen Type Clean catch urine 06/02/23 01:27 Urine Color [place] (YELLOW) 06/02/23 01:27 Urine Appearance Slightly hazy (CLEAR) 06/02/23 01:27 Urine pH 6.0 (5.0 - 8.0) 06/02/23 01:27 Ur Specific [place] 1.010 (1.000-1.030) 06/02/23 01:27 Urine Protein 2+ (NEGATIVE) 06/02/23 01:27 Urine Glucose (UA) 2+ (NEGATIVE) 06/02/23 01:27 Urine Ketones Negative (NEGATIVE) 06/02/23 01:27 Urine Blood 1+ (NEGATIVE) 06/02/23 01:27 Urine Nitrite Negative (NEGATIVE) 06/02/23 01:27 Urine Bilirubin 2+ (NEGATIVE) 06/02/23 01:27 Urine Urobilinogen 3+ (NORMAL) 06/02/23 01:27 Ur Leukocyte Esterase 3+ (NEGATIVE) 06/02/23 01:27 Urine RBC 3-5 /HPF (0-3) A 06/02/23 01:27 Urine WBC 10-20 /HPF (0-5) A 06/02/23 01:27 Ur Squamous Epith Cells Numerous /HPF (NEGATIVE) 06/02/23 01:27 Urine Bacteria 1+ /HPF (NEGATIVE) 06/02/23 01:27 Ur Culture Indicated? 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 HER HOME MEDICATIONS OF OXYBUTYNIN, HYDRALAZINE, LOSARTAN, METOPROLOL, NYSTATIN POWDER, DITROPAN, K-DUR, SEROQUEL, AND ZOCOR WERE RESUMED. (2) UTI (urinary tract infection) Status: Acute Qualifiers: Urinary tract infection type: acute cystitis Hematuria presence: with hematuria Qualified Code(s): N30.01 - Acute cystitis with hematuria Plan: IV ANTIBIOTICS (3) Acute bronchitis Status: Acute Qualifiers: Bronchitis organism: unspecified organism Qualified Code(s): J20.9 - Acute bronchitis, unspecified (4) Fever Status: Resolved Qualifiers: Fever type: unspecified Qualified Code(s): R50.9 - Fever, unspecified (5) Elevated liver enzymes Status: Acute Plan: IMPROVING, CONTINUE TO MONITOR (6) Hypertension Status: Chronic Qualifiers: Hypertension type: primary hypertension Plan: INCREASE METOPROLOL TO 50MG PO HS, CONTINUE HYDRALAZINE, LOSARTAN (7) GERD (gastroesophageal reflux disease) Status: Chronic Qualifiers: Esophagitis presence: esophagitis presence not specified Plan: STABLE. CONTINUE TO MONITOR
[2023-06-04] MEDS: ZOCOR TAB 20 MG PO SCH (20:49)
[2023-06-04] MEDS: SEROquel TAB 25 mg PO SCH (20:49)
[2023-06-04] MEDS ORDERED: TOPROL XL PO SCH (21:00)
[2023-06-05 00:08] VITALS: RESP 20
[2023-06-05 04:13] VITALS: O2SAT 94
[2023-06-05 06:02] LABS: BASOPHILS % (AUTO) 0.8 % (0.2-1.0); EOSINOPHILS # (AUTO) 0.2 x10^3/uL (0.0-0.2); EOSINOPHILS % (AUTO) 3.7 % (0.9-2.9); HEMOGLOBIN 11.5 g/dL (12.0-16.0); LYMPHOCYTES # (AUTO) 1.4 X10^3/uL (1.3-2.9); LYMPHOCYTES % (AUTO) 33.2 % (21.0-51.0); MEAN CORPUSCULAR HGB CONC 33.8 g/dL (33.0-35.0); MEAN CORPUSCULAR VOLUME 88.8 fL (80.0-100.0); MEAN PLATELET VOLUME 9.5 fL (7.4-11.0); MONOCYTES # (AUTO) 0.4 x10^3/uL (0.3-0.8); MONOCYTES % (AUTO) 8.6 % (0.0-13.0); NEUTROPHILS # (AUTO) 2.2 x10^3/uL (2.2-4.8); NEUTROPHILS % (AUTO) 53.7 % (42.0-75.0); PLATELET COUNT 121 X10^3/uL (150.0-450.0); RED BLOOD COUNT 3.83 X10^6/uL (3.5-5.4); RED CELL DISTRIBUTION WIDTH 15.2 % (11.6-16.5); WHITE BLOOD COUNT 4.2 X10^3/uL (3.6-10.0)
[2023-06-05 06:37] LABS: ALANINE AMINOTRANSFERASE 36 Units/L (12-78); ALBUMIN 2.6 g/dL (3.4-5.0); ALKALINE PHOSPHATASE 171 Units/L (46-116); ASPARTATE AMINO TRANSFERASE 34 Units/L (15-37); BLOOD UREA NITROGEN 10 mg/dL (7-18); CALCIUM 8.6 mg/dL (8.5-10.1); CARBON DIOXIDE 27.4 mmol/L (21-32); CHLORIDE 106 mmol/L (98-107); COR CA(FOR HYPOALB) 9.7 mg/dL (8.5-10.1); COR NA(FOR HYPERGLY) 141 mmol/L (136-145); CREATININE 0.78 mg/dL (0.55-1.02); GLUCOSE 113 mg/dL (65-99); SODIUM 141 mmol/L (136-145); TOTAL PROTEIN 5.4 g/dL (6.4-8.2); eGFR NON BLACK RACES > 60 (>60)
[2023-06-05 08:38] VITALS: BP 185/75; PULSE 70; TEMP 97.1
[2023-06-05] MEDS: NYSTATIN POWDER TOP SCH (09:30)
[2023-06-05] MEDS: COZAAR PO SCH (09:35)
[2023-06-05] MEDS: INVanz INJ 1 GRAM VIAL 1 G in NS 100 ML IV 100 ML IV SCH (09:36)
[2023-06-05] MEDS: APRESOLINE TAB 25 MG PO SCH (09:36)
[2023-06-05] MEDS: K-DUR TAB 20 MEQ PO SCH (09:36)
[2023-06-05] MEDS: DITROPAN TAB 5 MG PO SCH (09:36)
[2023-06-05] MEDS: NS 1,000 ML IV 1,000 ML IV SCH (11:16)
== END 2023-06-05 10:55 | disposition home health service (06) | DRG 309 ==
LOC: ER 19:47 → MED/SURG 06-02 01:14
PROVIDERS: ADMIT Internal Medicine; ATTEND Internal Medicine
DX: R51.9 Headache, unspecified; Z86.73 Personal history of transient ischemic attack (TIA), and cerebral infarction without residual deficits; K21.9 Gastro-esophageal reflux disease without esophagitis; E78.2 Mixed hyperlipidemia; R53.1 Weakness; R94.5 Abnormal results of liver function studies; R26.89 Other abnormalities of gait and mobility; N30.01 Acute cystitis with hematuria; I48.91 Unspecified atrial fibrillation; E11.65 Type 2 diabetes mellitus with hyperglycemia; R55 Syncope and collapse; J20.8 Acute bronchitis due to other specified organisms; R00.0 Tachycardia, unspecified; I10 Essential (primary) hypertension; Z20.822 Contact with and (suspected) exposure to COVID-19